=== PATIENT | male | born 1970 | race Caucasian/White ===

== ENCOUNTER → 2019-07-14 | Outpatient (CLI) | payer BC, MEDICARE ==
--- NOTE | 2019-07-14 13:35 | KCIC ---
LUMBAR SPINE WO CONTRAST History: Left leg and back pain. Technique: Multiplanar, multi sequential MR imaging was performed of the lumbar spine. Comparison: None Findings: Grade 1 anterolisthesis L4 on L5. Minimal retrolisthesis L5 on S1. Normal vertebral body height. No fracture. No pathologic marrow replacing process. Endplate degenerative changes L5-S1. Conus terminates at the normal location. No evidence of nerve root clumping. L1-L2: No canal or neuroforaminal narrowing. L2-L3: No canal or neuroforaminal narrowing. L3-L4: Minimal posterior disc bulge. No canal or neuroforaminal narrowing. Mild facet arthropathy. L4-L5: Anterolisthesis. Disc uncovering. Slight left foraminal disc protrusion. Advanced facet arthropathy. No canal narrowing. Mild left neural foraminal narrowing. L5-S1: Minimal retrolisthesis. Broad-based disc bulge. Superimposed central disc protrusion with annular fissure. Moderate facet arthropathy. Slight abutment of the descending right S1 nerve root within the subarticular recess. No canal narrowing. Mild bilateral neural foraminal narrowing. Impression: 1. Lower lumbar spondylosis with advanced L4-L5 facet arthropathy contributing to grade 1 anterolisthesis L4 on L5. 2. L5-S1 right central disc protrusion contacting the descending right S1 nerve root. Correlate for radiculopathy. 3. Mild bilateral L5-S1 and left L4-L5 neuroforaminal narrowing. Electronically signed by: Elier Aquino DO (07/14/2019 1:32 PM) [id number]
== END | disposition home or self-care (01) ==
LOC: KCIC MRI 10:24
PROVIDERS: ATTEND Orthopaedic Surgery
DX: M47.26 Other spondylosis with radiculopathy, lumbar region (principal); M51.17 Intervertebral disc disorders with radiculopathy, lumbosacral region; M48.061 Spinal stenosis, lumbar region without neurogenic claudication; M12.88 Other specific arthropathies, not elsewhere classified, other specified site
CPT/HCPCS: 72148

== ENCOUNTER 2019-08-16 15:50 | Emergency (ER) | payer BC, MEDICARE ==
[~2019-08-16] VITALS: Ht 170.2 cm; Wt 104.3 kg
[2019-08-16 15:59] VITALS: BP 159/105
[2019-08-16] MEDS ORDERED: NAPROXEN 500 MG TABLET PO STA (16:10)
[2019-08-16] MEDS ORDERED: HYDROcodone/APAP 5/325MG 1 TAB TABLET PO ONE (16:15)
--- NOTE | 2019-08-16 16:29 | PHYS DOC ---
Past Medical History Past Medical History: Diabetes-Type II, Hypertension Alcohol Use: None Drug Use: None Adult General Chief Complaint Chief Complaint: MECHANICAL FALL HPI HPI Patient is a 48 year old male with history of diabetes type 2, hypertension among bilateral knee replacement who presents to the ED today complaining of shooting 9 out of 10 left knee pain that began 4 days ago after he tripped on his feet and fell. Patient denies any loss of consciousness. States the pain is worse on weight bearing. Denies anything specifically relieving the pain. Review of Systems Review of Systems Constitutional: Denies fever or chills [] Musculoskeletal: Reports left knee pain Integument: Denies rash or skin lesions [] Neurologic: Denies headache, focal weakness or sensory changes [] All other systems were reviewed and found to be within normal limits, except as documented in this note. Current Medications Current Medications Current Medications Medications (Trade) Dose Ordered Sig/Jermaine Start Time Stop Time Status Last Admin Dose Admin Acetaminophen/ Hydrocodone Bitart (Lortab 5/325) 2 tab 1X ONCE 08/16/19 16:15 08/16/19 16:16 DC 08/16/19 16:28 2 TAB Naproxen (Naprosyn) 500 mg 1X STAT 08/16/19 16:10 08/16/19 16:14 DC 08/16/19 16:28 500 MG Allergies Allergies Allergies Coded Allergies Type Severity Reaction Last Updated Verified No Known Drug Allergies 08/16/19 No Physical Exam Physical Exam Constitutional: Well developed, well nourished, no acute distress, non-toxic appearance. [] Skin: Warm, dry, no erythema, no rash. [] Back: No tenderness, no CVA tenderness. [] Extremities: Left knee with mild to moderate soft tissue swelling, old healed surgical incision noted midline knee tenderness diffusely throughout the anterior aspect of the knee. Slightly Limited range of motion to the left knee due to pain patient able to straighten the knee and flex it a little. +2 left pedal pulse. Cap refill less than 2 seconds and left lower extremity. Sensation intact to the left lower extremity. Neurologic: Alert and oriented X 3, normal motor function, normal sensory function, no focal deficits noted. [] Psychologic: Affect normal, judgement normal, mood normal. [] Current Patient Data Vital Signs Vital Signs Date Time Temp Pulse Resp B/P (MAP) Pulse Ox O2 Delivery O2 Flow Rate FiO2 11/3/19 15:59 98.2 103 20 159/105 (123) 100 Room Air 98.2 EKG EKG [] Radiology/Procedures Radiology/Procedures []PROCEDURE: KNEE LEFT 4V Exam: Left knee 4 views INDICATION: Fall TECHNIQUE: Frontal, lateral and oblique views of the left knee with sunrise views Comparisons: 06/01/2019 FINDINGS: There is dissociation of the patellar component of the left knee arthroplasty from the posterior aspect of the patella seen best on sunrise view. There is diffuse soft tissue swelling at the knee. Femoral and tibial component of the arthroplasty appear in appropriate position without evidence of complication. There is a large suprapatellar effusion. IMPRESSION: Dissociation of the patellar component of the left knee arthroplasty from the posterior aspect of the patella seen best on sunrise view with surrounding soft tissue swelling and large suprapatellar effusion. Electronically signed by: Brian Cedillo MD (08/16/2019 4:33 PM) [facility] DICTATED and SIGNED BY: BRIAN CEDILLO MD DATE: 08/16/19 1633 Course & Med Decision Making Course & Med Decision Making Pertinent Labs and Imaging studies reviewed. (See chart for details) This is a 48-year-old male patient presenting to the ED today with left knee pain status post falling 4 days ago.left knee x-rays interpreted by radiologist is noted for dissociation of the patellar component of the left knee arthroplasty from the posterior aspect of the patella seen best on sunrise view with surrounding soft tissue swelling and large suprapatellar effusion Above results were discussed with states the dislocation is chronic and patient is to follow-up with orthopedic doctor. Immobilizer applied to the left knee by the ED RN, neurovascular exam is intact. Ice elevation encouraged. Patient has oxycodone at home and instructed to take it as needed. Dragon Disclaimer Dragon Disclaimer This electronic medical record was generated, in whole or in part, using a voice recognition dictation system. Departure Departure Impression: Primary Impression: Fall from standing Additional Impressions: Contusion of left knee Closed patellar dislocation Disposition: HOME, SELF-CARE Condition: STABLE Referrals: CHAU MONTGOMERY APRN (PCP) ELISHA BOWDEN MD follow up in the next one week Patient Instructions: Knee Pain, [id number] Additional Instructions: Please follow up with Dr. Bowden as scheduled. Please ice and elevate the affected extremity Please continue to take your pain medicine at home as needed Problem Qualifiers Primary Impression: Fall from standing Encounter type: initial encounter Qualified Codes: W19.XXXA - Unspecified fall, initial encounter Additional Impressions: Contusion of left knee Encounter type: initial encounter Qualified Codes: S80.02XA - Contusion of left knee, initial encounter Closed patellar dislocation Encounter type: initial encounter Laterality: left Qualified Codes: S83.005A - Unspecified dislocation of left patella, initial encounter MARY POLLACK FRETTED INSTRUMENT INSPECTOR Aug 16, 2019 16:29
--- NOTE | 2019-08-16 16:36 | RAD ---
Exam: Left knee 4 views INDICATION: Fall TECHNIQUE: Frontal, lateral and oblique views of the left knee with sunrise views Comparisons: 06/01/2019 FINDINGS: There is dissociation of the patellar component of the left knee arthroplasty from the posterior aspect of the patella seen best on sunrise view. There is diffuse soft tissue swelling at the knee. Femoral and tibial component of the arthroplasty appear in appropriate position without evidence of complication. There is a large suprapatellar effusion. IMPRESSION: Dissociation of the patellar component of the left knee arthroplasty from the posterior aspect of the patella seen best on sunrise view with surrounding soft tissue swelling and large suprapatellar effusion. Electronically signed by: Brian Guillaume MD (08/16/2019 4:33 PM) [facility]
== END 2019-08-16 17:10 | disposition home or self-care (01) ==
LOC: ER 15:50
DX: S83.095A Other dislocation of left patella, initial encounter (principal); E11.9 Type 2 diabetes mellitus without complications; I10 Essential (primary) hypertension; Z96.653 Presence of artificial knee joint, bilateral; W18.39XA Other fall on same level, initial encounter; Y93.89 Activity, other specified; Y92.89 Other specified places as the place of occurrence of the external cause; Y99.8 Other external cause status
CPT/HCPCS: 29505; 73564; 99284

== ENCOUNTER 2019-09-13 19:17 | Inpatient (IN) | payer BC, MEDICARE ==
[~2019-09-13] VITALS: Ht 170.2 cm; Wt 107.0 kg
[~2019-09-13 19:17] MED LIST: BENA1TAB5 PO; CELE200C PO; CLON0.5T PO; DAPA5TAB PO; DOXE50CA PO; FERR325T14 PO; FLUO40CA2 PO; HYDR-2765 PO; INSU100C4 SQ; INSU100V13 SQ; LEVO100T PO; LEVO25TA55 PO; LISI2.5T PO; LITH150C PO; LITH300T3 PO; LITH450T PO; MELO15TA6 PO; META-21 PO; OXYC10TA PO; OXYC1TAB19 PO; OXYC1TAB8 PO; POTA20TA12 PO; SENN1TAB62 PO; SITA1TAB11 PO; TIZA4CAP3 PO; WARF-31 PO; WARF-78 PO; WARF2TAB96 PO; ZIPR20CA2 PO; ZIPR40CA2 PO; doxipen; doxipen PO; flexeril; geodon PO; hydrocodone
[2019-09-13] MEDS ORDERED: ONDANSETRON PF 4 MG/2 ML VIAL. IV ONE (20:45)
[2019-09-13] MEDS ORDERED: IV NORMAL SALINE 1000ML BAG 1,000 ML IV ONE (20:45)
[2019-09-13] MEDS ORDERED: MORPHINE SULFATE 4 MG/ML VIAL. IV ONE (20:45)
[2019-09-13 21:13] LABS: BASO # 0.1 x10^3/uL (0.0-0.2); BASO % 1 % (0-3); EOS # 0.2 x10^3/uL (0.0-0.7); EOS % 3 % (0-3); HEMATOCRIT 32.4 % (39.0-53.0); HEMOGLOBIN 10.4 g/dL (13.0-17.5); LYMPH # 1.6 x10^3/uL (1.0-4.8); LYMPH % 24 % (24-48); MEAN CORPUSCULAR HEMOGLOBIN 23 pg (25-35); MEAN CORPUSCULAR HGB CONC 32 g/dL (31-37); MEAN CORPUSCULAR VOLUME 72 fL (79-100); MONO # 0.6 x10^3/uL (0.0-1.1); MONO % 9 % (0-9); NEUT # 4.2 x10^3/uL (1.8-7.7); NEUT % 64 % (31-73); PLATELET COUNT 471 x10^3/uL (140-400); RED BLOOD COUNT 4.48 x10^6/uL (4.30-5.70); RED CELL DISTRIBUTION WIDTH 16.3 % (11.5-14.5); WHITE BLOOD COUNT 6.6 x10^3/uL (4.0-11.0)
[2019-09-13 21:21] LABS: CALCIUM 9.4 mg/dL (8.5-10.1); CREATININE 0.9 mg/dL (0.7-1.3); GFR 89.7; POTASSIUM 3.1 mmol/L (3.5-5.1)
[2019-09-13 21:26] LABS: ALBUMIN 3.2 g/dL (3.4-5.0); ALBUMIN/GLOBULIN RATIO 0.6 (1.0-1.7); TOTAL BILIRUBIN 0.3 mg/dL (0.2-1.0); TOTAL PROTEIN 8.5 g/dL (6.4-8.2)
[2019-09-13] MEDS ORDERED: IOHEXOL 300 MG/ML 100ML VIAL. IV ONE (21:45)
[2019-09-13] MEDS ORDERED: CONTRAST GIVEN. MC PRN (21:45)
--- NOTE | 2019-09-13 22:03 | RAD ---
CT left knee with contrast PQRS statement: CT scans at this facility use dose reduction including either automated exposure control, iterative reconstructions, and /or weight based radiation dosing via mA and kV modification when appropriate to reduce radiation dose to as low as reasonably achievable. HISTORY: Left leg swelling and draining wound. Contrast: 75 mL Omnipaque 300 intravenous contrast. FINDINGS: At the anterior infrapatellar knee and upper calf overlying the proximal tibia there is a soft tissue air and fluid collection extending to a draining wound at the skin surface, this collection measures 9 cm craniocaudal by 7 cm transverse by 4 cm AP likely an abscess bubbles of air likely from the wound of the scan although gas-forming organism infection is also possible. There is exuberant surrounding soft tissue edema at the anterior knee and upper calf. There is a probable mild suprapatellar joint effusion and surrounding edema could indicate septic arthritis. There is a 3 cm Lopez's cyst somewhat obscured by streak artifact. Total knee arthroplasty. No fracture or dislocation. There is bony lysis of the tibial plateau subjacent of the hardware with resorption of most of the bone cement with a thickness of the lysis of up to 1 cm consistent with loosening, there is disruption of the anterior tibial cortex adjacent of the fluid collection, this is suspicious for osteomyelitis. IMPRESSION: 9 x 7 x 4 cm fluid collection at the anterior upper calf and infrapatellar knee suspicious for abscess with extensive surrounding soft tissue edema. The posterior margin of the abscess extends to a defect of the anterior tibial plateau cortex likely a cloaca associated with loosening of the tibial hardware with bone lysis from osteomyelitis as described above. Electronically signed by: Ben Bell MD (09/13/2019 10:00 PM) [facility]
[2019-09-13] MEDS ORDERED: ONDANSETRON PF 4 MG/2 ML VIAL. IV PRN (22:30)
[2019-09-13] MEDS ORDERED: VANCOMYCIN PER PHARMACY MC PRN (22:30)
--- NOTE | 2019-09-13 22:31 | PHYS DOC ---
Past Medical History Past Medical History: Bipolar, Diabetes-Type II, Hypertension (BRIT LIU APRN) Past Surgical History: Knee Replacement Additional Past Surgical Histo: SESAR. KNEE REPLACEMENTS; LEFT 05/01 WITH REVISION 06/01; RIGHT 5 YEARS AGO (BRIT LIU APRN) Additional Information: QUIT SMOKING CIGARS ABOUT 3 MONTHS AGO Alcohol Use: None Drug Use: None (BRIT LIU APRN) Attending Signature I have participated in the care of this patient and I have reviewed and agree with all pertinent clinical information above including history, exam, and recommendations. (EVELYNE HAYNES MD) Adult General Chief Complaint Chief Complaint: KNEE SWELLING HPI HPI Patient is a 48 year old male, accompanied by his family, who presents to the emergency department with complaints of red and swollen area below his left knee that has been draining pus this afternoon. Patient states that he first noticed the mary swollen area this morning. Patient states that he had his left knee replaced by Dr. Bowden 7 months ago and that was followed by an I&D of the site for infection approximately one month after his surgery. He denies any fever, numbness, tingling, weakness, or any known injury. He currently rates his pain a 9 out of 10 on the pain scale. He denies any alleviating factors, the pain increases if he moves or touches the area. Patient also states that 3 weeks ago he was seen here and diagnosed with a dislocated kneecap in the emergency department. He has tried following up with Dr. Bowden but states that his appointments with the office been canceled 3 times. All other ROS is neg unless otherwise noted in HPI. (BRIT LIU APRN) Review of Systems Review of Systems See Above (BRIT LIU APRN) Current Medications Current Medications Current Medications Medications (Trade) Dose Ordered Sig/Jermaine Start Time Stop Time Status Last Admin Dose Admin Info (CONTRAST GIVEN -- Rx MONITORING) 1 each PRN DAILY PRN 09/13/19 21:45 09/15/19 21:44 DC Iohexol (Omnipaque 300 Mg/ml) 75 ml 1X ONCE 09/13/19 21:45 09/13/19 21:46 DC 09/13/19 21:42 75 ML Morphine Sulfate (Morphine Sulfate) 4 mg PRN Q2HR PRN 09/13/19 22:30 09/14/19 22:29 DC 09/14/19 15:43 4 MG Ondansetron HCl (Zofran) 4 mg PRN Q8HRS PRN 09/13/19 22:30 09/14/19 22:29 DC 09/14/19 17:08 4 MG Sodium Chloride 1,000 ml @ 1,000 mls/hr 1X ONCE 09/13/19 20:45 09/13/19 21:44 DC 09/13/19 21:00 1,000 MLS/HR Vancomycin HCl (Vanco Per Pharmacy) 1 each PRN DAILY PRN 09/13/19 22:30 09/14/19 12:47 DC 09/13/19 23:45 1 EACH (EVELYNE HAYNES MD) Physical Exam Physical Exam See Above Constitutional: Well developed, well nourished, no acute distress, non-toxic appearance. [] HENT: Normocephalic, atraumatic, bilateral external ears normal, nose normal. [] Eyes: PERRLA, EOMI, conjunctiva normal, no discharge. [] Neck: Normal range of motion, no stridor. [] Cardiovascular:Heart rate regular rhythm Lungs & Thorax: Respirations even and unlabored, no retractions, no respiratory distress Skin: Warm, dry; large area of erythema and warmth noted just below left knee to the lower leg with central fluctuant area that is oozing clear drainage, concerning for abscess and cellulitis Extremities: LLE TTP at the area of infection, no cyanosis, ROM intact limited due to pain, 2+ edema of LLE, Neurologic: Alert and oriented X 3, no focal deficits noted. [] Psychologic: Affect normal, judgement normal, mood normal. [] (BRIT LIU APRN) Current Patient Data Vital Signs Vital Signs Date Time Temp Pulse Resp B/P (MAP) Pulse Ox O2 Delivery O2 Flow Rate FiO2 09/13/19 22:21 82 167/105 (125) 95 09/13/19 21:00 20 Room Air 09/13/19 19:51 98.4 98.4 (EVELYNE HAYNES MD) Lab Values Laboratory Tests Test 09/13/19 21:00 White Blood Count 6.6 x10^3/uL (4.0-11.0) Red Blood Count 4.48 x10^6/uL (4.30-5.70) Hemoglobin 10.4 g/dL (13.0-17.5) L Hematocrit 32.4 % (39.0-53.0) L Mean Corpuscular Volume 72 fL (79-100) L Mean Corpuscular Hemoglobin 23 pg (25-35) L Mean Corpuscular Hemoglobin Concent 32 g/dL (31-37) Red Cell Distribution Width 16.3 % (11.5-14.5) H Platelet Count 471 x10^3/uL (140-400) H Neutrophils (%) (Auto) 64 % (31-73) Lymphocytes (%) (Auto) 24 % (24-48) Monocytes (%) (Auto) 9 % (0-9) Eosinophils (%) (Auto) 3 % (0-3) Basophils (%) (Auto) 1 % (0-3) Neutrophils # (Auto) 4.2 x10^3/uL (1.8-7.7) Lymphocytes # (Auto) 1.6 x10^3/uL (1.0-4.8) Monocytes # (Auto) 0.6 x10^3/uL (0.0-1.1) Eosinophils # (Auto) 0.2 x10^3/uL (0.0-0.7) Basophils # (Auto) 0.1 x10^3/uL (0.0-0.2) Sodium Level 139 mmol/L (136-145) Potassium Level 3.1 mmol/L (3.5-5.1) L Chloride Level 102 mmol/L (98-107) Carbon Dioxide Level 24 mmol/L (21-32) Anion Gap 13 (6-14) Blood Urea Nitrogen 6 mg/dL (8-26) L Creatinine 0.9 mg/dL (0.7-1.3) Estimated GFR (Cockcroft-Gault) 89.7 BUN/Creatinine Ratio 7 (6-20) Glucose Level 158 mg/dL (70-99) H Lactic Acid Level 1.7 mmol/L (0.4-2.0) Calcium Level 9.4 mg/dL (8.5-10.1) Total Bilirubin 0.3 mg/dL (0.2-1.0) Aspartate Amino Transferase (AST) 11 U/L (15-37) L Alanine Aminotransferase (ALT) 8 U/L (16-63) L Alkaline Phosphatase 129 U/L (46-116) H Total Protein 8.5 g/dL (6.4-8.2) H Albumin 3.2 g/dL (3.4-5.0) L Albumin/Globulin Ratio 0.6 (1.0-1.7) L Laboratory Tests 09/13/19 21:00 Laboratory Tests 09/13/19 21:00 (EVELYNE HAYNES MD) EKG EKG [] (BRIT LIU APRN) Radiology/Procedures Radiology/Procedures PROCEDURE: CT LOW EXTREMITY W/CONTRAST LT CT left knee with contrast PQRS statement: CT scans at this facility use dose reduction including either automated exposure control, iterative reconstructions, and /or weight based radiation dosing via mA and kV modification when appropriate to reduce radiation dose to as low as reasonably achievable. HISTORY: Left leg swelling and draining wound. Contrast: 75 mL Omnipaque 300 intravenous contrast. FINDINGS: At the anterior infrapatellar knee and upper calf overlying the proximal tibia there is a soft tissue air and fluid collection extending to a draining wound at the skin surface, this collection measures 9 cm craniocaudal by 7 cm transverse by 4 cm AP likely an abscess bubbles of air likely from the wound of the scan although gas-forming organism infection is also possible. There is exuberant surrounding soft tissue edema at the anterior knee and upper calf. There is a probable mild suprapatellar joint effusion and surrounding edema could indicate septic arthritis. There is a 3 cm Lopez's cyst somewhat obscured by streak artifact. Total knee arthroplasty. No fracture or dislocation. There is bony lysis of the tibial plateau subjacent of the hardware with resorption of most of the bone cement with a thickness of the lysis of up to 1 cm consistent with loosening, there is disruption of the anterior tibial cortex adjacent of the fluid collection, this is suspicious for osteomyelitis. IMPRESSION: 9 x 7 x 4 cm fluid collection at the anterior upper calf and infrapatellar knee suspicious for abscess with extensive surrounding soft tissue edema. The posterior margin of the abscess extends to a defect of the anterior tibial plateau cortex likely a cloaca associated with loosening of the tibial hardware with bone lysis from osteomyelitis as described above. [] (BRIT LIU APRN) Course & Med Decision Making Course & Med Decision Making Pertinent Labs and Imaging studies reviewed. (See chart for details) CBC revealed a normal WBC, Hgb 10.4, Hct 32.4; CMP: K 3.1, glucose 158, lactic acid 1.7, Alk phos 129, total protein 8.5 otherwise unremarkable. A wound culture was obtained in the ER. CT of the LLE revealed: 9 x 7 x 4 cm fluid collection at the anterior upper calf and infrapatellar knee suspicious for abscess with extensive surrounding soft tissue edema. The posterior margin of the abscess extends to a defect of the anterior tibial plateau cortex likely a cloaca associated with loosening of the tibial hardware with bone lysis from osteomyelitis 2229- Decision to admit pt for treatment of left leg abscess and possible osteomylitis was made. Pt admitted to med/surg to Dr. Sol. Vancomycin ord ered. Dr. Bowden consulted. Will admit to Med/surg floor. Dr. Haynes aware of admit. [] (BRIT LIU APRN) Dragon Disclaimer Dragon Disclaimer This electronic medical record was generated, in whole or in part, using a voice recognition dictation system. (BRIT LIU APRN) Departure Departure Impression: Primary Impression: Abscess of leg, left Disposition: ADMITTED INPATIENT Admitting Physician: ANDREE Daugherty) (BRIT LIU APRN) Condition: STABLE Referrals: CHAU MONTGOMERY APRN (PCP) BRIT LIU APRN Sep 13, 2019 22:31 EVELYNE HAYNES MD Sep 16, 2019 18:19
[2019-09-13] MEDS ORDERED: VANCOMYCIN 2 GM in IV NORMAL SALINE 500ML BAG 500 ML IV ONE (23:00)
[2019-09-13] MEDS ORDERED: POTASSIUM CHLORIDE 20 MEQ TABLET.ER. PO ONE (23:30)
--- NOTE | 2019-09-13 23:48 | NUR ---
Pharmacy Vancomycin Dosing Note S:Consulted to monitor and dose vancomycin started 09/13/19. O:VIRY COOMBS is a 48 year old M with Abscess Osteomyelitis . Height: 5 feet, 7 inches Weight: 108.376434 kg [place] Body Weight: 66.10 Adjusted Body Weight: 83.18 Dosing Weight: Other Antibiotics: LABS: Last BUN: 6 Last Creatinine: 0.9 Creatinine Clearance: 116.8 mL/min Last WBC: 6.6 Last Procalcitonin: Tmax (past 24 hours): Microbiology: I/O: Drug Levels: Last level: on at Last dose given at Vancomycin Dosing: Loading Dose: 2000 mg x1 09/13/19 2255 Dosing Weight: Target Trough: 15-20 A: Based on: Actual Wt and CrCl P: 1. 09/14/19 1100 Vancomycin 1750 mg IV q12h 2. Follow up Trough level on 09/15/19 at 1030 3. Pharmacy will continue to monitor, follow and adjust therapy as needed. TILA ROMEO RPH, 09/13/19 2349 Signed: 09/13/19 at 2350 by TILA ROMEO RPH PHA
[2019-09-13 23:50] VITALS: BP 158/94
--- NOTE | 2019-09-13 23:50 | NUR ---
Pt. arrived on unit at this time by wheelchair from ED. Pt. is A&Ox4, on room air and complains of pain being 7/10. His Rolanda and mom Mohini are at the bedside. Admission assessment and admission questions were done at this time. Call light was placed at bedside with bed in lowest position. Will continue to monitor.
[2019-09-14] MEDS: MORPHINE SULFATE 4 MG/ML VIAL. IV PRN ×6 (00:41→15:43)
[2019-09-14] MEDS ORDERED: NON FORMULARY ITEM PO ONE (01:45)
[2019-09-14 03:00] VITALS: BP 138/89
[2019-09-14 06:49] LABS: CALCIUM 8.9 mg/dL (8.5-10.1); CREATININE 0.8 mg/dL (0.7-1.3); GFR 102.7; POTASSIUM 3.2 mmol/L (3.5-5.1)
[2019-09-14 07:00] VITALS: BP 142/96
--- NOTE | 2019-09-14 07:28 | PDOC2 ---
ROBERTOMADYSON Ebony SALES REPRESENTATIVE CONSULTANT 09/14/19 0728: CONSULT Date of Consult Date of Consult DATE: 09/14/19 TIME: 07:16 Reason for Consult Reason for Consult: Infected left knee Referring Physician Referring Physician: Dr Sol Identification/Chief Complaint Chief Complaint Left knee pain with purulent drainage. Source Source: Chart review, Patient History of Present Illness Reason for Visit: Patient is known to our service from L TKA several months ago, and has had recent fall with damage to the patella and tibia, now presents with infected Left knee that opened up within the last 2-3 days. Past Surgical History Past Surgical History: Total knee replacement (left TKA) Current Medications Current Medications Current Medications Sodium Chloride 1,000 ml @ 1,000 mls/hr 1X ONCE IV Last administered on 09/13/19at 21:00; Start 09/13/19 at 20:45; Stop 09/13/19 at 21:44; Status DC Ondansetron HCl (Zofran) 4 mg 1X ONCE IV Last administered on 09/13/19at 21:00; Start 09/13/19 at 20:45; Stop 09/13/19 at 20:46; Status DC Morphine Sulfate (Morphine Sulfate) 4 mg 1X ONCE IV Last administered on 09/13at 21:00; Start 09/13/19 at 20:45; Stop 09/13/19 at 20:46; Status DC Iohexol (Omnipaque 300 Mg/ml) 75 ml 1X ONCE IV Last administered on 09/13/19at 21:42; Start 09/13/19 at 21:45; Stop 09/13/19 at 21:46; Status DC Info (CONTRAST GIVEN -- Rx MONITORING) 1 each PRN DAILY PRN MC SEE COMMENTS; Start 09/13/19 at 21:45; Stop 09/15/19 at 21:44 Vancomycin HCl (Vanco Per Pharmacy) 1 each PRN DAILY PRN MC SEE COMMENTS Last administered on 09/13/19at 23:45; Start 09/13/19 at 22:30 Ondansetron HCl (Zofran) 4 mg PRN Q8HRS PRN IV NAUSEA/VOMITING; Start 09/13/19 at 22:30; Stop 09/14/19 at 22:29 Morphine Sulfate (Morphine Sulfate) 4 mg PRN Q2HR PRN IV PAIN Last administered on 09/14/19at 06:12; Start 09/13/19 at 22:30; Stop 09/14/19 at 22:29 Vancomycin HCl 2 gm/Sodium Chloride 500 ml @ 250 mls/hr 1X ONCE IV Last administered on 09/13/19at 22:55; Start 09/13/19 at 23:00; Stop 09/14/19 at 00 :59; Status DC Potassium Chloride (Klor-Con) 40 meq 1X ONCE PO Last administered on 09/13/19at 23:30; Start 09/13/19 at 23:30; Stop 09/13/19 at 23:31; Status DC Vancomycin HCl 1.75 gm/Sodium Chloride 500 ml @ 250 mls/hr Q12H IV ; Start 09/14/19 at 11:00 Vancomycin HCl (Vancomycin Trough Level) 1 each 1X ONCE MC ; Start 09/15/19 at 10:30; Stop 09/15/19 at 10:31 Non-Formulary Medication 2 ea HS PO ; Start 09/14/19 at 21:00 Non-Formulary Medication 2 ea 1X ONCE PO Last administered on 09/14/19at 02:05; Start 09/14/19 at 01:45; Stop 09/14/19 at 01:46; Status DC Allergies Allergies: Coded Allergies: No Known Drug Allergies (Unverified , 08/16/19) Physical Exam General: Alert, Oriented X3, Cooperative, No acute distress MUSCULOSKELETAL: Abnormal exam of left (Left knee with raises swollen area over the anterior knee with purulent drainage, minimal redness or warmth noted. Patient unable to completely extend knee.) Vitals VITALS Vital Signs Date Time Temp Pulse Resp B/P (MAP) Pulse Ox O2 Delivery O2 Flow Rate FiO2 09/14/19 06:42 Room Air 09/14/19 03:00 98.4 84 16 138/89 (105) 97 98.4 Labs Labs Laboratory Tests Test 09/13/19 21:00 09/14/19 03:20 09/14/19 04:10 White Blood Count 6.6 x10^3/uL (4.0-11.0) Red Blood Count 4.48 x10^6/uL (4.30-5.70) Hemoglobin 10.4 g/dL (13.0-17.5) Hematocrit 32.4 % (39.0-53.0) Mean Corpuscular Volume 72 fL (79-100) Mean Corpuscular Hemoglobin 23 pg (25-35) Mean Corpuscular Hemoglobin Concent 32 g/dL (31-37) Red Cell Distribution Width 16.3 % (11.5-14.5) Platelet Count 471 x10^3/uL (140-400) Neutrophils (%) (Auto) 64 % (31-73) Lymphocytes (%) (Auto) 24 % (24-48) Monocytes (%) (Auto) 9 % (0-9) Eosinophils (%) (Auto) 3 % (0-3) Basophils (%) (Auto) 1 % (0-3) Neutrophils # (Auto) 4.2 x10^3/uL (1.8-7.7) Lymphocytes # (Auto) 1.6 x10^3/uL (1.0-4.8) Monocytes # (Auto) 0.6 x10^3/uL (0.0-1.1) Eosinophils # (Auto) 0.2 x10^3/uL (0.0-0.7) Basophils # (Auto) 0.1 x10^3/uL (0.0-0.2) Sodium Level 139 mmol/L (136-145) 141 mmol/L (136-145) Potassium Level 3.1 mmol/L (3.5-5.1) 3.2 mmol/L (3.5-5.1) Chloride Level 102 mmol/L (98-107) 108 mmol/L (98-107) Carbon Dioxide Level 24 mmol/L (21-32) 22 mmol/L (21-32) Anion Gap 13 (6-14) 11 (6-14) Blood Urea Nitrogen 6 mg/dL (8-26) 5 mg/dL (8-26) Creatinine 0.9 mg/dL (0.7-1.3) 0.8 mg/dL (0.7-1.3) Estimated GFR (Cockcroft-Gault) 89.7 102.7 BUN/Creatinine Ratio 7 (6-20) Glucose Level 158 mg/dL (70-99) 135 mg/dL (70-99) Lactic Acid Level 1.7 mmol/L (0.4-2.0) Calcium Level 9.4 mg/dL (8.5-10.1) 8.9 mg/dL (8.5-10.1) Total Bilirubin 0.3 mg/dL (0.2-1.0) Aspartate Amino Transf (AST/SGOT) 11 U/L (15-37) Alanine Aminotransferase (ALT/SGPT) 8 U/L (16-63) Alkaline Phosphatase 129 U/L (46-116) Total Protein 8.5 g/dL (6.4-8.2) Albumin 3.2 g/dL (3.4-5.0) Albumin/Globulin Ratio 0.6 (1.0-1.7) Glucose (Fingerstick) 139 mg/dL (70-99) Laboratory Tests Test 09/13/19 21:00 09/14/19 03:20 09/14/19 04:10 White Blood Count 6.6 x10^3/uL (4.0-11.0) Red Blood Count 4.48 x10^6/uL (4.30-5.70) Hemoglobin 10.4 g/dL (13.0-17.5) Hematocrit 32.4 % (39.0-53.0) Mean Corpuscular Volume 72 fL (79-100) Mean Corpuscular Hemoglobin 23 pg (25-35) Mean Corpuscular Hemoglobin Concent 32 g/dL (31-37) Red Cell Distribution Width 16.3 % (11.5-14.5) Platelet Count 471 x10^3/uL (140-400) Neutrophils (%) (Auto) 64 % (31-73) Lymphocytes (%) (Auto) 24 % (24-48) Monocytes (%) (Auto) 9 % (0-9) Eosinophils (%) (Auto) 3 % (0-3) Basophils (%) (Auto) 1 % (0-3) Neutrophils # (Auto) 4.2 x10^3/uL (1.8-7.7) Lymphocytes # (Auto) 1.6 x10^3/uL (1.0-4.8) Monocytes # (Auto) 0.6 x10^3/uL (0.0-1.1) Eosinophils # (Auto) 0.2 x10^3/uL (0.0-0.7) Basophils # (Auto) 0.1 x10^3/uL (0.0-0.2) Sodium Level 139 mmol/L (136-145) 141 mmol/L (136-145) Potassium Level 3.1 mmol/L (3.5-5.1) 3.2 mmol/L (3.5-5.1) Chloride Level 102 mmol/L (98-107) 108 mmol/L (98-107) Carbon Dioxide Level 24 mmol/L (21-32) 22 mmol/L (21-32) Anion Gap 13 (6-14) 11 (6-14) Blood Urea Nitrogen 6 mg/dL (8-26) 5 mg/dL (8-26) Creatinine 0.9 mg/dL (0.7-1.3) 0.8 mg/dL (0.7-1.3) Estimated GFR (Cockcroft-Gault) 89.7 102.7 BUN/Creatinine Ratio 7 (6-20) Glucose Level 158 mg/dL (70-99) 135 mg/dL (70-99) Lactic Acid Level 1.7 mmol/L (0.4-2.0) Calcium Level 9.4 mg/dL (8.5-10.1) 8.9 mg/dL (8.5-10.1) Total Bilirubin 0.3 mg/dL (0.2-1.0) Aspartate Amino Transf (AST/SGOT) 11 U/L (15-37) Alanine Aminotransferase (ALT/SGPT) 8 U/L (16-63) Alkaline Phosphatase 129 U/L (46-116) Total Protein 8.5 g/dL (6.4-8.2) Albumin 3.2 g/dL (3.4-5.0) Albumin/Globulin Ratio 0.6 (1.0-1.7) Glucose (Fingerstick) 139 mg/dL (70-99) Images Images CT scan with [id number] fluid collection anterior calf and infrapatellar knee suspicious for abscess.Noted dislocation of patellar implant with tibial depression of component. Assessment/Plan Assessment/Plan Patient will require surgical I&D and possible antibiotic spacer placement for treatment per Dr Bowden tomorrow. NPO after midnight Awaiting culture results ID to see. SABRINA ALMAZAN II, MD 09/14/19 6706: CONSULT Identification/Chief Complaint Chief Complaint He had underwent a total knee arthroplasty with my colleague several months ago. Recently, he has noted more falling and pain around his entire knee. What brought into the emergency department was a pocket of swelling that started to break open. The swelling recently just started, 1-2 days ago. He denies any fevers or chills. His pain is worse with bending the knee or trying to ambulate. He doesn't really radiate. ROS General: No: Chills, Night Sweats, Fatigue, Malaise, Appetite, Other PSYCHOLOGICAL ROS: No: Anxiety, Behavioral Disorder, Concentration difficultie, Decreased libido, Depression, Disorientation, Hallucinations, Hostility, Irritablity, Memory difficulties, Mood Swings, Obsessive thoughts, Physical abuse, Sexual abuse, Sleep disturbances, Suicidal ideation, Other Eyes: No Blurry vision, No Decreased vision, No Double vision, No Dry eyes, No Excessive tearing, No Eye Pain, No Itchy Eyes, No Loss of vision, No Photophobia, No Scotomata, No Uses contacts, No Uses glasses, No Other HEENT: No: Heacaches, Visual Changes, Hearing change, Nasal congestion, Nasal discharge, Oral lesions, Sinus pain, Sore Throat, Epistaxis, Sneezing, Snoring, Tinnitus, Vertigo, Vocal changes, Other ALLERGY AND IMMUNOLOGY: No: Hives, Insect Bite Sensitivity, Itchy/Watery Eyes, Nasal Congestion, Post Nasal Drip, Seasonal Allergies, Other Hematological and Lymphatic: No: Bleeding Problems, Blood Clots, Blood Transfusions, Brusing, Night Sweats, Pallor, Swollen Lymph Nodes, Other ENDOCRINE: No: Breast Changes, Galactorrhea, Hair Pattern Changes, Hot Flashes, Malaise/lethargy, Mood Swings, Palpitations, Polydipsia/polyuria, Skin Changes, Temperature Intolerance, Unexpected Weight Changes, Other Respiratory: No: Cough, Hemoptysis, Orthopnea, Pleuritic Pain, Shortness of breath, SOB with excertion, Sputum Changes, Stridor, Tachypnea, Wheezing, Other Cardiovascular: No Chest Pain, No Palpitations, No Orthopnea, No Paroxysmal Noc. Dyspnea, No Edema, No Lt Headedness, No Other Gastrointestinal: No Nausea, No Vomiting, No Abdominal Pain, No Diarrhea, No Constipation, No Melena, No Hematochezia, No Other Genitourinary: No Dysuria, No Frequency, No Incontinence, No Hematuria, No Retention, No Discharge, No Urgency, No Pain, No Flank Pain, No Other, No , No , No , No , No , No , No Musculoskeletal: Yes Gait Disturbance, Yes Joint Pain, Yes Joint Stiffness Neurological: No Behavorial Changes, No Bowel/Bladder ControlChng, No Confusion, No Dizziness, No Gait Disturbance, No Headaches, No Impaired Coord/balance, No Memory Loss, No Numbness/Tingling, No Seizures, No Speech Problems, No Tremors, No Visual Changes, No Weakness, No Other Skin: No Dry Skin, No Eczema, No Hair Changes, No Lumps, No Mole Changes, No Mottling, No Nail Changes, No Pruritus, No Rash, No Skin Lesion Changes, No Other, No Acne Physical Exam General: Alert, Oriented X3, No acute distress HEENT: Atraumatic, EOMI Lungs: Other (respirations are unlabored with symmetric chest rise) Heart: Regular rate Abdomen: Soft, No tenderness Extremities: Normal pulses Neuro: Normal speech, Strength at 5/5 X4 ext, Sensation intact Psych/Mental Status: Mental status NL, Mood NL Assessment/Plan Assessment/Plan I performed a history and physical examination and review the imaging findings. I discussed the overall clinical scenario with the patient and answered he and his 's questions. MADYSON MEJIA APRN Sep 14, 2019 07:28 SABRINA ALMAZAN II, MD Sep 14, 2019 09:21
[2019-09-14] MEDS ORDERED: LIDO700A21 TP (08:30)
[2019-09-14] MEDS ORDERED: CLONAZEPAM1 MG PO (08:30)
[2019-09-14] MEDS ORDERED: LITH300C PO (08:30)
[2019-09-14] MEDS ORDERED: SITA1TAB11 PO (08:30)
[2019-09-14] MEDS ORDERED: LEVO100T5 PO (08:30)
[2019-09-14] MEDS ORDERED: DOXE150C2 PO (08:30)
[2019-09-14] MEDS ORDERED: LISI-338 PO (08:30)
[2019-09-14] MEDS ORDERED: TIZA4TAB2 PO (08:30)
[2019-09-14] MEDS ORDERED: OXYC1TAB19 PO (08:30)
--- NOTE | 2019-09-14 08:53 | PDOC1 ---
History and Physical Date of Admission Date of Admission DATE: 09/14/19 TIME: 08:46 Identification/Chief Complaint Chief Complaint left knee pain Source Source: Chart review, Patient History of Present Illness History of Present Illness Mr. Barton, is a 48 year old male, with severe left knee pain, he has a red and swollen area below his left knee that has been draining pus for 24 hours he has had trouble since surgery with Dr. Bowden 7 months ago and that was followed by an I&D of the site for infection one month later, he has had pain and ongoing problems for 7 months. He denies any fever, numbness, tingling, weakness, or any known injury. He currently rates his pain a 8 out of 10 on the pain scale and has gotten iv morphine he had a severe fall 3 weeks ago causing a dislocated kneecap, Past Medical History Cardiovascular: HTN Heme/Onc: No pertinent hx Hepatobiliary: No pertinent hx Psych: No pertinent hx, Bipolar, Other Musculoskeletal: low back pain Rheumatologic: No pertinent hx ENT: No pertinent hx Endocrine: Hypothyroidism Dermatology: No pertinent hx Past Surgical History Past Surgical History: Total knee replacement (left TKA) Family History Family History: No Significant Social History ALCOHOL: none Drugs: None Current Medications Current Medications Current Medications Sodium Chloride 1,000 ml @ 1,000 mls/hr 1X ONCE IV Last administered on 09/13/19at 21:00; Start 09/13/19 at 20:45; Stop 09/13/19 at 21:44; Status DC Ondansetron HCl (Zofran) 4 mg 1X ONCE IV Last administered on 09/13/19at 21:00; Start 09/13/19 at 20:45; Stop 09/13/19 at 20:46; Status DC Morphine Sulfate (Morphine Sulfate) 4 mg 1X ONCE IV Last administered on 09/13/19at 21:00; Start 09/13/19 at 20:45; Stop 09/13/19 at 20:46; Status DC Iohexol (Omnipaque 300 Mg/ml) 75 ml 1X ONCE IV Last administered on 09/13/19at 21:42; Start 09/13/19 at 21:45; Stop 09/13/19 at 21:46; Status DC Info (CONTRAST GIVEN -- Rx MONITORING) 1 each PRN DAILY PRN MC SEE COMMENTS; Start 09/13/19 at 21:45; Stop 09/15/19 at 21:44 Vancomycin HCl (Vanco Per Pharmacy) 1 each PRN DAILY PRN MC SEE COMMENTS Last administered on 09/13/19at 23:45; Start 09/13/19 at 22:30 Ondansetron HCl (Zofran) 4 mg PRN Q8HRS PRN IV NAUSEA/VOMITING; Start 09/13/19 at 22:30; Stop 09/14/19 at 22:29 Morphine Sulfate (Morphine Sulfate) 4 mg PRN Q2HR PRN IV PAIN Last administered on 09/14/19at 08:15; Start 09/13/19 at 22:30; Stop 09/14/19 at 22:29 Vancomycin HCl 2 gm/Sodium Chloride 500 ml @ 250 mls/hr 1X ONCE IV Last administered on 09/13/19at 22:55; Start 09/13/19 at 23:00; Stop 09/14/19 at 00:59; Status DC Potassium Chloride (Klor-Con) 40 meq 1X ONCE PO Last administered on 09/13/19at 23:30; Start 09/13/19 at 23:30; Stop 09/13/19 at 23:31; Status DC Vancomycin HCl 1.75 gm/Sodium Chloride 500 ml @ 250 mls/hr Q12H IV ; Start 09/14/19 at 11:00 Vancomycin HCl (Vancomycin Trough Level) 1 each 1X ONCE MC ; Start 09/15/19 at 10:30; Stop 09/15/19 at 10:31 Non-Formulary Medication 2 ea HS PO ; Start 09/14/19 at 21:00 Non-Formulary Medication 2 ea 1X ONCE PO Last administered on 09/14/19at 02:05; Start 09/14/19 at 01:45; Stop 09/14/19 at 01:46; Status DC Active Scripts Active Reported Lidocaine PATCH (Lidocaine) 1 Each Adh..patch 1 Each TP DAILY REMOVE AFTER 12 HOURS Doxepin Hcl 150 Mg Capsule 1 Cap PO QHS 30 Days Lisinopril 5 Mg Tablet 1 Tab PO DAILY Percocet 7.5-325 Mg Tablet (Oxycodone/Acetaminophen) 1 Each Tablet 1 Tab PO PRN Q6HRS PRN Janumet 50-1,000 Mg Tablet (Sitagliptin Phos/Metformin Hcl) 1 Each Tablet 1 Tab PO BID [place] Carbonate 300 Mg Capsule 2 Cap PO HS Clonazepam 1 Mg Tablet 1 Mg PO BID Tizanidine Hcl 4 Mg Tablet 4 Mg PO TID PRN Levothyroxine Sodium 100 Mcg Tablet 1 Tab PO DAILY Allergies Allergies: Coded Allergies: No Known Drug Allergies (Unverified , 08/16/19) ROS General: No: Chills, Night Sweats, Fatigue, Malaise, Appetite, Other PSYCHOLOGICAL ROS: No: Anxiety, Behavioral Disorder, Concentration difficultie, Decreased libido, Depression, Disorientation, Hallucinations, Hostility, Irritablity, Memory difficulties, Mood Swings, Obsessive thoughts, Physical abuse, Sexual abuse, Sleep disturbances, Suicidal ideation, Other Eyes: No Blurry vision, No Decreased vision, No Double vision, No Dry eyes, No Excessive tearing, No Eye Pain, No Itchy Eyes, No Loss of vision, No Photophobia, No Scotomata, No Uses contacts, No Uses glasses, No Other HEENT: No: Heacaches, Visual Changes, Hearing change, Nasal congestion, Nasal discharge, Oral lesions, Sinus pain, Sore Throat, Epistaxis, Sneezing, Snoring, Tinnitus, Vertigo, Vocal changes, Other Respiratory: No: Cough, Hemoptysis, Orthopnea, Pleuritic Pain, Shortness of breath, SOB with excertion, Sputum Changes, Stridor, Tachypnea, Wheezing, Other Cardiovascular: No Chest Pain, No Palpitations, No Orthopnea, No Paroxysmal Noc. Dyspnea, No Edema, No Lt Headedness, No Other Gastrointestinal: No Nausea, No Vomiting, No Abdominal Pain, No Diarrhea, No Constipation, No Melena, No Hematochezia, No Other Genitourinary: No Dysuria, No Frequency, No Incontinence, No Hematuria, No Retention, No Discharge, No Urgency, No Pain, No Flank Pain, No Other, No , No , No , No , No , No , No Musculoskeletal: Yes Gait Disturbance, Yes Joint Pain, Yes Joint Stiffness, Yes Joint Swelling, Yes Pain In:, Yes Swelling In:; No Muscle Pain, No Muscular Weakness, No Other Neurological: No Behavorial Changes, No Bowel/Bladder ControlChng, No Confusion, No Dizziness, No Gait Disturbance, No Headaches, No Impaired Coord/balance, No Memory Loss, No Numbness/Tingling, No Seizures, No Speech Problems, No Tremors, No Visual Changes, No Weakness, No Other Skin: No Dry Skin, No Eczema, No Hair Changes, No Lumps, No Mole Changes, No Mottling, No Nail Changes, No Pruritus, No Rash, No Skin Lesion Changes, No Other, No Acne Physical Exam General: Alert, Oriented X3, Cooperative, mild distress HEENT: Atraumatic, PERRLA Lungs: Clear to auscultation Heart: S1S2, RRR Abdomen: Normal bowel sounds, Soft Extremities: No cyanosis, Other (left leg swelling, drainage distal to patella) Skin: No rashes, No breakdown Neuro: Normal speech Psych/Mental Status: Mental status NL, Mood NL Vitals Vitals Vital Signs Date Time Temp Pulse Resp B/P (MAP) Pulse Ox O2 Delivery O2 Flow Rate FiO2 09/14/19 08:15 16 Room Air 09/14/19 07:00 97.9 80 142/96 (111) 99 97.9 Labs Labs Laboratory Tests Test 09/13/19 21:00 09/14/19 03:20 09/14/19 04:10 09/14/19 07:18 White Blood Count 6.6 x10^3/uL (4.0-11.0) Red Blood Count 4.48 x10^6/uL (4.30-5.70) Hemoglobin 10.4 g/dL (13.0-17.5) Hematocrit 32.4 % (39.0-53.0) Mean Corpuscular Volume 72 fL (79-100) Mean Corpuscular Hemoglobin 23 pg (25-35) Mean Corpuscular Hemoglobin Concent 32 g/dL (31-37) Red Cell Distribution Width 16.3 % (11.5-14.5) Platelet Count 471 x10^3/uL (140-400) Neutrophils (%) (Auto) 64 % (31-73) Lymphocytes (%) (Auto) 24 % (24-48) Monocytes (%) (Auto) 9 % (0-9) Eosinophils (%) (Auto) 3 % (0-3) Basophils (%) (Auto) 1 % (0-3) Neutrophils # (Auto) 4.2 x10^3/uL (1.8-7.7) Lymphocytes # (Auto) 1.6 x10^3/uL (1.0-4.8) Monocytes # (Auto) 0.6 x10^3/uL (0.0-1.1) Eosinophils # (Auto) 0.2 x10^3/uL (0.0-0.7) Basophils # (Auto) 0.1 x10^3/uL (0.0-0.2) Sodium Level 139 mmol/L (136-145) 141 mmol/L (136-145) Potassium Level 3.1 mmol/L (3.5-5.1) 3.2 mmol/L (3.5-5.1) Chloride Level 102 mmol/L (98-107) 108 mmol/L (98-107) Carbon Dioxide Level 24 mmol/L (21-32) 22 mmol/L (21-32) Anion Gap 13 (6-14) 11 (6-14) Blood Urea Nitrogen 6 mg/dL (8-26) 5 mg/dL (8-26) Creatinine 0.9 mg/dL (0.7-1.3) 0.8 mg/dL (0.7-1.3) Estimated GFR (Cockcroft-Gault) 89.7 102.7 BUN/Creatinine Ratio 7 (6-20) Glucose Level 158 mg/dL (70-99) 135 mg/dL (70-99) Lactic Acid Level 1.7 mmol/L (0.4-2.0) Calcium Level 9.4 mg/dL (8.5-10.1) 8.9 mg/dL (8.5-10.1) Total Bilirubin 0.3 mg/dL (0.2-1.0) Aspartate Amino Transf (AST/SGOT) 11 U/L (15-37) Alanine Aminotransferase (ALT/SGPT) 8 U/L (16-63) Alkaline Phosphatase 129 U/L (46-116) Total Protein 8.5 g/dL (6.4-8.2) Albumin 3.2 g/dL (3.4-5.0) Albumin/Globulin Ratio 0.6 (1.0-1.7) Glucose (Fingerstick) 139 mg/dL (70-99) 142 mg/dL (70-99) Laboratory Tests Test 09/13/19 21:00 09/14/19 03:20 09/14/19 04:10 09/14/19 07:18 White Blood Count 6.6 x10^3/uL (4.0-11.0) Red Blood Count 4.48 x10^6/uL (4.30-5.70) Hemoglobin 10.4 g/dL (13.0-17.5) Hematocrit 32.4 % (39.0-53.0) Mean Corpuscular Volume 72 fL (79-100) Mean Corpuscular Hemoglobin 23 pg (25-35) Mean Corpuscular Hemoglobin Concent 32 g/dL (31-37) Red Cell Distribution Width 16.3 % (11.5-14.5) Platelet Count 471 x10^3/uL (140-400) Neutrophils (%) (Auto) 64 % (31-73) Lymphocytes (%) (Auto) 24 % (24-48) Monocytes (%) (Auto) 9 % (0-9) Eosinophils (%) (Auto) 3 % (0-3) Basophils (%) (Auto) 1 % (0-3) Neutrophils # (Auto) 4.2 x10^3/uL (1.8-7.7) Lymphocytes # (Auto) 1.6 x10^3/uL (1.0-4.8) Monocytes # (Auto) 0.6 x10^3/uL (0.0-1.1) Eosinophils # (Auto) 0.2 x10^3/uL (0.0-0.7) Basophils # (Auto) 0.1 x10^3/uL (0.0-0.2) Sodium Level 139 mmol/L (136-145) 141 mmol/L (136-145) Potassium Level 3.1 mmol/L (3.5-5.1) 3.2 mmol/L (3.5-5.1) Chloride Level 102 mmol/L (98-107) 108 mmol/L (98-107) Carbon Dioxide Level 24 mmol/L (21-32) 22 mmol/L (21-32) Anion Gap 13 (6-14) 11 (6-14) Blood Urea Nitrogen 6 mg/dL (8-26) 5 mg/dL (8-26) Creatinine 0.9 mg/dL (0.7-1.3) 0.8 mg/dL (0.7-1.3) Estimated GFR (Cockcroft-Gault) 89.7 102.7 BUN/Creatinine Ratio 7 (6-20) Glucose Level 158 mg/dL (70-99) 135 mg/dL (70-99) Lactic Acid Level 1.7 mmol/L (0.4-2.0) Calcium Level 9.4 mg/dL (8.5-10.1) 8.9 mg/dL (8.5-10.1) Total Bilirubin 0.3 mg/dL (0.2-1.0) Aspartate Amino Transf (AST/SGOT) 11 U/L (15-37) Alanine Aminotransferase (ALT/SGPT) 8 U/L (16-63) Alkaline Phosphatase 129 U/L (46-116) Total Protein 8.5 g/dL (6.4-8.2) Albumin 3.2 g/dL (3.4-5.0) Albumin/Globulin Ratio 0.6 (1.0-1.7) Glucose (Fingerstick) 139 mg/dL (70-99) 142 mg/dL (70-99) VTE Prophylaxis Ordered VTE Prophylaxis Devices: No VTE Pharmacological Prophylaxi: Yes Assessment/Plan Assessment/Plan left knee pain, septic joint w. drainage obesity, BMI 37 bipolar disorder insomnia weakness hypokalemia ortho and ID consults, broad abx home meds reviewed and restated, K+ given CHRIS LIAO MD Sep 14, 2019 08:53
[2019-09-14] MEDS ORDERED: POTASSIUM CHLORIDE 20 MEQ TABLET.ER. PO ONE (09:00)
[2019-09-14] MEDS: LIDOCAINE (700MG/PATCH) PATCH. TP SCH (09:00)
[2019-09-14] MEDS: LINAGLIPTIN 5 MG TABLET PO SCH (09:02)
[2019-09-14] MEDS: clonazePAM 0.5 MG TABLET PO SCH ×2 (09:02→20:30)
[2019-09-14] MEDS: LISINOPRIL 5 MG TABLET. PO SCH (09:02)
[2019-09-14] MEDS: LEVOTHYROXINE 100 MCG TABLET PO SCH (09:02)
--- NOTE | 2019-09-14 09:45 | NUR ---
SW following for discharge planning. Discussed with RN, pt is from home with family, will have surgery tomorrow to switch out hardware in knee due to infection. SW will continue to follow to determine needs after surgery.
[2019-09-14 11:00] VITALS: BP 163/99
[2019-09-14] MEDS ORDERED: VANCOMYCIN 1.75 GM in IV NORMAL SALINE 500ML BAG 500 ML IV SCH (11:00)
[2019-09-14] MEDS ORDERED: LIDOCAINE WITH 8.4% SOD BICARB 3 ML DISP.SYRIN. ONE (13:24)
[2019-09-14] MEDS ORDERED: LIDOCAINE WITH 8.4% SOD BICARB 3 ML DISP.SYRIN. INJ ONE (13:45)
[2019-09-14] MEDS ORDERED: ceFAZolin 1GM IVPB FOR OMNI 100 ML IV ONE (13:51)
[2019-09-14] MEDS ORDERED: LIDOCAINE 1%/EPI 1:100,000 20 ML VIAL. ONE (14:01)
[2019-09-14] MEDS ORDERED: LIDOCAINE 1%/EPI 1:100,000 20 ML VIAL. SQ ONE (14:15)
[2019-09-14 15:00] VITALS: BP 125/75
--- NOTE | 2019-09-14 15:16 | RAD ---
Procedure: Ultrasound and fluoroscopically guided placement of tunneled central venous catheter. 09/14/2019 1:12 PM Clinical Indication: Antibiotics Fluoroscopy time: 1.6 minutes Dose area product: 5 Gycm2 Consent: The procedure was explained in its entirety to the patient or the patients designated pest control service representative by a member of the treatment team, including a discussion of the risks, benefits and commonly accepted alternatives to the procedure, as well as the expected consequences of no therapy whatsoever. Discussion of the risks included, but was not limited to, those that are most frequent and those that are rare but possibly severe or life-threatening, as well as the possibility of unforeseen complications. Sterility: All elements of maximal sterile barrier technique including the use of a cap, mask, sterile gown, sterile gloves, large sterile sheet, appropriate hand hygiene, and 2% chlorhexidine for cutaneous antisepsis (or acceptable alternative antiseptic per current guidelines) were followed for this procedure. Technique and Findings: Following informed consent, the patient was prepped and draped in the usual sterile fashion. Ultrasound interrogation of the right neck revealed patency and compressibility of the right internal jugular vein. A 21-gauge micropuncture was then used to gain access to this vein under ultrasound guidance. A hard copy ultrasound image was recorded. The needle was exchanged over a wire for a sheath. A small incision was made several centimeters inferior to the right clavicle. A power line was trimmed to length, advanced from the small skin incision to the venotomy site, and then advanced through a peel-away sheath to the level of the cavoatrial junction. Catheter was found to flush and aspirate normally. Catheter was secured in place with 2-0 Prolene suture and a sterile dressing was applied. Catheter was packed with heparin per protocol. The neck dermatotomy was closed with Dermabond. No immediate complications were identified. Impression: Successful ultrasound and fluoroscopically guided placement of a right internal jugular tunneled central venous catheter
[2019-09-14] MEDS: MEROPENEM 500 MG in IV NORMAL SALINE 50ML 50 ML IV SCH ×3 (15:38→23:30)
[2019-09-14] MEDS: DAPTOmycin (GENERIC) IVPB 400 MG in IV NORMAL SALINE 50ML 50 ML IV SCH (17:04)
--- NOTE | 2019-09-14 17:09 | CONS ---
DATE OF CONSULTATION: 09/14/2019 REFERRING PHYSICIAN: Dr. Gaspar. REASON FOR CONSULTATION: Infected left knee abscess, possible PJI. HISTORY OF PRESENT ILLNESS: A 48-year-old male well known to our service from previous hospitalization, underwent knee replacement about 1-1/2 years ago. He subsequently had loosening, requiring revision of the knee on 02/24/2019. The revision of the tibial component of the left total knee done. Subsequently, he had a draining wound. He underwent I and D with poly exchange on 03/24/2019. Cultures including AFB and fungal were negative, which was treated with empiric treatment with IV daptomycin, and Invanz for 6 weeks followed by doxycycline when he was seen in our office on 08/04/2019. The patient had a history of fall on 08/16/2019 at which time he was seen in the ER. Left knee x-ray showed dissociation of the patellar component of the left knee arthroplasty on the posterior aspect of the patella seen best on the sunrise view with surrounding soft tissue swelling and large suprapatellar effusion. He was seen by Dr. Bowden last week, underwent synovial aspirate. The patient presented to the ER on 09/13/2019 with sudden onset of redness, swelling below his left knee that had been draining pus. The patient completed his p.o. doxycycline about 2 weeks ago. He was started on IV vancomycin. White count was 6.6, platelets of 471, creatinine of 0.9. He underwent CT of the lower extremity, which showed a 9 x 7 x 4 cm fluid collection in the anterior upper calf and infrapatellar knee suspicious for abscess with extensive surrounding soft tissue edema. The posterior margin of the abscess extends to defect of the anterior tibial plateau cortex likely a cloaca associated with loosening of the tibial hardware with bone lysis from osteomyelitis as described above. The patient was seen by Orthopedics team who is planning for surgical I and D and possible antibiotic spacer placement for treatment per Dr. Bowden tomorrow. I do not have any synovial aspirate results from last 09/09/2019 or cultures for review at this time. PAST MEDICAL HISTORY: Diabetes mellitus, hypertension, hypothyroidism, osteoarthritis, bipolar disorder, ZACK, status post tonsillectomy, status post adenoidectomy, right knee total arthroplasty in the past, left knee total arthroplasty with revision done 02/24/2019, status post I and D with polyethylene exchange 03/24/2019. Cultures negative including fungal and AFB. Recent history of fall multiple with x-ray showing dissociation of the patellar component of the left knee arthroplasty from the posterior aspect of the patella best seen on the sunrise view with soft tissue swelling and large suprapatellar effusion, status post synovial aspirate on 09/09/2019. I do not have any results for review at this time. SOCIAL HISTORY: Smokes occasional cigar. No alcohol, no drug use. ALLERGIES: No known drug allergies. CURRENT MEDICATIONS: IV vancomycin 1.75 g IV q.12 hours. Other medications reviewed in medication list. REVIEW OF SYSTEMS: Denies any fevers or chills. Does have some nausea, no vomiting, diarrhea, abdominal pain, shortness of breath, symptoms or rash except for above. PHYSICAL EXAMINATION: VITAL SIGNS: Temperature 97.9, pulse 80, respiratory rate 16, blood pressure 163/99, oxygen saturation 100% on room air. GENERAL: Alert, awake male lying in bed comfortably, in no acute distress. Mother at bedside. HEENT: Normocephalic, atraumatic, anicteric. No thrush. NECK: Supple, no JVD. LUNGS: Clear bilaterally. HEART: S1, S2 regular. ABDOMEN: Soft, bowel sounds present, nontender, nondistended. EXTREMITIES: Trace edema. Left lower extremity with some redness around the knee. Distal to the patella, there is an area of blister with purulent drainage on the gauze piece, redness, warmth, which is extending below the knee up to the superior aspect of the knee. Tenderness present on flexion and extension. No calf tenderness, no cyanosis. CENTRAL NERVOUS SYSTEM: Alert and oriented x 3, grossly nonfocal. PSYCHIATRIC: Cooperative. LABORATORY DATA: WBC 6.6, hemoglobin 10.4, hematocrit 32.4, platelets 471. Sodium 141, potassium 3.2, chloride 108, bicarbonate 22, BUN 5, creatinine 0.8, glucose 135, calcium 8.9. Synovial fluid 09/09/2019 pending at this time. IMAGIN. Knee x-ray 08/16/2019 as above. 2. Lower extremity CT 09/13/2019 as above. 3. Micro swab culture 09/13/2019 pending at this time. Blood cultures not done. IMPRESSION: 1. Left knee pain infection possible periprosthetic joint infection and osteomyelitis per CT as above, possible abscess 2. History of fall with x-ray done on 08/16/2019 with dissociation of the patellar component of the left knee arthroplasty from the posterior aspect of the patella with surrounding soft tissue swelling and large suprapatellar effusion. 3. Left total knee arthroplasty done in 07/2018, status post revision on 02/24/2019, status post incision and drainage on 03/24/2019 with poly exchange. Cultures from July and 03/2019 negative including AFB and fungal. 4. Diabetes. 5. Hypertension. 6. Hypothyroidism. 7. Osteoarthritis. 8. Bipolar disorder. RECOMMENDATIONS: 1. We will discontinue vancomycin as the patient requires a 1.75 g IV q.12 hours and concerns for potential JENNIFER. 2. Start the patient on empiric daptomycin and Merrem 3. We will get blood cultures. 4. Follow up CBC and CMP. 5. The patient is awaiting surgical I and D and possible antibiotic spacer placement for treatment per Ortho team, pt will likely need removal of HW with purulent drainage from the anterior knee blister and possible communication with HW. 6. Send intraoperative cultures for Gram stain, bacterial cultures, fungal and AFB. 7. Follow up cultures and lab. 8. Continue supportive care. 9. PICC line as the patient has difficult access. Discussed with mother at bedside. Thank you, Dr. Gaspar, for giving us an opportunity to participate in this patient's care. If you have any questions, do not hesitate to contact me. Discussed with mother at bedside. Discussed with nursing staff. BRIAN GILLESPIE MD DR: LEONARDO/jacquelny JOB#: [id number] / [id number]
[2019-09-14 19:00] VITALS: BP 149/94
[2019-09-14] MEDS: LITHIUM CARBONATE ER 300 MG TABLET.ER PO SCH (20:30)
[2019-09-14] MEDS: LACTOBACILLUS RHAMNOSUS GG 1 CAPSULE. PO SCH (20:30)
[2019-09-14] MEDS: oxyCODONE/APAP 7.5/325 1 TAB TABLET PO PRN (20:31)
[2019-09-14] MEDS: DOXEPIN 150 MG PO SCH (20:31)
[2019-09-14] MEDS: DOXEPIN HCL 25 MG CAPSULE. PO SCH (21:00)
[2019-09-14 23:00] VITALS: BP 155/97
[2019-09-15 03:00] VITALS: BP 159/94
[2019-09-15] MEDS: MEROPENEM 500 MG in IV NORMAL SALINE 50ML 50 ML IV SCH ×3 (05:28→17:27)
[2019-09-15] MEDS ORDERED: MORPHINE SULFATE 5 MG, KETOROLAC 30MG VIAL 30 MG, ROPIVacaine 0.5% PF 60 ML, EPINEPHrin... INT ART ONE ×5 (06:00)
[2019-09-15] MEDS: LEVOTHYROXINE 100 MCG TABLET PO SCH (06:00)
[2019-09-15] MEDS ORDERED: PROCHLORPERAZINE 10 MG/2 ML VIAL. IV PRN (06:30)
[2019-09-15] MEDS ORDERED: ONDANSETRON PF 4 MG/2 ML VIAL. IV PRN (06:30)
[2019-09-15] MEDS ORDERED: IV RINGERS,LACTATED 1000ML 1,000 ML IV SCH (06:30)
[2019-09-15] MEDS ORDERED: MORPHINE SULFATE 2 MG/ML VIAL. IV PRN ×2 (06:30→14:45)
[2019-09-15] MEDS ORDERED: LIDOCAINE 1% PF 2 ML VIAL. ID PRN (06:30)
[2019-09-15] MEDS ORDERED: HYDROmorphone 2 MG/ML VIAL IV PRN ×2 (06:30→14:45)
[2019-09-15] MEDS ORDERED: fentaNYL PF VIAL 100 MCG/2 ML VIAL IV PRN ×3 (06:30→14:45)
[2019-09-15 07:00] VITALS: BP 137/87
[2019-09-15] MEDS: LACTOBACILLUS RHAMNOSUS GG 1 CAPSULE. PO SCH ×2 (07:14→22:49)
[2019-09-15] MEDS: LINAGLIPTIN 5 MG TABLET PO SCH (07:15)
[2019-09-15] MEDS: LIDOCAINE (700MG/PATCH) PATCH. TP SCH (07:15)
--- NOTE | 2019-09-15 07:21 | PDOC ---
Infectious Disease Note Subjective: Subjective pt is awaiting surgery today no f/c/n/v/d/abdo pain Vital Signs: Vital Signs Vital Signs Date Time Temp Pulse Resp B/P (MAP) Pulse Ox O2 Delivery O2 Flow Rate FiO2 09/15/19 03:00 98.1 75 18 159/94 (115) 96 Room Air 98.1 Physical Exam: PHYSICAL EXAM GENERAL: Alert, awake male lying in bed comfortably, in no acute distress. Mother at bedside. HEENT: Normocephalic, atraumatic, anicteric. No thrush. NECK: Supple, no JVD. LUNGS: Clear bilaterally. HEART: S1, S2 regular. ABDOMEN: Soft, bowel sounds present, nontender, nondistended. EXTREMITIES: LLE Trace edema. Left lower extremity with some redness more localized around the knee. Anteriorly just around the patella, there is an area of blister with drainage on the gauze piece, redness, warmth, which is extending below the knee up to the superior aspect of the knee. Decrease in range of motion with Tenderness present on flexion and extension. No calf tenderness, no cyanosis. CENTRAL NERVOUS SYSTEM: Alert and oriented x 3, grossly nonfocal. PSYCHIATRIC: Cooperative. Medications: Inpatient Meds: Current Medications Medications (Trade) Dose Ordered Sig/Jermaine Start Time Stop Time Status Last Admin Dose Admin Cefazolin Sodium 50 ml @ 100 mls/hr 1X ONCE 09/14/19 14:15 09/14/19 14:44 DC 09/14/19 14:15 100 MLS/HR Clonazepam (KlonoPIN) 1 mg BID 09/14/19 09:00 09/14/19 20:30 1 MG Daptomycin 400 mg/ Sodium Chloride 50 ml @ 100 mls/hr Q24H 09/14/19 14:00 09/14/19 17:04 100 MLS/HR Doxepin HCl (SINEquan) 150 mg QHS 09/14/19 21:00 Fentanyl Citrate (Fentanyl 2ml Vial) 50 mcg PRN Q5MIN PRN 09/15/19 06:30 09/16/19 06:29 Hydromorphone HCl (Dilaudid) 0.5 mg PRN Q10MIN PRN 09/15/19 06:30 09/16/19 06:29 Info (CONTRAST GIVEN -- Rx MONITORING) 1 each PRN DAILY PRN 09/13/19 21:45 09/15/19 21:44 Iohexol (Omnipaque 300 Mg/ml) 75 ml 1X ONCE 09/13/19 21:45 09/13/19 21:46 DC 09/13/19 21:42 75 ML Lactobacillus Rhamnosus (Culturelle) 1 cap BID 09/14/19 21:00 09/14/19 20:30 1 CAP Levothyroxine Sodium (Synthroid) 100 mcg DAILY06 09/14/19 09:00 09/14/19 09:02 100 MCG Lidocaine (Lidoderm) 1 patch DAILY 09/14/19 09:00 Lidocaine HCl (Buffered Lidocaine 1%) 3 ml 1X ONCE 09/14/19 13:45 09/14/19 13:46 DC Lidocaine HCl (Xylocaine-Mpf 1% 2ml Vial) 2 ml 1X PRN PRN 09/15/19 06:30 09/16/19 06:29 Lidocaine/ Epinephrine (LIDOCAINE 1%-EPI 1:100,000 Multi-Dose) 20 ml 1X ONCE 09/14/19 14:15 09/14/19 14:16 DC 09/14/19 14:15 7 ML Linagliptin (Tradjenta) 5 mg DAILY 09/14/19 09:00 09/14/19 09:02 5 MG Lisinopril (Prinivil) 5 mg DAILY 09/14/19 09:00 09/14/19 09:02 5 MG Manley Carbonate (Lithobid) 600 mg QHS 09/14/19 21:00 09/14/19 20:30 600 MG Meropenem 500 mg/ Sodium Chloride 50 ml @ 100 mls/hr Q6HRS 09/14/19 13:30 09/15/19 05:28 100 MLS/HR Metformin HCl (Glucophage) 1,000 mg BIDWMEALS 09/16/19 08:00 Morphine Sulfate (Morphine Sulfate) 1 mg PRN Q10MIN PRN 09/15/19 06:30 09/16/19 06:29 Morphine Sulfate 5 mg/Ketorolac Tromethamine 30 mg/Ropivacaine 60 ml/Epinephrine HCl 0.5 mg/Sodium Chloride 100 ml @ 100 mls/hr 1X ONCE 09/15/19 06:00 09/15/19 06:59 DC Non-Formulary Medication 2 ea 1X ONCE 09/14/19 01:45 09/14/19 01:46 DC 09/14/19 02:05 2 EA Ondansetron HCl (Zofran) 4 mg PRN Q6HRS PRN 09/15/19 06:30 09/16/19 06:29 Oxycodone/ Acetaminophen (Percocet 7.5/ 325) 1 tab PRN Q6HRS PRN 09/14/19 08:45 09/14/19 20:31 1 TAB Potassium Chloride (Klor-Con) 40 meq 1X ONCE 09/14/19 09:00 09/14/19 09:01 DC 09/14/19 09:03 40 MEQ Prochlorperazine Edisylate (Compazine) 5 mg PACU PRN PRN 09/15/19 06:30 09/16/19 06:29 Ringer's Solution 1,000 ml @ 30 mls/hr Q24H 09/15/19 06:30 09/15/19 06:49 DC Sodium Chloride 1,000 ml @ 1,000 mls/hr 1X ONCE 09/13/19 20:45 09/13/19 21:44 DC 09/13/19 21:00 1,000 MLS/HR Tizanidine HCl (Zanaflex) 4 mg TID PRN 09/14/19 08:45 Vancomycin HCl (Vanco Per Pharmacy) 1 each PRN DAILY PRN 09/13/19 22:30 09/14/19 12:47 DC 09/13/19 23:45 1 EACH Vancomycin HCl (Vancomycin Trough Level) 1 each 1X ONCE 09/15/19 10:30 09/14/19 12:47 DC Vancomycin HCl 1.75 gm/Sodium Chloride 500 ml @ 250 mls/hr Q12H 09/14/19 11:00 09/14/19 12:45 DC 09/14/19 10:40 250 MLS/HR Vancomycin HCl 2 gm/Sodium Chloride 500 ml @ 250 mls/hr 1X ONCE 09/13/19 23:00 09/14/19 00:59 DC 09/13/19 22:55 250 MLS/HR Labs: Lab Laboratory Tests Test 09/14/19 07:18 09/14/19 11:20 09/14/19 16:59 09/14/19 20:33 Glucose (Fingerstick) 142 mg/dL (70-99) 150 mg/dL (70-99) 109 mg/dL (70-99) 168 mg/dL (70-99) Test 09/14/19 23:38 09/15/19 05:30 Glucose (Fingerstick) 153 mg/dL (70-99) Erythrocyte Sedimentation Rate 64 (0-15) Creatine Kinase 25 U/L (39-308) Objective: Assessment: 1. Left knee pain with abscess, possible prosthetic joint infection and probable osteomyelitis per CT.Awaiting surgery 2. History of fall with x-ray done on 08/16/2019 with dissociation of the patellar component of the left knee arthroplasty from the posterior aspect of the patella with surrounding soft tissue swelling and large suprapatellar effusion. 3. Left total knee arthroplasty done in 07/2018, status post revision on 02/24/2019, status post incision and drainage on 03/24/2019 with poly exchange. Cultures from July and 03/2019 negative including AFB and fungal. 4. Diabetes. 5. Hypertension. 6. Hypothyroidism. 7. Osteoarthritis. 8. Bipolar disorder. Plan: Plan of Care cont daptomycin and Zosyn. f/u labs and cults awaiting surgical I and D and possible antibiotic spacer placement for treatment. Send intraoperative cultures for Gram stain, bacterial cultures, fungal and AFB. Continue supportive care. D/W Dr Bowden yesterday BRIAN GILLESPIE MD Sep 15, 2019 07:21
[2019-09-15] MEDS ORDERED: LIDOCAINE 2% PF 5 ML VIAL. ONE (09:30)
[2019-09-15] MEDS ORDERED: PROPOFOL 20 ML IV ONE (09:30)
[2019-09-15] MEDS ORDERED: ONDANSETRON PF 4 MG/2 ML VIAL. ONE (09:30)
[2019-09-15] MEDS ORDERED: DEXAMETHASONE SOD PHOS 20 MG/5 ML VIAL. ONE (09:30)
[2019-09-15] MEDS ORDERED: fentaNYL PF VIAL 100 MCG/2 ML VIAL ONE ×2 (09:31→11:50)
[2019-09-15] MEDS ORDERED: PHENYLEPHRINE in 0.9% NACL PF 1 MG/10 ML SYRINGE. IV ONE (09:31)
[2019-09-15] MEDS ORDERED: ROCURONIUM 50 MG/5 ML VIAL. ONE (09:32)
--- NOTE | 2019-09-15 09:33 | PDOC ---
PROGRESS NOTES History of Present Illness History of Present Illness VTE Prophylaxis Ordered VTE Prophylaxis Devices: No VTE Pharmacological Prophylaxi: Yes Assessment/Plan Assessment/Plan septic joint w. drainage obesity, BMI 37 bipolar disorder insomnia weakness hypokalemia Left knee pain with abscess, possible prosthetic joint infection and probable osteomyelitis per CT.Awaiting surgery History of fall with x-ray done on 08/16/2019 with dissociation of the patellar component of the left knee arthroplasty from the posterior aspect of the patella with surrounding soft tissue swelling and large suprapatellar effusion. 9 x 7 x 4 cm fluid collection at the anterior upper calf and infrapatellar knee suspicious for abscess with extensive surrounding soft tissue edema. The posterior margin of the abscess extends to a defect of the anterior tibial plateau cortex likely a cloaca associated with loosening of the tibial hardware with bone lysis from osteomyelitis ADMIT ortho and ID consults, broad abx home meds reviewed and restated, K+ given right internal jugular tunneled central venous catheter 37 MIN PT EXAM, CHART REVIEW, > 50% OF TIME SPENT WITH EXAM, CHART REVIEW, PT CARE COORDINATION Vitals Vitals Vital Signs Date Time Temp Pulse Resp B/P (MAP) Pulse Ox O2 Delivery O2 Flow Rate FiO2 09/15/19 08:00 Room Air 09/15/19 07:00 97.5 76 14 137/87 (104) 97 97.5 Physical Exam Physical Exam GENERAL: Alert, awake male lying in bed comfortably, in no acute distress. Mother at bedside. HEENT: Normocephalic, atraumatic, anicteric. No thrush. NECK: Supple, no JVD. LUNGS: Clear bilaterally. HEART: S1, S2 regular. ABDOMEN: Soft, bowel sounds present, nontender, nondistended. EXTREMITIES: LLE Trace edema. Left lower extremity with some redness more localized around the knee. Anteriorly just around the patella, there is an area of blister with drainage on the gauze piece, redness, warmth, which is extending below the knee up to the superior aspect of the knee. Decrease in range of motion with Tenderness prese nt on flexion and extension. No calf tenderness, no cyanosis. CENTRAL NERVOUS SYSTEM: Alert and oriented x 3, grossly nonfocal. PSYCHIATRIC: Cooperative. General: Alert, Oriented X3, Cooperative, No acute distress, mild distress Heart: Regular rate Lungs: Clear Abdomen: Soft, No tenderness Extremities: No cyanosis, Normal pulses Skin: No rashes, No breakdown Labs LABS PATIENT: VIRY COOMBS ACCOUNT: [id number] : 1970 LOCATION: ER AGE: 48 SEX: M EXAM STATUS: REG ER ORD. PHYSICIAN: BRIT LIU APRN REASON: left lower leg swollen and draining pus PROCEDURE: CT LOW EXTREMITY W/CONTRAST LT CT left knee with contrast PQRS statement: CT scans at this facility use dose reduction including either automated exposure control, iterative reconstructions, and /or weight based radiation dosing via mA and kV modification when appropriate to reduce radiation dose to as low as reasonably achievable. HISTORY: Left leg swelling and draining wound. Contrast: 75 mL Omnipaque 300 intravenous contrast. FINDINGS: At the anterior infrapatellar knee and upper calf overlying the proximal tibia there is a soft tissue air and fluid collection extending to a draining wound at the skin surface, this collection measures 9 cm craniocaudal by 7 cm transverse by 4 cm AP likely an abscess bubbles of air likely from the wound of the scan although gas-forming organism infection is also possible. There is exuberant surrounding soft tissue edema at the anterior knee and upper calf. There is a probable mild suprapatellar joint effusion and surrounding edema could indicate septic arthritis. There is a 3 cm Lopez's cyst somewhat obscured by streak artifact. Total knee arthroplasty. No fracture or dislocation. There is bony lysis of the tibial plateau subjacent of the hardware with resorption of most of the bone cement with a thickness of the lysis of up to 1 cm consistent with loosening, there is disruption of the anterior tibial cortex adjacent of the fluid collection, this is suspicious for osteomyelitis. IMPRESSION: 9 x 7 x 4 cm fluid collection at the anterior upper calf and infrapatellar knee suspicious for abscess with extensive surrounding soft tissue edema. The posterior margin of the abscess extends to a defect of the anterior tibial plateau cortex likely a cloaca associated with loosening of the tibial hardware with bone lysis from osteomyelitis as described above. Electronically signed by: Ben Bell MD (09/13/2019 10:00 PM) [id number] Laboratory Tests Test 09/14/19 11:20 09/14/19 16:59 09/14/19 20:33 09/14/19 23:38 Glucose (Fingerstick) 150 mg/dL (70-99) 109 mg/dL (70-99) 168 mg/dL (70-99) 153 mg/dL (70-99) Test 09/15/19 05:30 09/15/19 07:07 Erythrocyte Sedimentation Rate 64 (0-15) Creatine Kinase 25 U/L (39-308) Glucose (Fingerstick) 114 mg/dL (70-99) Comment Review of Relevant I have reviewed the following items satya (where applicable) has been applied. Labs Laboratory Tests Test 09/13/19 21:00 09/14/19 03:20 09/14/19 04:10 09/14/19 07:18 White Blood Count 6.6 x10^3/uL (4.0-11.0) Red Blood Count 4.48 x10^6/uL (4.30-5.70) Hemoglobin 10.4 g/dL (13.0-17.5) Hematocrit 32.4 % (39.0-53.0) Mean Corpuscular Volume 72 fL (79-100) Mean Corpuscular Hemoglobin 23 pg (25-35) Mean Corpuscular Hemoglobin Concent 32 g/dL (31-37) Red Cell Distribution Width 16.3 % (11.5-14.5) Platelet Count 471 x10^3/uL (140-400) Neutrophils (%) (Auto) 64 % (31-73) Lymphocytes (%) (Auto) 24 % (24-48) Monocytes (%) (Auto) 9 % (0-9) Eosinophils (%) (Auto) 3 % (0-3) Basophils (%) (Auto) 1 % (0-3) Neutrophils # (Auto) 4.2 x10^3/uL (1.8-7.7) Lymphocytes # (Auto) 1.6 x10^3/uL (1.0-4.8) Monocytes # (Auto) 0.6 x10^3/uL (0.0-1.1) Eosinophils # (Auto) 0.2 x10^3/uL (0.0-0.7) Basophils # (Auto) 0.1 x10^3/uL (0.0-0.2) Sodium Level 139 mmol/L (136-145) 141 mmol/L (136-145) Potassium Level 3.1 mmol/L (3.5-5.1) 3.2 mmol/L (3.5-5.1) Chloride Level 102 mmol/L (98-107) 108 mmol/L (98-107) Carbon Dioxide Level 24 mmol/L (21-32) 22 mmol/L (21-32) Anion Gap 13 (6-14) 11 (6-14) Blood Urea Nitrogen 6 mg/dL (8-26) 5 mg/dL (8-26) Creatinine 0.9 mg/dL (0.7-1.3) 0.8 mg/dL (0.7-1.3) Estimated GFR (Cockcroft-Gault) 89.7 102.7 BUN/Creatinine Ratio 7 (6-20) Glucose Level 158 mg/dL (70-99) 135 mg/dL (70-99) Lactic Acid Level 1.7 mmol/L (0.4-2.0) Calcium Level 9.4 mg/dL (8.5-10.1) 8.9 mg/dL (8.5-10.1) Total Bilirubin 0.3 mg/dL (0.2-1.0) Aspartate Amino Transf (AST/SGOT) 11 U/L (15-37) Alanine Aminotransferase (ALT/SGPT) 8 U/L (16-63) Alkaline Phosphatase 129 U/L (46-116) Total Protein 8.5 g/dL (6.4-8.2) Albumin 3.2 g/dL (3.4-5.0) Albumin/Globulin Ratio 0.6 (1.0-1.7) Glucose (Fingerstick) 139 mg/dL (70-99) 142 mg/dL (70-99) Test 09/14/19 11:20 09/14/19 16:59 09/14/19 20:33 09/14/19 23:38 Glucose (Fingerstick) 150 mg/dL (70-99) 109 mg/dL (70-99) 168 mg/dL (70-99) 153 mg/dL (70-99) Test 09/15/19 05:30 09/15/19 07:07 Erythrocyte Sedimentation Rate 64 (0-15) Creatine Kinase 25 U/L (39-308) Glucose (Fingerstick) 114 mg/dL (70-99) Laboratory Tests Test 09/14/19 11:20 09/14/19 16:59 09/14/19 20:33 09/14/19 23:38 Glucose (Fingerstick) 150 mg/dL (70-99) 109 mg/dL (70-99) 168 mg/dL (70-99) 153 mg/dL (70-99) Test 09/15/19 05:30 09/15/19 07:07 Erythrocyte Sedimentation Rate 64 (0-15) Creatine Kinase 25 U/L (39-308) Glucose (Fingerstick) 114 mg/dL (70-99) Medications Current Medications Sodium Chloride 1,000 ml @ 1,000 mls/hr 1X ONCE IV Last administered on 09/13/19at 21:00; Start 09/13/19 at 20:45; Stop 09/13/19 at 21:44; Status DC Ondansetron HCl (Zofran) 4 mg 1X ONCE IV Last administered on 09/13/19at 21:00; Start 09/13/19 at 20:45; Stop 09/13/19 at 20:46; Status DC Morphine Sulfate (Morphine Sulfate) 4 mg 1X ONCE IV Last administered on 09/13/19at 21:00; Start 09/13/19 at 20:45; Stop 09/13/19 at 20:46; Status DC Iohexol (Omnipaque 300 Mg/ml) 75 ml 1X ONCE IV Last administered on 09/13/19at 21:42; Start 09/13/19 at 21:45; Stop 09/13/19 at 21:46; Status DC Info (CONTRAST GIVEN -- Rx MONITORING) 1 each PRN DAILY PRN MC SEE COMMENTS; Start 09/13/19 at 21:45; Stop 09/15/19 at 21:44 Vancomycin HCl (Vanco Per Pharmacy) 1 each PRN DAILY PRN MC SEE COMMENTS Last administered on 09/13/19at 23:45; Start 09/13/19 at 22:30; Stop 09/14/19 at 12:47; Status DC Ondansetron HCl (Zofran) 4 mg PRN Q8HRS PRN IV NAUSEA/VOMITING Last administered on 09/14/19at 17:08; Start 09/13/19 at 22:30; Stop 09/14/19 at 22:29; Status DC Morphine Sulfate (Morphine Sulfate) 4 mg PRN Q2HR PRN IV PAIN Last administered on 09/14/19 15:43; Start 09/13/19 at 22:30; Stop 09/14/19 at 22:29; Status DC Vancomycin HCl 2 gm/Sodium Chloride 500 ml @ 250 mls/hr 1X ONCE IV Last administered on 09/13/19at 22:55; Start 09/13/19 at 23:00; Stop 09/14/19 at 00: 59; Status DC Potassium Chloride (Klor-Con) 40 meq 1X ONCE PO Last administered on 09/13/19at 23:30; Start 09/13/19 at 23:30; Stop 09/13/19 at 23:31; Status DC Vancomycin HCl 1.75 gm/Sodium Chloride 500 ml @ 250 mls/hr Q12H IV Last administered on 09/14/19 10:40; Start 09/14/19 at 11:00; Stop 09/14/19 at 12:45; Status DC Vancomycin HCl (Vancomycin Trough Level) 1 each 1X ONCE MC ; Start 09/15/19 at 10:30; Stop 09/14/19 at 12:47; Status DC Non-Formulary Medication 2 ea HS PO Last administered on 09/14/19 20:31; Start 09/14/19 at 21:00 Non-Formulary Medication 2 ea 1X ONCE PO Last administered on 09/14/19at 02:05; Start 09/14/19 at 01:45; Stop 09/14/19 at 01:46; Status DC Levothyroxine Sodium (Synthroid) 100 mcg DAILY06 PO Last administered on at 09:02; Start 09/14/19 at 09:00 Lidocaine (Lidoderm) 1 patch DAILY TP ; Start 09/14/19 at 09:00 Lisinopril (Prinivil) 5 mg DAILY PO Last administered on 09/14/19 09:02; Start 09/14/19 at 09:00 Oxycodone/ Acetaminophen (Percocet 7.5/ 325) 1 tab PRN Q6HRS PRN PO PAIN Last administered on 09/14/19 20:31; Start 09/14/19 at 08:45 Tizanidine HCl (Zanaflex) 4 mg TID PRN PO MUSCLE SPASMS; Start 09/14/19 at 08:45 Clonazepam (KlonoPIN) 1 mg BID PO Last administered on 09/14/19at 20:30; Start 09/14/19 at 09:00 Doxepin HCl (SINEquan) 150 mg QHS PO ; Start 09/14/19 at 21:00 [place] Carbonate (Lithobid) 600 mg QHS PO Last administered on 09/14/19at 20:30; Start 09/14/19 at 21:00 Linagliptin (Tradjenta) 5 mg DAILY PO Last administered on 09/14/19at 09:02; Start 09/14/19 at 09:00 Potassium Chloride (Klor-Con) 40 meq 1X ONCE PO Last administered on 09/14/19at 09:03; Start 09/14/19 at 09:00; Stop 09/14/19 at 09:01; Status DC Metformin HCl (Glucophage) 1,000 mg BIDWMEALS PO ; Start 09/16/19 at 08:00 Lactobacillus Rhamnosus (Culturelle) 1 cap BID PO Last administered on 09/14/19at 20:30; Start 09/14/19 at 21:00 Meropenem 500 mg/ Sodium Chloride 50 ml @ 100 mls/hr Q6HRS IV Last administered on 09/15/19at 05:28; Start 09/14/19 at 13:30 Daptomycin 400 mg/ Sodium Chloride 50 ml @ 100 mls/hr Q24H IV Last administered on 09/14/19at 17:04; Start 09/14/19 at 14:00 Lidocaine HCl (Buffered Lidocaine 1%) 3 ml STK-MED ONCE .ROUTE ; Start 09/14/19 at 13:24; Stop 09/14/19 at 13:24; Status DC Lidocaine HCl (Buffered Lidocaine 1%) 3 ml 1X ONCE INJ ; Start 09/14/19 at 13:45; Stop 09/14/19 at 13:46; Status DC Cefazolin Sodium 100 ml @ As Directed STK-MED ONCE IV ; Start 09/14/19 at 13:51; Stop 09/14/19 at 13:51; Status DC Lidocaine/ Epinephrine (LIDOCAINE 1%-EPI 1:100,000 Multi-Dose) 20 ml STK-MED ONCE .ROUTE ; Start 09/14/19 at 14:01; Stop 09/14/19 at 14:01; Status DC Lidocaine/ Epinephrine (LIDOCAINE 1%-EPI 1:100,000 Multi-Dose) 20 ml 1X ONCE SQ Last administered on 09/14/19at 14:15; Start 09/14/19 at 14:15; Stop 09/14/19 at 14:16; Status DC Cefazolin Sodium 50 ml @ 100 mls/hr 1X ONCE IV Last administered on 09/14/19at 14:15; Start 09/14/19 at 14:15; Stop 09/14/19 at 14:44; Status DC Cefazolin Sodium 50 ml @ 100 mls/hr 1X ONCE IV Last administered on 09/14/19at 14:15; Start 09/14/19 at 14:15; Stop 09/14/19 at 14:44; Status DC Morphine Sulfate 5 mg/Ketorolac Tromethamine 30 mg/Ropivacaine 60 ml/Epinephrine HCl 0.5 mg/Sodium Chloride 100 ml @ 100 mls/hr 1X ONCE INT ART ; Start 09/15/19 at 06:00; Stop 09/15/19 at 06:59; Status DC Ondansetron HCl (Zofran) 4 mg PRN Q6HRS PRN IV NAUSEA/VOMITING; Start 09/15/19 at 06:30; Stop 09/16/19 at 06:29 Fentanyl Citrate (Fentanyl 2ml Vial) 25 mcg PRN Q5MIN PRN IV MILD PAIN 1-3; Start 09/15/19 at 06:30; Stop 09/16/19 at 06:29 Fentanyl Citrate (Fentanyl 2ml Vial) 50 mcg PRN Q5MIN PRN IV MODERATE TO SEVERE PAIN; Start 09/15/19 at 06:30; Stop 09/16/19 at 06:29 Morphine Sulfate (Morphine Sulfate) 1 mg PRN Q10MIN PRN IV SEVERE PAIN 7-10; Start 09/15/19 at 06:30; Stop 09/16/19 at 06:29 Ringer's Solution 1,000 ml @ 30 mls/hr Q24H IV ; Start 09/15/19 at 06:30; Stop 09/15/19 at 06:49; Status DC Lidocaine HCl (Xylocaine-Mpf 1% 2ml Vial) 2 ml 1X PRN PRN ID IV START; Start 09/15/19 at 06:30; Stop 09/16/19 at 06:29 Hydromorphone HCl (Dilaudid) 0.5 mg PRN Q10MIN PRN IV SEV PAIN, Second choice; Start 09/15/19 at 06:30; Stop 09/16/19 at 06:29 Prochlorperazine Edisylate (Compazine) 5 mg PACU PRN PRN IV NAUSEA, MRX1; Start 09/15/19 at 06:30; Stop 09/16/19 at 06:29 Propofol 20 ml @ As Directed STK-MED ONCE IV ; Start 09/15/19 at 09:30; Stop 09/15/19 at 09:31; Status DC Lidocaine HCl (Lidocaine Pf 2% Vial) 5 ml STK-MED ONCE .ROUTE ; Start 09/15/19 at 09:30; Stop 09/15/19 at 09:31; Status DC Dexamethasone Sodium Phosphate (Decadron) 20 mg STK-MED ONCE .ROUTE ; Start 09/15/19 at 09:30; Stop 09/15/19 at 09:31; Status DC Ondansetron HCl (Zofran) 4 mg STK-MED ONCE .ROUTE ; Start 09/15/19 at 09:30; Stop 09/15/19 at 09:31; Status DC Phenylephrine HCl (PHENYLEPHRINE in 0.9% NACL PF) 1 mg STK-MED ONCE IV ; Start 09/15/19 at 09:31; Stop 09/15/19 at 09:31; Status DC Fentanyl Citrate (Fentanyl 2ml Vial) 100 mcg STK-MED ONCE .ROUTE ; Start 09/15/19 at 09:31; Stop 09/15/19 at 09:32; Status DC Active Scripts Active Oxycodone Hcl Immed.release (Oxycodone Hcl) 10 Mg Tablet 10 Mg PO PRN Q4HRS PRN Reported Lidocaine PATCH (Lidocaine) 1 Each Adh..patch 1 Each TP DAILY REMOVE AFTER 12 HOURS Doxepin Hcl 150 Mg Capsule 1 Cap PO QHS 30 Days Lisinopril 5 Mg Tablet 1 Tab PO DAILY Percocet 7.5-325 Mg Tablet (Oxycodone/Acetaminophen) 1 Each Tablet 1 Tab PO PRN Q6HRS PRN Janumet 50-1,000 Mg Tablet (Sitagliptin Phos/Metformin Hcl) 1 Each Tablet 1 Tab PO BID [place] Carbonate 300 Mg Capsule 2 Cap PO HS Clonazepam 1 Mg Tablet 1 Mg PO BID Tizanidine Hcl 4 Mg Tablet 4 Mg PO TID PRN Levothyroxine Sodium 100 Mcg Tablet 1 Tab PO DAILY [place] Carbonate 300 Mg Tablet 1 Tab PO BID Lisinopril 2.5 Mg Tablet 5 Mg PO DAILY Zanaflex (Tizanidine Hcl) 4 Mg Capsule 1 Cap PO TID PRN Janumet 50-1,000 Mg Tablet (Sitagliptin Phos/Metformin Hcl) 1 Each Tablet 1 Tab PO BID Synthroid (Levothyroxine Sodium) 100 Mcg Tablet 100 Mcg PO DAILYAC Doxepin Hcl 50 Mg Capsule 300 Mg PO HS Klonopin (Clonazepam) 0.5 Mg Tablet 1 Mg PO PRN DAILY PRN Vitals/I & O Vital Sign - Last 24 Hours 09/14/19 09/14/19 09/14/19 09/14/19 08:00 08:15 08:47 09:02 Pulse 80 Resp 16 16 B/P (MAP) 142/96 O2 Delivery Room Air Room Air Room Air 09/14/19 09/14/19 09/14/19 09/14/19 10:54 11:00 11:53 13:25 Temp 97.9 97.9 Pulse 80 Resp 16 16 16 16 B/P (MAP) 163/99 (120) Pulse Ox 100 O2 Delivery Room Air Room Air Room Air Room Air 09/14/19 09/14/19 09/14/19 09/14/19 15:00 15:30 15:43 17:09 Temp 97.6 97.6 Pulse 85 Resp 16 16 16 16 B/P (MAP) 125/75 (92) Pulse Ox 99 O2 Delivery Room Air Nasal Cannula Room Air Room Air 09/14/19 09/14/19 09/14/19 09/14/19 19:00 19:30 20:31 21:45 Temp 97.9 97.9 Pulse 82 Resp 18 20 B/P (MAP) 149/94 (112) Pulse Ox 94 96 O2 Delivery Room Air Room Air Room Air Room Air 09/14/19 09/15/19 09/15/19 09/15/19 23:00 03:00 07:00 08:00 Temp 98.2 98.1 97.5 98.2 98.1 97.5 Pulse 77 75 76 Resp 18 18 14 B/P (MAP) 155/97 (116) 159/94 (115) 137/87 (104) Pulse Ox 96 96 97 O2 Delivery Room Air Room Air Room Air Room Air Intake and Output 09/14/19 09/15/19 09/15/19 17:00 01:00 09:00 Intake Total 680 ml 0 ml Balance 680 ml 0 ml DL CHEN MD Sep 15, 2019 09:33
[2019-09-15] MEDS ORDERED: SUCCINYLCHOLINE 200 MG/10 ML VIAL. ONE (09:46)
--- NOTE | 2019-09-15 11:15 | NUR ---
SW following. Discussed with RN, pt having surgery today. On IV dapyo and zosyn. SW will continue to follow.
[2019-09-15] MEDS ORDERED: SEVOFLURANE > 120 MINUTES. IH ONE (11:44)
[2019-09-15] MEDS ORDERED: GLYCOPYRROLATE 1 MG/5 ML VIAL. ONE (13:34)
[2019-09-15] MEDS ORDERED: NEOSTIGMINE METHYLSULFATE 5 MG/5 ML SYRINGE. ONE (13:34)
[2019-09-15] MEDS: DAPTOmycin (GENERIC) IVPB 400 MG in IV NORMAL SALINE 50ML 50 ML IV SCH (14:00)
[2019-09-15] MEDS ORDERED: ONDANSETRON PF 4 MG/2 ML VIAL. IVP PRN (14:45)
[2019-09-15] MEDS ORDERED: INSULIN LISPRO 100 UNIT/ML 3ML VIAL for OP,RR ONLY. SQ PRN (14:45)
[2019-09-15] MEDS: LISINOPRIL 5 MG TABLET. PO SCH (15:44)
[2019-09-15] MEDS: clonazePAM 0.5 MG TABLET PO SCH ×2 (15:44→22:49)
[2019-09-15 15:45] VITALS: BP 155/99
[2019-09-15] MEDS: oxyCODONE/APAP 7.5/325 1 TAB TABLET PO PRN ×2 (16:31→22:49)
[2019-09-15] MEDS: tiZANidine 4 MG TABLET. PO PRN ×2 (16:34→22:48)
[2019-09-15 19:00] VITALS: BP 111/71
--- NOTE | 2019-09-15 19:18 | PDOC4 ---
Operative Note Operative Note Date of surgery: 09/15/2019 Preoperative diagnosis: Infected total knee arthroplasty Postoperative diagnosis: Same Operative procedure: Removal of total knee arthroplasty components with inser tion antibiotic spacer and extensive debridement Surgeon: Dennise Assist: Nate Greene nurse practitioner Anesthesia: Gen. Estimated blood loss: 200 mL Complications: None Intraoperative cultures: Multiple intraoperative cultures were taken from the bone implant interface after removal of the components including at the distal femur and multiple areas of the proximal tibia Operative indications: Please see my previous clinic note of last week for detail operative indications and note briefly on his history that he had undergone revision to a total knee arthroplasty from a painful unicondylar knee arthroplasty done elsewhere and had some aseptic loosening of the tibial component requiring revision. After that procedure he had had some drainage from a scratch or traumatic episode and underwent irrigation debridement but cultures were negative throughout the revision and later irrigation debridement procedure however he was placed on some empiric antibiotics at the direction of infectious disease. He had had some ongoing pain and swelling but really no fever chills ever and no laboratory abnormalities aside from an increased sedimentation rate. He presented to my clinic after a history of a couple of falls and increased pain and emergency department visit on August 16 where he was noted to have a displaced patellar button on x-rays and on follow-up in clinic I was concerned both that which certainly required surgery but also with the appearance of his proximal tibia which could be of concern for loosening or perhaps infection. Again he did have at that time some warmth and swelling his knee was aspirated and the contents sent for synovial sure evaluation as well as cultures which are still pending. Apparently on Saturday however he had developed some increased swelling and then drainage as the area burst open over the tibial tubercle area and was admitted to the hospital with a very high degree of suspicion for infection. I had planned based on his clinic evaluation and pending cultures revision surgery but it was uncertain whether it would be removal and insertion of an antibiotic spacer versus addressing aseptic loosening based on culture results. However obviously the burst open drainage of an apparent abscess now makes necessary removal of his components and insertion of an antibiotic spacer. I had covered this with his family and the typical course of removal of material where bacteria can hide and administration of intravenous antibiotics as well. Typically when infection appears to be cleared we would return for possible reimplantation surgery. There is a possibility that he may require longer term antibiotics to clear the infection or perhaps that the infection may not be able to be cleared at all and he could even lose his leg if there is no resolution of the infection possible. In the interim he agrees to proceed with the removal of the components and insertion of antibiotic spacer as discussed above with the possibility of ongoing infection nerve or blood vessel damage continued pain medical or other anesthetic complications among others. Operative text: Patient was identified procedure verified patient placed in the supine position on the operative table. After adequate amounts of general anesthesia were administered the left lower extremity was prepped and draped in standard sterile fashion with a thigh tourniquet. After timeout was performed patient procedure identified and verified the tourniquet was inflated to 350 mmHg without exsanguination due to his infection a midline incision was made and extensive purulent discharge was noted from the anterior distal wound over the proximal tibia. Since this area was previously cultured it was debrided and a medial parapatellar approach was carried out patella was noted to be loose and any residual cement and the patellar bone was removed along with the patellar component femoral component was removed with a minimum of bone loss with a thin flat osteotome collateral ligaments were spared an osteotome was likewise used to exploit the interface between the bone cement and proximal tibial bone with the implant being removed with a minimum of bone loss. Tissue samples were then sent for culture at the interface between the implant and bone of the distal femur and in multiple areas of the proximal tibia which were sent separately. The bone interface area was extensively sharply debrided with rongeurs and curettes and bone cement was removed from the tibial canal with osteotomes and backbiting gouges to remove all foreign material. Thorough irrigation was first carried out with normal saline solution then with bactisure with the intention of removing any biofilm present then followed up by 1 L of normal saline solution bleeding points were controlled by electrocautery and medium sized antibiotic impregnated spacers were sized based on planned appearance and size. These were cemented in place with polymethylmethacrylate cement a total of 2 batches containing 4 g total of vancomycin and 1 g of tobramycin mixed in with the powder the knee was held in good stability in extension while the cement dried and was noted to have reasonable flexion and good alignment. Closure of the retinaculum was carried out with #1 PDS strata fix and a running fashion skin closure was then accomplished with nylon suture in a near far far near ten jerald relieving fashion as well as 3-0 Vicryl in a simple and mattress fashion as applicable to obtained good wound closure. Sterile soft dressings were applied patient was returned recovery room in stable condition having tolerated procedure well Nate Greene nurse practitioner was present for the procedure and assisted in the prepping draping retraction positioning and skin closure ELISHA SORIA MD Sep 15, 2019 19:18
[2019-09-15] MEDS: DOXEPIN HCL 25 MG CAPSULE. PO SCH (21:00)
[2019-09-15] MEDS ORDERED: DEXTROSE 50% 25 GM / 50ML DISP.SYRIN. IV PRN (21:45)
[2019-09-15] MEDS ORDERED: INSULIN LISPRO 300 UNITS/3 ML VIAL. SQ SCH (22:00)
--- NOTE | 2019-09-15 22:30 | NUR ---
Patients surgical dressing had moderate sanguinous drainage, RN reinforced dressing with ABD and kerlix. RN will continue to monitor patient closely.
[2019-09-15] MEDS: LITHIUM CARBONATE ER 300 MG TABLET.ER PO SCH (22:49)
[2019-09-15] MEDS: DOXEPIN 150 MG PO SCH (22:50)
[2019-09-15 23:00] VITALS: BP 140/85
[2019-09-15] MEDS ORDERED: INSULIN LISPRO 300 UNITS/3 ML VIAL. SQ ONE (23:15)
[2019-09-16] MEDS: MEROPENEM 500 MG in IV NORMAL SALINE 50ML 50 ML IV SCH ×5 (00:39→23:23)
[2019-09-16 03:00] VITALS: BP 155/92
--- NOTE | 2019-09-16 03:25 | NUR ---
RN removed reinforced ABD and kerlix due to more sanguinous drainage. RN reinforced with more ABD's and kerlix.
[2019-09-16] MEDS: oxyCODONE/APAP 7.5/325 1 TAB TABLET PO PRN (04:50)
[2019-09-16] MEDS: LEVOTHYROXINE 100 MCG TABLET PO SCH (05:55)
[2019-09-16 08:00] VITALS: BP 138/88
[2019-09-16] MEDS ORDERED: INSULIN LISPRO 300 UNITS/3 ML VIAL. SQ SCH (08:00)
--- NOTE | 2019-09-16 08:05 | PDOC ---
ORTHO PROGRESS NOTES Subjective Patient sitting up on side of bed with minimal complaint of pain this morning. Post-op Day: 1 Procedure Removal of Right TKA components with extensive irrigation and debridement with antibiotic spacer placement. Vitals Vital Signs Date Time Temp Pulse Resp B/P (MAP) Pulse Ox O2 Delivery O2 Flow Rate FiO2 09/16/19 07:30 Room Air 09/16/19 03:00 97.8 103 18 155/92 (113) 95 97.8 09/15/19 14:35 10 Labs Laboratory Tests Test 09/14/19 11:20 09/14/19 16:59 09/14/19 20:33 09/14/19 23:38 Glucose (Fingerstick) 150 mg/dL (70-99) 109 mg/dL (70-99) 168 mg/dL (70-99) 153 mg/dL (70-99) Test 09/15/19 05:30 09/15/19 07:07 09/15/19 10:44 09/15/19 14:32 Erythrocyte Sedimentation Rate 64 (0-15) Creatine Kinase 25 U/L (39-308) Glucose (Fingerstick) 114 mg/dL (70-99) 79 mg/dL (70-99) 183 mg/dL (70-99) Test 09/15/19 16:43 09/15/19 20:45 09/16/19 07:38 Glucose (Fingerstick) 213 mg/dL (70-99) 350 mg/dL (70-99) 170 mg/dL (70-99) Laboratory Tests Test 09/15/19 10:44 09/15/19 14:32 09/15/19 16:43 09/15/19 20:45 Glucose (Fingerstick) 79 mg/dL (70-99) 183 mg/dL (70-99) 213 mg/dL (70-99) 350 mg/dL (70-99) Test 09/16/19 07:38 Glucose (Fingerstick) 170 mg/dL (70-99) Notes awake and alert asking how long he will stay in the hospital. Assessment and Plan POD # 1 S/P Removal of Right Total Knee Arthroplasty components with extensive irrigation and debridement with antibiotic spacer placement motor and sensation intact distally dressing dry and intact but has had drainage through dressing during the night. Pt has been up to restroom by himself during the night PT MADYSON WEINER APRN Sep 16, 2019 08:05
[2019-09-16] MEDS: LACTOBACILLUS RHAMNOSUS GG 1 CAPSULE. PO SCH ×2 (08:06→21:18)
[2019-09-16] MEDS: clonazePAM 0.5 MG TABLET PO SCH ×2 (08:06→21:18)
[2019-09-16] MEDS: LINAGLIPTIN 5 MG TABLET PO SCH (08:06)
[2019-09-16] MEDS: metFORMIN 500 MG TABLET PO SCH ×2 (08:06→16:20)
[2019-09-16] MEDS: LISINOPRIL 5 MG TABLET. PO SCH (08:07)
[2019-09-16] MEDS: LIDOCAINE (700MG/PATCH) PATCH. TP SCH (08:08)
[2019-09-16] MEDS: INSULIN LISPRO 300 UNITS/3 ML VIAL. SQ SCH ×4 (08:12→21:00)
--- NOTE | 2019-09-16 09:03 | PDOC ---
Infectious Disease Note Subjective: Subjective Pt has postop site pain had some bleed stained dressing last night, had another dressing,now is under control no f/c/n/v/d/abdo pain awaiting ortho team to see him today Vital Signs: Vital Signs Vital Signs Date Time Temp Pulse Resp B/P (MAP) Pulse Ox O2 Delivery O2 Flow Rate FiO2 09/16/19 08:07 84 138/88 09/16/19 08:00 98.0 17 100 98.0 09/16/19 07:30 Room Air 09/15/19 14:35 10 Physical Exam: PHYSICAL EXAM GENERAL: Alert, awake male lying in bed comfortably, in no acute distress. Mother at bedside. HEENT: Normocephalic, atraumatic, anicteric. No thrush. NECK: Supple, no JVD. LUNGS: Clear bilaterally. HEART: S1, S2 regular. ABDOMEN: Soft, bowel sounds present, nontender, nondistended. EXTREMITIES: LLE Trace edema. Left lower extremity dressing intact, dry, not taken down( pics on phone showed some blood on dressing) CENTRAL NERVOUS SYSTEM: Alert and oriented x 3, grossly nonfocal. PSYCHIATRIC: Cooperative. Medications: Inpatient Meds: Current Medications Medications (Trade) Dose Ordered Sig/Jermaine Start Time Stop Time Status Last Admin Dose Admin Cefazolin Sodium 50 ml @ 100 mls/hr 1X ONCE 09/14/19 14:15 09/14/19 14:44 DC 09/14/19 14:15 100 MLS/HR Clonazepam (KlonoPIN) 1 mg BID 09/14/19 09:00 09/16/19 08:06 1 MG Daptomycin 400 mg/ Sodium Chloride 50 ml @ 100 mls/hr Q24H 09/14/19 14:00 09/15/19 14:00 100 MLS/HR Dexamethasone Sodium Phosphate (Decadron) 20 mg STK-MED ONCE 09/15/19 09:30 09/15/19 09:31 DC Dextrose (Dextrose 50%-Water Syringe) 12.5 gm PRN Q15MIN PRN 09/15/19 21:45 Doxepin HCl (SINEquan) 150 mg QHS 09/14/19 21:00 Fentanyl Citrate (Fentanyl 2ml Vial) 50 mcg PRN Q5MIN PRN 09/15/19 14:45 09/16/19 08:59 DC Glycopyrrolate (Robinul) 1 mg STK-MED ONCE 09/15/19 13:34 09/15/19 13:34 DC Hydromorphone HCl (Dilaudid) 0.4 mg PRN Q10MIN PRN 09/15/19 14:45 09/16/19 08:59 DC Info (CONTRAST GIVEN -- Rx MONITORING) 1 each PRN DAILY PRN 09/13/19 21:45 09/15/19 21:44 DC Insulin Human Lispro (HumaLOG VIAL for OP,RR ONLY) 0-10 units PRN Q1HR PRN 09/15/19 14:45 09/16/19 14:44 09/15/19 14:51 4 UNIT Insulin Human Lispro (HumaLOG) 0-9 UNITS TIDWMEALHC 09/16/19 08:00 09/16/19 08:12 4 UNITS Iohexol (Omnipaque 300 Mg/ml) 75 ml 1X ONCE 09/13/19 21:45 09/13/19 21:46 DC 09/13/19 21:42 75 ML Lactobacillus Rhamnosus (Culturelle) 1 cap BID 09/14/19 21:00 09/16/19 08:06 1 CAP Levothyroxine Sodium (Synthroid) 100 mcg DAILY06 09/14/19 09:00 09/16/19 05:55 100 MCG Lidocaine (Lidoderm) 1 patch DAILY 09/14/19 09:00 09/16/19 08:08 1 PATCH Lidocaine HCl (Buffered Lidocaine 1%) 3 ml 1X ONCE 09/14/19 13:45 09/14/19 13:46 DC Lidocaine HCl (Lidocaine Pf 2% Vial) 5 ml STK-MED ONCE 09/15/19 09:30 09/15/19 09:31 DC Lidocaine HCl (Xylocaine-Mpf 1% 2ml Vial) 2 ml 1X PRN PRN 09/15/19 06:30 09/16/19 06:29 DC Lidocaine/ Epinephrine (LIDOCAINE 1%-EPI 1:100,000 Multi-Dose) 20 ml 1X ONCE 09/14/19 14:15 09/14/19 14:16 DC 09/14/19 14:15 7 ML Linagliptin (Tradjenta) 5 mg DAILY 09/14/19 09:00 09/16/19 08:06 5 MG Lisinopril (Prinivil) 5 mg DAILY 09/14/19 09:00 09/16/19 08:07 5 MG [place] Carbonate (Lithobid) 600 mg QHS 09/14/19 21:00 09/15/19 22:49 600 MG Meropenem 500 mg/ Sodium Chloride 50 ml @ 100 mls/hr Q6HRS 09/14/19 13:30 09/16/19 05:55 100 MLS/HR Metformin HCl (Glucophage) 1,000 mg BIDWMEALS 09/16/19 08:00 09/16/19 08:06 1,000 MG Morphine Sulfate (Morphine Sulfate) 2 mg PRN Q10MIN PRN 09/15/19 14:45 09/16/19 08:59 DC Morphine Sulfate 5 mg/Ketorolac Tromethamine 30 mg/Ropivacaine 60 ml/Epinephrine HCl 0.5 mg/Sodium Chloride 100 ml @ 100 mls/hr 1X ONCE 09/15/19 06:00 09/15/19 06:59 DC 09/15/19 14:36 Neostigmine Methylsulfate (Neostigmine Methylsulfate) 5 mg STK-MED ONCE 09/15/19 13:34 09/15/19 13:34 DC Nicardipine HCl (Cardene) 25 mg STK-MED ONCE 09/15/19 11:34 09/15/19 11:35 DC Non-Formulary Medication 2 ea 1X ONCE 09/14/19 01:45 09/14/19 01:46 DC 09/14/19 02:05 2 EA Ondansetron HCl (Zofran) 4 mg PRN Q6HRS PRN 09/15/19 14:45 09/16/19 08:59 DC Oxycodone/ Acetaminophen (Percocet 7.5/ 325) 1 tab PRN Q6HRS PRN 09/14/19 08:45 09/16/19 04:50 1 TAB Phenylephrine HCl (PHENYLEPHRINE in 0.9% NACL PF) 1 mg STK-MED ONCE 09/15/19 09:31 09/15/19 09:31 DC Potassium Chloride (Klor-Con) 40 meq 1X ONCE 09/14/19 09:00 09/14/19 09:01 DC 09/14/19 09:03 40 MEQ Prochlorperazine Edisylate (Compazine) 5 mg PACU PRN PRN 09/15/19 06:30 09/16/19 06:29 DC Propofol 20 ml @ As Directed STK-MED ONCE 09/15/19 09:30 09/15/19 09:31 DC Ringer's Solution 1,000 ml @ 30 mls/hr Q24H 09/15/19 06:30 09/15/19 06:49 DC 09/15/19 10:39 30 MLS/HR Rocuronium [place] (Zemuron) 50 mg STK-MED ONCE 09/15/19 09:32 09/15/19 09:32 DC Sevoflurane (Ultane) 90 ml STK-MED ONCE 09/15/19 11:44 09/15/19 11:45 DC Sodium Chloride 1,000 ml @ 1,000 mls/hr 1X ONCE 09/13/19 20:45 09/13/19 21:44 DC 09/13/19 21:00 1,000 MLS/HR Succinylcholine Chloride (Anectine) 200 mg STK-MED ONCE 09/15/19 09:46 09/15/19 09:46 DC Tizanidine HCl (Zanaflex) 4 mg TID PRN 09/14/19 08:45 09/15/19 22:48 4 MG Vancomycin HCl (Vanco Per Pharmacy) 1 each PRN DAILY PRN 09/13/19 22:30 09/14/19 12:47 DC 09/13/19 23:45 1 EACH Vancomycin HCl (Vancomycin Trough Level) 1 each 1X ONCE 09/15/19 10:30 09/14/19 12:47 DC Vancomycin HCl 1.75 gm/Sodium Chloride 500 ml @ 250 mls/hr Q12H 09/14/19 11:00 09/14/19 12:45 DC 09/14/19 10:40 250 MLS/HR Vancomycin HCl 2 gm/Sodium Chloride 500 ml @ 250 mls/hr 1X ONCE 09/13/19 23:00 09/14/19 00:59 DC 09/13/19 22:55 250 MLS/HR Labs: Lab Laboratory Tests Test 09/15/19 10:44 09/15/19 14:32 09/15/19 16:43 09/15/19 20:45 Glucose (Fingerstick) 79 mg/dL (70-99) 183 mg/dL (70-99) 213 mg/dL (70-99) 350 mg/dL (70-99) Test 09/16/19 07:38 Glucose (Fingerstick) 170 mg/dL (70-99) Objective: Assessment: 1. Left knee prosthetic joint infection 09/15 S/P Removal of total knee arthroplasty components with insertion antibiotic spacer and extensive debridement Intraop Vanc and Tobra 2. History of fall with x-ray done on 08/16/2019 with dissociation of the patellar component of the left knee arthroplasty from the posterior aspect of the patella with surrounding soft tissue swelling and large suprapatellar effusion. 3. Left total knee arthroplasty done in 07/2018, status post revision on 02/24/2019, status post incision and drainage on 03/24/2019 with poly exchange. Cultures from July and 03/2019 negative including AFB and fungal. 4. Diabetes. 5. Hypertension. 6. Hypothyroidism. 7. Osteoarthritis. 8. Bipolar disorder. Plan: Plan of Care cont daptomycin and Merrem f/u labs and cults wound care Continue supportive care. D/W RN D/W at bedside BRIAN GILLESPIE MD Sep 16, 2019 09:03
[2019-09-16] MEDS: oxyCODONE/APAP 10/325 1 TAB TABLET PO PRN ×2 (10:13→16:20)
[2019-09-16 11:00] VITALS: BP 147/91
--- NOTE | 2019-09-16 11:12 | PDOC ---
PROGRESS NOTES History of Present Illness History of Present Illness VTE Prophylaxis Ordered VTE Prophylaxis Devices: No VTE Pharmacological Prophylaxi: Yes Assessment/Plan Assessment/Plan septic joint w. drainage obesity, BMI 37 bipolar disorder insomnia weakness hypokalemia Left knee pain with abscess, possible prosthetic joint infection and probable osteomyelitis per CT.Awaiting surgery History of fall with x-ray done on 08/16/2019 with dissociation of the patellar component of the left knee arthroplasty from the posterior aspect of the patella with surrounding soft tissue swelling and large suprapatellar effusion. 9 x 7 x 4 cm fluid collection at the anterior upper calf and infrapatellar knee suspicious for abscess with extensive surrounding soft tissue edema. The posterior margin of the abscess extends to a defect of the anterior tibial plateau cortex likely a cloaca associated with loosening of the tibial hardware with bone lysis from osteomyelitis poor pain control addressed 09/16 ADMIT ortho and ID consults, broad abx home meds reviewed and restated, K+ given right internal jugular tunneled central venous catheter 39 MIN PT EXAM, CHART REVIEW, > 50% OF TIME SPENT WITH EXAM, CHART REVIEW, PT CARE COORDINATION Operative Note Operative Note Operative Note Date of surgery: 09/15/2019 Preoperative diagnosis: Infected total knee arthroplasty Postoperative diagnosis: Same Operative procedure: Removal of total knee arthroplasty components with insertion antibiotic spacer and extensive debridement Surgeon: Dennise Assist: Nate Greene nurse practitioner Anesthesia: Gen. Estimated blood loss: 200 mL Complications: None Intraoperative cultures: Multiple intraoperative cultures were taken from the bone implant interface after removal of the components including at the distal femur and multiple areas of the proximal tibia Vitals Vitals Vital Signs Date Time Temp Pulse Resp B/P (MAP) Pulse Ox O2 Delivery O2 Flow Rate FiO2 09/16/19 11:03 100 Room Air 09/16/19 08:07 84 138/88 09/16/19 08:00 98.0 17 98.0 09/15/19 14:35 10 Physical Exam Physical Exam GENERAL: Alert, awake male lying in bed comfortably, in mild acute distress. Mother at bedside. HEENT: Normocephalic, atraumatic, anicteric. No thrush. NECK: Supple, no JVD. LUNGS: Clear bilaterally. HEART: S1, S2 regular. ABDOMEN: Soft, bowel sounds present, nontender, nondistended. EXTREMITIES: LLE Trace edema. Left lower extremity with some redness more localized around the knee. Anteriorly just around the patella, there is an area of blister with drainage on the gauze piece, redness, warmth, which is extending below the knee up to the superior aspect of the knee. Decrease in range of motion with Tenderness present on flexion and extension. No calf tenderness, no cyanosis. CENTRAL NERVOUS SYSTEM: Alert and oriented x 3, grossly nonfocal. PSYCHIATRIC: Cooperative. General: Alert, Oriented X3, Cooperative, No acute distress, mild distress Heart: Regular rate Lungs: Clear Abdomen: Soft, No tenderness Extremities: No cyanosis, Normal pulses Skin: No rashes, No breakdown Labs LABS Laboratory Tests Test 09/15/19 14:32 09/15/19 16:43 09/15/19 20:45 09/16/19 07:38 Glucose (Fingerstick) 183 mg/dL (70-99) 213 mg/dL (70-99) 350 mg/dL (70-99) 170 mg/dL (70-99) Comment Review of Relevant I have reviewed the following items satya (where applicable) has been applied. Labs Laboratory Tests Test 09/14/19 11:20 09/14/19 16:59 09/14/19 20:33 09/14/19 23:38 Glucose (Fingerstick) 150 mg/dL (70-99) 109 mg/dL (70-99) 168 mg/dL (70-99) 153 mg/dL (70-99) Test 09/15/19 05:30 09/15/19 07:07 09/15/19 10:44 09/15/19 14:32 Erythrocyte Sedimentation Rate 64 (0-15) Creatine Kinase 25 U/L (39-308) Glucose (Fingerstick) 114 mg/dL (70-99) 79 mg/dL (70-99) 183 mg/dL (70-99) Test 09/15/19 16:43 09/15/19 20:45 09/16/19 07:38 Glucose (Fingerstick) 213 mg/dL (70-99) 350 mg/dL (70-99) 170 mg/dL (70-99) Laboratory Tests Test 09/15/19 14:32 09/15/19 16:43 09/15/19 20:45 09/16/19 07:38 Glucose (Fingerstick) 183 mg/dL (70-99) 213 mg/dL (70-99) 350 mg/dL (70-99) 170 mg/dL (70-99) Microbiology 09/14/19 Blood Culture - Preliminary, Resulted NO GROWTH AFTER 1 DAY 09/13/19 Anaerobic/Aerobic Culture, Resulted Pending 09/13/19 Anaerobic Culture Result 1 (ANNIE), Resulted Pending 09/13/19 Aerobic Culture, Resulted Pending 09/13/19 Aerobic Culture Result 1 (ANNIE), Resulted Pending 09/13/19 Gram Stain - Final, Resulted 09/13/19 Gram Stain Result 1 (ANNIE) - Final, Resulted 09/13/19 Gram Stain Result 2 (ANNIE) - Final, Resulted Medications Current Medications Sodium Chloride 1,000 ml @ 1,000 mls/hr 1X ONCE IV Last administered on 09/13/19at 21:00; Start 09/13/19 at 20:45; Stop 09/13/19 at 21:44; Status DC Ondansetron HCl (Zofran) 4 mg 1X ONCE IV Last administered on 09/13/19at 21:00; Start 09/13/19 at 20:45; Stop 09/13/19 at 20:46; Status DC Morphine Sulfate (Morphine Sulfate) 4 mg 1X ONCE IV Last administered on 09/13/19at 21:00; Start 09/13/19 at 20:45; Stop 09/13/19 at 20:46; Status DC Iohexol (Omnipaque 300 Mg/ml) 75 ml 1X ONCE IV Last administered on 09/13/19at 21:42; Start 09/13/19 at 21:45; Stop 09/13/19 at 21:46; Status DC Info (CONTRAST GIVEN -- Rx MONITORING) 1 each PRN DAILY PRN MC SEE COMMENTS; Start 09/13/19 at 21:45; Stop 09/15/19 at 21:44; Status DC Vancomycin HCl (Vanco Per Pharmacy) 1 each PRN DAILY PRN MC SEE COMMENTS Last administered on 09/13/19at 23:45; Start 09/13/19 at 22:30; Stop 09/14/19 at 12:47; Status DC Ondansetron HCl (Zofran) 4 mg PRN Q8HRS PRN IV NAUSEA/VOMITING Last administered on 09/14/19at 17:08; Start 09/13/19 at 22:30; Stop 09/14/19 at 22:29; Status DC Morphine Sulfate (Morphine Sulfate) 4 mg PRN Q2HR PRN IV PAIN Last administered on 09/14/19 15:43; Start 09/13/19 at 22:30; Stop 09/14/19 at 22:29; Status DC Vancomycin HCl 2 gm/Sodium Chloride 500 ml @ 250 mls/hr 1X ONCE IV Last administered on 09/13/19at 22:55; Start 09/13/19 at 23:00; Stop 09/14/19 at 00:59; Status DC Potassium Chloride (Klor-Con) 40 meq 1X ONCE PO Last administered on 09/13/19at 23:30; Start 09/13/19 at 23:30; Stop 09/13/19 at 23:31; Status DC Vancomycin HCl 1.75 gm/Sodium Chloride 500 ml @ 250 mls/hr Q12H IV Last administered on 09/14/19at 10:40; Start 09/14/19 at 11:00; Stop 09/14/19 at 12:45; Status DC Vancomycin HCl (Vancomycin Trough Level) 1 each 1X ONCE MC ; Start 09/15/19 at 10:30; Stop 09/14/19 at 12:47; Status DC Non-Formulary Medication 2 ea HS PO Last administered on 09/15/19at 22:50; Start 09/14/19 at 21:00 Non-Formulary Medication 2 ea 1X ONCE PO Last administered on 09/14/19 02:05; Start 09/14/19 at 01:45; Stop 09/14/19 at 01:46; Status DC Levothyroxine Sodium (Synthroid) 100 mcg DAILY06 PO Last administered on 09/16/19 05:55; Start 09/14/19 at 09:00 Lidocaine (Lidoderm) 1 patch DAILY TP Last administered on 09/16/19 08:08; Start 09/14/19 at 09:00 Lisinopril (Prinivil) 5 mg DAILY PO Last administered on 09/16/19 08:07; Start 09/14/19 at 09:00 Oxycodone/ Acetaminophen (Percocet 7.5/ 325) 1 tab PRN Q6HRS PRN PO PAIN Last administered on 09/16/19 04:50; Start 09/14/19 at 08:45; Stop 09/16/19 at 09:10; Status DC Tizanidine HCl (Zanaflex) 4 mg TID PRN PO MUSCLE SPASMS Last administered on 09/15/19 22:48; Start 09/14/19 at 08:45 Clonazepam (KlonoPIN) 1 mg BID PO Last administered on 09/16/19 08:06; Start 09/14/19 at 09:00 Doxepin HCl (SINEquan) 150 mg QHS PO ; Start 09/14/19 at 21:00 Peter Carbonate (Lithobid) 600 mg QHS PO Last administered on 09/15/19 22:49; Start 09/14/19 at 21:00 Linagliptin (Tradjenta) 5 mg DAILY PO Last administered on 09/16/19 08:06; Start 09/14/19 at 09:00 Potassium Chloride (Klor-Con) 40 meq 1X ONCE PO Last administered on 09/14/19at 09:03; Start 09/14/19 at 09:00; Stop 09/14/19 at 09:01; Status DC Metformin HCl (Glucophage) 1,000 mg BIDWMEALS PO Last administered on 09/16/19 08:06; Start 09/16/19 at 08:00 Lactobacillus Rhamnosus (Culturelle) 1 cap BID PO Last administered on 09/16/19 08:06; Start 09/14/19 at 21:00 Meropenem 500 mg/ Sodium Chloride 50 ml @ 100 mls/hr Q6HRS IV Last administered on 09/16/19at 05:55; Start 09/14/19 at 13:30 Daptomycin 400 mg/ Sodium Chloride 50 ml @ 100 mls/hr Q24H IV Last administered on 09/15/19at 14:00; Start 09/14/19 at 14:00 Lidocaine HCl (Buffered Lidocaine 1%) 3 ml STK-MED ONCE .ROUTE ; Start 09/14/19 at 13:24; Stop 09/14/19 at 13:24; Status DC Lidocaine HCl (Buffered Lidocaine 1%) 3 ml 1X ONCE INJ ; Start 09/14/19 at 13:45; Stop 09/14/19 at 13:46; Status DC Cefazolin Sodium 100 ml @ As Directed STK-MED ONCE IV ; Start 09/14/19 at 13:51; Stop 09/14/19 at 13:51; Status DC Lidocaine/ Epinephrine (LIDOCAINE 1%-EPI 1:100,000 Multi-Dose) 20 ml STK-MED ONCE .ROUTE ; Start 09/14/19 at 14:01; Stop 09/14/19 at 14:01; Status DC Lidocaine/ Epinephrine (LIDOCAINE 1%-EPI 1:100,000 Multi-Dose) 20 ml 1X ONCE SQ Last administered on 09/14/19at 14:15; Start 09/14/19 at 14:15; Stop 09/14/19 at 14:16; Status DC Cefazolin Sodium 50 ml @ 100 mls/hr 1X ONCE IV Last administered on 09/14/19at 14:15; Start 09/14/19 at 14:15; Stop 09/14/19 at 14:44; Status DC Cefazolin Sodium 50 ml @ 100 mls/hr 1X ONCE IV Last administered on 09/14/19at 14:15; Start 09/14/19 at 14:15; Stop 09/14/19 at 14:44; Status DC Morphine Sulfate 5 mg/Ketorolac Tromethamine 30 mg/Ropivacaine 60 ml/Epinephrine HCl 0.5 mg/Sodium Chloride 100 ml @ 100 mls/hr 1X ONCE INT ART Last administered on 09/15/19at 14:36; Start 09/15/19 at 06:00; Stop 09/15/19 at 06:59; Status DC Ondansetron HCl (Zofran) 4 mg PRN Q6HRS PRN IV NAUSEA/VOMITING; Start 09/15/19 at 06:30; Stop 09/16/19 at 06:29; Status DC Fentanyl Citrate (Fentanyl 2ml Vial) 25 mcg PRN Q5MIN PRN IV MILD PAIN 1-3; Start 09/15/19 at 06:30; Stop 09/16/19 at 06:29; Status DC Fentanyl Citrate (Fentanyl 2ml Vial) 50 mcg PRN Q5MIN PRN IV MODERATE TO SEVERE PAIN; Start 09/15/19 at 06:30; Stop 09/16/19 at 06:29; Status DC Morphine Sulfate (Morphine Sulfate) 1 mg PRN Q10MIN PRN IV SEVERE PAIN 7-10; Start 09/15/19 at 06:30; Stop 09/16/19 at 06:29; Status DC Ringer's Solution 1,000 ml @ 30 mls/hr Q24H IV Last administered on 09/15/19at 10:39; Start 09/15/19 at 06:30; Stop 09/15/19 at 06:49; Status DC Lidocaine HCl (Xylocaine-Mpf 1% 2ml Vial) 2 ml 1X PRN PRN ID IV START; Start 09/15/19 at 06:30; Stop 09/16/19 at 06:29; Status DC Hydromorphone HCl (Dilaudid) 0.5 mg PRN Q10MIN PRN IV SEV PAIN, Second choice; Start 09/15/19 at 06:30; Stop 09/16/19 at 06:29; Status DC Prochlorperazine Edisylate (Compazine) 5 mg PACU PRN PRN IV NAUSEA, MRX1; Start 09/15/19 at 06:30; Stop 09/16/19 at 06:29; Status DC Propofol 20 ml @ As Directed STK-MED ONCE IV ; Start 09/15/19 at 09:30; Stop 09/15/19 at 09:31; Status DC Lidocaine HCl (Lidocaine Pf 2% Vial) 5 ml STK-MED ONCE .ROUTE ; Start 09/15/19 at 09:30; Stop 09/15/19 at 09:31; Status DC Dexamethasone Sodium Phosphate (Decadron) 20 mg STK-MED ONCE .ROUTE ; Start 09/15/19 at 09:30; Stop 09/15/19 at 09:31; Status DC Ondansetron HCl (Zofran) 4 mg STK-MED ONCE .ROUTE ; Start 09/15/19 at 09:30; Stop 09/15/19 at 09:31; Status DC Phenylephrine HCl (PHENYLEPHRINE in 0.9% NACL PF) 1 mg STK-MED ONCE IV ; Start 09/15/19 at 09:31; Stop 09/15/19 at 09:31; Status DC Fentanyl Citrate (Fentanyl 2ml Vial) 100 mcg STK-MED ONCE .ROUTE ; Start 09/15/19 at 09:31; Stop 09/15/19 at 09:32; Status DC Rocuronium [place] (Zemuron) 50 mg STK-MED ONCE .ROUTE ; Start 09/15/19 at 09:32; Stop 09/15/19 at 09:32; Status DC Succinylcholine Chloride (Anectine) 200 mg STK-MED ONCE .ROUTE ; Start 09/15/19 at 09:46; Stop 09/15/19 at 09:46; Status DC Nicardipine HCl (Cardene) 25 mg STK-MED ONCE IV ; Start 09/15/19 at 11:34; Stop 09/15/19 at 11:35; Status DC Sevoflurane (Ultane) 90 ml STK-MED ONCE IH ; Start 09/15/19 at 11:44; Stop 09/15/19 at 11:45; Status DC Fentanyl Citrate (Fentanyl 2ml Vial) 100 mcg STK-MED ONCE .ROUTE ; Start 09/15/19 at 11:50; Stop 09/15/19 at 11:50; Status DC Neostigmine Methylsulfate (Neostigmine Methylsulfate) 5 mg STK-MED ONCE .ROUTE ; Start 09/15/19 at 13:34; Stop 09/15/19 at 13:34; Status DC Glycopyrrolate (Robinul) 1 mg STK-MED ONCE .ROUTE ; Start 09/15/19 at 13:34; Stop 09/15/19 at 13:34; Status DC Fentanyl Citrate (Fentanyl 2ml Vial) 50 mcg PRN Q5MIN PRN IV MODERATE TO SEVERE PAIN; Start 09/15/19 at 14:45; Stop 09/16/19 at 08:59; Status DC Morphine Sulfate (Morphine Sulfate) 2 mg PRN Q10MIN PRN IV MILD PAIN 1-3; Start 09/15/19 at 14:45; Stop 09/16/19 at 08:59; Status DC Hydromorphone HCl (Dilaudid) 0.4 mg PRN Q10MIN PRN IV Moderate to severe pain; Start 09/15/19 at 14:45; Stop 09/16/19 at 08:59; Status DC Ondansetron HCl (Zofran) 4 mg PRN Q6HRS PRN IVP Nausea, 2nd Choice; Start 09/15/19 at 14:45; Stop 09/16/19 at 08:59; Status DC Insulin Human Lispro (HumaLOG VIAL for OP,RR ONLY) 0-10 units PRN Q1HR PRN SQ PER PROTOCOL Last administered on 09/15/19at 14:51; Start 09/15/19 at 14:45; Stop 09/16/19 at 14:44 Insulin Human Lispro (HumaLOG) 0-9 UNITS TIDWMEALS SQ ; Start 09/16/19 at 08:00; Stop 09/16/19 at 03:37; Status DC Dextrose (Dextrose 50%-Water Syringe) 12.5 gm PRN Q15MIN PRN IV SEE COMMENTS; Start 09/15/19 at 21:45 Insulin Human Lispro (HumaLOG) 12 units 1X SQ ; Start 09/15/19 at 22:00; Stop 09/15/19 at 23:07; Status DC Insulin Human Lispro (HumaLOG) 12 units 1X ONCE SQ Last administered on at 23:15; Start 09/15/19 at 23:15; Stop 09/15/19 at 23:16; Status DC Insulin Human Lispro (HumaLOG) 0-9 UNITS TIDWMEALHC SQ Last administered on 09/16/19at 08:12; Start 09/16/19 at 08:00 Oxycodone/ Acetaminophen (Percocet 10/325) 1 tab PRN Q6HRS PRN PO MODERATE TO SEVERE PAIN Last administered on 09/16/19at 10:13; Start 09/16/19 at 09:15 Active Scripts Active Oxycodone Hcl Immed.release (Oxycodone Hcl) 10 Mg Tablet 10 Mg PO PRN Q4HRS PRN Reported Lidocaine PATCH (Lidocaine) 1 Each Adh..patch 1 Each TP DAILY REMOVE AFTER 12 HOURS Doxepin Hcl 150 Mg Capsule 1 Cap PO QHS 30 Days Lisinopril 5 Mg Tablet 1 Tab PO DAILY Percocet 7.5-325 Mg Tablet (Oxycodone/Acetaminophen) 1 Each Tablet 1 Tab PO PRN Q6HRS PRN Janumet 50-1,000 Mg Tablet (Sitagliptin Phos/Metformin Hcl) 1 Each Tablet 1 Tab PO BID Peter Carbonate 300 Mg Capsule 2 Cap PO HS Clonazepam 1 Mg Tablet 1 Mg PO BID Tizanidine Hcl 4 Mg Tablet 4 Mg PO TID PRN Levothyroxine Sodium 100 Mcg Tablet 1 Tab PO DAILY Peter Carbonate 300 Mg Tablet 1 Tab PO BID Lisinopril 2.5 Mg Tablet 5 Mg PO DAILY Zanaflex (Tizanidine Hcl) 4 Mg Capsule 1 Cap PO TID PRN Janumet 50-1,000 Mg Tablet (Sitagliptin Phos/Metformin Hcl) 1 Each Tablet 1 Tab PO BID Synthroid (Levothyroxine Sodium) 100 Mcg Tablet 100 Mcg PO DAILYAC Doxepin Hcl 50 Mg Capsule 300 Mg PO HS Klonopin (Clonazepam) 0.5 Mg Tablet 1 Mg PO PRN DAILY PRN Vitals/I & O Vital Sign - Last 24 Hours 09/15/19 09/15/19 09/15/19 09/15/19 14:23 14:23 14:35 14:50 Temp 97.4 97.4 Pulse 97 91 92 Resp 16 16 16 B/P (MAP) 131/78 155/81 144/85 Pulse Ox 95 95 96 O2 Delivery Room Air Mask Simple Mask Room Air O2 Flow Rate 10 10 10 09/15/19 09/15/19 09/15/19 09/15/19 15:05 15:06 15:07 15:44 Temp 97.7 97.7 Pulse 100 100 Resp 16 B/P (MAP) 155/81 144/83 144/83 Pulse Ox 97 O2 Delivery Room Air Room Air 09/15/19 09/15/19 09/15/19 09/15/19 15:45 16:31 17:35 19:00 Temp 97.6 97.6 Pulse 101 87 Resp 16 16 16 18 B/P (MAP) 155/99 (117) 111/71 (84) Pulse Ox 100 O2 Delivery Room Air Room Air Room Air Room Air 09/15/19 09/15/19 09/15/19 09/16/19 19:45 22:49 23:00 01:05 Temp 98.2 98.2 Pulse 98 Resp 18 B/P (MAP) 140/85 (103) Pulse Ox 100 O2 Delivery Room Air Room Air Room Air Room Air 09/16/19 09/16/19 09/16/19 09/16/19 03:00 04:50 05:55 07:30 Temp 97.8 97.8 Pulse 103 Resp 18 B/P (MAP) 155/92 (113) Pulse Ox 95 O2 Delivery Room Air Room Air Room Air Room Air 09/16/19 09/16/19 09/16/19 09/16/19 08:00 08:07 10:13 11:03 Temp 98.0 98.0 Pulse 84 84 Resp 17 B/P (MAP) 138/88 (105) 138/88 Pulse Ox 100 100 100 O2 Delivery Room Air Room Air Intake and Output 09/15/19 09/15/19 09/16/19 15:00 23:00 07:00 Intake Total 1200 ml 460 ml Output Total 100 ml 200 ml Balance 1100 ml 460 ml -200 ml DL CHEN MD Sep 16, 2019 11:12
[2019-09-16] MEDS: DAPTOmycin (GENERIC) IVPB 400 MG in IV NORMAL SALINE 50ML 50 ML IV SCH (12:52)
[2019-09-16] MEDS: HYDROmorphone 2 MG/ML VIAL IV PRN ×3 (13:43→21:47)
[2019-09-16] MEDS ORDERED: HYDROmorphone 2 MG/ML VIAL IV ONE (14:00)
[2019-09-16 15:00] VITALS: BP 137/95
[2019-09-16 17:15] LABS: BASO % 1 % (0-3); EOS # 0.2 x10^3/uL (0.0-0.7); EOS % 2 % (0-3); HEMOGLOBIN 8.9 g/dL (13.0-17.5); LYMPH # 1.4 x10^3/uL (1.0-4.8); LYMPH % 21 % (24-48); MEAN CORPUSCULAR HEMOGLOBIN 23 pg (25-35); MEAN CORPUSCULAR HGB CONC 32 g/dL (31-37); MEAN CORPUSCULAR VOLUME 73 fL (79-100); MONO # 0.4 x10^3/uL (0.0-1.1); MONO % 7 % (0-9); NEUT # 4.7 x10^3/uL (1.8-7.7); NEUT % 70 % (31-73); PLATELET COUNT 424 x10^3/uL (140-400); RED BLOOD COUNT 3.81 x10^6/uL (4.30-5.70); RED CELL DISTRIBUTION WIDTH 16.6 % (11.5-14.5); WHITE BLOOD COUNT 6.8 x10^3/uL (4.0-11.0)
[2019-09-16 17:30] LABS: ALBUMIN 2.8 g/dL (3.4-5.0); ALBUMIN/GLOBULIN RATIO 0.6 (1.0-1.7); CALCIUM 8.9 mg/dL (8.5-10.1); CREATININE 0.9 mg/dL (0.7-1.3); GFR 89.7; POTASSIUM 3.5 mmol/L (3.5-5.1); TOTAL BILIRUBIN 0.3 mg/dL (0.2-1.0); TOTAL PROTEIN 7.7 g/dL (6.4-8.2)
[2019-09-16 19:44] VITALS: BP 129/83
[2019-09-16] MEDS: DOXEPIN HCL 25 MG CAPSULE. PO SCH (21:00)
[2019-09-16] MEDS: LITHIUM CARBONATE ER 300 MG TABLET.ER PO SCH (21:17)
[2019-09-16] MEDS: DOXEPIN 150 MG PO SCH (21:23)
[2019-09-16 22:48] VITALS: BP 148/98
[2019-09-17 02:36] VITALS: BP 148/96
[2019-09-17 04:49] LABS: BASO % 1 % (0-3); EOS # 0.3 x10^3/uL (0.0-0.7); EOS % 6 % (0-3); HEMATOCRIT 28.1 % (39.0-53.0); LYMPH # 1.4 x10^3/uL (1.0-4.8); LYMPH % 26 % (24-48); MEAN CORPUSCULAR HEMOGLOBIN 23 pg (25-35); MEAN CORPUSCULAR HGB CONC 32 g/dL (31-37); MEAN CORPUSCULAR VOLUME 73 fL (79-100); MONO # 0.4 x10^3/uL (0.0-1.1); MONO % 7 % (0-9); NEUT # 3.3 x10^3/uL (1.8-7.7); NEUT % 60 % (31-73); PLATELET COUNT 386 x10^3/uL (140-400); RED BLOOD COUNT 3.85 x10^6/uL (4.30-5.70); RED CELL DISTRIBUTION WIDTH 16.6 % (11.5-14.5); WHITE BLOOD COUNT 5.4 x10^3/uL (4.0-11.0)
[2019-09-17 05:08] LABS: ALBUMIN 2.7 g/dL (3.4-5.0); ALBUMIN/GLOBULIN RATIO 0.6 (1.0-1.7); CREATININE 0.9 mg/dL (0.7-1.3); GFR 89.7; POTASSIUM 3.4 mmol/L (3.5-5.1); TOTAL BILIRUBIN 0.3 mg/dL (0.2-1.0); TOTAL PROTEIN 7.4 g/dL (6.4-8.2)
[2019-09-17] MEDS: HYDROmorphone 2 MG/ML VIAL IV PRN ×4 (05:57→21:37)
[2019-09-17] MEDS: MEROPENEM 500 MG in IV NORMAL SALINE 50ML 50 ML IV SCH ×3 (05:58→17:07)
[2019-09-17] MEDS: LEVOTHYROXINE 100 MCG TABLET PO SCH (05:58)
[2019-09-17 07:00] VITALS: BP 152/92
[2019-09-17] MEDS: LISINOPRIL 5 MG TABLET. PO SCH (08:09)
[2019-09-17] MEDS: LACTOBACILLUS RHAMNOSUS GG 1 CAPSULE. PO SCH ×2 (08:09→20:21)
[2019-09-17] MEDS: clonazePAM 0.5 MG TABLET PO SCH ×2 (08:09→20:21)
[2019-09-17] MEDS: LIDOCAINE (700MG/PATCH) PATCH. TP SCH (08:09)
[2019-09-17] MEDS: LINAGLIPTIN 5 MG TABLET PO SCH (08:09)
[2019-09-17] MEDS: metFORMIN 500 MG TABLET PO SCH ×2 (08:09→17:04)
[2019-09-17] MEDS: oxyCODONE/APAP 10/325 1 TAB TABLET PO PRN ×2 (08:09→18:09)
[2019-09-17] MEDS: INSULIN LISPRO 300 UNITS/3 ML VIAL. SQ SCH ×4 (08:16→21:00)
--- NOTE | 2019-09-17 09:04 | PDOC ---
Infectious Disease Note Subjective: Subjective Pt feels better today has some postop site pain but under control no more visible dressing bleeding no f/c/n/v/d/abdo pain Vital Signs: Vital Signs Vital Signs Date Time Temp Pulse Resp B/P (MAP) Pulse Ox O2 Delivery O2 Flow Rate FiO2 09/17/19 09:00 99 Room Air 09/17/19 08:09 90 152/92 09/17/19 07:00 97.7 16 97.7 Physical Exam: PHYSICAL EXAM GENERAL: Alert, awake male lying in bed comfortably, in mild acute distress. Mother at bedside. HEENT: Normocephalic, atraumatic, anicteric. No thrush. NECK: Supple, no JVD. LUNGS: Clear bilaterally. HEART: S1, S2 regular. ABDOMEN: Soft, bowel sounds present, nontender, nondistended. EXTREMITIES: LLE Trace edema. Left lower extremity with some redness more localized around the knee. Anteriorly just around the patella, there is an area of blister with drainage on the gauze piece, redness, warmth, which is extending below the knee up to the superior aspect of the knee. Decrease in range of motion with Tenderness present on flexion and extension. No calf tenderness, no cyanosis. CENTRAL NERVOUS SYSTEM: Alert and oriented x 3, grossly nonfocal. PSYCHIATRIC: Cooperative. Medications: Inpatient Meds: Current Medications Medications (Trade) Dose Ordered Sig/Jermaine Start Time Stop Time Status Last Admin Dose Admin Cefazolin Sodium 50 ml @ 100 mls/hr 1X ONCE 09/14/19 14:15 09/14/19 14:44 DC 09/14/19 14:15 100 MLS/HR Clonazepam (KlonoPIN) 1 mg BID 09/14/19 09:00 09/17/19 08:09 1 MG Daptomycin 400 mg/ Sodium Chloride 50 ml @ 100 mls/hr Q24H 09/14/19 14:00 09/16/19 12:52 100 MLS/HR Dexamethasone Sodium Phosphate (Decadron) 20 mg STK-MED ONCE 09/15/19 09:30 09/15/19 09:31 DC Dextrose (Dextrose 50%-Water Syringe) 12.5 gm PRN Q15MIN PRN 09/15/19 21:45 Doxepin HCl (SINEquan) 150 mg QHS 09/14/19 21:00 Fentanyl Citrate (Fentanyl 2ml Vial) 50 mcg PRN Q5MIN PRN 09/15/19 14:45 09/16/19 08:59 DC Glycopyrrolate (Robinul) 1 mg STK-MED ONCE 09/15/19 13:34 09/15/19 13:34 DC Hydromorphone HCl (Dilaudid) 1 mg PRN Q4HRS PRN 09/16/19 13:30 09/17/19 05:57 1 MG Info (CONTRAST GIVEN -- Rx MONITORING) 1 each PRN DAILY PRN 09/13/19 21:45 09/15/19 21:44 DC Insulin Human Lispro (HumaLOG VIAL for OP,RR ONLY) 0-10 units PRN Q1HR PRN 09/15/19 14:45 09/16/19 14:44 DC 09/15/19 14:51 4 UNIT Insulin Human Lispro (HumaLOG) 0-9 UNITS TIDWMEALHC 09/16/19 08:00 09/17/19 08:16 4 UNITS Iohexol (Omnipaque 300 Mg/ml) 75 ml 1X ONCE 09/13/19 21:45 09/13/19 21:46 DC 09/13/19 21:42 75 ML Lactobacillus Rhamnosus (Culturelle) 1 cap BID 09/14/19 21:00 09/17/19 08:09 1 CAP Levothyroxine Sodium (Synthroid) 100 mcg DAILY06 09/14/19 09:00 09/17/19 05:58 100 MCG Lidocaine (Lidoderm) 1 patch DAILY 09/14/19 09:00 09/17/19 08:09 1 PATCH Lidocaine HCl (Buffered Lidocaine 1%) 3 ml 1X ONCE 09/14/19 13:45 09/14/19 13:46 DC Lidocaine HCl (Lidocaine Pf 2% Vial) 5 ml STK-MED ONCE 09/15/19 09:30 09/15/19 09:31 DC Lidocaine HCl (Xylocaine-Mpf 1% 2ml Vial) 2 ml 1X PRN PRN 09/15/19 06:30 09/16/19 06:29 DC Lidocaine/ Epinephrine (LIDOCAINE 1%-EPI 1:100,000 Multi-Dose) 20 ml 1X ONCE 09/14/19 14:15 09/14/19 14:16 DC 09/14/19 14:15 7 ML Linagliptin (Tradjenta) 5 mg DAILY 09/14/19 09:00 09/17/19 08:09 5 MG Lisinopril (Prinivil) 5 mg DAILY 09/14/19 09:00 09/17/19 08:09 5 MG [place] Carbonate (Lithobid) 600 mg QHS 09/14/19 21:00 09/16/19 21:17 600 MG Meropenem 500 mg/ Sodium Chloride 50 ml @ 100 mls/hr Q6HRS 09/14/19 13:30 09/17/19 05:58 100 MLS/HR Metformin HCl (Glucophage) 1,000 mg BIDWMEALS 09/16/19 08:00 09/17/19 08:09 1,000 MG Morphine Sulfate (Morphine Sulfate) 2 mg PRN Q10MIN PRN 09/15/19 14:45 09/16/19 08:59 DC Morphine Sulfate 5 mg/Ketorolac Tromethamine 30 mg/Ropivacaine 60 ml/Epinephrine HCl 0.5 mg/Sodium Chloride 100 ml @ 100 mls/hr 1X ONCE 09/15/19 06:00 09/15/19 06:59 DC 09/15/19 14:36 Neostigmine Methylsulfate (Neostigmine Methylsulfate) 5 mg STK-MED ONCE 09/15/19 13:34 09/15/19 13:34 DC Nicardipine HCl (Cardene) 25 mg STK-MED ONCE 09/15/19 11:34 09/15/19 11:35 DC Non-Formulary Medication 2 ea 1X ONCE 09/14/19 01:45 09/14/19 01:46 DC 09/14/19 02:05 2 EA Ondansetron HCl (Zofran) 4 mg PRN Q6HRS PRN 09/15/19 14:45 09/16/19 08:59 DC Oxycodone/ Acetaminophen (Percocet 10/325) 1 tab PRN Q6HRS PRN 09/16/19 09:15 09/17/19 08:09 1 TAB Oxycodone/ Acetaminophen (Percocet 7.5/ 325) 1 tab PRN Q6HRS PRN 09/14/19 08:45 09/16/19 09:10 DC 09/16/19 04:50 1 TAB Phenylephrine HCl (PHENYLEPHRINE in 0.9% NACL PF) 1 mg STK-MED ONCE 09/15/19 09:31 09/15/19 09:31 DC Potassium Chloride (Klor-Con) 40 meq 1X ONCE 09/14/19 09:00 09/14/19 09:01 DC 09/14/19 09:03 40 MEQ Prochlorperazine Edisylate (Compazine) 5 mg PACU PRN PRN 09/15/19 06:30 09/16/19 06:29 DC Propofol 20 ml @ As Directed STK-MED ONCE 09/15/19 09:30 09/15/19 09:31 DC Ringer's Solution 1,000 ml @ 30 mls/hr Q24H 09/15/19 06:30 09/15/19 06:49 DC 09/15/19 10:39 30 MLS/HR Rocuronium [place] (Zemuron) 50 mg STK-MED ONCE 09/15/19 09:32 09/15/19 09:32 DC Sevoflurane (Ultane) 90 ml STK-MED ONCE 09/15/19 11:44 09/15/19 11:45 DC Sodium Chloride 1,000 ml @ 1,000 mls/hr 1X ONCE 09/13/19 20:45 09/13/19 21:44 DC 09/13/19 21:00 1,000 MLS/HR Succinylcholine Chloride (Anectine) 200 mg STK-MED ONCE 09/15/19 09:46 09/15/19 09:46 DC Tizanidine HCl (Zanaflex) 4 mg TID PRN 09/14/19 08:45 09/15/19 22:48 4 MG Vancomycin HCl (Vanco Per Pharmacy) 1 each PRN DAILY PRN 09/13/19 22:30 09/14/19 12:47 DC 09/13/19 23:45 1 EACH Vancomycin HCl (Vancomycin Trough Level) 1 each 1X ONCE 09/15/19 10:30 09/14/19 12:47 DC Vancomycin HCl 1.75 gm/Sodium Chloride 500 ml @ 250 mls/hr Q12H 09/14/19 11:00 09/14/19 12:45 DC 09/14/19 10:40 250 MLS/HR Vancomycin HCl 2 gm/Sodium Chloride 500 ml @ 250 mls/hr 1X ONCE 09/13/19 23:00 09/14/19 00:59 DC 09/13/19 22:55 250 MLS/HR Labs: Lab Laboratory Tests Test 09/16/19 11:44 09/16/19 16:32 09/16/19 16:44 09/16/19 20:36 Glucose (Fingerstick) 142 mg/dL (70-99) 171 mg/dL (70-99) 140 mg/dL (70-99) White Blood Count 6.8 x10^3/uL (4.0-11.0) Red Blood Count 3.81 x10^6/uL (4.30-5.70) Hemoglobin 8.9 g/dL (13.0-17.5) Hematocrit 28.0 % (39.0-53.0) Mean Corpuscular Volume 73 fL (79-100) Mean Corpuscular Hemoglobin 23 pg (25-35) Mean Corpuscular Hemoglobin Concent 32 g/dL (31-37) Red Cell Distribution Width 16.6 % (11.5-14.5) Platelet Count 424 x10^3/uL (140-400) Neutrophils (%) (Auto) 70 % (31-73) Lymphocytes (%) (Auto) 21 % (24-48) Monocytes (%) (Auto) 7 % (0-9) Eosinophils (%) (Auto) 2 % (0-3) Basophils (%) (Auto) 1 % (0-3) Neutrophils # (Auto) 4.7 x10^3/uL (1.8-7.7) Lymphocytes # (Auto) 1.4 x10^3/uL (1.0-4.8) Monocytes # (Auto) 0.4 x10^3/uL (0.0-1.1) Eosinophils # (Auto) 0.2 x10^3/uL (0.0-0.7) Basophils # (Auto) 0.0 x10^3/uL (0.0-0.2) Sodium Level 140 mmol/L (136-145) Potassium Level 3.5 mmol/L (3.5-5.1) Chloride Level 103 mmol/L (98-107) Carbon Dioxide Level 26 mmol/L (21-32) Anion Gap 11 (6-14) Blood Urea Nitrogen 6 mg/dL (8-26) Creatinine 0.9 mg/dL (0.7-1.3) Estimated GFR (Cockcroft-Gault) 89.7 BUN/Creatinine Ratio 7 (6-20) Glucose Level 194 mg/dL (70-99) Calcium Level 8.9 mg/dL (8.5-10.1) Total Bilirubin 0.3 mg/dL (0.2-1.0) Aspartate Amino Transf (AST/SGOT) 10 U/L (15-37) Alanine Aminotransferase (ALT/SGPT) 7 U/L (16-63) Alkaline Phosphatase 112 U/L (46-116) Total Protein 7.7 g/dL (6.4-8.2) Albumin 2.8 g/dL (3.4-5.0) Albumin/Globulin Ratio 0.6 (1.0-1.7) Test 09/17/19 04:00 09/17/19 07:13 White Blood Count 5.4 x10^3/uL (4.0-11.0) Red Blood Count 3.85 x10^6/uL (4.30-5.70) Hemoglobin 9.0 g/dL (13.0-17.5) Hematocrit 28.1 % (39.0-53.0) Mean Corpuscular Volume 73 fL (79-100) Mean Corpuscular Hemoglobin 23 pg (25-35) Mean Corpuscular Hemoglobin Concent 32 g/dL (31-37) Red Cell Distribution Width 16.6 % (11.5-14.5) Platelet Count 386 x10^3/uL (140-400) Neutrophils (%) (Auto) 60 % (31-73) Lymphocytes (%) (Auto) 26 % (24-48) Monocytes (%) (Auto) 7 % (0-9) Eosinophils (%) (Auto) 6 % (0-3) Basophils (%) (Auto) 1 % (0-3) Neutrophils # (Auto) 3.3 x10^3/uL (1.8-7.7) Lymphocytes # (Auto) 1.4 x10^3/uL (1.0-4.8) Monocytes # (Auto) 0.4 x10^3/uL (0.0-1.1) Eosinophils # (Auto) 0.3 x10^3/uL (0.0-0.7) Basophils # (Auto) 0.0 x10^3/uL (0.0-0.2) Sodium Level 138 mmol/L (136-145) Potassium Level 3.4 mmol/L (3.5-5.1) Chloride Level 103 mmol/L (98-107) Carbon Dioxide Level 24 mmol/L (21-32) Anion Gap 11 (6-14) Blood Urea Nitrogen 6 mg/dL (8-26) Creatinine 0.9 mg/dL (0.7-1.3) Estimated GFR (Cockcroft-Gault) 89.7 BUN/Creatinine Ratio 7 (6-20) Glucose Level 145 mg/dL (70-99) Calcium Level 9.0 mg/dL (8.5-10.1) Total Bilirubin 0.3 mg/dL (0.2-1.0) Aspartate Amino Transf (AST/SGOT) 10 U/L (15-37) Alanine Aminotransferase (ALT/SGPT) 6 U/L (16-63) Alkaline Phosphatase 114 U/L (46-116) Total Protein 7.4 g/dL (6.4-8.2) Albumin 2.7 g/dL (3.4-5.0) Albumin/Globulin Ratio 0.6 (1.0-1.7) Glucose (Fingerstick) 171 mg/dL (70-99) Micro RUN DATE: 09/16/19 [facility] *LIVE* PAGE 1 RUN TIME: 1411 Specimen Inquiry PATIENT: VIRY FRY ACCT: [id number] LOC: [address] [place] [address] U: [id number] AGE/SX: 48/M ROOM: 426 RE09/13/[address]: LD CHEN MD : 1970 BED: 1 DIS: STATUS: ADM IN TLOC: SPEC #: [id number] FRIDA: 09/13/19 STATUS: RES REQ #: [id number] RECD: 09/13/[address] [facility] [address]: BRIT LIU APRN SOURCE: KNEE ENTR: 09/13/[address]: ANETA,STAFF SPDESC: CHAU POPE APRN ORDERED: ANAER/AEROB/TAMMY COMMENTS: LEFT KNEE Procedure Result ANAEROBIC-AEROBIC CULTURE PENDING ANAEROBIC RES 1 PENDING AEROBIC CULT Preliminary Preliminary report AEROBIC RES 1 Preliminary Streptococcus species 1+ GRAM STAIN Final Final report GRAM STAIN RES 1 Final No organisms seen GRAM STAIN RES 2 Final Comment No white blood cells seen. Performed at: - [facility] [address] [address], [place], [place] [id number] [employer] Washer And Presser: MARIAA Kapadia MD, Phone: [phone] Objective: Assessment: 1. Left knee prosthetic joint infection 09/15 S/P Removal of total knee arthroplasty components with insertion antibiotic spacer and extensive debridement Intraop Vanc and Tobra swab cultures 09/13 strep intraop neg 09/15 so far BC neg 2. History of fall with x-ray done on 08/16/2019 with dissociation of the patellar component of the left knee arthroplasty from the posterior aspect of the patella with surrounding soft tissue swelling and large suprapatellar effusion. 3. Left total knee arthroplasty done in 07/2018, status post revision on 02/24/2019, status post incision and drainage on 03/24/2019 with poly exchange. Cultures from July and 03/2019 negative including AFB and fungal. 4. Diabetes. 5. Hypertension. 6. Hypothyroidism. 7. Osteoarthritis. 8. Bipolar disorder. Plan: Plan of Care cont daptomycin and Merrem f/u labs and cults wound care Continue supportive care. D/W RN D/W at bedside BRIAN GILLESPIE MD Sep 17, 2019 09:04
--- NOTE | 2019-09-17 10:53 | PDOC ---
PROGRESS NOTES History of Present Illness History of Present Illness VTE Prophylaxis Ordered VTE Prophylaxis Devices: No VTE Pharmacological Prophylaxi: Yes Assessment/Plan Assessment/Plan septic joint w. drainage obesity, BMI 37 bipolar disorder insomnia weakness hypokalemia Left knee pain with abscess, possible prosthetic joint infection and probable osteomyelitis per CT.Awaiting surgery History of fall with x-ray done on 08/16/2019 with dissociation of the patellar component of the left knee arthroplasty from the posterior aspect of the patella with surrounding soft tissue swelling and large suprapatellar effusion. 9 x 7 x 4 cm fluid collection at the anterior upper calf and infrapatellar knee suspicious for abscess with extensive surrounding soft tissue edema. The posterior margin of the abscess extends to a defect of the anterior tibial plateau cortex likely a cloaca associated with loosening of the tibial hardware with bone lysis from osteomyelitis poor pain control addressed 09/16 ADMIT ortho and ID consults, broad abx home meds reviewed and restated, K+ given right internal jugular tunneled central venous catheter 36 MIN PT EXAM, CHART REVIEW, > 50% OF TIME SPENT WITH EXAM, CHART REVIEW, PT CARE COORDINATION Operative Note Operative Note Operative Note Date of surgery: 09/15/2019 Preoperative diagnosis: Infected total knee arthroplasty Postoperative diagnosis: Same Operative procedure: Removal of total knee arthroplasty components with insertion antibiotic spacer and extensive debridement Surgeon: Dennise Assist: Nate Greene nurse practitioner Anesthesia: Gen. Estimated blood loss: 200 mL Complications: None Intraoperative cultures: Multiple intraoperative cultures were taken from the bone implant interface after removal of the components including at the distal femur and multiple areas of the proximal tibia Vitals Vitals Vital Signs Date Time Temp Pulse Resp B/P (MAP) Pulse Ox O2 Delivery O2 Flow Rate FiO2 09/17/19 10:48 99 Room Air 09/17/19 08:09 90 152/92 09/17/19 07:00 97.7 16 97.7 Physical Exam Physical Exam GENERAL: Alert, awake male lying in bed comfortably, in mild acute distress. Mother at bedside. HEENT: Normocephalic, atraumatic, anicteric. No thrush. NECK: Supple, no JVD. LUNGS: Clear bilaterally. HEART: S1, S2 regular. ABDOMEN: Soft, bowel sounds present, nontender, nondistended. EXTREMITIES: LLE Trace edema. Left lower extremity with some redness more localized around the knee. Anteriorly just around the patella, there is an area of blister with drainage on the gauze piece, redness, warmth, which is extending below the knee up to the superior aspect of the knee. Decrease in range of motion with Tenderness present on flexion and extension. No calf tenderness, no cyanosis. CENTRAL NERVOUS SYSTEM: Alert and oriented x 3, grossly nonfocal. PSYCHIATRIC: Cooperative. General: Alert, Oriented X3, Cooperative, No acute distress, mild distress Heart: Regular rate Lungs: Clear Abdomen: Soft, No tenderness Extremities: No cyanosis, Normal pulses Skin: No rashes, No breakdown Labs LABS Laboratory Tests Test 09/16/19 11:44 09/16/19 16:32 09/16/19 16:44 09/16/19 20:36 Glucose (Fingerstick) 142 mg/dL (70-99) 171 mg/dL (70-99) 140 mg/dL (70-99) White Blood Count 6.8 x10^3/uL (4.0-11.0) Red Blood Count 3.81 x10^6/uL (4.30-5.70) Hemoglobin 8.9 g/dL (13.0-17.5) Hematocrit 28.0 % (39.0-53.0) Mean Corpuscular Volume 73 fL (79-100) Mean Corpuscular Hemoglobin 23 pg (25-35) Mean Corpuscular Hemoglobin Concent 32 g/dL (31-37) Red Cell Distribution Width 16.6 % (11.5-14.5) Platelet Count 424 x10^3/uL (140-400) Neutrophils (%) (Auto) 70 % (31-73) Lymphocytes (%) (Auto) 21 % (24-48) Monocytes (%) (Auto) 7 % (0-9) Eosinophils (%) (Auto) 2 % (0-3) Basophils (%) (Auto) 1 % (0-3) Neutrophils # (Auto) 4.7 x10^3/uL (1.8-7.7) Lymphocytes # (Auto) 1.4 x10^3/uL (1.0-4.8) Monocytes # (Auto) 0.4 x10^3/uL (0.0-1.1) Eosinophils # (Auto) 0.2 x10^3/uL (0.0-0.7) Basophils # (Auto) 0.0 x10^3/uL (0.0-0.2) Sodium Level 140 mmol/L (136-145) Potassium Level 3.5 mmol/L (3.5-5.1) Chloride Level 103 mmol/L (98-107) Carbon Dioxide Level 26 mmol/L (21-32) Anion Gap 11 (6-14) Blood Urea Nitrogen 6 mg/dL (8-26) Creatinine 0.9 mg/dL (0.7-1.3) Estimated GFR (Cockcroft-Gault) 89.7 BUN/Creatinine Ratio 7 (6-20) Glucose Level 194 mg/dL (70-99) Calcium Level 8.9 mg/dL (8.5-10.1) Total Bilirubin 0.3 mg/dL (0.2-1.0) Aspartate Amino Transf (AST/SGOT) 10 U/L (15-37) Alanine Aminotransferase (ALT/SGPT) 7 U/L (16-63) Alkaline Phosphatase 112 U/L (46-116) Total Protein 7.7 g/dL (6.4-8.2) Albumin 2.8 g/dL (3.4-5.0) Albumin/Globulin Ratio 0.6 (1.0-1.7) Test 09/17/19 04:00 09/17/19 07:13 White Blood Count 5.4 x10^3/uL (4.0-11.0) Red Blood Count 3.85 x10^6/uL (4.30-5.70) Hemoglobin 9.0 g/dL (13.0-17.5) Hematocrit 28.1 % (39.0-53.0) Mean Corpuscular Volume 73 fL (79-100) Mean Corpuscular Hemoglobin 23 pg (25-35) Mean Corpuscular Hemoglobin Concent 32 g/dL (31-37) Red Cell Distribution Width 16.6 % (11.5-14.5) Platelet Count 386 x10^3/uL (140-400) Neutrophils (%) (Auto) 60 % (31-73) Lymphocytes (%) (Auto) 26 % (24-48) Monocytes (%) (Auto) 7 % (0-9) Eosinophils (%) (Auto) 6 % (0-3) Basophils (%) (Auto) 1 % (0-3) Neutrophils # (Auto) 3.3 x10^3/uL (1.8-7.7) Lymphocytes # (Auto) 1.4 x10^3/uL (1.0-4.8) Monocytes # (Auto) 0.4 x10^3/uL (0.0-1.1) Eosinophils # (Auto) 0.3 x10^3/uL (0.0-0.7) Basophils # (Auto) 0.0 x10^3/uL (0.0-0.2) Sodium Level 138 mmol/L (136-145) Potassium Level 3.4 mmol/L (3.5-5.1) Chloride Level 103 mmol/L (98-107) Carbon Dioxide Level 24 mmol/L (21-32) Anion Gap 11 (6-14) Blood Urea Nitrogen 6 mg/dL (8-26) Creatinine 0.9 mg/dL (0.7-1.3) Estimated GFR (Cockcroft-Gault) 89.7 BUN/Creatinine Ratio 7 (6-20) Glucose Level 145 mg/dL (70-99) Calcium Level 9.0 mg/dL (8.5-10.1) Total Bilirubin 0.3 mg/dL (0.2-1.0) Aspartate Amino Transf (AST/SGOT) 10 U/L (15-37) Alanine Aminotransferase (ALT/SGPT) 6 U/L (16-63) Alkaline Phosphatase 114 U/L (46-116) Total Protein 7.4 g/dL (6.4-8.2) Albumin 2.7 g/dL (3.4-5.0) Albumin/Globulin Ratio 0.6 (1.0-1.7) Glucose (Fingerstick) 171 mg/dL (70-99) Comment Review of Relevant I have reviewed the following items satya (where applicable) has been applied. Labs Laboratory Tests Test 09/15/19 14:32 09/15/19 16:43 09/15/19 20:45 09/16/19 07:38 Glucose (Fingerstick) 183 mg/dL (70-99) 213 mg/dL (70-99) 350 mg/dL (70-99) 170 mg/dL (70-99) Test 09/16/19 11:44 09/16/19 16:32 09/16/19 16:44 09/16/19 20:36 Glucose (Fingerstick) 142 mg/dL (70-99) 171 mg/dL (70-99) 140 mg/dL (70-99) White Blood Count 6.8 x10^3/uL (4.0-11.0) Red Blood Count 3.81 x10^6/uL (4.30-5.70) Hemoglobin 8.9 g/dL (13.0-17.5) Hematocrit 28.0 % (39.0-53.0) Mean Corpuscular Volume 73 fL (79-100) Mean Corpuscular Hemoglobin 23 pg (25-35) Mean Corpuscular Hemoglobin Concent 32 g/dL (31-37) Red Cell Distribution Width 16.6 % (11.5-14.5) Platelet Count 424 x10^3/uL (140-400) Neutrophils (%) (Auto) 70 % (31-73) Lymphocytes (%) (Auto) 21 % (24-48) Monocytes (%) (Auto) 7 % (0-9) Eosinophils (%) (Auto) 2 % (0-3) Basophils (%) (Auto) 1 % (0-3) Neutrophils # (Auto) 4.7 x10^3/uL (1.8-7.7) Lymphocytes # (Auto) 1.4 x10^3/uL (1.0-4.8) Monocytes # (Auto) 0.4 x10^3/uL (0.0-1.1) Eosinophils # (Auto) 0.2 x10^3/uL (0.0-0.7) Basophils # (Auto) 0.0 x10^3/uL (0.0-0.2) Sodium Level 140 mmol/L (136-145) Potassium Level 3.5 mmol/L (3.5-5.1) Chloride Level 103 mmol/L (98-107) Carbon Dioxide Level 26 mmol/L (21-32) Anion Gap 11 (6-14) Blood Urea Nitrogen 6 mg/dL (8-26) Creatinine 0.9 mg/dL (0.7-1.3) Estimated GFR (Cockcroft-Gault) 89.7 BUN/Creatinine Ratio 7 (6-20) Glucose Level 194 mg/dL (70-99) Calcium Level 8.9 mg/dL (8.5-10.1) Total Bilirubin 0.3 mg/dL (0.2-1.0) Aspartate Amino Transf (AST/SGOT) 10 U/L (15-37) Alanine Aminotransferase (ALT/SGPT) 7 U/L (16-63) Alkaline Phosphatase 112 U/L (46-116) Total Protein 7.7 g/dL (6.4-8.2) Albumin 2.8 g/dL (3.4-5.0) Albumin/Globulin Ratio 0.6 (1.0-1.7) Test 09/17/19 04:00 09/17/19 07:13 White Blood Count 5.4 x10^3/uL (4.0-11.0) Red Blood Count 3.85 x10^6/uL (4.30-5.70) Hemoglobin 9.0 g/dL (13.0-17.5) Hematocrit 28.1 % (39.0-53.0) Mean Corpuscular Volume 73 fL (79-100) Mean Corpuscular Hemoglobin 23 pg (25-35) Mean Corpuscular Hemoglobin Concent 32 g/dL (31-37) Red Cell Distribution Width 16.6 % (11.5-14.5) Platelet Count 386 x10^3/uL (140-400) Neutrophils (%) (Auto) 60 % (31-73) Lymphocytes (%) (Auto) 26 % (24-48) Monocytes (%) (Auto) 7 % (0-9) Eosinophils (%) (Auto) 6 % (0-3) Basophils (%) (Auto) 1 % (0-3) Neutrophils # (Auto) 3.3 x10^3/uL (1.8-7.7) Lymphocytes # (Auto) 1.4 x10^3/uL (1.0-4.8) Monocytes # (Auto) 0.4 x10^3/uL (0.0-1.1) Eosinophils # (Auto) 0.3 x10^3/uL (0.0-0.7) Basophils # (Auto) 0.0 x10^3/uL (0.0-0.2) Sodium Level 138 mmol/L (136-145) Potassium Level 3.4 mmol/L (3.5-5.1) Chloride Level 103 mmol/L (98-107) Carbon Dioxide Level 24 mmol/L (21-32) Anion Gap 11 (6-14) Blood Urea Nitrogen 6 mg/dL (8-26) Creatinine 0.9 mg/dL (0.7-1.3) Estimated GFR (Cockcroft-Gault) 89.7 BUN/Creatinine Ratio 7 (6-20) Glucose Level 145 mg/dL (70-99) Calcium Level 9.0 mg/dL (8.5-10.1) Total Bilirubin 0.3 mg/dL (0.2-1.0) Aspartate Amino Transf (AST/SGOT) 10 U/L (15-37) Alanine Aminotransferase (ALT/SGPT) 6 U/L (16-63) Alkaline Phosphatase 114 U/L (46-116) Total Protein 7.4 g/dL (6.4-8.2) Albumin 2.7 g/dL (3.4-5.0) Albumin/Globulin Ratio 0.6 (1.0-1.7) Glucose (Fingerstick) 171 mg/dL (70-99) Laboratory Tests Test 09/16/19 11:44 09/16/19 16:32 09/16/19 16:44 09/16/19 20:36 Glucose (Fingerstick) 142 mg/dL (70-99) 171 mg/dL (70-99) 140 mg/dL (70-99) White Blood Count 6.8 x10^3/uL (4.0-11.0) Red Blood Count 3.81 x10^6/uL (4.30-5.70) Hemoglobin 8.9 g/dL (13.0-17.5) Hematocrit 28.0 % (39.0-53.0) Mean Corpuscular Volume 73 fL (79-100) Mean Corpuscular Hemoglobin 23 pg (25-35) Mean Corpuscular Hemoglobin Concent 32 g/dL (31-37) Red Cell Distribution Width 16.6 % (11.5-14.5) Platelet Count 424 x10^3/uL (140-400) Neutrophils (%) (Auto) 70 % (31-73) Lymphocytes (%) (Auto) 21 % (24-48) Monocytes (%) (Auto) 7 % (0-9) Eosinophils (%) (Auto) 2 % (0-3) Basophils (%) (Auto) 1 % (0-3) Neutrophils # (Auto) 4.7 x10^3/uL (1.8-7.7) Lymphocytes # (Auto) 1.4 x10^3/uL (1.0-4.8) Monocytes # (Auto) 0.4 x10^3/uL (0.0-1.1) Eosinophils # (Auto) 0.2 x10^3/uL (0.0-0.7) Basophils # (Auto) 0.0 x10^3/uL (0.0-0.2) Sodium Level 140 mmol/L (136-145) Potassium Level 3.5 mmol/L (3.5-5.1) Chloride Level 103 mmol/L (98-107) Carbon Dioxide Level 26 mmol/L (21-32) Anion Gap 11 (6-14) Blood Urea Nitrogen 6 mg/dL (8-26) Creatinine 0.9 mg/dL (0.7-1.3) Estimated GFR (Cockcroft-Gault) 89.7 BUN/Creatinine Ratio 7 (6-20) Glucose Level 194 mg/dL (70-99) Calcium Level 8.9 mg/dL (8.5-10.1) Total Bilirubin 0.3 mg/dL (0.2-1.0) Aspartate Amino Transf (AST/SGOT) 10 U/L (15-37) Alanine Aminotransferase (ALT/SGPT) 7 U/L (16-63) Alkaline Phosphatase 112 U/L (46-116) Total Protein 7.7 g/dL (6.4-8.2) Albumin 2.8 g/dL (3.4-5.0) Albumin/Globulin Ratio 0.6 (1.0-1.7) Test 09/17/19 04:00 09/17/19 07:13 White Blood Count 5.4 x10^3/uL (4.0-11.0) Red Blood Count 3.85 x10^6/uL (4.30-5.70) Hemoglobin 9.0 g/dL (13.0-17.5) Hematocrit 28.1 % (39.0-53.0) Mean Corpuscular Volume 73 fL (79-100) Mean Corpuscular Hemoglobin 23 pg (25-35) Mean Corpuscular Hemoglobin Concent 32 g/dL (31-37) Red Cell Distribution Width 16.6 % (11.5-14.5) Platelet Count 386 x10^3/uL (140-400) Neutrophils (%) (Auto) 60 % (31-73) Lymphocytes (%) (Auto) 26 % (24-48) Monocytes (%) (Auto) 7 % (0-9) Eosinophils (%) (Auto) 6 % (0-3) Basophils (%) (Auto) 1 % (0-3) Neutrophils # (Auto) 3.3 x10^3/uL (1.8-7.7) Lymphocytes # (Auto) 1.4 x10^3/uL (1.0-4.8) Monocytes # (Auto) 0.4 x10^3/uL (0.0-1.1) Eosinophils # (Auto) 0.3 x10^3/uL (0.0-0.7) Basophils # (Auto) 0.0 x10^3/uL (0.0-0.2) Sodium Level 138 mmol/L (136-145) Potassium Level 3.4 mmol/L (3.5-5.1) Chloride Level 103 mmol/L (98-107) Carbon Dioxide Level 24 mmol/L (21-32) Anion Gap 11 (6-14) Blood Urea Nitrogen 6 mg/dL (8-26) Creatinine 0.9 mg/dL (0.7-1.3) Estimated GFR (Cockcroft-Gault) 89.7 BUN/Creatinine Ratio 7 (6-20) Glucose Level 145 mg/dL (70-99) Calcium Level 9.0 mg/dL (8.5-10.1) Total Bilirubin 0.3 mg/dL (0.2-1.0) Aspartate Amino Transf (AST/SGOT) 10 U/L (15-37) Alanine Aminotransferase (ALT/SGPT) 6 U/L (16-63) Alkaline Phosphatase 114 U/L (46-116) Total Protein 7.4 g/dL (6.4-8.2) Albumin 2.7 g/dL (3.4-5.0) Albumin/Globulin Ratio 0.6 (1.0-1.7) Glucose (Fingerstick) 171 mg/dL (70-99) Microbiology 09/14/19 Anaerobic/Aerobic Culture, Resulted Pending 09/14/19 Anaerobic Culture Result 1 (ANNIE), Resulted Pending 09/14/19 Aerobic Culture, Resulted Pending 09/14/19 Aerobic Culture Result 1 (ANNIE), Resulted Pending 09/14/19 Gram Stain - Final, Resulted 09/14/19 Gram Stain Result 1 (ANNIE) - Final, Resulted 09/14/19 Gram Stain Result 2 (ANNIE) - Final, Resulted 09/14/19 Blood Culture - Preliminary, Resulted NO GROWTH AFTER 2 DAYS Medications Current Medications Sodium Chloride 1,000 ml @ 1,000 mls/hr 1X ONCE IV Last administered on 09/13/19at 21:00; Start 09/13/19 at 20:45; Stop 09/13/19 at 21:44; Status DC Ondansetron HCl (Zofran) 4 mg 1X ONCE IV Last administered on 09/13/19at 21:00; Start 09/13/19 at 20:45; Stop 09/13/19 at 20:46; Status DC Morphine Sulfate (Morphine Sulfate) 4 mg 1X ONCE IV Last administered on 09/13/19at 21:00; Start 09/13/19 at 20:45; Stop 09/13/19 at 20:46; Status DC Iohexol (Omnipaque 300 Mg/ml) 75 ml 1X ONCE IV Last administered on 09/13/19at 21:42; Start 09/13/19 at 21:45; Stop 09/13/19 at 21:46; Status DC Info (CONTRAST GIVEN -- Rx MONITORING) 1 each PRN DAILY PRN MC SEE COMMENTS; Start 09/13/19 at 21:45; Stop 09/15/19 at 21:44; Status DC Vancomycin HCl (Vanco Per Pharmacy) 1 each PRN DAILY PRN MC SEE COMMENTS Last administered on 09/13/19at 23:45; Start 09/13/19 at 22:30; Stop 09/14/19 at 12:47; Status DC Ondansetron HCl (Zofran) 4 mg PRN Q8HRS PRN IV NAUSEA/VOMITING Last administered on 09/14/19at 17:08; Start 09/13/19 at 22:30; Stop 09/14/19 at 22:29; Status DC Morphine Sulfate (Morphine Sulfate) 4 mg PRN Q2HR PRN IV PAIN Last administered on 09/14/19 15:43; Start 09/13/19 at 22:30; Stop 09/14/19 at 22:29; Status DC Vancomycin HCl 2 gm/Sodium Chloride 500 ml @ 250 mls/hr 1X ONCE IV Last administered on 09/13/19at 22:55; Start 09/13/19 at 23:00; Stop 09/14/19 at 00:59; Status DC Potassium Chloride (Klor-Con) 40 meq 1X ONCE PO Last administered on 09/13/19at 23:30; Start 09/13/19 at 23:30; Stop 09/13/19 at 23:31; Status DC Vancomycin HCl 1.75 gm/Sodium Chloride 500 ml @ 250 mls/hr Q12H IV Last administered on 09/14/19at 10:40; Start 09/14/19 at 11:00; Stop 09/14/19 at 12:45; Status DC Vancomycin HCl (Vancomycin Trough Level) 1 each 1X ONCE MC ; Start 09/15/19 at 10:30; Stop 09/14/19 at 12:47; Status DC Non-Formulary Medication 2 ea HS PO Last administered on 09/16/19at 21:23; Start 09/14/19 at 21:00 Non-Formulary Medication 2 ea 1X ONCE PO Last administered on 09/14/19 02:05; Start 09/14/19 at 01:45; Stop 09/14/19 at 01:46; Status DC Levothyroxine Sodium (Synthroid) 100 mcg DAILY06 PO Last administered on 09/17/19at 05:58; Start 09/14/19 at 09:00 Lidocaine (Lidoderm) 1 patch DAILY TP Last administered on 09/17/19 08:09; Start 09/14/19 at 09:00 Lisinopril (Prinivil) 5 mg DAILY PO Last administered on 09/17/19 08:09; Start 09/14/19 at 09:00 Oxycodone/ Acetaminophen (Percocet 7.5/ 325) 1 tab PRN Q6HRS PRN PO PAIN Last administered on 09/16/19 04:50; Start 09/14/19 at 08:45; Stop 09/16/19 at 09:10; Status DC Tizanidine HCl (Zanaflex) 4 mg TID PRN PO MUSCLE SPASMS Last administered on 09/15/19at 22:48; Start 09/14/19 at 08:45 Clonazepam (KlonoPIN) 1 mg BID PO Last administered on 09/17/19 08:09; Start 09/14/19 at 09:00 Doxepin HCl (SINEquan) 150 mg QHS PO ; Start 09/14/19 at 21:00 [place] Carbonate (Lithobid) 600 mg QHS PO Last administered on 09/16/19at 21:17; Start 09/14/19 at 21:00 Linagliptin (Tradjenta) 5 mg DAILY PO Last administered on 09/17/19 08:09; Start 09/14/19 at 09:00 Potassium Chloride (Klor-Con) 40 meq 1X ONCE PO Last administered on 09/14/19 09:03; Start 09/14/19 at 09:00; Stop 09/14/19 at 09:01; Status DC Metformin HCl (Glucophage) 1,000 mg BIDWMEALS PO Last administered on 09/17/19at 08:09; Start 09/16/19 at 08:00 Lactobacillus Rhamnosus (Culturelle) 1 cap BID PO Last administered on 09/17/19 08:09; Start 09/14/19 at 21:00 Meropenem 500 mg/ Sodium Chloride 50 ml @ 100 mls/hr Q6HRS IV Last administered on 09/17/19at 05:58; Start 09/14/19 at 13:30 Daptomycin 400 mg/ Sodium Chloride 50 ml @ 100 mls/hr Q24H IV Last administered on 09/16/19at 12:52; Start 09/14/19 at 14:00 Lidocaine HCl (Buffered Lidocaine 1%) 3 ml STK-MED ONCE .ROUTE ; Start 09/14/19 at 13:24; Stop 09/14/19 at 13:24; Status DC Lidocaine HCl (Buffered Lidocaine 1%) 3 ml 1X ONCE INJ ; Start 09/14/19 at 13:45; Stop 09/14/19 at 13:46; Status DC Cefazolin Sodium 100 ml @ As Directed STK-MED ONCE IV ; Start 09/14/19 at 13:51; Stop 09/14/19 at 13:51; Status DC Lidocaine/ Epinephrine (LIDOCAINE 1%-EPI 1:100,000 Multi-Dose) 20 ml STK-MED O NCE .ROUTE ; Start 09/14/19 at 14:01; Stop 09/14/19 at 14:01; Status DC Lidocaine/ Epinephrine (LIDOCAINE 1%-EPI 1:100,000 Multi-Dose) 20 ml 1X ONCE SQ Last administered on 09/14/19at 14:15; Start 09/14/19 at 14:15; Stop 09/14/19 at 14:16; Status DC Cefazolin Sodium 50 ml @ 100 mls/hr 1X ONCE IV Last administered on 09/14/19at 14:15; Start 09/14/19 at 14:15; Stop 09/14/19 at 14:44; Status DC Cefazolin Sodium 50 ml @ 100 mls/hr 1X ONCE IV Last administered on 09/14/19at 14:15; Start 09/14/19 at 14:15; Stop 09/14/19 at 14:44; Status DC Morphine Sulfate 5 mg/Ketorolac Tromethamine 30 mg/Ropivacaine 60 ml/Epinephrine HCl 0.5 mg/Sodium Chloride 100 ml @ 100 mls/hr 1X ONCE INT ART Last administered on 09/15/19at 14:36; Start 09/15/19 at 06:00; Stop 09/15/19 at 06:59; Status DC Ondansetron HCl (Zofran) 4 mg PRN Q6HRS PRN IV NAUSEA/VOMITING; Start 09/15/19 at 06:30; Stop 09/16/19 at 06:29; Status DC Fentanyl Citrate (Fentanyl 2ml Vial) 25 mcg PRN Q5MIN PRN IV MILD PAIN 1-3; Start 09/15/19 at 06:30; Stop 09/16/19 at 06:29; Status DC Fentanyl Citrate (Fentanyl 2ml Vial) 50 mcg PRN Q5MIN PRN IV MODERATE TO SEVERE PAIN; Start 09/15/19 at 06:30; Stop 09/16/19 at 06:29; Status DC Morphine Sulfate (Morphine Sulfate) 1 mg PRN Q10MIN PRN IV SEVERE PAIN 7-10; Start 09/15/19 at 06:30; Stop 09/16/19 at 06:29; Status DC Ringer's Solution 1,000 ml @ 30 mls/hr Q24H IV Last administered on 09/15/19at 10:39; Start 09/15/19 at 06:30; Stop 09/15/19 at 06:49; Status DC Lidocaine HCl (Xylocaine-Mpf 1% 2ml Vial) 2 ml 1X PRN PRN ID IV START; Start 09/15/19 at 06:30; Stop 09/16/19 at 06:29; Status DC Hydromorphone HCl (Dilaudid) 0.5 mg PRN Q10MIN PRN IV SEV PAIN, Second choice; Start 09/15/19 at 06:30; Stop 09/16/19 at 06:29; Status DC Prochlorperazine Edisylate (Compazine) 5 mg PACU PRN PRN IV NAUSEA, MRX1; Start 09/15/19 at 06:30; Stop 09/16/19 at 06:29; Status DC Propofol 20 ml @ As Directed STK-MED ONCE IV ; Start 09/15/19 at 09:30; Stop 09/15/19 at 09:31; Status DC Lidocaine HCl (Lidocaine Pf 2% Vial) 5 ml STK-MED ONCE .ROUTE ; Start 09/15/19 at 09:30; Stop 09/15/19 at 09:31; Status DC Dexamethasone Sodium Phosphate (Decadron) 20 mg STK-MED ONCE .ROUTE ; Start 09/15/19 at 09:30; Stop 09/15/19 at 09:31; Status DC Ondansetron HCl (Zofran) 4 mg STK-MED ONCE .ROUTE ; Start 09/15/19 at 09:30; Stop 09/15/19 at 09:31; Status DC Phenylephrine HCl (PHENYLEPHRINE in 0.9% NACL PF) 1 mg STK-MED ONCE IV ; Start 09/15/19 at 09:31; Stop 09/15/19 at 09:31; Status DC Fentanyl Citrate (Fentanyl 2ml Vial) 100 mcg STK-MED ONCE .ROUTE ; Start 09/15/19 at 09:31; Stop 09/15/19 at 09:32; Status DC Rocuronium Drew (Zemuron) 50 mg STK-MED ONCE .ROUTE ; Start 09/15/19 at 09:32; Stop 09/15/19 at 09:32; Status DC Succinylcholine Chloride (Anectine) 200 mg STK-MED ONCE .ROUTE ; Start 09/15/19 at 09:46; Stop 09/15/19 at 09:46; Status DC Nicardipine HCl (Cardene) 25 mg STK-MED ONCE IV ; Start 09/15/19 at 11:34; Stop 09/15/19 at 11:35; Status DC Sevoflurane (Ultane) 90 ml STK-MED ONCE IH ; Start 09/15/19 at 11:44; Stop 09/15/19 at 11:45; Status DC Fentanyl Citrate (Fentanyl 2ml Vial) 100 mcg STK-MED ONCE .ROUTE ; Start 09/15/19 at 11:50; Stop 09/15/19 at 11:50; Status DC Neostigmine Methylsulfate (Neostigmine Methylsulfate) 5 mg STK-MED ONCE .ROUTE ; Start 09/15/19 at 13:34; Stop 09/15/19 at 13:34; Status DC Glycopyrrolate (Robinul) 1 mg STK-MED ONCE .ROUTE ; Start 09/15/19 at 13:34; Stop 09/15/19 at 13:34; Status DC Fentanyl Citrate (Fentanyl 2ml Vial) 50 mcg PRN Q5MIN PRN IV MODERATE TO SEVERE PAIN; Start 09/15/19 at 14:45; Stop 09/16/19 at 08:59; Status DC Morphine Sulfate (Morphine Sulfate) 2 mg PRN Q10MIN PRN IV MILD PAIN 1-3; Start 09/15/19 at 14:45; Stop 09/16/19 at 08:59; Status DC Hydromorphone HCl (Dilaudid) 0.4 mg PRN Q10MIN PRN IV Moderate to severe pain; Start 09/15/19 at 14:45; Stop 09/16/19 at 08:59; Status DC Ondansetron HCl (Zofran) 4 mg PRN Q6HRS PRN IVP Nausea, 2nd Choice; Start 09/15/19 at 14:45; Stop 09/16/19 at 08:59; Status DC Insulin Human Lispro (HumaLOG VIAL for OP,RR ONLY) 0-10 units PRN Q1HR PRN SQ P ER PROTOCOL Last administered on 09/15/19at 14:51; Start 09/15/19 at 14:45; Stop 09/16/19 at 14:44; Status DC Insulin Human Lispro (HumaLOG) 0-9 UNITS TIDWMEALS SQ ; Start 09/16/19 at 08:00; Stop 09/16/19 at 03:37; Status DC Dextrose (Dextrose 50%-Water Syringe) 12.5 gm PRN Q15MIN PRN IV SEE COMMENTS; Start 09/15/19 at 21:45 Insulin Human Lispro (HumaLOG) 12 units 1X SQ ; Start 09/15/19 at 22:00; Stop 09/15/19 at 23:07; Status DC Insulin Human Lispro (HumaLOG) 12 units 1X ONCE SQ Last administered on 11/16/18at 23:15; Start 09/15/19 at 23:15; Stop 09/15/19 at 23:16; Status DC Insulin Human Lispro (HumaLOG) 0-9 UNITS TIDWMEALHC SQ Last administered on 09/17/19at 08:16; Start 09/16/19 at 08:00 Oxycodone/ Acetaminophen (Percocet 10/325) 1 tab PRN Q6HRS PRN PO MODERATE TO SEVERE PAIN Last administered on 09/17/19at 08:09; Start 09/16/19 at 09:15 Hydromorphone HCl (Dilaudid) 1 mg 1X ONCE IV ; Start 09/16/19 at 14:00; Stop 09/16/19 at 14:01; Status Cancel Hydromorphone HCl (Dilaudid) 1 mg PRN Q4HRS PRN IV SEVERE PAIN 7-10 Last administered on 09/17/19at 10:48; Start 09/16/19 at 13:30 Active Scripts Active Oxycodone Hcl Immed.release (Oxycodone Hcl) 10 Mg Tablet 10 Mg PO PRN Q4HRS PRN Reported Lidocaine PATCH (Lidocaine) 1 Each Adh..patch 1 Each TP DAILY REMOVE AFTER 12 HOURS Doxepin Hcl 150 Mg Capsule 1 Cap PO QHS 30 Days Lisinopril 5 Mg Tablet 1 Tab PO DAILY Percocet 7.5-325 Mg Tablet (Oxycodone/Acetaminophen) 1 Each Tablet 1 Tab PO PRN Q6HRS PRN Janumet 50-1,000 Mg Tablet (Sitagliptin Phos/Metformin Hcl) 1 Each Tablet 1 Tab PO BID [place] Carbonate 300 Mg Capsule 2 Cap PO HS Clonazepam 1 Mg Tablet 1 Mg PO BID Tizanidine Hcl 4 Mg Tablet 4 Mg PO TID PRN Levothyroxine Sodium 100 Mcg Tablet 1 Tab PO DAILY [place] Carbonate 300 Mg Tablet 1 Tab PO BID Lisinopril 2.5 Mg Tablet 5 Mg PO DAILY Zanaflex (Tizanidine Hcl) 4 Mg Capsule 1 Cap PO TID PRN Janumet 50-1,000 Mg Tablet (Sitagliptin Phos/Metformin Hcl) 1 Each Tablet 1 Tab PO BID Synthroid (Levothyroxine Sodium) 100 Mcg Tablet 100 Mcg PO DAILYAC Doxepin Hcl 50 Mg Capsule 300 Mg PO HS Klonopin (Clonazepam) 0.5 Mg Tablet 1 Mg PO PRN DAILY PRN Vitals/I & O Vital Sign - Last 24 Hours 09/16/19 09/16/19 09/16/19 09/16/19 11:00 11:03 13:43 15:00 Temp 97.7 97.8 97.7 97.8 Pulse 92 99 Resp 20 20 B/P (MAP) 147/91 (109) 137/95 (109) Pulse Ox 99 100 100 99 O2 Delivery Room Air Room Air Room Air Room Air 09/16/19 09/16/19 09/16/19 09/16/19 15:12 16:20 17:05 17:45 Pulse Ox 100 100 100 100 O2 Delivery Room Air Room Air Room Air Room Air 09/16/19 09/16/19 09/16/19 09/16/19 18:04 19:44 19:45 21:47 Temp 97.9 97.9 Pulse 96 Resp 20 B/P (MAP) 129/83 (98) Pulse Ox 100 96 O2 Delivery Room Air Room Air Room Air Room Air 09/16/19 09/16/19 09/17/19 09/17/19 22:17 22:48 02:36 05:57 Temp 98.2 98.0 98.2 98.0 Pulse 106 87 Resp 16 16 B/P (MAP) 148/98 (115) 148/96 (113) Pulse Ox 98 99 O2 Delivery Room Air Room Air Room Air Room Air 09/17/19 09/17/19 09/17/19 09/17/19 07:00 07:28 07:30 08:09 Temp 97.7 97.7 Pulse 90 90 Resp 16 B/P (MAP) 152/92 (112) 152/92 Pulse Ox 100 99 O2 Delivery Room Air Room Air Room Air 09/17/19 09/17/19 09/17/19 08:09 09:00 10:48 Pulse Ox 99 99 99 O2 Delivery Room Air Room Air Room Air Intake and Output 09/16/19 09/16/19 09/17/19 15:00 23:00 07:00 Intake Total 600 ml Output Total 600 ml 400 ml 500 ml Balance -600 ml 200 ml -500 ml DL CHEN MD Sep 17, 2019 10:53
[2019-09-17 11:00] VITALS: BP 157/96
[2019-09-17] MEDS: DAPTOmycin (GENERIC) IVPB 400 MG in IV NORMAL SALINE 50ML 50 ML IV SCH (12:47)
--- NOTE | 2019-09-17 13:26 | NUR ---
SS following up with discharge planning. PT/OT recommending [facility]p unit at discharge. Pt currently on IV Dapto and Chioma. SS will continue to follow for discharge planning.
[2019-09-17 15:00] VITALS: BP 143/89
[2019-09-17] MEDS ORDERED: POTASSIUM CHLORIDE 20 MEQ TABLET.ER. PO ONE (15:45)
[2019-09-17 19:15] VITALS: BP 134/79
[2019-09-17] MEDS: LITHIUM CARBONATE ER 300 MG TABLET.ER PO SCH (20:20)
[2019-09-17] MEDS: DOXEPIN HCL 25 MG CAPSULE. PO SCH (20:20)
[2019-09-17] MEDS: DOXEPIN 150 MG PO SCH (21:37)
[2019-09-17] MEDS: tiZANidine 4 MG TABLET. PO PRN (21:38)
[2019-09-17 23:16] VITALS: BP 132/74
[2019-09-18] MEDS: MEROPENEM 500 MG in IV NORMAL SALINE 50ML 50 ML IV SCH ×4 (00:06→17:33)
[2019-09-18 03:04] VITALS: BP 122/76
[2019-09-18 04:55] LABS: BASO # 0.1 x10^3/uL (0.0-0.2); BASO % 1 % (0-3); EOS # 0.4 x10^3/uL (0.0-0.7); EOS % 7 % (0-3); HEMATOCRIT 25.9 % (39.0-53.0); HEMOGLOBIN 8.1 g/dL (13.0-17.5); LYMPH # 1.5 x10^3/uL (1.0-4.8); LYMPH % 29 % (24-48); MEAN CORPUSCULAR HEMOGLOBIN 23 pg (25-35); MEAN CORPUSCULAR HGB CONC 31 g/dL (31-37); MEAN CORPUSCULAR VOLUME 74 fL (79-100); MONO # 0.5 x10^3/uL (0.0-1.1); MONO % 9 % (0-9); NEUT # 2.7 x10^3/uL (1.8-7.7); NEUT % 53 % (31-73); PLATELET COUNT 360 x10^3/uL (140-400); RED BLOOD COUNT 3.52 x10^6/uL (4.30-5.70); RED CELL DISTRIBUTION WIDTH 16.8 % (11.5-14.5); WHITE BLOOD COUNT 5.1 x10^3/uL (4.0-11.0)
[2019-09-18 05:07] LABS: CALCIUM 9.2 mg/dL (8.5-10.1); CREATININE 0.9 mg/dL (0.7-1.3); GFR 89.7; POTASSIUM 4.1 mmol/L (3.5-5.1)
[2019-09-18] MEDS: LEVOTHYROXINE 100 MCG TABLET PO SCH (05:41)
[2019-09-18] MEDS: tiZANidine 4 MG TABLET. PO PRN (05:41)
[2019-09-18] MEDS: HYDROmorphone 2 MG/ML VIAL IV PRN ×5 (05:41→22:21)
[2019-09-18 07:00] VITALS: BP 94/56
[2019-09-18] MEDS: oxyCODONE/APAP 10/325 1 TAB TABLET PO PRN ×2 (07:31→17:38)
[2019-09-18] MEDS: LISINOPRIL 5 MG TABLET. PO SCH (09:00)
--- NOTE | 2019-09-18 09:32 | PDOC ---
Infectious Disease Note Subjective: Subjective Pt feels better today has some postop site pain but under control no f/c/n/v/d/abdo pain Vital Signs: Vital Signs Vital Signs Date Time Temp Pulse Resp B/P (MAP) Pulse Ox O2 Delivery O2 Flow Rate FiO2 09/18/19 08:00 Room Air 09/18/19 07:31 99 10.0 09/18/19 07:00 98.2 77 16 94/56 (69) 98.2 Physical Exam: PHYSICAL EXAM GENERAL: Alert, awake male lying in bed comfortably, in mild acute distress. Mother at bedside. HEENT: Normocephalic, atraumatic, anicteric. No thrush. NECK: Supple, no JVD. LUNGS: Clear bilaterally. HEART: S1, S2 regular. ABDOMEN: Soft, bowel sounds present, nontender, nondistended. EXTREMITIES: LLE Trace edema. Left lower extremity with some redness more localized around the knee. Anteriorly just around the patella, there is an area of blister with drainage on the gauze piece, redness, warmth, which is extending below the knee up to the superior aspect of the knee. Decrease in range of motion with Tenderness present on flexion and extension. No calf tenderness, no cyanosis. CENTRAL NERVOUS SYSTEM: Alert and oriented x 3, grossly nonfocal. PSYCHIATRIC: Cooperative. Medications: Inpatient Meds: Current Medications Medications (Trade) Dose Ordered Sig/Jermaine Start Time Stop Time Status Last Admin Dose Admin Cefazolin Sodium 50 ml @ 100 mls/hr 1X ONCE 09/14/19 14:15 09/14/19 14:44 DC 09/14/19 14:15 100 MLS/HR Clonazepam (KlonoPIN) 1 mg BID 09/14/19 09:00 09/17/19 20:21 1 MG Daptomycin 400 mg/ Sodium Chloride 50 ml @ 100 mls/hr Q24H 09/14/19 14:00 09/17/19 12:47 100 MLS/HR Dexamethasone Sodium Phosphate (Decadron) 20 mg STK-MED ONCE 09/15/19 09:30 09/15/19 09:31 DC Dextrose (Dextrose 50%-Water Syringe) 12.5 gm PRN Q15MIN PRN 09/15/19 21:45 Doxepin HCl (SINEquan) 150 mg QHS 09/14/19 21:00 Fentanyl Citrate (Fentanyl 2ml Vial) 50 mcg PRN Q5MIN PRN 09/15/19 14:45 09/16/19 08:59 DC Glycopyrrolate (Robinul) 1 mg STK-MED ONCE 09/15/19 13:34 09/15/19 13:34 DC Hydromorphone HCl (Dilaudid) 1 mg PRN Q4HRS PRN 09/16/19 13:30 09/18/19 05:41 1 MG Info (CONTRAST GIVEN -- Rx MONITORING) 1 each PRN DAILY PRN 09/13/19 21:45 09/15/19 21:44 DC Insulin Human Lispro (HumaLOG VIAL for OP,RR ONLY) 0-10 units PRN Q1HR PRN 09/15/19 14:45 09/16/19 14:44 DC 09/15/19 14:51 4 UNIT Insulin Human Lispro (HumaLOG) 0-9 UNITS TIDWMEALHC 09/16/19 08:00 09/17/19 08:16 4 UNITS Iohexol (Omnipaque 300 Mg/ml) 75 ml 1X ONCE 09/13/19 21:45 09/13/19 21:46 DC 09/13/19 21:42 75 ML Lactobacillus Rhamnosus (Culturelle) 1 cap BID 09/14/19 21:00 09/17/19 20:21 1 CAP Levothyroxine Sodium (Synthroid) 100 mcg DAILY06 09/14/19 09:00 09/18/19 05:41 100 MCG Lidocaine (Lidoderm) 1 patch DAILY 09/14/19 09:00 09/17/19 08:09 1 PATCH Lidocaine HCl (Buffered Lidocaine 1%) 3 ml 1X ONCE 09/14/19 13:45 09/14/19 13:46 DC Lidocaine HCl (Lidocaine Pf 2% Vial) 5 ml STK-MED ONCE 09/15/19 09:30 09/15/19 09:31 DC Lidocaine HCl (Xylocaine-Mpf 1% 2ml Vial) 2 ml 1X PRN PRN 09/15/19 06:30 09/16/19 06:29 DC Lidocaine/ Epinephrine (LIDOCAINE 1%-EPI 1:100,000 Multi-Dose) 20 ml 1X ONCE 09/14/19 14:15 09/14/19 14:16 DC 09/14/19 14:15 7 ML Linagliptin (Tradjenta) 5 mg DAILY 09/14/19 09:00 09/17/19 08:09 5 MG Lisinopril (Prinivil) 5 mg DAILY 09/14/19 09:00 09/17/19 08:09 5 MG [place] Carbonate (Lithobid) 600 mg QHS 09/14/19 21:00 09/17/19 20:20 600 MG Meropenem 500 mg/ Sodium Chloride 50 ml @ 100 mls/hr Q6HRS 09/14/19 13:30 09/18/19 05:41 100 MLS/HR Metformin HCl (Glucophage) 1,000 mg BIDWMEALS 09/16/19 08:00 09/17/19 17:04 1,000 MG Morphine Sulfate (Morphine Sulfate) 2 mg PRN Q10MIN PRN 09/15/19 14:45 09/16/19 08:59 DC Morphine Sulfate 5 mg/Ketorolac Tromethamine 30 mg/Ropivacaine 60 ml/Epinephrine HCl 0.5 mg/Sodium Chloride 100 ml @ 100 mls/hr 1X ONCE 09/15/19 06:00 09/15/19 06:59 DC 09/15/19 14:36 Neostigmine Methylsulfate (Neostigmine Methylsulfate) 5 mg STK-MED ONCE 09/15/19 13:34 09/15/19 13:34 DC Nicardipine HCl (Cardene) 25 mg STK-MED ONCE 09/15/19 11:34 09/15/19 11:35 DC Non-Formulary Medication 2 ea 1X ONCE 09/14/19 01:45 09/14/19 01:46 DC 09/14/19 02:05 2 EA Ondansetron HCl (Zofran) 4 mg PRN Q6HRS PRN 09/15/19 14:45 09/16/19 08:59 DC Oxycodone/ Acetaminophen (Percocet 10/325) 1 tab PRN Q6HRS PRN 09/16/19 09:15 09/18/19 07:31 1 TAB Oxycodone/ Acetaminophen (Percocet 7.5/ 325) 1 tab PRN Q6HRS PRN 09/14/19 08:45 09/16/19 09:10 DC 09/16/19 04:50 1 TAB Phenylephrine HCl (PHENYLEPHRINE in 0.9% NACL PF) 1 mg STK-MED ONCE 09/15/19 09:31 09/15/19 09:31 DC Potassium Chloride (Klor-Con) 40 meq 1X ONCE 09/17/19 15:45 09/17/19 15:46 DC 09/17/19 17:04 40 MEQ Prochlorperazine Edisylate (Compazine) 5 mg PACU PRN PRN 09/15/19 06:30 09/16/19 06:29 DC Propofol 20 ml @ As Directed STK-MED ONCE 09/15/19 09:30 09/15/19 09:31 DC Ringer's Solution 1,000 ml @ 30 mls/hr Q24H 09/15/19 06:30 09/15/19 06:49 DC 09/15/19 10:39 30 MLS/HR Rocuronium [place] (Zemuron) 50 mg STK-MED ONCE 09/15/19 09:32 09/15/19 09:32 DC Sevoflurane (Ultane) 90 ml STK-MED ONCE 09/15/19 11:44 09/15/19 11:45 DC Sodium Chloride 1,000 ml @ 1,000 mls/hr 1X ONCE 09/13/19 20:45 09/13/19 21:44 DC 09/13/19 21:00 1,000 MLS/HR Succinylcholine Chloride (Anectine) 200 mg STK-MED ONCE 09/15/19 09:46 09/15/19 09:46 DC Tizanidine HCl (Zanaflex) 4 mg TID PRN 09/14/19 08:45 09/18/19 05:41 4 MG Vancomycin HCl (Vanco Per Pharmacy) 1 each PRN DAILY PRN 09/13/19 22:30 09/14/19 12:47 DC 09/13/19 23:45 1 EACH Vancomycin HCl (Vancomycin Trough Level) 1 each 1X ONCE 09/15/19 10:30 09/14/19 12:47 DC Vancomycin HCl 1.75 gm/Sodium Chloride 500 ml @ 250 mls/hr Q12H 09/14/19 11:00 09/14/19 12:45 DC 09/14/19 10:40 250 MLS/HR Vancomycin HCl 2 gm/Sodium Chloride 500 ml @ 250 mls/hr 1X ONCE 09/13/19 23:00 09/14/19 00:59 DC 09/13/19 22:55 250 MLS/HR Labs: Lab Laboratory Tests Test 09/17/19 10:51 09/17/19 17:04 09/17/19 20:52 09/18/19 04:20 Glucose (Fingerstick) 143 mg/dL (70-99) 137 mg/dL (70-99) 165 mg/dL (70-99) White Blood Count 5.1 x10^3/uL (4.0-11.0) Red Blood Count 3.52 x10^6/uL (4.30-5.70) Hemoglobin 8.1 g/dL (13.0-17.5) Hematocrit 25.9 % (39.0-53.0) Mean Corpuscular Volume 74 fL (79-100) Mean Corpuscular Hemoglobin 23 pg (25-35) Mean Corpuscular Hemoglobin Concent 31 g/dL (31-37) Red Cell Distribution Width 16.8 % (11.5-14.5) Platelet Count 360 x10^3/uL (140-400) Neutrophils (%) (Auto) 53 % (31-73) Lymphocytes (%) (Auto) 29 % (24-48) Monocytes (%) (Auto) 9 % (0-9) Eosinophils (%) (Auto) 7 % (0-3) Basophils (%) (Auto) 1 % (0-3) Neutrophils # (Auto) 2.7 x10^3/uL (1.8-7.7) Lymphocytes # (Auto) 1.5 x10^3/uL (1.0-4.8) Monocytes # (Auto) 0.5 x10^3/uL (0.0-1.1) Eosinophils # (Auto) 0.4 x10^3/uL (0.0-0.7) Basophils # (Auto) 0.1 x10^3/uL (0.0-0.2) Sodium Level 138 mmol/L (136-145) Potassium Level 4.1 mmol/L (3.5-5.1) Chloride Level 103 mmol/L (98-107) Carbon Dioxide Level 29 mmol/L (21-32) Anion Gap 6 (6-14) Blood Urea Nitrogen 7 mg/dL (8-26) Creatinine 0.9 mg/dL (0.7-1.3) Estimated GFR (Cockcroft-Gault) 89.7 Glucose Level 145 mg/dL (70-99) Calcium Level 9.2 mg/dL (8.5-10.1) Test 09/18/19 07:54 Glucose (Fingerstick) 239 mg/dL (70-99) Micro RUN DATE: 09/17/19 [facility] *LIVE* PAGE 1 RUN TIME: 1111 Specimen Inquiry PATIENT: VIRY FRY ACCT: [id number] LOC: [address] [place] [address] U: [id number] AGE/SX: 48/M ROOM: 426 RE09/13/[address]: DL CHEN MD : 1970 BED: 1 DIS: STATUS: ADM IN TLOC: SPEC #: [id number] FRIDA: 09/14/19-1799 STATUS: RES REQ #: [id number] RECD: 09/14/[address]: CHRIS LIAO MD SOURCE: KNEE ENTR: 09/14/[address]: GARRET GILLESPIE MD [facility]: BENITA CHEN,DL SORIA,ELISHA PITTSUMANCHAU Alysha SONI ORDERED: ANAER/AEROB/TAMMY COMMENTS: LEFT KNEE ABSCESS Procedure Result ANAEROBIC-AEROBIC CULTURE PENDING ANAEROBIC RES 1 PENDING AEROBIC CULT Preliminary Preliminary report AEROBIC RES 1 Preliminary Comment No growth in 36 - 48 hours. GRAM STAIN Final Final report GRAM STAIN RES 1 Final Comment Rare white blood cells. GRAM STAIN RES 2 Final No organisms seen Performed at: - [address], [place], [place] [id number] [place]: MARIAA Kapadia MD, Phone: [phone] END OF REPORT RUN DATE: 09/17/19 [facility] *LIVE* PAGE 1 RUN TIME: 1210 Specimen Inquiry PATIENT: VIRY FRY ACCT: [id number] LOC: [address] [place] [address] U: [id number] AGE/SX: 48/M ROOM: [facility] RE09/13/[address]: DL CHEN MD : 1970 BED: 1 DIS: STATUS: ADM IN TLOC: SPEC #: [id number] FRIDA: 09/13/19 STATUS: RES REQ #: [id number] RECD: 09/13/[address]: BRIT LIU APRN SOURCE: KNEE ENTR: 09/13/[address]: ANETA,STAFF [facility]: CHAU POPE APRN ORDERED: ANDRES/MAXINE/TAMMY COMMENTS: LEFT KNEE --------- --- Procedure Result ANAEROBIC-AEROBIC CULTURE PENDING ANAEROBIC RES 1 PENDING AEROBIC CULT Final Preliminary report Final report AEROBIC RES 1 Final Streptococcus species Enterococcus faecalis 1+ AEROBIC RES 2 Final Mixed skin any 1+ ANTIMICROBIAL SUSCEPTIBILITY Final Comment S = Susceptible; I = Intermediate; R = Resistant P = Positive; N = Negative MICS are expressed in micrograms per mL Antibiotic RSLT#1 RSLT#2 RSLT#3 RSLT#4 Penicillin S =4 Vancomycin S =2 GRAM STAIN Final Final report GRAM STAIN RES 1 Final No organisms seen GRAM STAIN RES 2 Final Comment CONTINUED ON NEXT PAGE RUN DATE: 09/17/19 [facility] *LIVE* PAGE 2 RUN TIME: 1210 Specimen Inquiry SPEC: [id number] PATIENT: VIRY FRY Alejandro [id number] (Continued) Procedure Result GRAM STAIN RES 2 Final (continued) No white blood cells seen. Performed at: - [facility] [address] [facility] [address], [place], [place] [id number] [place]: MARIAA Kapadia MD, Phone: [phone] - Objective: Assessment: 1. Left knee prosthetic joint infection 09/15 S/P Removal of total knee arthroplasty components with insertion antibiotic spacer and extensive debridement Intraop Vanc and Tobra ESR 64 swab cultures 09/13 E fecalis amp sensitive swab c/s 09/14 neg Intraoperative neg 09/15 so far BC neg 2. History of fall with x-ray done on 08/16/2019 with dissociation of the patellar component of the left knee arthroplasty from the posterior aspect of the patella with surrounding soft tissue swelling and large suprapatellar effusion. 3. Left total knee arthroplasty done in 07/2018, status post revision on 02/24/2019, status post incision and drainage on 03/24/2019 with poly exchange. Cultures from July and 03/2019 negative including AFB and fungal. 4. Diabetes. 5. Anemia 6. Hypertension. 7. Hypothyroidism. 8. Osteoarthritis. 9. Bipolar disorder. Plan: Plan of Care cont daptomycin and Merrem f/u labs and cults wound care Continue supportive care. D/W RN D/W Mother at bedside BRIAN GILLESPIE MD Sep 18, 2019 09:32
[2019-09-18] MEDS: LINAGLIPTIN 5 MG TABLET PO SCH (09:42)
[2019-09-18] MEDS: clonazePAM 0.5 MG TABLET PO SCH ×2 (09:42→21:52)
[2019-09-18] MEDS: LACTOBACILLUS RHAMNOSUS GG 1 CAPSULE. PO SCH ×2 (09:42→21:52)
[2019-09-18] MEDS: metFORMIN 500 MG TABLET PO SCH ×2 (09:43→17:33)
[2019-09-18] MEDS: INSULIN LISPRO 300 UNITS/3 ML VIAL. SQ SCH ×4 (09:51→21:00)
[2019-09-18] MEDS: LIDOCAINE (700MG/PATCH) PATCH. TP SCH (09:51)
--- NOTE | 2019-09-18 10:04 | PDOC ---
PROGRESS NOTES History of Present Illness History of Present Illness VTE Prophylaxis Ordered VTE Prophylaxis Devices: No VTE Pharmacological Prophylaxi: Yes Assessment/Plan Assessment/Plan septic joint w. drainage obesity, BMI 37 bipolar disorder insomnia weakness hypokalemia microcytic anemia Left knee pain with abscess, possible prosthetic joint infection and probable osteomyelitis per CT.Awaiting surgery History of fall with x-ray done on 08/16/2019 with dissociation of the patellar component of the left knee arthroplasty from the posterior aspect of the patella with surrounding soft tissue swelling and large suprapatellar effusion. 9 x 7 x 4 cm fluid collection at the anterior upper calf and infrapatellar knee suspicious for abscess with extensive surrounding soft tissue edema. The posterior margin of the abscess extends to a defect of the anterior tibial plateau cortex likely a cloaca associated with loosening of the tibial hardware with bone lysis from osteomyelitis poor pain control addressed 09/16 ADMIT ortho and ID consults, broad abx cont iv daptomycin and Merrem home meds reviewed and restated, K+ given right internal jugular tunneled central venous catheter fe panel 37 MIN PT EXAM, CHART REVIEW, > 50% OF TIME SPENT WITH EXAM, CHART REVIEW, PT CARE COORDINATION Operative Note Operative Note Operative Note Date of surgery: 09/15/2019 Preoperative diagnosis: Infected total knee arthroplasty Postoperative diagnosis: Same Operative procedure: Removal of total knee arthroplasty components with insertion antibiotic spacer and extensive debridement Surgeon: Dennise Assist: Nate Greene nurse practitioner Anesthesia: Gen. Estimated blood loss: 200 mL Complications: None Intraoperative cultures: Multiple intraoperative cultures were taken from the bone implant interface after removal of the components including at the distal femur and multiple areas of the proximal tibia Vitals Vitals Vital Signs Date Time Temp Pulse Resp B/P (MAP) Pulse Ox O2 Delivery O2 Flow Rate FiO2 09/18/19 09:46 99 Room Air 10.0 09/18/19 07:00 98.2 77 16 94/56 (69) 98.2 Physical Exam Physical Exam GENERAL: Alert, awake male lying in bed comfortably, in mild acute distress. Mother at bedside. HEENT: Normocephalic, atraumatic, anicteric. No thrush. NECK: Supple, no JVD. LUNGS: Clear bilaterally. HEART: S1, S2 regular. ABDOMEN: Soft, bowel sounds present, nontender, nondistended. EXTREMITIES: LLE Trace edema. Left lower extremity with some redness more localized around the knee. Anteriorly just around the patella, there is an area of blister with drainage on the gauze piece, redness, warmth, which is extending below the knee up to the superior aspect of the knee. Decrease in range of motion with Tenderness pres ent on flexion and extension. No calf tenderness, no cyanosis. CENTRAL NERVOUS SYSTEM: Alert and oriented x 3, grossly nonfocal. PSYCHIATRIC: Cooperative. General: Alert, Oriented X3, Cooperative, No acute distress, mild distress Heart: Regular rate Lungs: Clear Abdomen: Soft, No tenderness Extremities: No cyanosis, Normal pulses Skin: No rashes, No breakdown Labs LABS Laboratory Tests Test 09/17/19 10:51 09/17/19 17:04 09/17/19 20:52 09/18/19 04:20 Glucose (Fingerstick) 143 mg/dL (70-99) 137 mg/dL (70-99) 165 mg/dL (70-99) White Blood Count 5.1 x10^3/uL (4.0-11.0) Red Blood Count 3.52 x10^6/uL (4.30-5.70) Hemoglobin 8.1 g/dL (13.0-17.5) Hematocrit 25.9 % (39.0-53.0) Mean Corpuscular Volume 74 fL (79-100) Mean Corpuscular Hemoglobin 23 pg (25-35) Mean Corpuscular Hemoglobin Concent 31 g/dL (31-37) Red Cell Distribution Width 16.8 % (11.5-14.5) Platelet Count 360 x10^3/uL (140-400) Neutrophils (%) (Auto) 53 % (31-73) Lymphocytes (%) (Auto) 29 % (24-48) Monocytes (%) (Auto) 9 % (0-9) Eosinophils (%) (Auto) 7 % (0-3) Basophils (%) (Auto) 1 % (0-3) Neutrophils # (Auto) 2.7 x10^3/uL (1.8-7.7) Lymphocytes # (Auto) 1.5 x10^3/uL (1.0-4.8) Monocytes # (Auto) 0.5 x10^3/uL (0.0-1.1) Eosinophils # (Auto) 0.4 x10^3/uL (0.0-0.7) Basophils # (Auto) 0.1 x10^3/uL (0.0-0.2) Sodium Level 138 mmol/L (136-145) Potassium Level 4.1 mmol/L (3.5-5.1) Chloride Level 103 mmol/L (98-107) Carbon Dioxide Level 29 mmol/L (21-32) Anion Gap 6 (6-14) Blood Urea Nitrogen 7 mg/dL (8-26) Creatinine 0.9 mg/dL (0.7-1.3) Estimated GFR (Cockcroft-Gault) 89.7 Glucose Level 145 mg/dL (70-99) Calcium Level 9.2 mg/dL (8.5-10.1) Test 09/18/19 07:54 Glucose (Fingerstick) 239 mg/dL (70-99) Comment Review of Relevant I have reviewed the following items satya (where applicable) has been applied. Labs Laboratory Tests Test 09/16/19 11:44 09/16/19 16:32 09/16/19 16:44 09/16/19 20:36 Glucose (Fingerstick) 142 mg/dL (70-99) 171 mg/dL (70-99) 140 mg/dL (70-99) White Blood Count 6.8 x10^3/uL (4.0-11.0) Red Blood Count 3.81 x10^6/uL (4.30-5.70) Hemoglobin 8.9 g/dL (13.0-17.5) Hematocrit 28.0 % (39.0-53.0) Mean Corpuscular Volume 73 fL (79-100) Mean Corpuscular Hemoglobin 23 pg (25-35) Mean Corpuscular Hemoglobin Concent 32 g/dL (31-37) Red Cell Distribution Width 16.6 % (11.5-14.5) Platelet Count 424 x10^3/uL (140-400) Neutrophils (%) (Auto) 70 % (31-73) Lymphocytes (%) (Auto) 21 % (24-48) Monocytes (%) (Auto) 7 % (0-9) Eosinophils (%) (Auto) 2 % (0-3) Basophils (%) (Auto) 1 % (0-3) Neutrophils # (Auto) 4.7 x10^3/uL (1.8-7.7) Lymphocytes # (Auto) 1.4 x10^3/uL (1.0-4.8) Monocytes # (Auto) 0.4 x10^3/uL (0.0-1.1) Eosinophils # (Auto) 0.2 x10^3/uL (0.0-0.7) Basophils # (Auto) 0.0 x10^3/uL (0.0-0.2) Sodium Level 140 mmol/L (136-145) Potassium Level 3.5 mmol/L (3.5-5.1) Chloride Level 103 mmol/L (98-107) Carbon Dioxide Level 26 mmol/L (21-32) Anion Gap 11 (6-14) Blood Urea Nitrogen 6 mg/dL (8-26) Creatinine 0.9 mg/dL (0.7-1.3) Estimated GFR (Cockcroft-Gault) 89.7 BUN/Creatinine Ratio 7 (6-20) Glucose Level 194 mg/dL (70-99) Calcium Level 8.9 mg/dL (8.5-10.1) Total Bilirubin 0.3 mg/dL (0.2-1.0) Aspartate Amino Transf (AST/SGOT) 10 U/L (15-37) Alanine Aminotransferase (ALT/SGPT) 7 U/L (16-63) Alkaline Phosphatase 112 U/L (46-116) Total Protein 7.7 g/dL (6.4-8.2) Albumin 2.8 g/dL (3.4-5.0) Albumin/Globulin Ratio 0.6 (1.0-1.7) Test 09/17/19 04:00 09/17/19 07:13 09/17/19 10:51 09/17/19 17:04 White Blood Count 5.4 x10^3/uL (4.0-11.0) Red Blood Count 3.85 x10^6/uL (4.30-5.70) Hemoglobin 9.0 g/dL (13.0-17.5) Hematocrit 28.1 % (39.0-53.0) Mean Corpuscular Volume 73 fL (79-100) Mean Corpuscular Hemoglobin 23 pg (25-35) Mean Corpuscular Hemoglobin Concent 32 g/dL (31-37) Red Cell Distribution Width 16.6 % (11.5-14.5) Platelet Count 386 x10^3/uL (140-400) Neutrophils (%) (Auto) 60 % (31-73) Lymphocytes (%) (Auto) 26 % (24-48) Monocytes (%) (Auto) 7 % (0-9) Eosinophils (%) (Auto) 6 % (0-3) Basophils (%) (Auto) 1 % (0-3) Neutrophils # (Auto) 3.3 x10^3/uL (1.8-7.7) Lymphocytes # (Auto) 1.4 x10^3/uL (1.0-4.8) Monocytes # (Auto) 0.4 x10^3/uL (0.0-1.1) Eosinophils # (Auto) 0.3 x10^3/uL (0.0-0.7) Basophils # (Auto) 0.0 x10^3/uL (0.0-0.2) Sodium Level 138 mmol/L (136-145) Potassium Level 3.4 mmol/L (3.5-5.1) Chloride Level 103 mmol/L (98-107) Carbon Dioxide Level 24 mmol/L (21-32) Anion Gap 11 (6-14) Blood Urea Nitrogen 6 mg/dL (8-26) Creatinine 0.9 mg/dL (0.7-1.3) Estimated GFR (Cockcroft-Gault) 89.7 BUN/Creatinine Ratio 7 (6-20) Glucose Level 145 mg/dL (70-99) Calcium Level 9.0 mg/dL (8.5-10.1) Total Bilirubin 0.3 mg/dL (0.2-1.0) Aspartate Amino Transf (AST/SGOT) 10 U/L (15-37) Alanine Aminotransferase (ALT/SGPT) 6 U/L (16-63) Alkaline Phosphatase 114 U/L (46-116) Total Protein 7.4 g/dL (6.4-8.2) Albumin 2.7 g/dL (3.4-5.0) Albumin/Globulin Ratio 0.6 (1.0-1.7) Glucose (Fingerstick) 171 mg/dL (70-99) 143 mg/dL (70-99) 137 mg/dL (70-99) Test 12/5/19 20:52 09/18/19 04:20 09/18/19 07:54 Glucose (Fingerstick) 165 mg/dL (70-99) 239 mg/dL (70-99) White Blood Count 5.1 x10^3/uL (4.0-11.0) Red Blood Count 3.52 x10^6/uL (4.30-5.70) Hemoglobin 8.1 g/dL (13.0-17.5) Hematocrit 25.9 % (39.0-53.0) Mean Corpuscular Volume 74 fL (79-100) Mean Corpuscular Hemoglobin 23 pg (25-35) Mean Corpuscular Hemoglobin Concent 31 g/dL (31-37) Red Cell Distribution Width 16.8 % (11.5-14.5) Platelet Count 360 x10^3/uL (140-400) Neutrophils (%) (Auto) 53 % (31-73) Lymphocytes (%) (Auto) 29 % (24-48) Monocytes (%) (Auto) 9 % (0-9) Eosinophils (%) (Auto) 7 % (0-3) Basophils (%) (Auto) 1 % (0-3) Neutrophils # (Auto) 2.7 x10^3/uL (1.8-7.7) Lymphocytes # (Auto) 1.5 x10^3/uL (1.0-4.8) Monocytes # (Auto) 0.5 x10^3/uL (0.0-1.1) Eosinophils # (Auto) 0.4 x10^3/uL (0.0-0.7) Basophils # (Auto) 0.1 x10^3/uL (0.0-0.2) Sodium Level 138 mmol/L (136-145) Potassium Level 4.1 mmol/L (3.5-5.1) Chloride Level 103 mmol/L (98-107) Carbon Dioxide Level 29 mmol/L (21-32) Anion Gap 6 (6-14) Blood Urea Nitrogen 7 mg/dL (8-26) Creatinine 0.9 mg/dL (0.7-1.3) Estimated GFR (Cockcroft-Gault) 89.7 Glucose Level 145 mg/dL (70-99) Calcium Level 9.2 mg/dL (8.5-10.1) Laboratory Tests Test 09/17/19 10:51 09/17/19 17:04 09/17/19 20:52 09/18/19 04:20 Glucose (Fingerstick) 143 mg/dL (70-99) 137 mg/dL (70-99) 165 mg/dL (70-99) White Blood Count 5.1 x10^3/uL (4.0-11.0) Red Blood Count 3.52 x10^6/uL (4.30-5.70) Hemoglobin 8.1 g/dL (13.0-17.5) Hematocrit 25.9 % (39.0-53.0) Mean Corpuscular Volume 74 fL (79-100) Mean Corpuscular Hemoglobin 23 pg (25-35) Mean Corpuscular Hemoglobin Concent 31 g/dL (31-37) Red Cell Distribution Width 16.8 % (11.5-14.5) Platelet Count 360 x10^3/uL (140-400) Neutrophils (%) (Auto) 53 % (31-73) Lymphocytes (%) (Auto) 29 % (24-48) Monocytes (%) (Auto) 9 % (0-9) Eosinophils (%) (Auto) 7 % (0-3) Basophils (%) (Auto) 1 % (0-3) Neutrophils # (Auto) 2.7 x10^3/uL (1.8-7.7) Lymphocytes # (Auto) 1.5 x10^3/uL (1.0-4.8) Monocytes # (Auto) 0.5 x10^3/uL (0.0-1.1) Eosinophils # (Auto) 0.4 x10^3/uL (0.0-0.7) Basophils # (Auto) 0.1 x10^3/uL (0.0-0.2) Sodium Level 138 mmol/L (136-145) Potassium Level 4.1 mmol/L (3.5-5.1) Chloride Level 103 mmol/L (98-107) Carbon Dioxide Level 29 mmol/L (21-32) Anion Gap 6 (6-14) Blood Urea Nitrogen 7 mg/dL (8-26) Creatinine 0.9 mg/dL (0.7-1.3) Estimated GFR (Cockcroft-Gault) 89.7 Glucose Level 145 mg/dL (70-99) Calcium Level 9.2 mg/dL (8.5-10.1) Test 09/18/19 07:54 Glucose (Fingerstick) 239 mg/dL (70-99) Microbiology 09/15/19 Anaerobic/Aerobic Culture, Resulted Pending 09/15/19 Anaerobic Culture Result 1 (ANNIE), Resulted Pending 09/15/19 Aerobic Culture, Resulted Pending 09/15/19 Aerobic Culture Result 1 (ANNIE), Resulted Pending 09/15/19 Gram Stain - Final, Resulted 09/15/19 Gram Stain Result 1 (ANNIE) - Final, Resulted 09/15/19 Gram Stain Result 2 (ANNIE) - Final, Resulted 09/14/19 Blood Culture - Preliminary, Resulted NO GROWTH AFTER 3 DAYS Medications Current Medications Sodium Chloride 1,000 ml @ 1,000 mls/hr 1X ONCE IV Last administered on 09/13/19at 21:00; Start 09/13/19 at 20:45; Stop 09/13/19 at 21:44; Status DC Ondansetron HCl (Zofran) 4 mg 1X ONCE IV Last administered on 09/13/19at 21:00; Start 09/13/19 at 20:45; Stop 09/13/19 at 20:46; Status DC Morphine Sulfate (Morphine Sulfate) 4 mg 1X ONCE IV Last administered on 09/13/19at 21:00; Start 09/13/19 at 20:45; Stop 09/13/19 at 20:46; Status DC Iohexol (Omnipaque 300 Mg/ml) 75 ml 1X ONCE IV Last administered on 09/13/19at 21:42; Start 09/13/19 at 21:45; Stop 09/13/19 at 21:46; Status DC Info (CONTRAST GIVEN -- Rx MONITORING) 1 each PRN DAILY PRN MC SEE COMMENTS; Start 09/13/19 at 21:45; Stop 09/15/19 at 21:44; Status DC Vancomycin HCl (Vanco Per Pharmacy) 1 each PRN DAILY PRN MC SEE COMMENTS Last administered on 09/13/19at 23:45; Start 09/13/19 at 22:30; Stop 09/14/19 at 12:47; Status DC Ondansetron HCl (Zofran) 4 mg PRN Q8HRS PRN IV NAUSEA/VOMITING Last adminis tered on 09/14/19at 17:08; Start 09/13/19 at 22:30; Stop 09/14/19 at 22:29; Status DC Morphine Sulfate (Morphine Sulfate) 4 mg PRN Q2HR PRN IV PAIN Last administered on 09/14/19at 15:43; Start 09/13/19 at 22:30; Stop 09/14/19 at 22:29; Status DC Vancomycin HCl 2 gm/Sodium Chloride 500 ml @ 250 mls/hr 1X ONCE IV Last administered on 09/13/19at 22:55; Start 09/13/19 at 23:00; Stop 09/14/19 at 00:59; Status DC Potassium Chloride (Klor-Con) 40 meq 1X ONCE PO Last administered on 09/13/19at 23:30; Start 09/13/19 at 23:30; Stop 09/13/19 at 23:31; Status DC Vancomycin HCl 1.75 gm/Sodium Chloride 500 ml @ 250 mls/hr Q12H IV Last adm inistered on 09/14/19at 10:40; Start 09/14/19 at 11:00; Stop 09/14/19 at 12:45; Status DC Vancomycin HCl (Vancomycin Trough Level) 1 each 1X ONCE MC ; Start 09/15/19 at 10:30; Stop 09/14/19 at 12:47; Status DC Non-Formulary Medication 2 ea HS PO Last administered on 09/17/19at 21:37; Start 09/14/19 at 21:00 Non-Formulary Medication 2 ea 1X ONCE PO Last administered on 09/14/19at 02:05; Start 09/14/19 at 01:45; Stop 09/14/19 at 01:46; Status DC Levothyroxine Sodium (Synthroid) 100 mcg DAILY06 PO Last administered on 09/18/19 05:41; Start 09/14/19 at 09:00 Lidocaine (Lidoderm) 1 patch DAILY TP Last administered on 09/18/19 09:51; Start 09/14/19 at 09:00 Lisinopril (Prinivil) 5 mg DAILY PO Last administered on 09/17/19at 08:09; Start 09/14/19 at 09:00 Oxycodone/ Acetaminophen (Percocet 7.5/ 325) 1 tab PRN Q6HRS PRN PO PAIN Last administered on 09/16/19 04:50; Start 09/14/19 at 08:45; Stop 09/16/19 at 09:10; Status DC Tizanidine HCl (Zanaflex) 4 mg TID PRN PO MUSCLE SPASMS Last administered on 09/18/19 05:41; Start 09/14/19 at 08:45 Clonazepam (KlonoPIN) 1 mg BID PO Last administered on 09/18/19 09:42; Start 09/14/19 at 09:00 Doxepin HCl (SINEquan) 150 mg QHS PO ; Start 09/14/19 at 21:00 [place] Carbonate (Lithobid) 600 mg QHS PO Last administered on 09/17/19 20:20; Start 09/14/19 at 21:00 Linagliptin (Tradjenta) 5 mg DAILY PO Last administered on 09/18/19 09:42; Start 09/14/19 at 09:00 Potassium Chloride (Klor-Con) 40 meq 1X ONCE PO Last administered on 09/14/19 09:03; Start 09/14/19 at 09:00; Stop 09/14/19 at 09:01; Status DC Metformin HCl (Glucophage) 1,000 mg BIDWMEALS PO Last administered on 09/18/19 09:43; Start 09/16/19 at 08:00 Lactobacillus Rhamnosus (Culturelle) 1 cap BID PO Last administered on 09/18/19 09:42; Start 09/14/19 at 21:00 Meropenem 500 mg/ Sodium Chloride 50 ml @ 100 mls/hr Q6HRS IV Last administered on 09/18/19 05:41; Start 09/14/19 at 13:30 Daptomycin 400 mg/ Sodium Chloride 50 ml @ 100 mls/hr Q24H IV Last administered on 09/17/19at 12:47; Start 09/14/19 at 14:00 Lidocaine HCl (Buffered Lidocaine 1%) 3 ml STK-MED ONCE .ROUTE ; Start 09/14/19 at 13:24; Stop 09/14/19 at 13:24; Status DC Lidocaine HCl (Buffered Lidocaine 1%) 3 ml 1X ONCE INJ ; Start 09/14/19 at 13:45; Stop 09/14/19 at 13:46; Status DC Cefazolin Sodium 100 ml @ As Directed STK-MED ONCE IV ; Start 09/14/19 at 13:51; Stop 09/14/19 at 13:51; Status DC Lidocaine/ Epinephrine (LIDOCAINE 1%-EPI 1:100,000 Multi-Dose) 20 ml STK-MED ONCE .ROUTE ; Start 09/14/19 at 14:01; Stop 09/14/19 at 14:01; Status DC Lidocaine/ Epinephrine (LIDOCAINE 1%-EPI 1:100,000 Multi-Dose) 20 ml 1X ONCE SQ Last administered on 09/14/19at 14:15; Start 09/14/19 at 14:15; Stop 09/14/19 at 14:16; Status DC Cefazolin Sodium 50 ml @ 100 mls/hr 1X ONCE IV Last administered on 09/14/19at 14:15; Start 09/14/19 at 14:15; Stop 09/14/19 at 14:44; Status DC Cefazolin Sodium 50 ml @ 100 mls/hr 1X ONCE IV Last administered on 09/14/19at 14:15; Start 09/14/19 at 14:15; Stop 09/14/19 at 14:44; Status DC Morphine Sulfate 5 mg/Ketorolac Tromethamine 30 mg/Ropivacaine 60 ml/Epinephrine HCl 0.5 mg/Sodium Chloride 100 ml @ 100 mls/hr 1X ONCE INT ART Last administered on 09/15/19at 14:36; Start 09/15/19 at 06:00; Stop 09/15/19 at 06:59; Status DC Ondansetron HCl (Zofran) 4 mg PRN Q6HRS PRN IV NAUSEA/VOMITING; Start 09/15/19 at 06:30; Stop 09/16/19 at 06:29; Status DC Fentanyl Citrate (Fentanyl 2ml Vial) 25 mcg PRN Q5MIN PRN IV MILD PAIN 1-3; Start 09/15/19 at 06:30; Stop 09/16/19 at 06:29; Status DC Fentanyl Citrate (Fentanyl 2ml Vial) 50 mcg PRN Q5MIN PRN IV MODERATE TO SEVERE PAIN; Start 09/15/19 at 06:30; Stop 09/16/19 at 06:29; Status DC Morphine Sulfate (Morphine Sulfate) 1 mg PRN Q10MIN PRN IV SEVERE PAIN 7-10; Start 09/15/19 at 06:30; Stop 09/16/19 at 06:29; Status DC Ringer's Solution 1,000 ml @ 30 mls/hr Q24H IV Last administered on 09/15/19at 10:39; Start 09/15/19 at 06:30; Stop 09/15/19 at 06:49; Status DC Lidocaine HCl (Xylocaine-Mpf 1% 2ml Vial) 2 ml 1X PRN PRN ID IV START; Start 09/15/19 at 06:30; Stop 09/16/19 at 06:29; Status DC Hydromorphone HCl (Dilaudid) 0.5 mg PRN Q10MIN PRN IV SEV PAIN, Second choice; Start 09/15/19 at 06:30; Stop 09/16/19 at 06:29; Status DC Prochlorperazine Edisylate (Compazine) 5 mg PACU PRN PRN IV NAUSEA, MRX1; Start 09/15/19 at 06:30; Stop 09/16/19 at 06:29; Status DC Propofol 20 ml @ As Directed STK-MED ONCE IV ; Start 09/15/19 at 09:30; Stop 09/15/19 at 09:31; Status DC Lidocaine HCl (Lidocaine Pf 2% Vial) 5 ml STK-MED ONCE .ROUTE ; Start 09/15/19 at 09:30; Stop 09/15/19 at 09:31; Status DC Dexamethasone Sodium Phosphate (Decadron) 20 mg STK-MED ONCE .ROUTE ; Start 09/15/19 at 09:30; Stop 09/15/19 at 09:31; Status DC Ondansetron HCl (Zofran) 4 mg STK-MED ONCE .ROUTE ; Start 09/15/19 at 09:30; Stop 09/15/19 at 09:31; Status DC Phenylephrine HCl (PHENYLEPHRINE in 0.9% NACL PF) 1 mg STK-MED ONCE IV ; Start 09/15/19 at 09:31; Stop 09/15/19 at 09:31; Status DC Fentanyl Citrate (Fentanyl 2ml Vial) 100 mcg STK-MED ONCE .ROUTE ; Start 09/15/19 at 09:31; Stop 09/15/19 at 09:32; Status DC Rocuronium [place] (Zemuron) 50 mg STK-MED ONCE .ROUTE ; Start 09/15/19 at 09:32; Stop 09/15/19 at 09:32; Status DC Succinylcholine Chloride (Anectine) 200 mg STK-MED ONCE .ROUTE ; Start 09/15/19 at 09:46; Stop 09/15/19 at 09:46; Status DC Nicardipine HCl (Cardene) 25 mg STK-MED ONCE IV ; Start 09/15/19 at 11:34; Stop 09/15/19 at 11:35; Status DC Sevoflurane (Ultane) 90 ml STK-MED ONCE IH ; Start 09/15/19 at 11:44; Stop 09/15/19 at 11:45; Status DC Fentanyl Citrate (Fentanyl 2ml Vial) 100 mcg STK-MED ONCE .ROUTE ; Start 09/15/19 at 11:50; Stop 09/15/19 at 11:50; Status DC Neostigmine Methylsulfate (Neostigmine Methylsulfate) 5 mg STK-MED ONCE .ROUTE ; Start 09/15/19 at 13:34; Stop 09/15/19 at 13:34; Status DC Glycopyrrolate (Robinul) 1 mg STK-MED ONCE .ROUTE ; Start 09/15/19 at 13:34; Stop 09/15/19 at 13:34; Status DC Fentanyl Citrate (Fentanyl 2ml Vial) 50 mcg PRN Q5MIN PRN IV MODERATE TO SEVERE PAIN; Start 09/15/19 at 14:45; Stop 09/16/19 at 08:59; Status DC Morphine Sulfate (Morphine Sulfate) 2 mg PRN Q10MIN PRN IV MILD PAIN 1-3; Start 09/15/19 at 14:45; Stop 09/16/19 at 08:59; Status DC Hydromorphone HCl (Dilaudid) 0.4 mg PRN Q10MIN PRN IV Moderate to severe pain; Start 09/15/19 at 14:45; Stop 09/16/19 at 08:59; Status DC Ondansetron HCl (Zofran) 4 mg PRN Q6HRS PRN IVP Nausea, 2nd Choice; Start 09/15/19 at 14:45; Stop 09/16/19 at 08:59; Status DC Insulin Human Lispro (HumaLOG VIAL for OP,RR ONLY) 0-10 units PRN Q1HR PRN SQ PER PROTOCOL Last administered on 09/15/19at 14:51; Start 09/15/19 at 14:45; Stop 09/16/19 at 14:44; Status DC Insulin Human Lispro (HumaLOG) 0-9 UNITS TIDWMEALS SQ ; Start 09/16/19 at 08:00; Stop 09/16/19 at 03:37; Status DC Dextrose (Dextrose 50%-Water Syringe) 12.5 gm PRN Q15MIN PRN IV SEE COMMENTS; Start 09/15/19 at 21:45 Insulin Human Lispro (HumaLOG) 12 units 1X SQ ; Start 09/15/19 at 22:00; Stop 09/15/19 at 23:07; Status DC Insulin Human Lispro (HumaLOG) 12 units 1X ONCE SQ Last administered on 09/15/19at 23:15; Start 09/15/19 at 23:15; Stop 09/15/19 at 23:16; Status DC Insulin Human Lispro (HumaLOG) 0-9 UNITS TIDWMEALHC SQ Last administered on 09/18/19at 09:51; Start 09/16/19 at 08:00 Oxycodone/ Acetaminophen (Percocet 10/325) 1 tab PRN Q6HRS PRN PO MODERATE TO SEVERE PAIN Last administered on 09/18/19at 07:31; Start 09/16/19 at 09:15 Hydromorphone HCl (Dilaudid) 1 mg 1X ONCE IV ; Start 09/16/19 at 14:00; Stop 09/16/19 at 14:01; Status Cancel Hydromorphone HCl (Dilaudid) 1 mg PRN Q4HRS PRN IV SEVERE PAIN 7-10 Last administered on 09/18/19at 09:46; Start 09/16/19 at 13:30 Potassium Chloride (Klor-Con) 40 meq 1X ONCE PO Last administered on 09/17/19at 17:04; Start 09/17/19 at 15:45; Stop 09/17/19 at 15:46; Status DC Active Scripts Active Oxycodone Hcl Immed.release (Oxycodone Hcl) 10 Mg Tablet 10 Mg PO PRN Q4HRS PRN Reported Lidocaine PATCH (Lidocaine) 1 Each Adh..patch 1 Each TP DAILY REMOVE AFTER 12 HOURS Doxepin Hcl 150 Mg Capsule 1 Cap PO QHS 30 Days Lisinopril 5 Mg Tablet 1 Tab PO DAILY Percocet 7.5-325 Mg Tablet (Oxycodone/Acetaminophen) 1 Each Tablet 1 Tab PO PRN Q6HRS PRN Janumet 50-1,000 Mg Tablet (Sitagliptin Phos/Metformin Hcl) 1 Each Tablet 1 Tab PO BID [place] Carbonate 300 Mg Capsule 2 Cap PO HS Clonazepam 1 Mg Tablet 1 Mg PO BID Tizanidine Hcl 4 Mg Tablet 4 Mg PO TID PRN Levothyroxine Sodium 100 Mcg Tablet 1 Tab PO DAILY [place] Carbonate 300 Mg Tablet 1 Tab PO BID Lisinopril 2.5 Mg Tablet 5 Mg PO DAILY Zanaflex (Tizanidine Hcl) 4 Mg Capsule 1 Cap PO TID PRN Janumet 50-1,000 Mg Tablet (Sitagliptin Phos/Metformin Hcl) 1 Each Tablet 1 Tab PO BID Synthroid (Levothyroxine Sodium) 100 Mcg Tablet 100 Mcg PO DAILYAC Doxepin Hcl 50 Mg Capsule 300 Mg PO HS Klonopin (Clonazepam) 0.5 Mg Tablet 1 Mg PO PRN DAILY PRN Vitals/I & O Vital Sign - Last 24 Hours 09/17/19 09/17/19 09/17/19 09/17/19 10:48 11:00 11:07 15:00 Temp 97.4 98.0 97.4 98.0 Pulse 105 97 Resp 16 16 B/P (MAP) 157/96 (116) 143/89 (107) Pulse Ox 99 98 99 100 O2 Delivery Room Air Room Air Room Air Room Air 09/17/19 09/17/19 09/17/19 09/17/19 17:07 17:33 18:09 19:09 Pulse Ox 100 100 100 O2 Delivery Room Air Room Air Room Air Room Air 09/17/19 09/17/19 09/17/19 09/17/19 19:15 20:00 21:37 22:30 Temp 98.2 98.2 Pulse 99 Resp 18 B/P (MAP) 134/79 (97) Pulse Ox 100 O2 Delivery Room Air Room Air Room Air Room Air 09/17/19 09/18/19 09/18/19 09/18/19 23:16 03:04 05:41 07:00 Temp 98.3 98.3 98.2 98.3 98.3 98.2 Pulse 95 92 77 Resp 18 18 16 B/P (MAP) 132/74 (93) 122/76 (91) 94/56 (69) Pulse Ox 100 99 98 O2 Delivery Room Air Room Air Room Air 09/18/19 09/18/19 09/18/19 09/18/19 07:31 07:31 08:00 09:46 Pulse Ox 99 99 99 O2 Delivery Room Air Room Air Room Air Room Air O2 Flow Rate 10.0 10.0 10.0 Intake and Output 09/17/19 09/17/19 09/18/19 15:00 23:00 07:00 Intake Total 440 ml 200 ml 480 ml Output Total 1300 ml Balance 440 ml 200 ml -820 ml DL CHEN MD Sep 18, 2019 10:04
[2019-09-18 11:00] VITALS: BP 101/64
--- NOTE | 2019-09-18 11:18 | NUR ---
SSW following up with discharge planning. sr. merchandise planner, Chen Lopez, met with pt to discuss halfway unit vs home healthcare. Pt previously was on services with [facility], ; fax [phone], and has walker through [email or web address]. Pt discussing with his spouse at this time. SS will continue to follow for discharge planning.
[2019-09-18] MEDS: DAPTOmycin (GENERIC) IVPB 400 MG in IV NORMAL SALINE 50ML 50 ML IV SCH (14:16)
[2019-09-18 15:00] VITALS: BP 127/85
--- NOTE | 2019-09-18 15:11 | PDOC ---
PROGRESS NOTES Subjective Subjective Problems overnight: Knee has continued drainage is sore and difficult to bear weight on he would like to discuss whether he can get a brace for support and perhaps a motorized scooter for home use Objective Vital Signs Vital Signs Date Time Temp Pulse Resp B/P (MAP) Pulse Ox O2 Delivery O2 Flow Rate FiO2 09/18/19 14:48 92 Room Air 10.0 09/18/19 11:00 98.1 80 16 101/64 (76) 98.1 Physical Exam Wound remains well opposed but he has drainage distally where the skin defect had occurred no surrounding redness or erythema distal neurovascular status intact range of motion limited as expected but good stability Labs Laboratory Tests Test 09/16/19 16:32 09/16/19 16:44 09/16/19 20:36 09/17/19 04:00 Glucose (Fingerstick) 171 mg/dL (70-99) 140 mg/dL (70-99) White Blood Count 6.8 x10^3/uL (4.0-11.0) 5.4 x10^3/uL (4.0-11.0) Red Blood Count 3.81 x10^6/uL (4.30-5.70) 3.85 x10^6/uL (4.30-5.70) Hemoglobin 8.9 g/dL (13.0-17.5) 9.0 g/dL (13.0-17.5) Hematocrit 28.0 % (39.0-53.0) 28.1 % (39.0-53.0) Mean Corpuscular Volume 73 fL (79-100) 73 fL (79-100) Mean Corpuscular Hemoglobin 23 pg (25-35) 23 pg (25-35) Mean Corpuscular Hemoglobin Concent 32 g/dL (31-37) 32 g/dL (31-37) Red Cell Distribution Width 16.6 % (11.5-14.5) 16.6 % (11.5-14.5) Platelet Count 424 x10^3/uL (140-400) 386 x10^3/uL (140-400) Neutrophils (%) (Auto) 70 % (31-73) 60 % (31-73) Lymphocytes (%) (Auto) 21 % (24-48) 26 % (24-48) Monocytes (%) (Auto) 7 % (0-9) 7 % (0-9) Eosinophils (%) (Auto) 2 % (0-3) 6 % (0-3) Basophils (%) (Auto) 1 % (0-3) 1 % (0-3) Neutrophils # (Auto) 4.7 x10^3/uL (1.8-7.7) 3.3 x10^3/uL (1.8-7.7) Lymphocytes # (Auto) 1.4 x10^3/uL (1.0-4.8) 1.4 x10^3/uL (1.0-4.8) Monocytes # (Auto) 0.4 x10^3/uL (0.0-1.1) 0.4 x10^3/uL (0.0-1.1) Eosinophils # (Auto) 0.2 x10^3/uL (0.0-0.7) 0.3 x10^3/uL (0.0-0.7) Basophils # (Auto) 0.0 x10^3/uL (0.0-0.2) 0.0 x10^3/uL (0.0-0.2) Sodium Level 140 mmol/L (136-145) 138 mmol/L (136-145) Potassium Level 3.5 mmol/L (3.5-5.1) 3.4 mmol/L (3.5-5.1) Chloride Level 103 mmol/L (98-107) 103 mmol/L (98-107) Carbon Dioxide Level 26 mmol/L (21-32) 24 mmol/L (21-32) Anion Gap 11 (6-14) 11 (6-14) Blood Urea Nitrogen 6 mg/dL (8-26) 6 mg/dL (8-26) Creatinine 0.9 mg/dL (0.7-1.3) 0.9 mg/dL (0.7-1.3) Estimated GFR (Cockcroft-Gault) 89.7 89.7 BUN/Creatinine Ratio 7 (6-20) 7 (6-20) Glucose Level 194 mg/dL (70-99) 145 mg/dL (70-99) Calcium Level 8.9 mg/dL (8.5-10.1) 9.0 mg/dL (8.5-10.1) Total Bilirubin 0.3 mg/dL (0.2-1.0) 0.3 mg/dL (0.2-1.0) Aspartate Amino Transf (AST/SGOT) 10 U/L (15-37) 10 U/L (15-37) Alanine Aminotransferase (ALT/SGPT) 7 U/L (16-63) 6 U/L (16-63) Alkaline Phosphatase 112 U/L (46-116) 114 U/L (46-116) Total Protein 7.7 g/dL (6.4-8.2) 7.4 g/dL (6.4-8.2) Albumin 2.8 g/dL (3.4-5.0) 2.7 g/dL (3.4-5.0) Albumin/Globulin Ratio 0.6 (1.0-1.7) 0.6 (1.0-1.7) Test 09/17/19 07:13 09/17/19 10:51 09/17/19 17:04 09/17/19 20:52 Glucose (Fingerstick) 171 mg/dL (70-99) 143 mg/dL (70-99) 137 mg/dL (70-99) 165 mg/dL (70-99) Test 09/18/19 04:20 09/18/19 07:54 White Blood Count 5.1 x10^3/uL (4.0-11.0) Red Blood Count 3.52 x10^6/uL (4.30-5.70) Hemoglobin 8.1 g/dL (13.0-17.5) Hematocrit 25.9 % (39.0-53.0) Mean Corpuscular Volume 74 fL (79-100) Mean Corpuscular Hemoglobin 23 pg (25-35) Mean Corpuscular Hemoglobin Concent 31 g/dL (31-37) Red Cell Distribution Width 16.8 % (11.5-14.5) Platelet Count 360 x10^3/uL (140-400) Neutrophils (%) (Auto) 53 % (31-73) Lymphocytes (%) (Auto) 29 % (24-48) Monocytes (%) (Auto) 9 % (0-9) Eosinophils (%) (Auto) 7 % (0-3) Basophils (%) (Auto) 1 % (0-3) Neutrophils # (Auto) 2.7 x10^3/uL (1.8-7.7) Lymphocytes # (Auto) 1.5 x10^3/uL (1.0-4.8) Monocytes # (Auto) 0.5 x10^3/uL (0.0-1.1) Eosinophils # (Auto) 0.4 x10^3/uL (0.0-0.7) Basophils # (Auto) 0.1 x10^3/uL (0.0-0.2) Sodium Level 138 mmol/L (136-145) Potassium Level 4.1 mmol/L (3.5-5.1) Chloride Level 103 mmol/L (98-107) Carbon Dioxide Level 29 mmol/L (21-32) Anion Gap 6 (6-14) Blood Urea Nitrogen 7 mg/dL (8-26) Creatinine 0.9 mg/dL (0.7-1.3) Estimated GFR (Cockcroft-Gault) 89.7 Glucose Level 145 mg/dL (70-99) Calcium Level 9.2 mg/dL (8.5-10.1) Iron Level 22 ug/dL (65-175) Total Iron Binding Capacity 149 ug/dL (250-450) Iron Saturation 15 % (15-34) Glucose (Fingerstick) 239 mg/dL (70-99) Laboratory Tests Test 09/17/19 17:04 09/17/19 20:52 09/18/19 04:20 09/18/19 07:54 Glucose (Fingerstick) 137 mg/dL (70-99) 165 mg/dL (70-99) 239 mg/dL (70-99) White Blood Count 5.1 x10^3/uL (4.0-11.0) Red Blood Count 3.52 x10^6/uL (4.30-5.70) Hemoglobin 8.1 g/dL (13.0-17.5) Hematocrit 25.9 % (39.0-53.0) Mean Corpuscular Volume 74 fL (79-100) Mean Corpuscular Hemoglobin 23 pg (25-35) Mean Corpuscular Hemoglobin Concent 31 g/dL (31-37) Red Cell Distribution Width 16.8 % (11.5-14.5) Platelet Count 360 x10^3/uL (140-400) Neutrophils (%) (Auto) 53 % (31-73) Lymphocytes (%) (Auto) 29 % (24-48) Monocytes (%) (Auto) 9 % (0-9) Eosinophils (%) (Auto) 7 % (0-3) Basophils (%) (Auto) 1 % (0-3) Neutrophils # (Auto) 2.7 x10^3/uL (1.8-7.7) Lymphocytes # (Auto) 1.5 x10^3/uL (1.0-4.8) Monocytes # (Auto) 0.5 x10^3/uL (0.0-1.1) Eosinophils # (Auto) 0.4 x10^3/uL (0.0-0.7) Basophils # (Auto) 0.1 x10^3/uL (0.0-0.2) Sodium Level 138 mmol/L (136-145) Potassium Level 4.1 mmol/L (3.5-5.1) Chloride Level 103 mmol/L (98-107) Carbon Dioxide Level 29 mmol/L (21-32) Anion Gap 6 (6-14) Blood Urea Nitrogen 7 mg/dL (8-26) Creatinine 0.9 mg/dL (0.7-1.3) Estimated GFR (Cockcroft-Gault) 89.7 Glucose Level 145 mg/dL (70-99) Calcium Level 9.2 mg/dL (8.5-10.1) Iron Level 22 ug/dL (65-175) Total Iron Binding Capacity 149 ug/dL (250-450) Iron Saturation 15 % (15-34) Assessment Assessment POD# removal infected total knee arthroplasty with insertion antibiotic spacer Plan Plan of Care Discussed with Dr. Collado and faxed over outside laboratory results with culture and sensitivity Continue antibiotics per infectious disease Continue daily dressing changes Ordered a postoperative hinged knee brace set at 0-60 with [employer] [facility] Recommend starting process for approval of a motorized scooter due to his mobility concerns and limitations which was discussed with case management Likely home health on discharge where he would probably stay at his mom's house All patient questions were answered and concerns addressed ELISHA SORIA MD Sep 18, 2019 15:11
[2019-09-18 19:00] VITALS: BP 116/76
[2019-09-18] MEDS: LITHIUM CARBONATE ER 300 MG TABLET.ER PO SCH (21:52)
[2019-09-18] MEDS: DOXEPIN HCL 25 MG CAPSULE. PO SCH (21:53)
[2019-09-18] MEDS: DOXEPIN 150 MG PO SCH (21:58)
[2019-09-18 23:00] VITALS: BP 128/85
[2019-09-19] VITALS (7 sets, daily range): BP systolic 97–183; BP diastolic 61–108
[2019-09-19] MEDS: MEROPENEM 500 MG in IV NORMAL SALINE 50ML 50 ML IV SCH ×4 (00:04→17:28)
[2019-09-19] MEDS: LEVOTHYROXINE 100 MCG TABLET PO SCH (06:06)
[2019-09-19] MEDS: HYDROmorphone 2 MG/ML VIAL IV PRN ×3 (07:38→17:26)
[2019-09-19] MEDS: INSULIN LISPRO 300 UNITS/3 ML VIAL. SQ SCH ×4 (08:00→21:00)
[2019-09-19] MEDS: LISINOPRIL 5 MG TABLET. PO SCH (08:30)
[2019-09-19] MEDS: LINAGLIPTIN 5 MG TABLET PO SCH (08:30)
[2019-09-19] MEDS: LACTOBACILLUS RHAMNOSUS GG 1 CAPSULE. PO SCH ×2 (08:30→20:29)
[2019-09-19] MEDS: metFORMIN 500 MG TABLET PO SCH ×2 (08:32→17:27)
[2019-09-19] MEDS: clonazePAM 0.5 MG TABLET PO SCH ×2 (08:33→20:28)
[2019-09-19] MEDS: oxyCODONE/APAP 10/325 1 TAB TABLET PO PRN ×2 (08:38→15:48)
[2019-09-19] MEDS: tiZANidine 4 MG TABLET. PO PRN ×2 (08:38→20:33)
[2019-09-19] MEDS: LIDOCAINE (700MG/PATCH) PATCH. TP SCH (09:11)
--- NOTE | 2019-09-19 10:13 | PDOC ---
PROGRESS NOTES Chief Complaint Chief Complaint left leg abscess with surrounding cellulitis 1. 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 History of fall with x-ray done on 08/16/2019 with dissociation of the patellar component of the left knee arthroplasty from the posterior aspect of the patella with surrounding soft tissue swelling and large suprapatellar effusion. 3. Left total knee arthroplasty done in 07/2018, status post revision on 02/24/2019, status post incision and drainage on 03/24/2019 with poly exchange. Cultures from July and 03/2019 negative including AFB and fungal. 4. Diabetes. 5. Anemia 6. Hypertension. 7. Hypothyroidism. 8. Osteoarthritis. 9. Bipolar disorder. History of Present Illness History of Present Illness no complaints On IV merrem and dapto per iD Ortho dr urena also on board BS ok BP high side on prns ESR also 100s PLAN: CPM LAbs, follow cx Keep current insulin regimen - working well prn BP meds, mightneed to adjust if hTN persists Will be here over weekend Vitals Vitals Vital Signs Date Time Temp Pulse Resp B/P (MAP) Pulse Ox O2 Delivery O2 Flow Rate FiO2 09/19/19 08:38 Room Air 09/19/19 08:30 91 163/104 09/19/19 07:00 97.9 16 97 97.9 09/18/19 18:40 10.0 Physical Exam Physical Exam GENERAL: Alert, awake male lying in bed comfortably, in mild acute distress. Mother at bedside. HEENT: Normocephalic, atraumatic, anicteric. No thrush. NECK: Supple, no JVD. LUNGS: Clear bilaterally. HEART: S1, S2 regular. ABDOMEN: Soft, bowel sounds present, nontender, nondistended. EXTREMITIES: LLE Trace edema. Left lower extremity with some redness more localized around the knee. Anteriorly just around the patella, there is an area of blister with drainage on the gauze piece, redness, warmth, which is extending below the knee up to the superior aspect of the knee. Decrease in range of motion with Tenderness present on flexion and extension. No calf tenderness, no cyanosis. CENTRAL NERVOUS SYSTEM: Alert and oriented x 3, grossly nonfocal. PSYCHIATRIC: Cooperative. General: Alert, Oriented X3, Cooperative, No acute distress, mild distress Heart: Regular rate, Normal S1, Normal S2 Lungs: Clear Abdomen: Normal bowel sounds, Soft, No tenderness Extremities: No cyanosis, Normal pulses Skin: No rashes, No breakdown Labs LABS Laboratory Tests Test 09/18/19 11:31 09/18/19 16:59 09/18/19 20:38 09/19/19 07:13 Glucose (Fingerstick) 131 mg/dL (70-99) 152 mg/dL (70-99) 169 mg/dL (70-99) 132 mg/dL (70-99) Review of Systems Review of Systems neg 14 pt reviewed with him Comment Review of Relevant I have reviewed the following items satya (where applicable) has been applied. Labs Laboratory Tests Test 09/17/19 10:51 09/17/19 17:04 09/17/19 20:52 09/18/19 04:20 Glucose (Fingerstick) 143 mg/dL (70-99) 137 mg/dL (70-99) 165 mg/dL (70-99) White Blood Count 5.1 x10^3/uL (4.0-11.0) Red Blood Count 3.52 x10^6/uL (4.30-5.70) Hemoglobin 8.1 g/dL (13.0-17.5) Hematocrit 25.9 % (39.0-53.0) Mean Corpuscular Volume 74 fL (79-100) Mean Corpuscular Hemoglobin 23 pg (25-35) Mean Corpuscular Hemoglobin Concent 31 g/dL (31-37) Red Cell Distribution Width 16.8 % (11.5-14.5) Platelet Count 360 x10^3/uL (140-400) Neutrophils (%) (Auto) 53 % (31-73) Lymphocytes (%) (Auto) 29 % (24-48) Monocytes (%) (Auto) 9 % (0-9) Eosinophils (%) (Auto) 7 % (0-3) Basophils (%) (Auto) 1 % (0-3) Neutrophils # (Auto) 2.7 x10^3/uL (1.8-7.7) Lymphocytes # (Auto) 1.5 x10^3/uL (1.0-4.8) Monocytes # (Auto) 0.5 x10^3/uL (0.0-1.1) Eosinophils # (Auto) 0.4 x10^3/uL (0.0-0.7) Basophils # (Auto) 0.1 x10^3/uL (0.0-0.2) Sodium Level 138 mmol/L (136-145) Potassium Level 4.1 mmol/L (3.5-5.1) Chloride Level 103 mmol/L (98-107) Carbon Dioxide Level 29 mmol/L (21-32) Anion Gap 6 (6-14) Blood Urea Nitrogen 7 mg/dL (8-26) Creatinine 0.9 mg/dL (0.7-1.3) Estimated GFR (Cockcroft-Gault) 89.7 Glucose Level 145 mg/dL (70-99) Calcium Level 9.2 mg/dL (8.5-10.1) Iron Level 22 ug/dL (65-175) Total Iron Binding Capacity 149 ug/dL (250-450) Iron Saturation 15 % (15-34) Test 09/18/19 07:54 09/18/19 11:31 09/18/19 16:59 09/18/19 20:38 Glucose (Fingerstick) 239 mg/dL (70-99) 131 mg/dL (70-99) 152 mg/dL (70-99) 169 mg/dL (70-99) Test 09/19/19 07:13 Glucose (Fingerstick) 132 mg/dL (70-99) Laboratory Tests Test 09/18/19 11:31 09/18/19 16:59 09/18/19 20:38 09/19/19 07:13 Glucose (Fingerstick) 131 mg/dL (70-99) 152 mg/dL (70-99) 169 mg/dL (70-99) 132 mg/dL (70-99) Microbiology 09/15/19 AFB Specimen Processing Tissue - Final, Resulted 09/15/19 Acid Fast Bacilli Culture, Resulted Pending 09/15/19 Gram Stain - Final, Resulted 09/15/19 Fungal Culture, Resulted Pending 09/15/19 Fungal Culture Result 1, Resulted Pending 09/14/19 Blood Culture - Preliminary, Resulted NO GROWTH AFTER 4 DAYS Medications Current Medications Sodium Chloride 1,000 ml @ 1,000 mls/hr 1X ONCE IV Last administered on 09/13/19at 21:00; Start 09/13/19 at 20:45; Stop 09/13/19 at 21:44; Status DC Ondansetron HCl (Zofran) 4 mg 1X ONCE IV Last administered on 09/13/19at 21:00; Start 09/13/19 at 20:45; Stop 09/13/19 at 20:46; Status DC Morphine Sulfate (Morphine Sulfate) 4 mg 1X ONCE IV Last administered on 09/13/19at 21:00; Start 09/13/19 at 20:45; Stop 09/13/19 at 20:46; Status DC Iohexol (Omnipaque 300 Mg/ml) 75 ml 1X ONCE IV Last administered on 09/13/19at 21:42; Start 09/13/19 at 21:45; Stop 09/13/19 at 21:46; Status DC Info (CONTRAST GIVEN -- Rx MONITORING) 1 each PRN DAILY PRN MC SEE COMMENTS; Start 09/13/19 at 21:45; Stop 09/15/19 at 21:44; Status DC Vancomycin HCl (Vanco Per Pharmacy) 1 each PRN DAILY PRN MC SEE COMMENTS Last administered on 09/13/19at 23:45; Start 09/13/19 at 22:30; Stop 09/14/19 at 12:47; Status DC Ondansetron HCl (Zofran) 4 mg PRN Q8HRS PRN IV NAUSEA/VOMITING Last administered on 09/14/19at 17:08; Start 09/13/19 at 22:30; Stop 09/14/19 at 22:29; Status DC Morphine Sulfate (Morphine Sulfate) 4 mg PRN Q2HR PRN IV PAIN Last administered on 09/14/19at 15:43; Start 09/13/19 at 22:30; Stop 09/14/19 at 22:29; Status DC Vancomycin HCl 2 gm/Sodium Chloride 500 ml @ 250 mls/hr 1X ONCE IV Last administered on 09/13/19at 22:55; Start 09/13/19 at 23:00; Stop 09/14/19 at 00:59; Status DC Potassium Chloride (Klor-Con) 40 meq 1X ONCE PO Last administered on 09/13/19at 23:30; Start 09/13/19 at 23:30; Stop 09/13/19 at 23:31; Status DC Vancomycin HCl 1.75 gm/Sodium Chloride 500 ml @ 250 mls/hr Q12H IV Last administered on 09/14/19 10:40; Start 09/14/19 at 11:00; Stop 09/14/19 at 12:45; Status DC Vancomycin HCl (Vancomycin Trough Level) 1 each 1X ONCE MC ; Start 09/15/19 at 10:30; Stop 09/14/19 at 12:47; Status DC Non-Formulary Medication 2 ea HS PO Last administered on 09/18/19 21:58; Start 09/14/19 at 21:00 Non-Formulary Medication 2 ea 1X ONCE PO Last administered on 09/14/19 02:05; Start 09/14/19 at 01:45; Stop 09/14/19 at 01:46; Status DC Levothyroxine Sodium (Synthroid) 100 mcg DAILY06 PO Last administered on 09/19/19 06:06; Start 09/14/19 at 09:00 Lidocaine (Lidoderm) 1 patch DAILY TP Last administered on 09/19/19 09:11; Start 09/14/19 at 09:00 Lisinopril (Prinivil) 5 mg DAILY PO Last administered on 09/19/19 08:30; Start 09/14/19 at 09:00 Oxycodone/ Acetaminophen (Percocet 7.5/ 325) 1 tab PRN Q6HRS PRN PO PAIN Last administered on 09/16/19 04:50; Start 09/14/19 at 08:45; Stop 09/16/19 at 09:10; Status DC Tizanidine HCl (Zanaflex) 4 mg TID PRN PO MUSCLE SPASMS Last administered on 09/19/19 08:38; Start 09/14/19 at 08:45 Clonazepam (KlonoPIN) 1 mg BID PO Last administered on 09/19/19 08:33; Start 09/14/19 at 09:00 Doxepin HCl (SINEquan) 150 mg QHS PO Last administered on 09/18/19 21:53; Start 09/14/19 at 21:00; Stop 09/19/19 at 01:13; Status DC [place] Carbonate (Lithobid) 600 mg QHS PO Last administered on 09/18/19 21:52; Start 09/14/19 at 21:00 Linagliptin (Tradjenta) 5 mg DAILY PO Last administered on 09/19/19at 08:30; Start 09/14/19 at 09:00 Potassium Chloride (Klor-Con) 40 meq 1X ONCE PO Last administered on 09/14/19at 09:03; Start 09/14/19 at 09:00; Stop 09/14/19 at 09:01; Status DC Metformin HCl (Glucophage) 1,000 mg BIDWMEALS PO Last administered on 09/19/19at 08:32; Start 09/16/19 at 08:00 Lactobacillus Rhamnosus (Culturelle) 1 cap BID PO Last administered on 09/19/19 08:30; Start 09/14/19 at 21:00 Meropenem 500 mg/ Sodium Chloride 50 ml @ 100 mls/hr Q6HRS IV Last administered on 09/19/19 06:06; Start 09/14/19 at 13:30 Daptomycin 400 mg/ Sodium Chloride 50 ml @ 100 mls/hr Q24H IV Last administered on 09/18/19at 14:16; Start 09/14/19 at 14:00 Lidocaine HCl (Buffered Lidocaine 1%) 3 ml STK-MED ONCE .ROUTE ; Start 09/14/19 at 13:24; Stop 09/14/19 at 13:24; Status DC Lidocaine HCl (Buffered Lidocaine 1%) 3 ml 1X ONCE INJ ; Start 09/14/19 at 13:45; Stop 09/14/19 at 13:46; Status DC Cefazolin Sodium 100 ml @ As Directed STK-MED ONCE IV ; Start 09/14/19 at 13:51; Stop 09/14/19 at 13:51; Status DC Lidocaine/ Epinephrine (LIDOCAINE 1%-EPI 1:100,000 Multi-Dose) 20 ml STK-MED ONCE .ROUTE ; Start 09/14/19 at 14:01; Stop 09/14/19 at 14:01; Status DC Lidocaine/ Epinephrine (LIDOCAINE 1%-EPI 1:100,000 Multi-Dose) 20 ml 1X ONCE SQ Last administered on 09/14/19at 14:15; Start 09/14/19 at 14:15; Stop 09/14/19 at 14:16; Status DC Cefazolin Sodium 50 ml @ 100 mls/hr 1X ONCE IV Last administered on 09/14/19at 14:15; Start 09/14/19 at 14:15; Stop 09/14/19 at 14:44; Status DC Cefazolin Sodium 50 ml @ 100 mls/hr 1X ONCE IV Last administered on 09/14/19at 14:15; Start 09/14/19 at 14:15; Stop 09/14/19 at 14:44; Status DC Morphine Sulfate 5 mg/Ketorolac Tromethamine 30 mg/Ropivacaine 60 ml/Epinephrine HCl 0.5 mg/Sodium Chloride 100 ml @ 100 mls/hr 1X ONCE INT ART Last administered on 09/15/19at 14:36; Start 09/15/19 at 06:00; Stop 09/15/19 at 06:59; Status DC Ondansetron HCl (Zofran) 4 mg PRN Q6HRS PRN IV NAUSEA/VOMITING; Start 09/15/19 at 06:30; Stop 09/16/19 at 06:29; Status DC Fentanyl Citrate (Fentanyl 2ml Vial) 25 mcg PRN Q5MIN PRN IV MILD PAIN 1-3; Start 09/15/19 at 06:30; Stop 09/16/19 at 06:29; Status DC Fentanyl Citrate (Fentanyl 2ml Vial) 50 mcg PRN Q5MIN PRN IV MODERATE TO SEVERE PAIN; Start 09/15/19 at 06:30; Stop 09/16/19 at 06:29; Status DC Morphine Sulfate (Morphine Sulfate) 1 mg PRN Q10MIN PRN IV SEVERE PAIN 7-10; Start 09/15/19 at 06:30; Stop 09/16/19 at 06:29; Status DC Ringer's Solution 1,000 ml @ 30 mls/hr Q24H IV Last administered on 09/15/19at 10:39; Start 09/15/19 at 06:30; Stop 09/15/19 at 06:49; Status DC Lidocaine HCl (Xylocaine-Mpf 1% 2ml Vial) 2 ml 1X PRN PRN ID IV START; Start 09/15/19 at 06:30; Stop 09/16/19 at 06:29; Status DC Hydromorphone HCl (Dilaudid) 0.5 mg PRN Q10MIN PRN IV SEV PAIN, Second choice; Start 09/15/19 at 06:30; Stop 09/16/19 at 06:29; Status DC Prochlorperazine Edisylate (Compazine) 5 mg PACU PRN PRN IV NAUSEA, MRX1; Start 09/15/19 at 06:30; Stop 09/16/19 at 06:29; Status DC Propofol 20 ml @ As Directed STK-MED ONCE IV ; Start 09/15/19 at 09:30; Stop 09/15/19 at 09:31; Status DC Lidocaine HCl (Lidocaine Pf 2% Vial) 5 ml STK-MED ONCE .ROUTE ; Start 09/15/19 at 09:30; Stop 09/15/19 at 09:31; Status DC Dexamethasone Sodium Phosphate (Decadron) 20 mg STK-MED ONCE .ROUTE ; Start 09/15/19 at 09:30; Stop 09/15/19 at 09:31; Status DC Ondansetron HCl (Zofran) 4 mg STK-MED ONCE .ROUTE ; Start 09/15/19 at 09:30; Stop 09/15/19 at 09:31; Status DC Phenylephrine HCl (PHENYLEPHRINE in 0.9% NACL PF) 1 mg STK-MED ONCE IV ; Start 09/15/19 at 09:31; Stop 09/15/19 at 09:31; Status DC Fentanyl Citrate (Fentanyl 2ml Vial) 100 mcg STK-MED ONCE .ROUTE ; Start 09/15/19 at 09:31; Stop 09/15/19 at 09:32; Status DC Rocuronium [place] (Zemuron) 50 mg STK-MED ONCE .ROUTE ; Start 09/15/19 at 09:32; Stop 09/15/19 at 09:32; Status DC Succinylcholine Chloride (Anectine) 200 mg STK-MED ONCE .ROUTE ; Start 09/15/19 at 09:46; Stop 09/15/19 at 09:46; Status DC Nicardipine HCl (Cardene) 25 mg STK-MED ONCE IV ; Start 09/15/19 at 11:34; Stop 09/15/19 at 11:35; Status DC Sevoflurane (Ultane) 90 ml STK-MED ONCE IH ; Start 09/15/19 at 11:44; Stop 09/15/19 at 11:45; Status DC Fentanyl Citrate (Fentanyl 2ml Vial) 100 mcg STK-MED ONCE .ROUTE ; Start 09/15/19 at 11:50; Stop 09/15/19 at 11:50; Status DC Neostigmine Methylsulfate (Neostigmine Methylsulfate) 5 mg STK-MED ONCE .ROUTE ; Start 09/15/19 at 13:34; Stop 09/15/19 at 13:34; Status DC Glycopyrrolate (Robinul) 1 mg STK-MED ONCE .ROUTE ; Start 09/15/19 at 13:34; Stop 09/15/19 at 13:34; Status DC Fentanyl Citrate (Fentanyl 2ml Vial) 50 mcg PRN Q5MIN PRN IV MODERATE TO SEVERE PAIN; Start 09/15/19 at 14:45; Stop 09/16/19 at 08:59; Status DC Morphine Sulfate (Morphine Sulfate) 2 mg PRN Q10MIN PRN IV MILD PAIN 1-3; Start 09/15/19 at 14:45; Stop 09/16/19 at 08:59; Status DC Hydromorphone HCl (Dilaudid) 0.4 mg PRN Q10MIN PRN IV Moderate to severe pain; Start 09/15/19 at 14:45; Stop 09/16/19 at 08:59; Status DC Ondansetron HCl (Zofran) 4 mg PRN Q6HRS PRN IVP Nausea, 2nd Choice; Start 09/15/19 at 14:45; Stop 09/16/19 at 08:59; Status DC Insulin Human Lispro (HumaLOG VIAL for OP,RR ONLY) 0-10 units PRN Q1HR PRN SQ PER PROTOCOL Last administered on 09/15/19at 14:51; Start 09/15/19 at 14:45; Stop 09/16/19 at 14:44; Status DC Insulin Human Lispro (HumaLOG) 0-9 UNITS TIDWMEALS SQ ; Start 09/16/19 at 08:00; Stop 09/16/19 at 03:37; Status DC Dextrose (Dextrose 50%-Water Syringe) 12.5 gm PRN Q15MIN PRN IV SEE COMMENTS; Start 09/15/19 at 21:45 Insulin Human Lispro (HumaLOG) 12 units 1X SQ ; Start 09/15/19 at 22:00; Stop 09/15/19 at 23:07; Status DC Insulin Human Lispro (HumaLOG) 12 units 1X ONCE SQ Last administered on 09/15/19at 23:15; Start 09/15/19 at 23:15; Stop 09/15/19 at 23:16; Status DC Insulin Human Lispro (HumaLOG) 0-9 UNITS TIDWMEALHC SQ Last administered on 09/18/19at 09:51; Start 09/16/19 at 08:00 Oxycodone/ Acetaminophen (Percocet 10/325) 1 tab PRN Q6HRS PRN PO MODERATE TO SEVERE PAIN Last administered on 09/19/19at 08:38; Start 09/16/19 at 09:15 Hydromorphone HCl (Dilaudid) 1 mg 1X ONCE IV ; Start 09/16/19 at 14:00; Stop 09/16/19 at 14:01; Status Cancel Hydromorphone HCl (Dilaudid) 1 mg PRN Q4HRS PRN IV SEVERE PAIN 7-10 Last administered on 09/19/19at 07:38; Start 09/16/19 at 13:30 Potassium Chloride (Klor-Con) 40 meq 1X ONCE PO Last administered on 09/17/19at 17:04; Start 09/17/19 at 15:45; Stop 09/17/19 at 15:46; Status DC Active Scripts Active Oxycodone Hcl Immed.release (Oxycodone Hcl) 10 Mg Tablet 10 Mg PO PRN Q4HRS PRN Reported Lidocaine PATCH (Lidocaine) 1 Each Adh..patch 1 Each TP DAILY REMOVE AFTER 12 HOURS Doxepin Hcl 150 Mg Capsule 1 Cap PO QHS 30 Days Lisinopril 5 Mg Tablet 1 Tab PO DAILY Percocet 7.5-325 Mg Tablet (Oxycodone/Acetaminophen) 1 Each Tablet 1 Tab PO PRN Q6HRS PRN Janumet 50-1,000 Mg Tablet (Sitagliptin Phos/Metformin Hcl) 1 Each Tablet 1 Tab PO BID [place] Carbonate 300 Mg Capsule 2 Cap PO HS Clonazepam 1 Mg Tablet 1 Mg PO BID Tizanidine Hcl 4 Mg Tablet 4 Mg PO TID PRN Levothyroxine Sodium 100 Mcg Tablet 1 Tab PO DAILY [place] Carbonate 300 Mg Tablet 1 Tab PO BID Lisinopril 2.5 Mg Tablet 5 Mg PO DAILY Zanaflex (Tizanidine Hcl) 4 Mg Capsule 1 Cap PO TID PRN Janumet 50-1,000 Mg Tablet (Sitagliptin Phos/Metformin Hcl) 1 Each Tablet 1 Tab PO BID Synthroid (Levothyroxine Sodium) 100 Mcg Tablet 100 Mcg PO DAILYAC Doxepin Hcl 50 Mg Capsule 300 Mg PO HS Klonopin (Clonazepam) 0.5 Mg Tablet 1 Mg PO PRN DAILY PRN Vitals/I & O Vital Sign - Last 24 Hours 09/18/19 09/18/19 09/18/19 09/18/19 11:00 12:10 12:10 14:17 Temp 98.1 98.1 Pulse 80 Resp 16 B/P (MAP) 101/64 (76) Pulse Ox 92 92 92 92 O2 Delivery Room Air Room Air Room Air Room Air O2 Flow Rate 10.0 10.0 10.0 09/18/19 09/18/19 09/18/19 09/18/19 14:48 15:00 17:38 18:20 Temp 98.1 98.1 Pulse 85 Resp 16 B/P (MAP) 127/85 (99) Pulse Ox 92 94 94 94 O2 Delivery Room Air Room Air Room Air Room Air O2 Flow Rate 10.0 10.0 10.0 09/18/19 09/18/19 09/18/19 09/18/19 18:40 18:40 19:00 19:50 Temp 98.6 98.6 Pulse 97 Resp 16 B/P (MAP) 116/76 (89) Pulse Ox 94 94 98 O2 Delivery Room Air Room Air Room Air Room Air O2 Flow Rate 10.0 10.0 09/18/19 09/18/19 09/18/19 09/19/19 22:21 22:51 23:00 03:00 Temp 98.3 98.3 98.3 98.3 Pulse 90 90 Resp 20 20 16 16 B/P (MAP) 128/85 (99) 122/78 (93) Pulse Ox 97 96 O2 Delivery Room Air Room Air Room Air Room Air 09/19/19 09/19/19 09/19/19 09/19/19 07:00 07:10 07:38 08:30 Temp 97.9 97.9 Pulse 91 91 Resp 16 B/P (MAP) 183/108 (133) 163/104 (123) 163/104 Pulse Ox 97 O2 Delivery Room Air Room Air 09/19/19 09/19/19 08:33 08:38 O2 Delivery Room Air Room Air Intake and Output 09/18/19 09/18/19 09/19/19 15:00 23:00 07:00 Output Total 700 ml Balance -700 ml ISAI YI MD Sep 19, 2019 10:13
--- NOTE | 2019-09-19 12:33 | PDOC ---
Infectious Disease Note Subjective Subjective Comfortable, pain controlled No F/C/N/V/D ROS ROS per HPI Vital Sign Vital Signs Vital Signs Date Time Temp Pulse Resp B/P (MAP) Pulse Ox O2 Delivery O2 Flow Rate FiO2 09/19/19 11:00 97.8 84 16 97/61 (73) 96 Room Air 97.8 09/18/19 18:40 10.0 Physical Exam PHYSICAL EXAM GENERAL: Sitting on the side of the bed, alert, NAD HEENT: Oral cavity clear NECK: Supple LUNGS: Clear bilaterally. HEART: S1, S2 regular. ABDOMEN: Soft and nontender EXTREMITIES: LLE Trace edema. 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 Right-sided tunneled CVC (09/14) clean Labs Lab Laboratory Tests Test 09/18/19 16:59 09/18/19 20:38 09/19/19 07:13 09/19/19 11:41 Glucose (Fingerstick) 152 mg/dL (70-99) 169 mg/dL (70-99) 132 mg/dL (70-99) 156 mg/dL (70-99) Micro Microbiology 09/15/19 AFB Specimen Processing Tissue - Final, Resulted 09/15/19 Acid Fast Bacilli Culture, Resulted Pending 09/15/19 Gram Stain - Final, Resulted 09/15/19 Fungal Culture, Resulted Pending 09/15/19 Fungal Culture Result 1, Resulted Pending 09/14/19 Blood Culture - Preliminary, Resulted NO GROWTH AFTER 4 DAYS Objective Assessment Left knee prosthetic joint infection. swab cultures 09/13 E fecalis amp sensitive -09/15 s/p removal of total knee arthroplasty components with insertion antibiotic spacer and extensive debridement Intraop Vanc and Tobra. Intra-op cultures neg so far - ESR 64 History of fall with x-ray done on 08/16/2019 with dissociation of the patellar component of the left knee arthroplasty from the posterior aspect of the patella with surrounding soft tissue swelling and large suprapatellar effusion. Left total knee arthroplasty done in 07/2018, status post revision on 02/24/2019, status post incision and drainage on 03/24/2019 with poly exchange. Cultures from July and 03/2019 negative including AFB and fungal. Diabetes. Bipolar disorder. Plan Plan of Care cont daptomycin and Merrem f/u labs and cults wound care Continue supportive care. Cults 09/[address] Bowden's office show HECTOR sen to Gent and Vanc ANNIE of 1. No sens for Daptomycin. Antigen panel neg for Enterococcus but Swab cult +. Intraop cults neg still Has spacer with Vanc and Gent impregnated Change to Vanc and Ampicillin Labs in the am Attending Co-Sign Attending Co-Sign The patient was seen and interviewed as well as examined at the bedside. The chart was reviewed. The case was discussed. Agree with the plan of care. ANALI LOFTON APRN Sep 19, 2019 12:33 ALIN ALDANA MD Sep 19, 2019 18:31
[2019-09-19] MEDS: DAPTOmycin (GENERIC) IVPB 400 MG in IV NORMAL SALINE 50ML 50 ML IV SCH (15:50)
[2019-09-19] MEDS: ONDANSETRON PF 4 MG/2 ML VIAL. IVP PRN (17:27)
[2019-09-19] MEDS: diphenhydrAMINE HCL 25 MG CAPSULE PO PRN (17:27)
[2019-09-19] MEDS: AMPICILLIN SODIUM 1 GM in IV NORMAL SALINE 50ML 50 ML IV SCH (19:14)
[2019-09-19] MEDS: LITHIUM CARBONATE ER 300 MG TABLET.ER PO SCH (20:28)
[2019-09-19] MEDS: VANCOMYCIN PER PHARMACY MC PRN (20:32)
[2019-09-19] MEDS: DOXEPIN 150 MG PO SCH (20:33)
--- NOTE | 2019-09-19 20:35 | NUR ---
Pharmacy Vancomycin Dosing Note S:Consulted to monitor and dose vancomycin started 09/19/19. O:PATCASTROBROJayshreeVIRY is a 48 year old M with Abscess INFECTED TKA . Height: 5 feet, 7 inches Weight: 107.676008 kg [place] Body Weight: 66.10 Adjusted Body Weight: 83.18 Dosing Weight: Other Antibiotics: LABS: Last BUN: 7 Last Creatinine: 0.9 Creatinine Clearance: 116.8 mL/min Last WBC: 5.1 Last Procalcitonin: Tmax (past 24 hours): Microbiology: I/O: Drug Levels: Last level: on at Last dose given at Vancomycin Dosing: Loading Dose: 2000 mg x1 Dosing Weight: Target Trough: 15-20 A: Based on: HT, WT AND RENAL FUNCTION P: 1. Vancomycin 2000 mg IV q12h 2. Follow up Trough level on 09/21/19 at 0830 3. Pharmacy will continue to monitor, follow and adjust therapy as needed. RONNELL FALL, [facility], 09/19/19 [id number]
[2019-09-19] MEDS ORDERED: VANCOMYCIN 2 GM in IV NORMAL SALINE 500ML BAG 500 ML IV ONE (21:00)
[2019-09-20 03:00] VITALS: BP 131/88
[2019-09-20] MEDS: AMPICILLIN SODIUM 1 GM in IV NORMAL SALINE 50ML 50 ML IV SCH ×5 (03:48→13:27)
[2019-09-20] MEDS: HYDROmorphone 2 MG/ML VIAL IV PRN ×5 (04:15→23:03)
[2019-09-20] MEDS: LEVOTHYROXINE 100 MCG TABLET PO SCH (05:01)
[2019-09-20 06:05] LABS: CREATININE 0.8 mg/dL (0.7-1.3); GFR 102.7; POTASSIUM 4.1 mmol/L (3.5-5.1)
[2019-09-20] MEDS: tiZANidine 4 MG TABLET. PO PRN ×2 (06:41→20:27)
[2019-09-20] MEDS: oxyCODONE/APAP 10/325 1 TAB TABLET PO PRN (06:42)
[2019-09-20 07:00] VITALS: BP 108/72
[2019-09-20] MEDS: metFORMIN 500 MG TABLET PO SCH ×2 (08:06→17:20)
[2019-09-20] MEDS: INSULIN LISPRO 300 UNITS/3 ML VIAL. SQ SCH ×4 (08:17→21:00)
[2019-09-20] MEDS: LINAGLIPTIN 5 MG TABLET PO SCH (09:45)
[2019-09-20] MEDS: LISINOPRIL 5 MG TABLET. PO SCH (09:45)
[2019-09-20] MEDS: clonazePAM 0.5 MG TABLET PO SCH ×2 (09:45→20:27)
[2019-09-20] MEDS: LACTOBACILLUS RHAMNOSUS GG 1 CAPSULE. PO SCH ×2 (09:45→20:28)
[2019-09-20] MEDS: VANCOMYCIN 2 GM in IV NORMAL SALINE 500ML BAG 500 ML IV SCH ×2 (09:46→20:33)
--- NOTE | 2019-09-20 11:14 | PDOC ---
Infectious Disease Note Subjective Subjective Pain level ranging between 6-9 at times Some nausea off and on, no vomiting Appetite diminished No fever, chills ROS ROS per HPI Vital Sign Vital Signs Vital Signs Date Time Temp Pulse Resp B/P (MAP) Pulse Ox O2 Delivery O2 Flow Rate FiO2 09/20/19 09:52 16 Room Air 09/20/19 09:45 72 108/72 09/20/19 07:00 98.1 96 98.1 Physical Exam PHYSICAL EXAM GENERAL: Lying down, alert, in NAD HEENT: Oral cavity clear, dry NECK: Supple LUNGS: Clear bilaterally. HEART: S1, S2 regular. ABDOMEN: Soft and nontender EXTREMITIES: LLE Trace edema. 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 Right-sided tunneled CVC (09/14) clean Labs Lab Laboratory Tests Test 09/19/19 11:41 09/19/19 16:55 09/19/19 20:16 09/20/19 05:00 Glucose (Fingerstick) 156 mg/dL (70-99) 83 mg/dL (70-99) 160 mg/dL (70-99) Erythrocyte Sedimentation Rate 75 (0-15) Sodium Level 135 mmol/L (136-145) Potassium Level 4.1 mmol/L (3.5-5.1) Chloride Level 101 mmol/L (98-107) Carbon Dioxide Level 26 mmol/L (21-32) Anion Gap 8 (6-14) Blood Urea Nitrogen 6 mg/dL (8-26) Creatinine 0.8 mg/dL (0.7-1.3) Estimated GFR (Cockcroft-Gault) 102.7 Glucose Level 170 mg/dL (70-99) Calcium Level 9.0 mg/dL (8.5-10.1) Test 09/20/19 07:51 Glucose (Fingerstick) 185 mg/dL (70-99) Micro 09/15. Knee ANAEROBIC RES 1 PENDING AEROBIC RES 1 Final Comment No growth in 36 - 48 hours. No growth in 56 - 72 hours. AFB CULTURE FINAL PENDING AFB CULTURE GRAM STAIN Final Negative FUNGAL CULTURE,OTHER PENDING 09/14/19 Blood Culture - Preliminary, Resulted NO GROWTH AFTER 5 DAYS 09/13. Knee left, swab AEROBIC RES 1 Final Streptococcus species Enterococcus faecalis AEROBIC RES 2 Final Mixed skin any MICS are expressed in micrograms per mL Antibiotic RSLT#1 Penicillin S =4 Vancomycin S =2 Objective Assessment Left knee prosthetic joint infection. Synovial fluid cx positive for MRSE 09/09; swab culture here grew E fecalis amp sensitive 09/13. -09/15 s/p removal of total knee arthroplasty components with insertion antibiotic spacer and extensive debridement Intraop Vanc and Tobra. Intra-op cultures neg so far; AF stain neg - ESR 75 12/8 (from 64) H/o fall with x-ray done on 08/16/2019 with dissociation of the patellar component of the left knee arthroplasty from the posterior aspect of the patella with surrounding soft tissue swelling and large suprapatellar effusion. Left total knee arthroplasty done in 07/2018, status post revision on 02/24/2019, status post incision and drainage on 03/24/2019 with poly exchange. -Cultures from July and 03/2019 negative including AFB and fungal. Diabetes. Bipolar disorder. Plan Plan of Care Cults 09/[address] Bowden's office show MRSE No sens for Daptomycin. Antigen panel neg for Enterococcus but Swab cult +. Intraop cults neg still Has spacer with Vanc and Gent impregnated Continue to Vanc and Ampicillin (started on 09/19) Monitor renal function closely Pain management per primary D/w at bedside D/w Dr. Bowden D/w re Rationale for abx selections. Attending Co-Sign Attending Co-Sign The patient was seen and interviewed as well as examined at the bedside. The chart was reviewed. The case was discussed. Agree with the plan of care. ANALI LOFTON APRN Sep 20, 2019 11:14 ALIN ALDANA MD Sep 20, 2019 16:22
--- NOTE | 2019-09-20 11:27 | PDOC ---
PROGRESS NOTES Chief Complaint Chief Complaint left leg abscess with surrounding cellulitis 1. 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 History of fall with x-ray done on 08/16/2019 with dissociation of the patellar component of the left knee arthroplasty from the posterior aspect of the patella with surrounding soft tissue swelling and large suprapatellar effusion. 3. Left total knee arthroplasty done in 07/2018, status post revision on 02/24/2019, status post incision and drainage on 03/24/2019 with poly exchange. Cultures from July and 03/2019 negative including AFB and fungal. 4. Diabetes. 5. Anemia 6. Hypertension. 7. Hypothyroidism. 8. Osteoarthritis. 9. Bipolar disorder. History of Present Illness History of Present Illness no complaints On IV merrem and dapto per iD Ortho dr urena also on board BS ok BP high side on prns ESR also 100s PLAN: CPM LAbs, follow cx Keep current insulin regimen - working well prn BP meds, might need to adjust if hTN persists Will be here over weekend Vitals Vitals Vital Signs Date Time Temp Pulse Resp B/P (MAP) Pulse Ox O2 Delivery O2 Flow Rate FiO2 09/20/19 10:22 16 Room Air 09/20/19 09:45 72 108/72 09/20/19 07:00 98.1 96 98.1 Physical Exam Physical Exam GENERAL: Lying down, alert, in NAD HEENT: Oral cavity clear, dry NECK: Supple LUNGS: Clear bilaterally. HEART: S1, S2 regular. ABDOMEN: Soft and nontender EXTREMITIES: LLE Trace edema. 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 Right-sided tunneled CVC (09/14) clean General: Alert, Oriented X3, Cooperative, No acute distress, mild distress Heart: Regular rate, Normal S1, Normal S2 Lungs: Clear Abdomen: Normal bowel sounds, Soft, No tenderness Extremities: No cyanosis, Normal pulses Skin: No rashes, No breakdown Labs LABS Laboratory Tests Test 09/19/19 11:41 09/19/19 16:55 09/19/19 20:16 09/20/19 05:00 Glucose (Fingerstick) 156 mg/dL (70-99) 83 mg/dL (70-99) 160 mg/dL (70-99) Erythrocyte Sedimentation Rate 75 (0-15) Sodium Level 135 mmol/L (136-145) Potassium Level 4.1 mmol/L (3.5-5.1) Chloride Level 101 mmol/L (98-107) Carbon Dioxide Level 26 mmol/L (21-32) Anion Gap 8 (6-14) Blood Urea Nitrogen 6 mg/dL (8-26) Creatinine 0.8 mg/dL (0.7-1.3) Estimated GFR (Cockcroft-Gault) 102.7 Glucose Level 170 mg/dL (70-99) Calcium Level 9.0 mg/dL (8.5-10.1) Test 09/20/19 07:51 09/20/19 11:02 Glucose (Fingerstick) 185 mg/dL (70-99) 121 mg/dL (70-99) Review of Systems Review of Systems no complaints, neg 14 pt Comment Review of Relevant I have reviewed the following items satya (where applicable) has been applied. Labs Laboratory Tests Test 09/18/19 11:31 09/18/19 16:59 09/18/19 20:38 09/19/19 07:13 Glucose (Fingerstick) 131 mg/dL (70-99) 152 mg/dL (70-99) 169 mg/dL (70-99) 132 mg/dL (70-99) Test 09/19/19 11:41 09/19/19 16:55 09/19/19 20:16 09/20/19 05:00 Glucose (Fingerstick) 156 mg/dL (70-99) 83 mg/dL (70-99) 160 mg/dL (70-99) Erythrocyte Sedimentation Rate 75 (0-15) Sodium Level 135 mmol/L (136-145) Potassium Level 4.1 mmol/L (3.5-5.1) Chloride Level 101 mmol/L (98-107) Carbon Dioxide Level 26 mmol/L (21-32) Anion Gap 8 (6-14) Blood Urea Nitrogen 6 mg/dL (8-26) Creatinine 0.8 mg/dL (0.7-1.3) Estimated GFR (Cockcroft-Gault) 102.7 Glucose Level 170 mg/dL (70-99) Calcium Level 9.0 mg/dL (8.5-10.1) Test 09/20/19 07:51 09/20/19 11:02 Glucose (Fingerstick) 185 mg/dL (70-99) 121 mg/dL (70-99) Laboratory Tests Test 09/19/19 11:41 09/19/19 16:55 09/19/19 20:16 09/20/19 05:00 Glucose (Fingerstick) 156 mg/dL (70-99) 83 mg/dL (70-99) 160 mg/dL (70-99) Erythrocyte Sedimentation Rate 75 (0-15) Sodium Level 135 mmol/L (136-145) Potassium Level 4.1 mmol/L (3.5-5.1) Chloride Level 101 mmol/L (98-107) Carbon Dioxide Level 26 mmol/L (21-32) Anion Gap 8 (6-14) Blood Urea Nitrogen 6 mg/dL (8-26) Creatinine 0.8 mg/dL (0.7-1.3) Estimated GFR (Cockcroft-Gault) 102.7 Glucose Level 170 mg/dL (70-99) Calcium Level 9.0 mg/dL (8.5-10.1) Test 09/20/19 07:51 09/20/19 11:02 Glucose (Fingerstick) 185 mg/dL (70-99) 121 mg/dL (70-99) Microbiology 09/15/19 AFB Specimen Processing Tissue - Final, Resulted 09/15/19 Acid Fast Bacilli Culture, Resulted Pending 09/15/19 Gram Stain - Final, Resulted 09/15/19 Fungal Culture, Resulted Pending 09/15/19 Fungal Culture Result 1, Resulted Pending 09/14/19 Blood Culture - Final, Complete NO GROWTH AFTER 5 DAYS Medications Current Medications Sodium Chloride 1,000 ml @ 1,000 mls/hr 1X ONCE IV Last administered on 09/13/19at 21:00; Start 09/13/19 at 20:45; Stop 09/13/19 at 21:44; Status DC Ondansetron HCl (Zofran) 4 mg 1X ONCE IV Last administered on 09/13/19at 21:00; Start 09/13/19 at 20:45; Stop 09/13/19 at 20:46; Status DC Morphine Sulfate (Morphine Sulfate) 4 mg 1X ONCE IV Last administered on 09/13/19at 21:00; Start 09/13/19 at 20:45; Stop 09/13/19 at 20:46; Status DC Iohexol (Omnipaque 300 Mg/ml) 75 ml 1X ONCE IV Last administered on 09/13/19at 21:42; Start 09/13/19 at 21:45; Stop 09/13/19 at 21:46; Status DC Info (CONTRAST GIVEN -- Rx MONITORING) 1 each PRN DAILY PRN MC SEE COMMENTS; Start 09/13/19 at 21:45; Stop 09/15/19 at 21:44; Status DC Vancomycin HCl (Vanco Per Pharmacy) 1 each PRN DAILY PRN MC SEE COMMENTS Last administered on 09/13/19at 23:45; Start 09/13/19 at 22:30; Stop 09/14/19 at 12:47; Status DC Ondansetron HCl (Zofran) 4 mg PRN Q8HRS PRN IV NAUSEA/VOMITING Last administered on 09/14/19at 17:08; Start 09/13/19 at 22:30; Stop 09/14/19 at 22:29; Status DC Morphine Sulfate (Morphine Sulfate) 4 mg PRN Q2HR PRN IV PAIN Last administered on 09/14/19at 15:43; Start 09/13/19 at 22:30; Stop 09/14/19 at 22:29; Status DC Vancomycin HCl 2 gm/Sodium Chloride 500 ml @ 250 mls/hr 1X ONCE IV Last administered on 09/13/19at 22:55; Start 09/13/19 at 23:00; Stop 09/14/19 at 00:59; Status DC Potassium Chloride (Klor-Con) 40 meq 1X ONCE PO Last administered on 09/13/19at 23:30; Start 09/13/19 at 23:30; Stop 09/13/19 at 23:31; Status DC Vancomycin HCl 1.75 gm/Sodium Chloride 500 ml @ 250 mls/hr Q12H IV Last administered on 09/14/19at 10:40; Start 09/14/19 at 11:00; Stop 09/14/19 at 12:45 ; Status DC Vancomycin HCl (Vancomycin Trough Level) 1 each 1X ONCE MC ; Start 09/15/19 at 10:30; Stop 09/14/19 at 12:47; Status DC Non-Formulary Medication 2 ea HS PO Last administered on 09/19/19 20:33; Start 09/14/19 at 21:00 Non-Formulary Medication 2 ea 1X ONCE PO Last administered on 09/14/19 02:05; Start 09/14/19 at 01:45; Stop 09/14/19 at 01:46; Status DC Levothyroxine Sodium (Synthroid) 100 mcg DAILY06 PO Last administered on 09/20/19 05:01; Start 09/14/19 at 09:00 Lidocaine (Lidoderm) 1 patch DAILY TP Last administered on 09/19/19 09:11; Start 09/14/19 at 09:00 Lisinopril (Prinivil) 5 mg DAILY PO Last administered on 09/20/19 09:45; Start 09/14/19 at 09:00 Oxycodone/ Acetaminophen (Percocet 7.5/ 325) 1 tab PRN Q6HRS PRN PO PAIN Last administered on 09/16/19 04:50; Start 09/14/19 at 08:45; Stop 09/16/19 at 09:10; Status DC Tizanidine HCl (Zanaflex) 4 mg TID PRN PO MUSCLE SPASMS Last administered on 09/20/19 06:41; Start 09/14/19 at 08:45 Clonazepam (KlonoPIN) 1 mg BID PO Last administered on 09/20/19 09:45; Start 09/14/19 at 09:00 Doxepin HCl (SINEquan) 150 mg QHS PO Last administered on 09/18/19 21:53; Start 09/14/19 at 21:00; Stop 09/19/19 at 01:13; Status DC Bonduel Carbonate (Lithobid) 600 mg QHS PO Last administered on 09/19/19 20:28; Start 09/14/19 at 21:00 Linagliptin (Tradjenta) 5 mg DAILY PO Last administered on 09/20/19 09:45; Start 09/14/19 at 09:00 Potassium Chloride (Klor-Con) 40 meq 1X ONCE PO Last administered on 09/14/19 09:03; Start 09/14/19 at 09:00; Stop 09/14/19 at 09:01; Status DC Metformin HCl (Glucophage) 1,000 mg BIDWMEALS PO Last administered on 09/20/19at 08:06; Start 09/16/19 at 08:00 Lactobacillus Rhamnosus (Culturelle) 1 cap BID PO Last administered on 09/20/19at 09:45; Start 09/14/19 at 21:00 Meropenem 500 mg/ Sodium Chloride 50 ml @ 100 mls/hr Q6HRS IV Last administered on 09/19/19at 17:28; Start 09/14/19 at 13:30; Stop 09/19/19 at 18:26; Status DC Daptomycin 400 mg/ Sodium Chloride 50 ml @ 100 mls/hr Q24H IV Last administered on 09/19/19at 15:50; Start 09/14/19 at 14:00; Stop 09/19/19 at 18:26; Status DC Lidocaine HCl (Buffered Lidocaine 1%) 3 ml STK-MED ONCE .ROUTE ; Start 09/14/19 at 13:24; Stop 09/14/19 at 13:24; Status DC Lidocaine HCl (Buffered Lidocaine 1%) 3 ml 1X ONCE INJ ; Start 09/14/19 at 13:45; Stop 09/14/19 at 13:46; Status DC Cefazolin Sodium 100 ml @ As Directed STK-MED ONCE IV ; Start 09/14/19 at 13:51; Stop 09/14/19 at 13:51; Status DC Lidocaine/ Epinephrine (LIDOCAINE 1%-EPI 1:100,000 Multi-Dose) 20 ml STK-MED ONCE .ROUTE ; Start 09/14/19 at 14:01; Stop 09/14/19 at 14:01; Status DC Lidocaine/ Epinephrine (LIDOCAINE 1%-EPI 1:100,000 Multi-Dose) 20 ml 1X ONCE SQ Last administered on 09/14/19at 14:15; Start 09/14/19 at 14:15; Stop 09/14/19 at 14:16; Status DC Cefazolin Sodium 50 ml @ 100 mls/hr 1X ONCE IV Last administered on 09/14/19at 14:15; Start 09/14/19 at 14:15; Stop 09/14/19 at 14:44; Status DC Cefazolin Sodium 50 ml @ 100 mls/hr 1X ONCE IV Last administered on 09/14/19at 14:15; Start 09/14/19 at 14:15; Stop 09/14/19 at 14:44; Status DC Morphine Sulfate 5 mg/Ketorolac Tromethamine 30 mg/Ropivacaine 60 ml/Epinephrine HCl 0.5 mg/Sodium Chloride 100 ml @ 100 mls/hr 1X ONCE INT ART Last administered on 09/15/19at 14:36; Start 09/15/19 at 06:00; Stop 09/15/19 at 06:59; Status DC Ondansetron HCl (Zofran) 4 mg PRN Q6HRS PRN IV NAUSEA/VOMITING; Start 09/15/19 at 06:30; Stop 09/16/19 at 06:29; Status DC Fentanyl Citrate (Fentanyl 2ml Vial) 25 mcg PRN Q5MIN PRN IV MILD PAIN 1-3; Start 09/15/19 at 06:30; Stop 09/16/19 at 06:29; Status DC Fentanyl Citrate (Fentanyl 2ml Vial) 50 mcg PRN Q5MIN PRN IV MODERATE TO SEVERE PAIN; Start 09/15/19 at 06:30; Stop 09/16/19 at 06:29; Status DC Morphine Sulfate (Morphine Sulfate) 1 mg PRN Q10MIN PRN IV SEVERE PAIN 7-10; Start 09/15/19 at 06:30; Stop 09/16/19 at 06:29; Status DC Ringer's Solution 1,000 ml @ 30 mls/hr Q24H IV Last administered on 09/15/19at 10:39; Start 09/15/19 at 06:30; Stop 09/15/19 at 06:49; Status DC Lidocaine HCl (Xylocaine-Mpf 1% 2ml Vial) 2 ml 1X PRN PRN ID IV START; Start 09/15/19 at 06:30; Stop 09/16/19 at 06:29; Status DC Hydromorphone HCl (Dilaudid) 0.5 mg PRN Q10MIN PRN IV SEV PAIN, Second choice; Start 09/15/19 at 06:30; Stop 09/16/19 at 06:29; Status DC Prochlorperazine Edisylate (Compazine) 5 mg PACU PRN PRN IV NAUSEA, MRX1; Start 09/15/19 at 06:30; Stop 09/16/19 at 06:29; Status DC Propofol 20 ml @ As Directed STK-MED ONCE IV ; Start 09/15/19 at 09:30; Stop 09/15/19 at 09:31; Status DC Lidocaine HCl (Lidocaine Pf 2% Vial) 5 ml STK-MED ONCE .ROUTE ; Start 09/15/19 at 09:30; Stop 09/15/19 at 09:31; Status DC Dexamethasone Sodium Phosphate (Decadron) 20 mg STK-MED ONCE .ROUTE ; Start 09/15/19 at 09:30; Stop 09/15/19 at 09:31; Status DC Ondansetron HCl (Zofran) 4 mg STK-MED ONCE .ROUTE ; Start 09/15/19 at 09:30; Stop 09/15/19 at 09:31; Status DC Phenylephrine HCl (PHENYLEPHRINE in 0.9% NACL PF) 1 mg STK-MED ONCE IV ; Start 09/15/19 at 09:31; Stop 09/15/19 at 09:31; Status DC Fentanyl Citrate (Fentanyl 2ml Vial) 100 mcg STK-MED ONCE .ROUTE ; Start 09/15/19 at 09:31; Stop 09/15/19 at 09:32; Status DC Rocuronium Crum (Zemuron) 50 mg STK-MED ONCE .ROUTE ; Start 09/15/19 at 09:32; Stop 09/15/19 at 09:32; Status DC Succinylcholine Chloride (Anectine) 200 mg STK-MED ONCE .ROUTE ; Start 09/15/19 at 09:46; Stop 09/15/19 at 09:46; Status DC Nicardipine HCl (Cardene) 25 mg STK-MED ONCE IV ; Start 09/15/19 at 11:34; Stop 09/15/19 at 11:35; Status DC Sevoflurane (Ultane) 90 ml STK-MED ONCE IH ; Start 09/15/19 at 11:44; Stop 09/15/19 at 11:45; Status DC Fentanyl Citrate (Fentanyl 2ml Vial) 100 mcg STK-MED ONCE .ROUTE ; Start 09/15/19 at 11:50; Stop 09/15/19 at 11:50; Status DC Neostigmine Methylsulfate (Neostigmine Methylsulfate) 5 mg STK-MED ONCE .ROUTE ; Start 09/15/19 at 13:34; Stop 09/15/19 at 13:34; Status DC Glycopyrrolate (Robinul) 1 mg STK-MED ONCE .ROUTE ; Start 09/15/19 at 13:34; Stop 09/15/19 at 13:34; Status DC Fentanyl Citrate (Fentanyl 2ml Vial) 50 mcg PRN Q5MIN PRN IV MODERATE TO SEVERE PAIN; Start 09/15/19 at 14:45; Stop 09/16/19 at 08:59; Status DC Morphine Sulfate (Morphine Sulfate) 2 mg PRN Q10MIN PRN IV MILD PAIN 1-3; Start 09/15/19 at 14:45; Stop 09/16/19 at 08:59; Status DC Hydromorphone HCl (Dilaudid) 0.4 mg PRN Q10MIN PRN IV Moderate to severe pain; Start 09/15/19 at 14:45; Stop 09/16/19 at 08:59; Status DC Ondansetron HCl (Zofran) 4 mg PRN Q6HRS PRN IVP Nausea, 2nd Choice; Start 09/15/19 at 14:45; Stop 09/16/19 at 08:59; Status DC Insulin Human Lispro (HumaLOG VIAL for OP,RR ONLY) 0-10 units PRN Q1HR PRN SQ PER PROTOCOL Last administered on 09/15/19at 14:51; Start 09/15/19 at 14:45; Stop 09/16/19 at 14:44; Status DC Insulin Human Lispro (HumaLOG) 0-9 UNITS TIDWMEALS SQ ; Start 09/16/19 at 08:00; Stop 09/16/19 at 03:37; Status DC Dextrose (Dextrose 50%-Water Syringe) 12.5 gm PRN Q15MIN PRN IV SEE COMMENTS; Start 09/15/19 at 21:45 Insulin Human Lispro (HumaLOG) 12 units 1X SQ ; Start 09/15/19 at 22:00; Stop 09/15/19 at 23:07; Status DC Insulin Human Lispro (HumaLOG) 12 units 1X ONCE SQ Last administered on at 23:15; Start 09/15/19 at 23:15; Stop 09/15/19 at 23:16; Status DC Insulin Human Lispro (HumaLOG) 0-9 UNITS TIDWMEALHC SQ Last administered on 09/20/19at 08:17; Start 09/16/19 at 08:00 Oxycodone/ Acetaminophen (Percocet 10/325) 1 tab PRN Q6HRS PRN PO MODERATE TO SEVERE PAIN Last administered on 09/20/19 06:42; Start 09/16/19 at 09:15 Hydromorphone HCl (Dilaudid) 1 mg 1X ONCE IV ; Start 09/16/19 at 14:00; Stop 09/16/19 at 14:01; Status Cancel Hydromorphone HCl (Dilaudid) 1 mg PRN Q4HRS PRN IV SEVERE PAIN 7-10 Last administered on 09/20/19 09:52; Start 09/16/19 at 13:30 Potassium Chloride (Klor-Con) 40 meq 1X ONCE PO Last administered on 09/17/19 17:04; Start 09/17/19 at 15:45; Stop 09/17/19 at 15:46; Status DC Diphenhydramine HCl (Benadryl) 25 mg PRN Q6HRS PRN PO ITCHING Last administered on 09/19/19 17:27; Start 09/19/19 at 17:00 Ondansetron HCl (Zofran) 4 mg PRN Q6HRS PRN IVP NAUSEA/VOMITING Last administered on 09/19/19 17:27; Start 09/19/19 at 17:15 Ampicillin Sodium 1 gm/Sodium Chloride 50 ml @ 100 mls/hr Q4HRS IV Last administered on 09/20/19 08:06; Start 09/19/19 at 20:00 Vancomycin HCl (Vanco Per Pharmacy) 1 each PRN DAILY PRN MC SEE COMMENTS Last administered on 09/19/19 20:32; Start 09/19/19 at 18:30 Vancomycin HCl 2 gm/Sodium Chloride 500 ml @ 250 mls/hr 1X ONCE IV Last administered on 09/19/19 20:28; Start 09/19/19 at 21:00; Stop 09/19/19 at 22:59 ; Status DC Vancomycin HCl (Vancomycin Trough Level) 1 each 1X ONCE MC ; Start 09/21/19 at 08:30; Stop 09/21/19 at 08:31 Vancomycin HCl 2 gm/Sodium Chloride 500 ml @ 250 mls/hr Q12H IV Last administered on 09/20/19at 09:46; Start 09/20/19 at 09:00 Active Scripts Active Oxycodone Hcl Immed.release (Oxycodone Hcl) 10 Mg Tablet 10 Mg PO PRN Q4HRS PRN Reported Lidocaine PATCH (Lidocaine) 1 Each Adh..patch 1 Each TP DAILY REMOVE AFTER 12 HOURS Doxepin Hcl 150 Mg Capsule 1 Cap PO QHS 30 Days Lisinopril 5 Mg Tablet 1 Tab PO DAILY Percocet 7.5-325 Mg Tablet (Oxycodone/Acetaminophen) 1 Each Tablet 1 Tab PO PRN Q6HRS PRN Janumet 50-1,000 Mg Tablet (Sitagliptin Phos/Metformin Hcl) 1 Each Tablet 1 Tab PO BID Bonduel Carbonate 300 Mg Capsule 2 Cap PO HS Clonazepam 1 Mg Tablet 1 Mg PO BID Tizanidine Hcl 4 Mg Tablet 4 Mg PO TID PRN Levothyroxine Sodium 100 Mcg Tablet 1 Tab PO DAILY Bonduel Carbonate 300 Mg Tablet 1 Tab PO BID Lisinopril 2.5 Mg Tablet 5 Mg PO DAILY Zanaflex (Tizanidine Hcl) 4 Mg Capsule 1 Cap PO TID PRN Janumet 50-1,000 Mg Tablet (Sitagliptin Phos/Metformin Hcl) 1 Each Tablet 1 Tab PO BID Synthroid (Levothyroxine Sodium) 100 Mcg Tablet 100 Mcg PO DAILYAC Doxepin Hcl 50 Mg Capsule 300 Mg PO HS Klonopin (Clonazepam) 0.5 Mg Tablet 1 Mg PO PRN DAILY PRN Vitals/I & O Vital Sign - Last 24 Hours 09/19/19 09/19/19 09/19/19 09/19/19 12:44 12:59 15:00 15:31 Temp 98.4 98.4 Pulse 82 Resp 16 B/P (MAP) 120/74 (89) Pulse Ox 96 O2 Delivery Room Air Room Air Room Air Room Air 09/19/19 09/19/19 09/19/19 09/19/19 15:48 16:58 17:26 19:00 Temp 98.3 98.3 Pulse 100 Resp 18 B/P (MAP) 126/86 (99) Pulse Ox 94 O2 Delivery Room Air Room Air Room Air Room Air 09/19/19 09/19/19 09/20/19 09/20/19 20:00 23:00 03:00 04:15 Temp 98.9 97.8 98.9 97.8 Pulse 82 75 Resp 18 18 20 B/P (MAP) 131/87 (102) 131/88 (102) Pulse Ox 96 95 96 O2 Delivery Room Air Room Air Room Air Room Air 09/20/19 09/20/19 09/20/19 09/20/19 04:45 06:42 07:00 07:42 Temp 98.1 98.1 Pulse 72 Resp 20 20 18 18 B/P (MAP) 108/72 (84) Pulse Ox 96 96 96 O2 Delivery Room Air Room Air Room Air Room Air 09/20/19 09/20/19 09/20/19 09/20/19 08:00 09:45 09:52 10:22 Pulse 72 Resp 16 16 B/P (MAP) 108/72 O2 Delivery Room Air Room Air Room Air Intake and Output 09/19/19 09/19/19 09/20/19 15:00 23:00 07:00 Output Total 900 ml Balance -900 ml ISAI YI MD Sep 20, 2019 11:27
[2019-09-20 11:44] VITALS: BP 108/67
--- NOTE | 2019-09-20 11:47 | PDOC ---
PROGRESS NOTES Subjective Subjective Problems overnight: Geovany continues to have expected pain he said stability is better after the brace was placed. He does indicate a significant amount of drainage yesterday that actually soaked some onto his sheets Objective Vital Signs Vital Signs Date Time Temp Pulse Resp B/P (MAP) Pulse Ox O2 Delivery O2 Flow Rate FiO2 09/20/19 10:22 16 Room Air 09/20/19 09:45 72 108/72 09/20/19 07:00 98.1 96 98.1 09/18/19 18:40 10.0 Physical Exam His dressing today after getting changed yesterday is clean dry intact no surrounding redness he has good stability and distal neurovascular status intact Labs Laboratory Tests Test 09/18/19 16:59 09/18/19 20:38 09/19/19 07:13 09/19/19 11:41 Glucose (Fingerstick) 152 mg/dL (70-99) 169 mg/dL (70-99) 132 mg/dL (70-99) 156 mg/dL (70-99) Test 09/19/19 16:55 09/19/19 20:16 09/20/19 05:00 09/20/19 07:51 Glucose (Fingerstick) 83 mg/dL (70-99) 160 mg/dL (70-99) 185 mg/dL (70-99) Erythrocyte Sedimentation Rate 75 (0-15) Sodium Level 135 mmol/L (136-145) Potassium Level 4.1 mmol/L (3.5-5.1) Chloride Level 101 mmol/L (98-107) Carbon Dioxide Level 26 mmol/L (21-32) Anion Gap 8 (6-14) Blood Urea Nitrogen 6 mg/dL (8-26) Creatinine 0.8 mg/dL (0.7-1.3) Estimated GFR (Cockcroft-Gault) 102.7 Glucose Level 170 mg/dL (70-99) Calcium Level 9.0 mg/dL (8.5-10.1) Test 09/20/19 11:02 Glucose (Fingerstick) 121 mg/dL (70-99) Laboratory Tests Test 09/19/19 16:55 09/19/19 20:16 09/20/19 05:00 09/20/19 07:51 Glucose (Fingerstick) 83 mg/dL (70-99) 160 mg/dL (70-99) 185 mg/dL (70-99) Erythrocyte Sedimentation Rate 75 (0-15) Sodium Level 135 mmol/L (136-145) Potassium Level 4.1 mmol/L (3.5-5.1) Chloride Level 101 mmol/L (98-107) Carbon Dioxide Level 26 mmol/L (21-32) Anion Gap 8 (6-14) Blood Urea Nitrogen 6 mg/dL (8-26) Creatinine 0.8 mg/dL (0.7-1.3) Estimated GFR (Cockcroft-Gault) 102.7 Glucose Level 170 mg/dL (70-99) Calcium Level 9.0 mg/dL (8.5-10.1) Test 09/20/19 11:02 Glucose (Fingerstick) 121 mg/dL (70-99) Assessment Assessment POD# removal total knee hardware for infection with placement antibiotic spacer Plan Plan of Care Appreciate infectious disease follow and note that his antibiotics were changed based on the aspiration cultures done in clinic, other cultures so far at the bone interface seem negative Changed to a bit longer acting pain medicine based on his issues with some constant pain and then breakthrough pain with activity Consider a wound VAC due to his distal defect at the incision and large amount of drainage ELISHA SORIA MD Sep 20, 2019 11:47
[2019-09-20] MEDS: oxyCODONE ER 15 MG TAB.ER.12H PO SCH ×2 (13:27→20:27)
[2019-09-20] MEDS: LIDOCAINE (700MG/PATCH) PATCH. TP SCH (13:58)
[2019-09-20] MEDS: diphenhydrAMINE HCL 25 MG CAPSULE PO PRN ×2 (13:58→20:27)
[2019-09-20] MEDS: VANCOMYCIN PER PHARMACY MC PRN (15:08)
[2019-09-20 15:30] VITALS: BP 144/86
[2019-09-20] MEDS ORDERED: AMPICILLIN SODIUM IV SCH (17:00)
[2019-09-20] MEDS ORDERED: NORMAL SALINE IV SCH (17:00)
[2019-09-20] MEDS: AMPICILLIN SODIUM 2 GM in IV NORMAL SALINE 100ML 100 ML IV SCH ×3 (17:21→23:46)
[2019-09-20 19:00] VITALS: BP 137/82
[2019-09-20] MEDS: DOXEPIN 150 MG PO SCH (20:28)
[2019-09-20] MEDS: LITHIUM CARBONATE ER 300 MG TABLET.ER PO SCH (20:28)
[2019-09-20 23:00] VITALS: BP 112/65
[2019-09-20] MEDS: guaiFENesin DM 200MG/20MG 10 ML SYRUP PO PRN (23:46)
[2019-09-21 03:00] VITALS: BP 125/74
[2019-09-21] MEDS: oxyCODONE/APAP 5/325 1 TAB TABLET PO PRN ×2 (03:05→15:16)
[2019-09-21] MEDS: HYDROmorphone 2 MG/ML VIAL IV PRN ×4 (04:30→17:16)
[2019-09-21] MEDS: LEVOTHYROXINE 100 MCG TABLET PO SCH (04:30)
[2019-09-21] MEDS: AMPICILLIN SODIUM 2 GM in IV NORMAL SALINE 100ML 100 ML IV SCH ×6 (04:30→23:50)
[2019-09-21 07:00] VITALS: BP 124/81
[2019-09-21] MEDS: INSULIN LISPRO 300 UNITS/3 ML VIAL. SQ SCH ×4 (07:56→21:00)
[2019-09-21] MEDS: LACTOBACILLUS RHAMNOSUS GG 1 CAPSULE. PO SCH ×2 (08:31→21:00)
[2019-09-21] MEDS: clonazePAM 0.5 MG TABLET PO SCH ×2 (08:31→19:49)
[2019-09-21] MEDS: metFORMIN 500 MG TABLET PO SCH ×2 (08:32→17:18)
[2019-09-21] MEDS: LINAGLIPTIN 5 MG TABLET PO SCH (08:32)
[2019-09-21] MEDS: LIDOCAINE (700MG/PATCH) PATCH. TP SCH (08:32)
[2019-09-21] MEDS: LISINOPRIL 5 MG TABLET. PO SCH (08:32)
[2019-09-21] MEDS: oxyCODONE ER 15 MG TAB.ER.12H PO SCH ×2 (08:32→19:51)
[2019-09-21] MEDS: tiZANidine 4 MG TABLET. PO PRN (08:34)
[2019-09-21] MEDS: VANCOMYCIN 2 GM in IV NORMAL SALINE 500ML BAG 500 ML IV SCH (09:00)
[2019-09-21 09:08] LABS: CALCIUM 8.8 mg/dL (8.5-10.1); CREATININE 0.8 mg/dL (0.7-1.3); GFR 102.7
--- NOTE | 2019-09-21 09:23 | PDOC ---
Infectious Disease Note Subjective Subjective Pain improving Nausea - better. Appetite diminished No fever, chills/loose stool Min drainage from wound now ROS ROS o/w neg Vital Sign Vital Signs Vital Signs Date Time Temp Pulse Resp B/P (MAP) Pulse Ox O2 Delivery O2 Flow Rate FiO2 09/21/19 08:32 95 Room Air 10.0 09/21/19 08:32 80 124/81 09/21/19 07:00 98.1 18 98.1 Physical Exam PHYSICAL EXAM GENERAL: Sitting up in bed. alert, in NAD - looks well HEENT: Oral cavity clear, dry - poor dentition and nml conj NECK: Supple LUNGS: Clear bilaterally. HEART: S1, S2 regular. ABDOMEN: Soft and nontender EXTREMITIES: LLE Trace edema. 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 Right-sided tunneled CVC (09/14) clean Labs Lab Laboratory Tests Test 09/20/19 11:02 09/20/19 17:19 09/20/19 19:21 09/21/19 07:45 Glucose (Fingerstick) 121 mg/dL (70-99) 147 mg/dL (70-99) 145 mg/dL (70-99) 125 mg/dL (70-99) Test 09/21/19 08:40 Sodium Level 138 mmol/L (136-145) Potassium Level 4.0 mmol/L (3.5-5.1) Chloride Level 100 mmol/L (98-107) Carbon Dioxide Level 30 mmol/L (21-32) Anion Gap 8 (6-14) Blood Urea Nitrogen 5 mg/dL (8-26) Creatinine 0.8 mg/dL (0.7-1.3) Estimated GFR (Cockcroft-Gault) 102.7 Glucose Level 186 mg/dL (70-99) Calcium Level 8.8 mg/dL (8.5-10.1) Micro Microbiology 09/15/19 AFB Specimen Processing Tissue - Final, Resulted 09/15/19 Acid Fast Bacilli Culture, Resulted Pending 09/15/19 Gram Stain - Final, Resulted 09/15/19 Fungal Culture, Resulted Pending 09/15/19 Fungal Culture Result 1, Resulted Pending 09/14/19 Blood Culture - Final, Complete NO GROWTH AFTER 5 DAYS Objective Assessment Left knee prosthetic joint infection. Synovial fluid cx positive for MRSE 09/09 Tetra resistant; swab culture here grew E fecalis amp sensitive 09/13. -09/15 s/p removal of total knee arthroplasty components with insertion antibiotic spacer and extensive debridement Intraop Vanc and Tobra. Intra-op cultures neg so far; AF stain neg - ESR 75 12/8 (from 64) H/o fall with x-ray done on 08/16/2019 with dissociation of the patellar component of the left knee arthroplasty from the posterior aspect of the patella with surrounding soft tissue swelling and large suprapatellar effusion. Left total knee arthroplasty done in 07/2018, status post revision on 02/24/2019, status post incision and drainage on 03/24/2019 with poly exchange. -Cultures from July and 03/2019 negative including AFB and fungal. Diabetes. Bipolar disorder. Plan Plan of Care Cults 09/[address] Bowden's office show MRSE No sens for Daptomycin. Antigen panel neg for Enterococcus 09/09 but Swab cult + 09/13. Intraop cults neg still Has spacer with Vanc and Gent impregnated Continue to Vanc and Ampicillin (started on 09/19) Monitor renal function closely Pain management per primary Will need outpat IV abx - Ampicillin 12 gm IV continuous infusion and Vancomycin D/w Dr. Bowden D/w re Rationale for abx selections. ALIN ALADNA MD Sep 21, 2019 09:23
[2019-09-21] MEDS: VANCOMYCIN PER PHARMACY MC PRN (10:55)
[2019-09-21 11:00] VITALS: BP 107/64
--- NOTE | 2019-09-21 11:02 | NUR ---
Pharmacy Vancomycin Dosing Note S:Consulted to monitor and dose vancomycin started 09/19/19. O:PATCASTROPATVIRY is a 48 year old M with Abscess INFECTED TKA . Height: 5 feet, 7 inches Weight: 107.227489 kg [place] Body Weight: 66.10 Adjusted Body Weight: 83.18 Dosing Weight: Other Antibiotics: AMPICILLIN 1G IV Q4HRS LABS: Last BUN: 5 Last Creatinine: 0.8 Creatinine Clearance: > 120 mL/min Last WBC: 5.1 Last Procalcitonin: - Tmax (past 24 hours): 98.3 Microbiology: I/O: 3450/2350 Drug Levels: Last Trough level: 22 on 09/21/19 at 0840 Last dose given 09/20/19 at 0946 Vancomycin Dosing: Loading Dose: 2000 mg x1 Dosing Weight: Target Trough: 15-20 A: Based on: ELEVATED TROUGH P: 1. Change Vancomycin 1500 mg IV q12h 2. Follow up Trough level on 09/23/19 at 0230 3. Pharmacy will continue to monitor, follow and adjust therapy as needed. RONNELL FALL, [facility], 09/21/19 [id number]
--- NOTE | 2019-09-21 11:49 | PDOC ---
[employer] PROGRESS NOTE Chief Complaint Chief Complaint left leg abscess with surrounding cellulitis 1. 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 History of fall with x-ray done on 08/16/2019 with dissociation of the patellar component of the left knee arthroplasty from the posterior aspect of the patella with surrounding soft tissue swelling and large suprapatellar effusion. 3. Left total knee arthroplasty done in 07/2018, status post revision on 02/24/2019, status post incision and drainage on 03/24/2019 with poly exchange. Cultures from July and 03/2019 negative including AFB and fungal. 4. Diabetes. 5. Anemia 6. Hypertension. 7. Hypothyroidism. 8. Osteoarthritis. 9. Bipolar disorder. History of Present Illness History of Present Illness Patient seen and examined Discussed with RN He is going for wound VAC placement today Vitals/I&O Vitals/I&O: Vital Signs Date Time Temp Pulse Resp B/P (MAP) Pulse Ox O2 Delivery O2 Flow Rate FiO2 09/21/19 11:00 98.3 67 16 107/64 (78) 95 Room Air 98.3 09/21/19 10:42 10.0 I & O 09/20/19 09/20/19 09/21/19 14:59 22:59 06:59 Intake Total 500 ml 1000 ml 1950 ml Output Total 900 ml 1450 ml Balance 500 ml 100 ml 500 ml Physical Exam Physical Exam: GENERAL: Sitting up in bed. alert, in NAD - looks well HEENT: Oral cavity clear, dry - poor dentition and nml conj NECK: Supple LUNGS: Clear bilaterally. HEART: S1, S2 regular. ABDOMEN: Soft and nontender EXTREMITIES: LLE Trace edema. 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 Right-sided tunneled CVC (09/14) clean General: Alert, Oriented X3, Cooperative, No acute distress, mild distress Heart: Regular rate, Normal S1, Normal S2 Lungs: Clear Abdomen: Normal bowel sounds, Soft, No tenderness Extremities: No cyanosis, Normal pulses Skin: No rashes, No breakdown Labs Labs: Laboratory Tests Test 09/20/19 17:19 09/20/19 19:21 09/21/19 07:45 09/21/19 08:40 Glucose (Fingerstick) 147 mg/dL (70-99) 145 mg/dL (70-99) 125 mg/dL (70-99) Sodium Level 138 mmol/L (136-145) Potassium Level 4.0 mmol/L (3.5-5.1) Chloride Level 100 mmol/L (98-107) Carbon Dioxide Level 30 mmol/L (21-32) Anion Gap 8 (6-14) Blood Urea Nitrogen 5 mg/dL (8-26) Creatinine 0.8 mg/dL (0.7-1.3) Estimated GFR (Cockcroft-Gault) 102.7 Glucose Level 186 mg/dL (70-99) Calcium Level 8.8 mg/dL (8.5-10.1) Vancomycin Level Trough 22.0 mcg/mL (10.0-20.0) Vancomycin Last Dose Date 09/20/19 Vancomycin Last Dose Time 2100 Test 09/21/19 10:40 Glucose (Fingerstick) 166 mg/dL (70-99) Review of Systems Review of Systems: Complains of pain Complains of hunger Assessment and Plan Assessmemt and Plan left leg abscess with surrounding cellulitis 1. 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 History of fall with x-ray done on 08/16/2019 with dissociation of the patellar component of the left knee arthroplasty from the posterior aspect of the patella with surrounding soft tissue swelling and large suprapatellar effusion. 3. Left total knee arthroplasty done in 07/2018, status post revision on 02/24/2019, status post incision and drainage on 03/24/2019 with poly exchange. Cultures from July and 03/2019 negative including AFB and fungal. 4. Diabetes. 5. Anemia 6. Hypertension. 7. Hypothyroidism. 8. Osteoarthritis. 9. Bipolar disorder. Plan: Patient going for wound VAC today IV antibiotics Josesito 8 subspecialist input CPM LAbs, follow cx Keep current insulin regimen - working well prn BP meds, might need to adjust if hTN persists Will be here over weekend Comment Review of Relevant I have reviewed the following items satya (where applicable) has been applied. Medications: Current Medications Medications (Trade) Dose Ordered Sig/Jermaine Route PRN Reason Start Time Stop Time Status Last Admin Dose Admin Vancomycin HCl (Vancomycin Trough Level) 1 each 1X ONCE MC 09/21/19 08:30 12/9/19 08:31 DC 09/21/19 08:30 Oxycodone HCl (OxyCONTIN) 15 mg Q12HR PO 09/20/19 12:00 09/21/19 08:32 Oxycodone/ Acetaminophen (Percocet 5/325) 1 tab PRN Q4HRS PRN PO PAIN 09/20/19 12:00 09/21/19 03:05 Ampicillin Sodium 2 gm/Sodium Chloride 100 ml @ 200 mls/hr Q4HRS IV 09/20/19 17:00 09/21/19 08:03 Guaifenesin (Robitussin Dm) 10 ml PRN Q6HRS PRN PO COUGH 1ST CHOICE 09/20/19 23:15 09/20/19 23:46 RUSTAM CARR III DO Sep 21, 2019 11:49
[2019-09-21] MEDS: ONDANSETRON PF 4 MG/2 ML VIAL. IVP PRN ×2 (12:31→18:19)
[2019-09-21 15:00] VITALS: BP 100/66
[2019-09-21] MEDS: VANCOMYCIN 1.5 GM in IV NORMAL SALINE 500ML BAG 500 ML IV SCH (15:16)
--- NOTE | 2019-09-21 15:50 | NUR ---
Wound Care Wound care consult for left knee incision with excessive drainage. Vac ordered by Dr Bowden to manage drainage and assist with incisional closure. Contact layer placed over sutures, silver foam laid over top with small insertion of foam to distal incision site to pull off drainage as this is where it has copious drainage. Good seal obtained. WC will follow up on for vac dressing change.
[2019-09-21] MEDS: guaiFENesin DM 200MG/20MG 10 ML SYRUP PO PRN (18:21)
[2019-09-21 19:00] VITALS: BP 142/86
[2019-09-21] MEDS: DOXEPIN 150 MG PO SCH (19:50)
[2019-09-21] MEDS: LITHIUM CARBONATE ER 300 MG TABLET.ER PO SCH (19:50)
--- NOTE | 2019-09-21 19:57 | PDOC ---
PROGRESS NOTES Subjective Subjective Problems overnight: Still has some pain control issues and says Dilaudid works best. I told him that we need to really get him on a more manageable oral pain medication regimen in preparation for going home. Brace working well Objective Vital Signs Vital Signs Date Time Temp Pulse Resp B/P (MAP) Pulse Ox O2 Delivery O2 Flow Rate FiO2 09/21/19 19:51 20 Room Air 09/21/19 19:13 95 10.0 09/21/19 19:00 97.4 73 142/86 (104) 97.4 Physical Exam Drainage still at the inferior portion of his incision has slowed down somewhat. Good stability with brace distal neurovascular status intact Labs Laboratory Tests Test 09/19/19 20:16 09/20/19 05:00 09/20/19 07:51 09/20/19 11:02 Glucose (Fingerstick) 160 mg/dL (70-99) 185 mg/dL (70-99) 121 mg/dL (70-99) Erythrocyte Sedimentation Rate 75 (0-15) Sodium Level 135 mmol/L (136-145) Potassium Level 4.1 mmol/L (3.5-5.1) Chloride Level 101 mmol/L (98-107) Carbon Dioxide Level 26 mmol/L (21-32) Anion Gap 8 (6-14) Blood Urea Nitrogen 6 mg/dL (8-26) Creatinine 0.8 mg/dL (0.7-1.3) Estimated GFR (Cockcroft-Gault) 102.7 Glucose Level 170 mg/dL (70-99) Calcium Level 9.0 mg/dL (8.5-10.1) Test 09/20/19 17:19 09/20/19 19:21 09/21/19 07:45 09/21/19 08:40 Glucose (Fingerstick) 147 mg/dL (70-99) 145 mg/dL (70-99) 125 mg/dL (70-99) Sodium Level 138 mmol/L (136-145) Potassium Level 4.0 mmol/L (3.5-5.1) Chloride Level 100 mmol/L (98-107) Carbon Dioxide Level 30 mmol/L (21-32) Anion Gap 8 (6-14) Blood Urea Nitrogen 5 mg/dL (8-26) Creatinine 0.8 mg/dL (0.7-1.3) Estimated GFR (Cockcroft-Gault) 102.7 Glucose Level 186 mg/dL (70-99) Calcium Level 8.8 mg/dL (8.5-10.1) Vancomycin Level Trough 22.0 mcg/mL (10.0-20.0) Vancomycin Last Dose Date 09/20/19 Vancomycin Last Dose Time 2100 Test 09/21/19 10:40 09/21/19 16:57 Glucose (Fingerstick) 166 mg/dL (70-99) 107 mg/dL (70-99) Laboratory Tests Test 09/21/19 07:45 09/21/19 08:40 09/21/19 10:40 09/21/19 16:57 Glucose (Fingerstick) 125 mg/dL (70-99) 166 mg/dL (70-99) 107 mg/dL (70-99) Sodium Level 138 mmol/L (136-145) Potassium Level 4.0 mmol/L (3.5-5.1) Chloride Level 100 mmol/L (98-107) Carbon Dioxide Level 30 mmol/L (21-32) Anion Gap 8 (6-14) Blood Urea Nitrogen 5 mg/dL (8-26) Creatinine 0.8 mg/dL (0.7-1.3) Estimated GFR (Cockcroft-Gault) 102.7 Glucose Level 186 mg/dL (70-99) Calcium Level 8.8 mg/dL (8.5-10.1) Vancomycin Level Trough 22.0 mcg/mL (10.0-20.0) Vancomycin Last Dose Date 09/20/19 Vancomycin Last Dose Time 2100 Assessment Assessment POD# removal total knee components from infected arthroplasty with insertion antibiotic spacer Plan Plan of Care Continue to manage oral pain regimen Wound care consult submitted for wound VAC due to his opening and significant drainage at the distal knee wound Continue IV antibiotics per ongoing and pending cultures ELISHA SORIA MD Sep 21, 2019 19:57
[2019-09-21 23:00] VITALS: BP_SYST 140; BP_SYST 142; BP_DIAS 83; BP_DIAS 86
[2019-09-22] MEDS: VANCOMYCIN 1.5 GM in IV NORMAL SALINE 500ML BAG 500 ML IV SCH ×2 (02:33→16:03)
[2019-09-22 03:00] VITALS: BP 122/68
[2019-09-22] MEDS: AMPICILLIN SODIUM 2 GM in IV NORMAL SALINE 100ML 100 ML IV SCH ×5 (04:29→20:12)
[2019-09-22 04:53] LABS: CALCIUM 8.8 mg/dL (8.5-10.1); CREATININE 0.8 mg/dL (0.7-1.3); GFR 102.7; POTASSIUM 3.8 mmol/L (3.5-5.1)
[2019-09-22] MEDS: oxyCODONE/APAP 5/325 1 TAB TABLET PO PRN ×3 (05:15→16:09)
[2019-09-22] MEDS: LEVOTHYROXINE 100 MCG TABLET PO SCH (06:02)
[2019-09-22] MEDS: HYDROmorphone 2 MG/ML VIAL IV PRN ×3 (06:07→17:47)
[2019-09-22 07:00] VITALS: BP 135/88
[2019-09-22] MEDS: INSULIN LISPRO 300 UNITS/3 ML VIAL. SQ SCH ×4 (07:56→21:00)
[2019-09-22] MEDS: LACTOBACILLUS RHAMNOSUS GG 1 CAPSULE. PO SCH ×2 (08:11→20:19)
[2019-09-22] MEDS: metFORMIN 500 MG TABLET PO SCH ×2 (08:12→17:48)
[2019-09-22] MEDS: LISINOPRIL 5 MG TABLET. PO SCH (08:12)
[2019-09-22] MEDS: oxyCODONE ER 15 MG TAB.ER.12H PO SCH ×2 (08:12→20:21)
[2019-09-22] MEDS: LINAGLIPTIN 5 MG TABLET PO SCH (08:12)
[2019-09-22] MEDS: clonazePAM 0.5 MG TABLET PO SCH ×2 (08:12→20:19)
[2019-09-22] MEDS: LIDOCAINE (700MG/PATCH) PATCH. TP SCH (08:13)
[2019-09-22] MEDS: guaiFENesin DM 200MG/20MG 10 ML SYRUP PO PRN (09:17)
--- NOTE | 2019-09-22 10:22 | PDOC ---
Infectious Disease Note Subjective Subjective Pain improving Nausea - better. Appetite better No fever, chills/loose stool/Tinnitus/Vertigo Min drainage from wound now with wound vac ROS ROS o/w neg Vital Sign Vital Signs Vital Signs Date Time Temp Pulse Resp B/P (MAP) Pulse Ox O2 Delivery O2 Flow Rate FiO2 09/22/19 09:17 96 Room Air 10.0 09/22/19 08:12 85 135/88 09/22/19 07:00 98.2 18 98.2 Physical Exam PHYSICAL EXAM GENERAL: Sitting up in bed. alert, in NAD - looks well HEENT: Oral cavity clear, dry - poor dentition and nml conj NECK: Supple LUNGS: Clear bilaterally. HEART: S1, S2 regular. ABDOMEN: Soft and nontender EXTREMITIES: LLE Trace edema. Left knee bandaged w/ hinge knee brace in place RN TELEHEALTH: Alert and oriented x 3, grossly nonfocal. Right-sided tunneled CVC (09/14) clean Labs Lab Laboratory Tests Test 09/21/19 10:40 09/21/19 16:57 09/21/19 20:21 09/22/19 03:30 Glucose (Fingerstick) 166 mg/dL (70-99) 107 mg/dL (70-99) 120 mg/dL (70-99) Sodium Level 137 mmol/L (136-145) Potassium Level 3.8 mmol/L (3.5-5.1) Chloride Level 102 mmol/L (98-107) Carbon Dioxide Level 28 mmol/L (21-32) Anion Gap 7 (6-14) Blood Urea Nitrogen 5 mg/dL (8-26) Creatinine 0.8 mg/dL (0.7-1.3) Estimated GFR (Cockcroft-Gault) 102.7 Glucose Level 146 mg/dL (70-99) Calcium Level 8.8 mg/dL (8.5-10.1) Test 09/22/19 07:45 Glucose (Fingerstick) 120 mg/dL (70-99) Micro Microbiology 09/15/19 AFB Specimen Processing Tissue - Final, Resulted 09/15/19 Acid Fast Bacilli Culture, Resulted Pending 09/15/19 Gram Stain - Final, Resulted 09/15/19 Fungal Culture, Resulted Pending 09/15/19 Fungal Culture Result 1, Resulted Pending 09/14/19 Blood Culture - Final, Complete NO GROWTH AFTER 5 DAYS Objective Assessment Left knee prosthetic joint infection. Synovial fluid cx positive for MRSE 09/09 Tetra resistant; swab culture here grew E fecalis amp sensitive 09/13. -09/15 s/p removal of total knee arthroplasty components with insertion antibiotic spacer and extensive debridement Intraop Vanc and Tobra. Intra-op cultures neg so far; AF stain neg - ESR 75 12/8 (from 64) H/o fall with x-ray done on 08/16/2019 with dissociation of the patellar component of the left knee arthroplasty from the posterior aspect of the patella with surrounding soft tissue swelling and large suprapatellar effusion. Left total knee arthroplasty done in 07/2018, status post revision on 02/24/2019, status post incision and drainage on 03/24/2019 with poly exchange. -Cultures from July and 03/2019 negative including AFB and fungal. Diabetes. Bipolar disorder. Plan Plan of Care Cults 09/[address] Bowden's office show MRSE No sens for Daptomycin. Antigen panel neg for Enterococcus 09/09 but Swab cult + 09/13. Intraop cults neg still Has spacer with Vanc and Gent impregnated Continue to Vanc and Ampicillin (started on 09/19) Monitor renal function closely Pain management per primary Will need outpat IV abx - Ampicillin 12 gm IV continuous infusion and Vancomycin D/w Dr. Bowden D/w previously re Rationale for abx selections. ALIN ALDANA MD Sep 22, 2019 10:22
[2019-09-22 11:00] VITALS: BP 131/80
[2019-09-22] MEDS: VANCOMYCIN PER PHARMACY MC PRN (12:02)
--- NOTE | 2019-09-22 12:39 | PDOC ---
PROGRESS NOTES Chief Complaint Chief Complaint left leg abscess with surrounding cellulitis 1. Left knee prosthetic joint infection 09/15 S/P Removal of total knee arthroplasty components with insertion antib iotic spacer and extensive debridement 2. History of fall with x-ray done on 08/16/2019 with dissociation of the patellar component of the left knee arthroplasty from the posterior aspect of the patella with surrounding soft tissue swelling and large suprapatellar effusion. 3. Left total knee arthroplasty done in 07/2018, status post revision on 02/24/2019, status post incision and drainage on 03/24/2019 with poly exchange. Cultures from July and 03/2019 negative including AFB and fungal. 4. Diabetes. 5. Anemia 6. Hypertension. 7. Hypothyroidism. 8. Osteoarthritis. 9. Bipolar disorder. History of Present Illness History of Present Illness Patient seen and examined Discussed with RN s/p wound VAC placement cont need for IV abx Vitals Vitals Vital Signs Date Time Temp Pulse Resp B/P (MAP) Pulse Ox O2 Delivery O2 Flow Rate FiO2 09/22/19 11:00 98.0 83 18 131/80 (97) 98 Room Air 98.0 09/22/19 09:17 10.0 Physical Exam Physical Exam GENERAL: Sitting up in bed. alert, in NAD - looks well HEENT: Oral cavity clear, dry - poor dentition and nml conj NECK: Supple LUNGS: Clear bilaterally. HEART: S1, S2 regular. ABDOMEN: Soft and nontender EXTREMITIES: LLE Trace edema. 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 Right-sided tunneled CVC (09/14) clean General: Alert, Oriented X3, Cooperative, No acute distress, mild distress Heart: Regular rate, Normal S1, Normal S2 Lungs: Clear Abdomen: Normal bowel sounds, Soft, No tenderness Extremities: No cyanosis, Normal pulses Skin: No rashes, No breakdown Labs LABS Laboratory Tests Test 09/21/19 16:57 09/21/19 20:21 09/22/19 03:30 09/22/19 07:45 Glucose (Fingerstick) 107 mg/dL (70-99) 120 mg/dL (70-99) 120 mg/dL (70-99) Sodium Level 137 mmol/L (136-145) Potassium Level 3.8 mmol/L (3.5-5.1) Chloride Level 102 mmol/L (98-107) Carbon Dioxide Level 28 mmol/L (21-32) Anion Gap 7 (6-14) Blood Urea Nitrogen 5 mg/dL (8-26) Creatinine 0.8 mg/dL (0.7-1.3) Estimated GFR (Cockcroft-Gault) 102.7 Glucose Level 146 mg/dL (70-99) Calcium Level 8.8 mg/dL (8.5-10.1) Test 09/22/19 11:04 Glucose (Fingerstick) 121 mg/dL (70-99) Comment Review of Relevant I have reviewed the following items satya (where applicable) has been applied. Labs Laboratory Tests Test 09/20/19 17:19 09/20/19 19:21 09/21/19 07:45 09/21/19 08:40 Glucose (Fingerstick) 147 mg/dL (70-99) 145 mg/dL (70-99) 125 mg/dL (70-99) Sodium Level 138 mmol/L (136-145) Potassium Level 4.0 mmol/L (3.5-5.1) Chloride Level 100 mmol/L (98-107) Carbon Dioxide Level 30 mmol/L (21-32) Anion Gap 8 (6-14) Blood Urea Nitrogen 5 mg/dL (8-26) Creatinine 0.8 mg/dL (0.7-1.3) Estimated GFR (Cockcroft-Gault) 102.7 Glucose Level 186 mg/dL (70-99) Calcium Level 8.8 mg/dL (8.5-10.1) Vancomycin Level Trough 22.0 mcg/mL (10.0-20.0) Vancomycin Last Dose Date 09/20/19 Vancomycin Last Dose Time 2100 Test 09/21/19 10:40 09/21/19 16:57 09/21/19 20:21 09/22/19 03:30 Glucose (Fingerstick) 166 mg/dL (70-99) 107 mg/dL (70-99) 120 mg/dL (70-99) Sodium Level 137 mmol/L (136-145) Potassium Level 3.8 mmol/L (3.5-5.1) Chloride Level 102 mmol/L (98-107) Carbon Dioxide Level 28 mmol/L (21-32) Anion Gap 7 (6-14) Blood Urea Nitrogen 5 mg/dL (8-26) Creatinine 0.8 mg/dL (0.7-1.3) Estimated GFR (Cockcroft-Gault) 102.7 Glucose Level 146 mg/dL (70-99) Calcium Level 8.8 mg/dL (8.5-10.1) Test 09/22/19 07:45 09/22/19 11:04 Glucose (Fingerstick) 120 mg/dL (70-99) 121 mg/dL (70-99) Laboratory Tests Test 09/21/19 16:57 09/21/19 20:21 09/22/19 03:30 09/22/19 07:45 Glucose (Fingerstick) 107 mg/dL (70-99) 120 mg/dL (70-99) 120 mg/dL (70-99) Sodium Level 137 mmol/L (136-145) Potassium Level 3.8 mmol/L (3.5-5.1) Chloride Level 102 mmol/L (98-107) Carbon Dioxide Level 28 mmol/L (21-32) Anion Gap 7 (6-14) Blood Urea Nitrogen 5 mg/dL (8-26) Creatinine 0.8 mg/dL (0.7-1.3) Estimated GFR (Cockcroft-Gault) 102.7 Glucose Level 146 mg/dL (70-99) Calcium Level 8.8 mg/dL (8.5-10.1) Test 09/22/19 11:04 Glucose (Fingerstick) 121 mg/dL (70-99) Microbiology 09/15/19 AFB Specimen Processing Tissue - Final, Resulted 09/15/19 Acid Fast Bacilli Culture, Resulted Pending 09/15/19 Gram Stain - Final, Resulted 09/15/19 Fungal Culture, Resulted Pending 09/15/19 Fungal Culture Result 1, Resulted Pending 09/14/19 Blood Culture - Final, Complete NO GROWTH AFTER 5 DAYS Medications Current Medications Sodium Chloride 1,000 ml @ 1,000 mls/hr 1X ONCE IV Last administered on 09/13/19at 21:00; Start 09/13/19 at 20:45; Stop 09/13/19 at 21:44; Status DC Ondansetron HCl (Zofran) 4 mg 1X ONCE IV Last administered on 09/13/19at 21:00; Start 09/13/19 at 20:45; Stop 09/13/19 at 20:46; Status DC Morphine Sulfate (Morphine Sulfate) 4 mg 1X ONCE IV Last administered on 09/13/19at 21:00; Start 09/13/19 at 20:45; Stop 09/13/19 at 20:46; Status DC Iohexol (Omnipaque 300 Mg/ml) 75 ml 1X ONCE IV Last administered on 09/13/19at 21:42; Start 09/13/19 at 21:45; Stop 09/13/19 at 21:46; Status DC Info (CONTRAST GIVEN -- Rx MONITORING) 1 each PRN DAILY PRN MC SEE COMMENTS; Start 09/13/19 at 21:45; Stop 09/15/19 at 21:44; Status DC Vancomycin HCl (Vanco Per Pharmacy) 1 each PRN DAILY PRN MC SEE COMMENTS Last administered on 09/13/19at 23:45; Start 09/13/19 at 22:30; Stop 09/14/19 at 12:47; Status DC Ondansetron HCl (Zofran) 4 mg PRN Q8HRS PRN IV NAUSEA/VOMITING Last administered on 09/14/19at 17:08; Start 09/13/19 at 22:30; Stop 09/14/19 at 22:29; Status DC Morphine Sulfate (Morphine Sulfate) 4 mg PRN Q2HR PRN IV PAIN Last administered on 09/14/19at 15:43; Start 09/13/19 at 22:30; Stop 09/14/19 at 22:29; Status DC Vancomycin HCl 2 gm/Sodium Chloride 500 ml @ 250 mls/hr 1X ONCE IV Last administered on 09/13/19at 22:55; Start 09/13/19 at 23:00; Stop 09/14/19 at 00:59; Status DC Potassium Chloride (Klor-Con) 40 meq 1X ONCE PO Last administered on 09/13/19at 23:30; Start 09/13/19 at 23:30; Stop 09/13/19 at 23:31; Status DC Vancomycin HCl 1.75 gm/Sodium Chloride 500 ml @ 250 mls/hr Q12H IV Last administered on 09/14/19at 10:40; Start 09/14/19 at 11:00; Stop 09/14/19 at 12:45; Status DC Vancomycin HCl (Vancomycin Trough Level) 1 each 1X ONCE MC ; Start 09/15/19 at 10:30; Stop 09/14/19 at 12:47; Status DC Non-Formulary Medication 2 ea HS PO Last administered on 09/21/19 19:50; Start 09/14/19 at 21:00 Non-Formulary Medication 2 ea 1X ONCE PO Last administered on 09/14/19 02:05; Start 09/14/19 at 01:45; Stop 09/14/19 at 01:46; Status DC Levothyroxine Sodium (Synthroid) 100 mcg DAILY06 PO Last administered on 09/22/19 06:02; Start 09/14/19 at 09:00 Lidocaine (Lidoderm) 1 patch DAILY TP Last administered on 09/22/19 08:13; Start 09/14/19 at 09:00 Lisinopril (Prinivil) 5 mg DAILY PO Last administered on 09/22/19 08:12; Start 09/14/19 at 09:00 Oxycodone/ Acetaminophen (Percocet 7.5/ 325) 1 tab PRN Q6HRS PRN PO PAIN Last administered on 09/16/19 04:50; Start 09/14/19 at 08:45; Stop 09/16/19 at 09:10; Status DC Tizanidine HCl (Zanaflex) 4 mg TID PRN PO MUSCLE SPASMS Last administered on 09/21/19 08:34; Start 09/14/19 at 08:45 Clonazepam (KlonoPIN) 1 mg BID PO Last administered on 09/22/19 08:12; Start 09/14/19 at 09:00 Doxepin HCl (SINEquan) 150 mg QHS PO Last administered on 09/18/19 21:53; Start 09/14/19 at 21:00; Stop 09/19/19 at 01:13; Status DC [place] Carbonate (Lithobid) 600 mg QHS PO Last administered on 09/21/19 19:50; Start 09/14/19 at 21:00 Linagliptin (Tradjenta) 5 mg DAILY PO Last administered on 09/22/19 08:12; Start 09/14/19 at 09:00 Potassium Chloride (Klor-Con) 40 meq 1X ONCE PO Last administered on 12/2/19at 09:03; Start 09/14/19 at 09:00; Stop 09/14/19 at 09:01; Status DC Metformin HCl (Glucophage) 1,000 mg BIDWMEALS PO Last administered on 09/22/19at 08:12; Start 09/16/19 at 08:00 Lactobacillus Rhamnosus (Culturelle) 1 cap BID PO Last administered on 09/22/19 at 08:11; Start 09/14/19 at 21:00 Meropenem 500 mg/ Sodium Chloride 50 ml @ 100 mls/hr Q6HRS IV Last administered on 09/19/19at 17:28; Start 09/14/19 at 13:30; Stop 09/19/19 at 18:26; Status DC Daptomycin 400 mg/ Sodium Chloride 50 ml @ 100 mls/hr Q24H IV Last administered on 09/19/19at 15:50; Start 09/14/19 at 14:00; Stop 09/19/19 at 18:26; Status DC Lidocaine HCl (Buffered Lidocaine 1%) 3 ml STK-MED ONCE .ROUTE ; Start 09/14/19 at 13:24; Stop 09/14/19 at 13:24; Status DC Lidocaine HCl (Buffered Lidocaine 1%) 3 ml 1X ONCE INJ ; Start 09/14/19 at 13:45; Stop 09/14/19 at 13:46; Status DC Cefazolin Sodium 100 ml @ As Directed STK-MED ONCE IV ; Start 09/14/19 at 13:51; Stop 09/14/19 at 13:51; Status DC Lidocaine/ Epinephrine (LIDOCAINE 1%-EPI 1:100,000 Multi-Dose) 20 ml STK-MED ONCE .ROUTE ; Start 09/14/19 at 14:01; Stop 09/14/19 at 14:01; Status DC Lidocaine/ Epinephrine (LIDOCAINE 1%-EPI 1:100,000 Multi-Dose) 20 ml 1X ONCE SQ Last administered on 09/14/19at 14:15; Start 09/14/19 at 14:15; Stop 09/14/19 at 14:16; Status DC Cefazolin Sodium 50 ml @ 100 mls/hr 1X ONCE IV Last administered on 09/14/19at 14:15; Start 09/14/19 at 14:15; Stop 09/14/19 at 14:44; Status DC Cefazolin Sodium 50 ml @ 100 mls/hr 1X ONCE IV Last administered on 09/14/19at 14:15; Start 09/14/19 at 14:15; Stop 09/14/19 at 14:44; Status DC Morphine Sulfate 5 mg/Ketorolac Tromethamine 30 mg/Ropivacaine 60 ml/Epinephrine HCl 0.5 mg/Sodium Chloride 100 ml @ 100 mls/hr 1X ONCE INT ART Last administered on 09/15/19at 14:36; Start 09/15/19 at 06:00; Stop 09/15/19 at 06:59; Status DC Ondansetron HCl (Zofran) 4 mg PRN Q6HRS PRN IV NAUSEA/VOMITING; Start 09/15/19 at 06:30; Stop 09/16/19 at 06:29; Status DC Fentanyl Citrate (Fentanyl 2ml Vial) 25 mcg PRN Q5MIN PRN IV MILD PAIN 1-3; Start 09/15/19 at 06:30; Stop 09/16/19 at 06:29; Status DC Fentanyl Citrate (Fentanyl 2ml Vial) 50 mcg PRN Q5MIN PRN IV MODERATE TO SEVERE PAIN; Start 09/15/19 at 06:30; Stop 09/16/19 at 06:29; Status DC Morphine Sulfate (Morphine Sulfate) 1 mg PRN Q10MIN PRN IV SEVERE PAIN 7-10; Start 09/15/19 at 06:30; Stop 09/16/19 at 06:29; Status DC Ringer's Solution 1,000 ml @ 30 mls/hr Q24H IV Last administered on 09/15/19at 10:39; Start 09/15/19 at 06:30; Stop 09/15/19 at 06:49; Status DC Lidocaine HCl (Xylocaine-Mpf 1% 2ml Vial) 2 ml 1X PRN PRN ID IV START; Start 09/15/19 at 06:30; Stop 09/16/19 at 06:29; Status DC Hydromorphone HCl (Dilaudid) 0.5 mg PRN Q10MIN PRN IV SEV PAIN, Second choice; Start 09/15/19 at 06:30; Stop 09/16/19 at 06:29; Status DC Prochlorperazine Edisylate (Compazine) 5 mg PACU PRN PRN IV NAUSEA, MRX1; Start 09/15/19 at 06:30; Stop 09/16/19 at 06:29; Status DC Propofol 20 ml @ As Directed STK-MED ONCE IV ; Start 09/15/19 at 09:30; Stop 09/15/19 at 09:31; Status DC Lidocaine HCl (Lidocaine Pf 2% Vial) 5 ml STK-MED ONCE .ROUTE ; Start 09/15/19 at 09:30; Stop 09/15/19 at 09:31; Status DC Dexamethasone Sodium Phosphate (Decadron) 20 mg STK-MED ONCE .ROUTE ; Start 09/15/19 at 09:30; Stop 09/15/19 at 09:31; Status DC Ondansetron HCl (Zofran) 4 mg STK-MED ONCE .ROUTE ; Start 09/15/19 at 09:30; Stop 09/15/19 at 09:31; Status DC Phenylephrine HCl (PHENYLEPHRINE in 0.9% NACL PF) 1 mg STK-MED ONCE IV ; Start 09/15/19 at 09:31; Stop 09/15/19 at 09:31; Status DC Fentanyl Citrate (Fentanyl 2ml Vial) 100 mcg STK-MED ONCE .ROUTE ; Start 09/15/19 at 09:31; Stop 09/15/19 at 09:32; Status DC Rocuronium [place] (Zemuron) 50 mg STK-MED ONCE .ROUTE ; Start 09/15/19 at 09:32; Stop 09/15/19 at 09:32; Status DC Succinylcholine Chloride (Anectine) 200 mg STK-MED ONCE .ROUTE ; Start 09/15/19 at 09:46; Stop 09/15/19 at 09:46; Status DC Nicardipine HCl (Cardene) 25 mg STK-MED ONCE IV ; Start 09/15/19 at 11:34; Stop 09/15/19 at 11:35; Status DC Sevoflurane (Ultane) 90 ml STK-MED ONCE IH ; Start 09/15/19 at 11:44; Stop 09/15/19 at 11:45; Status DC Fentanyl Citrate (Fentanyl 2ml Vial) 100 mcg STK-MED ONCE .ROUTE ; Start 09/15/19 at 11:50; Stop 09/15/19 at 11:50; Status DC Neostigmine Methylsulfate (Neostigmine Methylsulfate) 5 mg STK-MED ONCE .ROUTE ; Start 09/15/19 at 13:34; Stop 09/15/19 at 13:34; Status DC Glycopyrrolate (Robinul) 1 mg STK-MED ONCE .ROUTE ; Start 09/15/19 at 13:34; Stop 09/15/19 at 13:34; Status DC Fentanyl Citrate (Fentanyl 2ml Vial) 50 mcg PRN Q5MIN PRN IV MODERATE TO SEVERE PAIN; Start 09/15/19 at 14:45; Stop 09/16/19 at 08:59; Status DC Morphine Sulfate (Morphine Sulfate) 2 mg PRN Q10MIN PRN IV MILD PAIN 1-3; Start 09/15/19 at 14:45; Stop 09/16/19 at 08:59; Status DC Hydromorphone HCl (Dilaudid) 0.4 mg PRN Q10MIN PRN IV Moderate to severe pain; Start 09/15/19 at 14:45; Stop 09/16/19 at 08:59; Status DC Ondansetron HCl (Zofran) 4 mg PRN Q6HRS PRN IVP Nausea, 2nd Choice; Start 09/15/19 at 14:45; Stop 09/16/19 at 08:59; Status DC Insulin Human Lispro (HumaLOG VIAL for OP,RR ONLY) 0-10 units PRN Q1HR PRN SQ PER PROTOCOL Last administered on 09/15/19at 14:51; Start 09/15/19 at 14:45; Stop 09/16/19 at 14:44; Status DC Insulin Human Lispro (HumaLOG) 0-9 UNITS TIDWMEALS SQ ; Start 09/16/19 at 08:00; Stop 09/16/19 at 03:37; Status DC Dextrose (Dextrose 50%-Water Syringe) 12.5 gm PRN Q15MIN PRN IV SEE COMMENTS; Start 09/15/19 at 21:45 Insulin Human Lispro (HumaLOG) 12 units 1X SQ ; Start 09/15/19 at 22:00; Stop 09/15/19 at 23:07; Status DC Insulin Human Lispro (HumaLOG) 12 units 1X ONCE SQ Last administered on 09/15/19at 23:15; Start 09/15/19 at 23:15; Stop 09/15/19 at 23:16; Status DC Insulin Human Lispro (HumaLOG) 0-9 UNITS TIDWMEALHC SQ Last administered on 09/20/19 08:17; Start 09/16/19 at 08:00 Oxycodone/ Acetaminophen (Percocet 10/325) 1 tab PRN Q6HRS PRN PO MODERATE TO SEVERE PAIN Last administered on 09/20/19 06:42; Start 09/16/19 at 09:15; Stop 09/20/19 at 11:51; Status DC Hydromorphone HCl (Dilaudid) 1 mg 1X ONCE IV ; Start 09/16/19 at 14:00; Stop 09/16/19 at 14:01; Status Cancel Hydromorphone HCl (Dilaudid) 1 mg PRN Q4HRS PRN IV SEVERE PAIN 7-10 Last administered on 09/22/19 06:07; Start 09/16/19 at 13:30 Potassium Chloride (Klor-Con) 40 meq 1X ONCE PO Last administered on 09/17/19 17:04; Start 09/17/19 at 15:45; Stop 09/17/19 at 15:46; Status DC Diphenhydramine HCl (Benadryl) 25 mg PRN Q6HRS PRN PO ITCHING Last administered on 09/20/19 20:27; Start 09/19/19 at 17:00 Ondansetron HCl (Zofran) 4 mg PRN Q6HRS PRN IVP NAUSEA/VOMITING Last administered on 09/21/19 18:19; Start 09/19/19 at 17:15 Ampicillin Sodium 1 gm/Sodium Chloride 50 ml @ 100 mls/hr Q4HRS IV Last administered on 09/20/19 13:27; Start 09/19/19 at 20:00; Stop 09/20/19 at 16:24; Status DC Vancomycin HCl (Vanco Per Pharmacy) 1 each PRN DAILY PRN MC SEE COMMENTS Last administered on 09/22/19at 12:02; Start 09/19/19 at 18:30 Vancomycin HCl 2 gm/Sodium Chloride 500 ml @ 250 mls/hr 1X ONCE IV Last administered on 09/19/19 20:28; Start 09/19/19 at 21:00; Stop 09/19/19 at 22:59; Status DC Vancomycin HCl (Vancomycin Trough Level) 1 each 1X ONCE MC Last administered on 09/21/19at 08:30; Start 09/21/19 at 08:30; Stop 09/21/19 at 08:31; Status DC Vancomycin HCl 2 gm/Sodium Chloride 500 ml @ 250 mls/hr Q12H IV Last administered on 09/20/19at 20:33; Start 09/20/19 at 09:00; Stop 09/21/19 at 10:49; Status DC Oxycodone HCl (OxyCONTIN) 15 mg Q12HR PO Last administered on 09/22/19at 08:12; Start 09/20/19 at 12:00 Oxycodone/ Acetaminophen (Percocet 5/325) 1 tab PRN Q4HRS PRN PO PAIN Last administered on 09/22/19at 09:17; Start 09/20/19 at 12:00 Ampicillin Sodium 2 gm/Sodium Chloride 50 ml @ 100 mls/hr Q4HRS IV ; Start 09/20/19 at 17:00; Stop 09/20/19 at 16:31; Status DC Ampicillin Sodium 2 gm/Sodium Chloride 100 ml @ 200 mls/hr Q4HRS IV Last administered on 09/22/19at 08:12; Start 09/20/19 at 17:00 Guaifenesin (Robitussin Dm) 10 ml PRN Q6HRS PRN PO COUGH 1ST CHOICE Last admini stered on 09/22/19at 09:17; Start 09/20/19 at 23:15 Vancomycin HCl 1.5 gm/Sodium Chloride 500 ml @ 250 mls/hr Q12H IV Last adm inistered on 09/22/19at 02:33; Start 09/21/19 at 15:00 Vancomycin HCl (Vancomycin Trough Level) 1 each 1X ONCE MC ; Start 09/23/19 at 02:30; Stop 09/23/19 at 02:31 Active Scripts Active Oxycodone Hcl Immed.release (Oxycodone Hcl) 10 Mg Tablet 10 Mg PO PRN Q4HRS PRN Reported Lidocaine PATCH (Lidocaine) 1 Each Adh..patch 1 Each TP DAILY REMOVE AFTER 12 HOURS Doxepin Hcl 150 Mg Capsule 1 Cap PO QHS 30 Days Lisinopril 5 Mg Tablet 1 Tab PO DAILY Percocet 7.5-325 Mg Tablet (Oxycodone/Acetaminophen) 1 Each Tablet 1 Tab PO PRN Q6HRS PRN Janumet 50-1,000 Mg Tablet (Sitagliptin Phos/Metformin Hcl) 1 Each Tablet 1 Tab PO BID [place] Carbonate 300 Mg Capsule 2 Cap PO HS Clonazepam 1 Mg Tablet 1 Mg PO BID Tizanidine Hcl 4 Mg Tablet 4 Mg PO TID PRN Levothyroxine Sodium 100 Mcg Tablet 1 Tab PO DAILY [place] Carbonate 300 Mg Tablet 1 Tab PO BID Lisinopril 2.5 Mg Tablet 5 Mg PO DAILY Zanaflex (Tizanidine Hcl) 4 Mg Capsule 1 Cap PO TID PRN Janumet 50-1,000 Mg Tablet (Sitagliptin Phos/Metformin Hcl) 1 Each Tablet 1 Tab PO BID Synthroid (Levothyroxine Sodium) 100 Mcg Tablet 100 Mcg PO DAILYAC Doxepin Hcl 50 Mg Capsule 300 Mg PO HS Klonopin (Clonazepam) 0.5 Mg Tablet 1 Mg PO PRN DAILY PRN Vitals/I & O Vital Sign - Last 24 Hours 09/21/19 09/21/19 09/21/19 09/21/19 13:29 15:00 15:16 17:16 Temp 97.9 97.9 Pulse 81 Resp 16 B/P (MAP) 100/66 (77) Pulse Ox 95 96 95 95 O2 Delivery Room Air Room Air Room Air Room Air O2 Flow Rate 10.0 10.0 10.0 09/21/19 09/21/19 09/21/19 09/21/19 19:00 19:13 19:40 19:51 Temp 97.4 97.4 Pulse 73 Resp 18 20 B/P (MAP) 142/86 (104) Pulse Ox 96 95 O2 Delivery Room Air Room Air Room Air Room Air O2 Flow Rate 10.0 09/21/19 09/21/19 09/22/19 09/22/19 23:00 23:51 03:00 05:15 Temp 97.4 97.6 97.4 97.6 Pulse 73 81 Resp 18 20 18 20 B/P (MAP) 140/83 (102) 122/68 (86) Pulse Ox 96 96 O2 Delivery Room Air Room Air Room Air Room Air 09/22/19 09/22/19 09/22/19 09/22/19 06:07 06:15 07:00 07:29 Temp 98.2 98.2 Pulse 85 Resp 20 20 18 B/P (MAP) 135/88 (104) Pulse Ox 98 96 O2 Delivery Room Air Room Air Room Air Room Air O2 Flow Rate 10.0 09/22/19 09/22/19 09/22/19 09/22/19 08:00 08:12 08:12 09:17 Pulse 85 B/P (MAP) 135/88 Pulse Ox 96 96 O2 Delivery Room Air Room Air Room Air O2 Flow Rate 10.0 10.0 09/22/19 11:00 Temp 98.0 98.0 Pulse 83 Resp 18 B/P (MAP) 131/80 (97) Pulse Ox 98 O2 Delivery Room Air l Intake and Output 09/21/19 09/21/19 09/22/19 15:00 23:00 07:00 Intake Total 550 ml 320 ml Output Total 800 ml 800 ml Balance 550 ml -480 ml -800 ml CHRIS LIAO MD Sep 22, 2019 12:39
[2019-09-22 15:00] VITALS: BP 126/71
[2019-09-22 19:00] VITALS: BP 143/83
[2019-09-22] MEDS: DOXEPIN 150 MG PO SCH (20:19)
[2019-09-22] MEDS: LITHIUM CARBONATE ER 300 MG TABLET.ER PO SCH (20:19)
[2019-09-22 23:00] VITALS: BP 150/97
[2019-09-23] MEDS: AMPICILLIN SODIUM 2 GM in IV NORMAL SALINE 100ML 100 ML IV SCH ×6 (00:02→20:52)
[2019-09-23 03:00] VITALS: BP 146/91
[2019-09-23 03:24] LABS: CREATININE 0.9 mg/dL (0.7-1.3); GFR 89.7; VANC TR 24.3 mcg/mL (10.0-20.0)
[2019-09-23] MEDS: oxyCODONE/APAP 5/325 1 TAB TABLET PO PRN ×3 (03:35→16:58)
[2019-09-23] MEDS: guaiFENesin DM 200MG/20MG 10 ML SYRUP PO PRN ×2 (03:44→12:56)
[2019-09-23] MEDS: VANCOMYCIN PER PHARMACY MC PRN ×3 (05:14→17:53)
--- NOTE | 2019-09-23 05:14 | NUR ---
Pharmacy Vancomycin Dosing Note S:Consulted to monitor and dose vancomycin started 09/19/19. O:LISANDRAVIRY Allen is a 48 year old M with Abscess INFECTED TKA . Height: 5 feet, 7 inches Weight: 107.523509 kg [place] Body Weight: 204.10 Adjusted Body Weight: 165.98 Dosing Weight: Other Antibiotics: AMPICILLIN 2G IV Q4HRS LABS: Last BUN: 5 Last Creatinine: 0.8 Creatinine Clearance: > 120 mL/min Last WBC: 5.1 Last Procalcitonin: - Tmax (past 24 hours): 98.2 Microbiology: 09/09 SYNOVIAL FLUID: MRSE (TETRACYCLINE RESIS) 09/13 E. FECALIS (AMP SENS) I/O: 0379/8872 Drug Levels: Last Trough level: 24.3 on 09/23/19 at 0230 Last dose given 09/22/19 at 0233 Vancomycin Dosing: Loading Dose: 2000 mg x1 Dosing Weight: Target Trough: 15-20 A: Based on: TROUGH P: 1. Hold Vancomycin 1500 mg IV HOLD 2. Follow up Random level on 09/23/19 at 1600 3. Pharmacy will continue to monitor, follow and adjust therapy as needed. WILLOW SWANSON RPH, 09/23/19 0514 Signed: 09/23/19 at 0515 by WILLOW SWANSON RPH PHA
[2019-09-23] MEDS: LEVOTHYROXINE 100 MCG TABLET PO SCH (05:50)
[2019-09-23] MEDS: HYDROmorphone 2 MG/ML VIAL IV PRN ×5 (05:51→21:12)
[2019-09-23 07:00] VITALS: BP 130/83
[2019-09-23] MEDS: INSULIN LISPRO 300 UNITS/3 ML VIAL. SQ SCH ×4 (08:00→21:00)
[2019-09-23] MEDS: metFORMIN 500 MG TABLET PO SCH ×2 (08:26→16:58)
[2019-09-23] MEDS: oxyCODONE ER 15 MG TAB.ER.12H PO SCH ×2 (08:26→21:13)
[2019-09-23] MEDS: LIDOCAINE (700MG/PATCH) PATCH. TP SCH (08:27)
[2019-09-23] MEDS: LACTOBACILLUS RHAMNOSUS GG 1 CAPSULE. PO SCH ×2 (08:27→21:12)
[2019-09-23] MEDS: LISINOPRIL 5 MG TABLET. PO SCH (08:27)
[2019-09-23] MEDS: clonazePAM 0.5 MG TABLET PO SCH ×2 (08:27→21:13)
[2019-09-23] MEDS: LINAGLIPTIN 5 MG TABLET PO SCH (08:27)
--- NOTE | 2019-09-23 08:27 | PDOC ---
ORTHO PROGRESS NOTES Subjective patient awake and alert with minimal complaint of pain. Procedure Removal of TKA components with antibiotic spacer placement Vitals Vital Signs Date Time Temp Pulse Resp B/P (MAP) Pulse Ox O2 Delivery O2 Flow Rate FiO2 09/23/19 07:45 95 Room Air 10.0 09/23/19 05:51 20 09/23/19 03:00 97.6 83 146/91 (109) 97.6 Labs Laboratory Tests Test 09/21/19 08:40 09/21/19 10:40 09/21/19 16:57 09/21/19 20:21 Sodium Level 138 mmol/L (136-145) Potassium Level 4.0 mmol/L (3.5-5.1) Chloride Level 100 mmol/L (98-107) Carbon Dioxide Level 30 mmol/L (21-32) Anion Gap 8 (6-14) Blood Urea Nitrogen 5 mg/dL (8-26) Creatinine 0.8 mg/dL (0.7-1.3) Estimated GFR (Cockcroft-Gault) 102.7 Glucose Level 186 mg/dL (70-99) Calcium Level 8.8 mg/dL (8.5-10.1) Vancomycin Level Trough 22.0 mcg/mL (10.0-20.0) Vancomycin Last Dose Date 09/20/19 Vancomycin Last Dose Time 2100 Glucose (Fingerstick) 166 mg/dL (70-99) 107 mg/dL (70-99) 120 mg/dL (70-99) Test 09/22/19 03:30 09/22/19 07:45 09/22/19 11:04 09/22/19 16:49 Sodium Level 137 mmol/L (136-145) Potassium Level 3.8 mmol/L (3.5-5.1) Chloride Level 102 mmol/L (98-107) Carbon Dioxide Level 28 mmol/L (21-32) Anion Gap 7 (6-14) Blood Urea Nitrogen 5 mg/dL (8-26) Creatinine 0.8 mg/dL (0.7-1.3) Estimated GFR (Cockcroft-Gault) 102.7 Glucose Level 146 mg/dL (70-99) Calcium Level 8.8 mg/dL (8.5-10.1) Glucose (Fingerstick) 120 mg/dL (70-99) 121 mg/dL (70-99) 110 mg/dL (70-99) Test 09/22/19 20:40 09/23/19 02:35 09/23/19 07:50 Glucose (Fingerstick) 101 mg/dL (70-99) 127 mg/dL (70-99) Creatinine 0.9 mg/dL (0.7-1.3) Estimated GFR (Cockcroft-Gault) 89.7 Vancomycin Level Trough 24.3 mcg/mL (10.0-20.0) Vancomycin Last Dose Date 09/22/19 Vancomycin Last Dose Time 1500 Laboratory Tests Test 09/22/19 11:04 09/22/19 16:49 09/22/19 20:40 09/23/19 02:35 Glucose (Fingerstick) 121 mg/dL (70-99) 110 mg/dL (70-99) 101 mg/dL (70-99) Creatinine 0.9 mg/dL (0.7-1.3) Estimated GFR (Cockcroft-Gault) 89.7 Vancomycin Level Trough 24.3 mcg/mL (10.0-20.0) Vancomycin Last Dose Date 09/22/19 Vancomycin Last Dose Time 1500 Test 09/23/19 07:50 Glucose (Fingerstick) 127 mg/dL (70-99) Notes Patient sitting up in bed watching computer. Assessment and Plan Patient S/P Removal of TKA and antibiotic spacer placement. motor and sensation intact distally wound vac in place continue PT as tolerated Antibiotics per ID Discharge planning when medically stable. MADYSON MEJIA APRN Sep 23, 2019 08:27
--- NOTE | 2019-09-23 10:54 | PDOC ---
Infectious Disease Note Subjective Subjective Pain improving Occ cough Nausea - better. Appetite better No fever, chills/loose stool/Tinnitus/Vertigo Min drainage from wound now with wound vac Vital Sign Vital Signs Vital Signs Date Time Temp Pulse Resp B/P (MAP) Pulse Ox O2 Delivery O2 Flow Rate FiO2 09/23/19 08:27 80 130/83 09/23/19 08:26 95 Room Air 10.0 09/23/19 07:00 97.8 16 97.8 Physical Exam PHYSICAL EXAM GENERAL: Sitting up in bed. alert, in NAD - looks well HEENT: Oral cavity clear, dry - poor dentition and nml conj NECK: Supple LUNGS: Clear bilaterally. HEART: S1, S2 regular. ABDOMEN: Soft and nontender EXTREMITIES: LLE Trace edema. Left knee bandaged w/ hinge knee brace in place - Vac FOURCHETTE SEWER: Alert and oriented x 3, grossly nonfocal. Right-sided tunneled CVC (09/14) clean Labs Lab Laboratory Tests Test 09/22/19 11:04 09/22/19 16:49 09/22/19 20:40 09/23/19 02:35 Glucose (Fingerstick) 121 mg/dL (70-99) 110 mg/dL (70-99) 101 mg/dL (70-99) Creatinine 0.9 mg/dL (0.7-1.3) Estimated GFR (Cockcroft-Gault) 89.7 Vancomycin Level Trough 24.3 mcg/mL (10.0-20.0) Vancomycin Last Dose Date 09/22/19 Vancomycin Last Dose Time 1500 Test 09/23/19 07:50 Glucose (Fingerstick) 127 mg/dL (70-99) Micro Microbiology 09/15/19 AFB Specimen Processing Tissue - Final, Resulted 09/15/19 Acid Fast Bacilli Culture, Resulted Pending 09/15/19 Gram Stain - Final, Resulted 09/15/19 Fungal Culture, Resulted Pending 09/15/19 Fungal Culture Result 1, Resulted Pending 09/14/19 Blood Culture - Final, Complete NO GROWTH AFTER 5 DAYS Objective Assessment Left knee prosthetic joint infection. Synovial fluid cx positive for MRSE 09/09 Tetra resistant; swab culture here grew E fecalis amp sensitive 09/13. -09/15 s/p removal of total knee arthroplasty components with insertion antibiotic spacer and extensive debridement Intraop Vanc and Tobra. Intra-op cultures neg so far; AF stain neg - ESR 75 12/8 (from 64) H/o fall with x-ray done on 08/16/2019 with dissociation of the patellar component of the left knee arthroplasty from the posterior aspect of the patella with surrounding soft tissue swelling and large suprapatellar effusion. Left total knee arthroplasty done in 07/2018, status post revision on 02/24/2019, status post incision and drainage on 03/24/2019 with poly exchange. -Cultures from July and 03/2019 negative including AFB and fungal. Diabetes. Bipolar disorder. Plan Plan of Care Need to solidify Vanc dose prior to discharge - Phamacy managing Cults 09/[address] Bowden's office show MRSE No sens for Daptomycin. Antigen panel neg for Enterococcus 09/09 but Swab cult + 09/13. Intraop cults neg still Has spacer with Vanc and Gent impregnated Continue to Vanc and Ampicillin (started on 09/19) Monitor renal function closely Pain management per primary Will need outpat IV abx - Ampicillin 12 gm IV continuous infusion and Vancomycin D/w Dr. Bowden D/w previously re Rationale for abx selections. ALIN ALDANA MD Sep 23, 2019 10:54
[2019-09-23 11:00] VITALS: BP 148/86
--- NOTE | 2019-09-23 12:05 | PDOC ---
PROGRESS NOTES Chief Complaint Chief Complaint left leg abscess with surrounding cellulitis 1. Left knee prosthetic joint infection 09/15 S/P Removal of total knee arthroplasty components with insertion antib iotic spacer and extensive debridement 2. History of fall with x-ray done on 08/16/2019 with dissociation of the patellar component of the left knee arthroplasty from the posterior aspect of the patella with surrounding soft tissue swelling and large suprapatellar effusion. 3. Left total knee arthroplasty done in 07/2018, status post revision on 02/24/2019, status post incision and drainage on 03/24/2019 with poly exchange. Cultures from July and 03/2019 negative including AFB and fungal. 4. Diabetes. 5. Anemia 6. Hypertension. 7. Hypothyroidism. 8. Osteoarthritis. 9. Bipolar disorder. History of Present Illness History of Present Illness Patient seen and examined Discussed with RN s/p wound VAC placement cont need for IV abx Vitals Vitals Vital Signs Date Time Temp Pulse Resp B/P (MAP) Pulse Ox O2 Delivery O2 Flow Rate FiO2 09/23/19 11:14 95 Room Air 10.0 09/23/19 11:00 97.5 72 18 148/86 (106) 97.5 Physical Exam Physical Exam GENERAL: Sitting up in bed. alert, in NAD - looks well HEENT: Oral cavity clear, dry - poor dentition and nml conj NECK: Supple LUNGS: Clear bilaterally. HEART: S1, S2 regular. ABDOMEN: Soft and nontender EXTREMITIES: LLE Trace edema. Left knee bandaged w/ hinge knee brace in place - Vac CREELER: Alert and oriented x 3, grossly nonfocal. Right-sided tunneled CVC (09/14) clean General: Alert, Oriented X3, Cooperative, No acute distress, mild distress Heart: Regular rate, Normal S1, Normal S2 Lungs: Clear Abdomen: Normal bowel sounds, Soft, No tenderness Extremities: No cyanosis, Normal pulses Skin: No rashes, No breakdown Labs LABS Laboratory Tests Test 09/22/19 16:49 09/22/19 20:40 09/23/19 02:35 09/23/19 07:50 Glucose (Fingerstick) 110 mg/dL (70-99) 101 mg/dL (70-99) 127 mg/dL (70-99) Creatinine 0.9 mg/dL (0.7-1.3) Estimated GFR (Cockcroft-Gault) 89.7 Vancomycin Level Trough 24.3 mcg/mL (10.0-20.0) Vancomycin Last Dose Date 09/22/19 Vancomycin Last Dose Time 1500 Test 09/23/19 11:44 Glucose (Fingerstick) 104 mg/dL (70-99) Comment Review of Relevant I have reviewed the following items satya (where applicable) has been applied. Labs Laboratory Tests Test 09/21/19 16:57 09/21/19 20:21 09/22/19 03:30 09/22/19 07:45 Glucose (Fingerstick) 107 mg/dL (70-99) 120 mg/dL (70-99) 120 mg/dL (70-99) Sodium Level 137 mmol/L (136-145) Potassium Level 3.8 mmol/L (3.5-5.1) Chloride Level 102 mmol/L (98-107) Carbon Dioxide Level 28 mmol/L (21-32) Anion Gap 7 (6-14) Blood Urea Nitrogen 5 mg/dL (8-26) Creatinine 0.8 mg/dL (0.7-1.3) Estimated GFR (Cockcroft-Gault) 102.7 Glucose Level 146 mg/dL (70-99) Calcium Level 8.8 mg/dL (8.5-10.1) Test 09/22/19 11:04 09/22/19 16:49 09/22/19 20:40 09/23/19 02:35 Glucose (Fingerstick) 121 mg/dL (70-99) 110 mg/dL (70-99) 101 mg/dL (70-99) Creatinine 0.9 mg/dL (0.7-1.3) Estimated GFR (Cockcroft-Gault) 89.7 Vancomycin Level Trough 24.3 mcg/mL (10.0-20.0) Vancomycin Last Dose Date 09/22/19 Vancomycin Last Dose Time 1500 Test 09/23/19 07:50 09/23/19 11:44 Glucose (Fingerstick) 127 mg/dL (70-99) 104 mg/dL (70-99) Laboratory Tests Test 09/22/19 16:49 09/22/19 20:40 09/23/19 02:35 09/23/19 07:50 Glucose (Fingerstick) 110 mg/dL (70-99) 101 mg/dL (70-99) 127 mg/dL (70-99) Creatinine 0.9 mg/dL (0.7-1.3) Estimated GFR (Cockcroft-Gault) 89.7 Vancomycin Level Trough 24.3 mcg/mL (10.0-20.0) Vancomycin Last Dose Date 09/22/19 Vancomycin Last Dose Time 1500 Test 09/23/19 11:44 Glucose (Fingerstick) 104 mg/dL (70-99) Microbiology 09/15/19 AFB Specimen Processing Tissue - Final, Resulted 09/15/19 Acid Fast Bacilli Culture, Resulted Pending 09/15/19 Gram Stain - Final, Resulted 09/15/19 Fungal Culture - Preliminary, Resulted 09/15/19 Fungal Culture Result 1 - Preliminary, Resulted 09/14/19 Blood Culture - Final, Complete NO GROWTH AFTER 5 DAYS Medications Current Medications Sodium Chloride 1,000 ml @ 1,000 mls/hr 1X ONCE IV Last administered on 09/13/19at 21:00; Start 09/13/19 at 20:45; Stop 09/13/19 at 21:44; Status DC Ondansetron HCl (Zofran) 4 mg 1X ONCE IV Last administered on 09/13/19at 21:00; Start 09/13/19 at 20:45; Stop 09/13/19 at 20:46; Status DC Morphine Sulfate (Morphine Sulfate) 4 mg 1X ONCE IV Last administered on 09/13/19at 21:00; Start 09/13/19 at 20:45; Stop 09/13/19 at 20:46; Status DC Iohexol (Omnipaque 300 Mg/ml) 75 ml 1X ONCE IV Last administered on 09/13/19at 21:42; Start 09/13/19 at 21:45; Stop 09/13/19 at 21:46; Status DC Info (CONTRAST GIVEN -- Rx MONITORING) 1 each PRN DAILY PRN MC SEE COMMENTS; Start 09/13/19 at 21:45; Stop 09/15/19 at 21:44; Status DC Vancomycin HCl (Vanco Per Pharmacy) 1 each PRN DAILY PRN MC SEE COMMENTS Last administered on 09/13/19at 23:45; Start 09/13/19 at 22:30; Stop 09/14/19 at 12:47; Status DC Ondansetron HCl (Zofran) 4 mg PRN Q8HRS PRN IV NAUSEA/VOMITING Last administered on 09/14/19 17:08; Start 09/13/19 at 22:30; Stop 09/14/19 at 22:29; Status DC Morphine Sulfate (Morphine Sulfate) 4 mg PRN Q2HR PRN IV PAIN Last administered on 09/14/19 15:43; Start 09/13/19 at 22:30; Stop 09/14/19 at 22:29; Status DC Vancomycin HCl 2 gm/Sodium Chloride 500 ml @ 250 mls/hr 1X ONCE IV Last administered on 09/13/19at 22:55; Start 09/13/19 at 23:00; Stop 09/14/19 at 00:59; Status DC Potassium Chloride (Klor-Con) 40 meq 1X ONCE PO Last administered on 09/13/19at 23:30; Start 09/13/19 at 23:30; Stop 09/13/19 at 23:31; Status DC Vancomycin HCl 1.75 gm/Sodium Chloride 500 ml @ 250 mls/hr Q12H IV Last administered on 09/14/19at 10:40; Start 09/14/19 at 11:00; Stop 09/14/19 at 12:45; Status DC Vancomycin HCl (Vancomycin Trough Level) 1 each 1X ONCE MC ; Start 09/15/19 at 10:30; Stop 09/14/19 at 12:47; Status DC Non-Formulary Medication 2 ea HS PO Last administered on 09/22/19at 20:19; Start 09/14/19 at 21:00 Non-Formulary Medication 2 ea 1X ONCE PO Last administered on 09/14/19 02:05; Start 09/14/19 at 01:45; Stop 09/14/19 at 01:46; Status DC Levothyroxine Sodium (Synthroid) 100 mcg DAILY06 PO Last administered on 09/23/19 05:50; Start 09/14/19 at 09:00 Lidocaine (Lidoderm) 1 patch DAILY TP Last administered on 09/23/19 08:27; Start 09/14/19 at 09:00 Lisinopril (Prinivil) 5 mg DAILY PO Last administered on 09/23/19at 08:27; Start 09/14/19 at 09:00 Oxycodone/ Acetaminophen (Percocet 7.5/ 325) 1 tab PRN Q6HRS PRN PO PAIN Last administered on 09/16/19 04:50; Start 09/14/19 at 08:45; Stop 09/16/19 at 09:10; Status DC Tizanidine HCl (Zanaflex) 4 mg TID PRN PO MUSCLE SPASMS Last administered on 09/21/19 08:34; Start 09/14/19 at 08:45 Clonazepam (KlonoPIN) 1 mg BID PO Last administered on 09/23/19 08:27; Start 09/14/19 at 09:00 Doxepin HCl (SINEquan) 150 mg QHS PO Last administered on 09/18/19 21:53; Start 09/14/19 at 21:00; Stop 09/19/19 at 01:13; Status DC [place] Carbonate (Lithobid) 600 mg QHS PO Last administered on 09/22/19 20:19; Start 09/14/19 at 21:00 Linagliptin (Tradjenta) 5 mg DAILY PO Last administered on 09/23/19 08:27; Start 09/14/19 at 09:00 Potassium Chloride (Klor-Con) 40 meq 1X ONCE PO Last administered on 09/14/19 09:03; Start 09/14/19 at 09:00; Stop 09/14/19 at 09:01; Status DC Metformin HCl (Glucophage) 1,000 mg BIDWMEALS PO Last administered on 09/23/19 08:26; Start 09/16/19 at 08:00 Lactobacillus Rhamnosus (Culturelle) 1 cap BID PO Last administered on 09/23/19 08:27; Start 09/14/19 at 21:00 Meropenem 500 mg/ Sodium Chloride 50 ml @ 100 mls/hr Q6HRS IV Last administered on 09/19/19 17:28; Start 09/14/19 at 13:30; Stop 09/19/19 at 18:26; Status DC Daptomycin 400 mg/ Sodium Chloride 50 ml @ 100 mls/hr Q24H IV Last administered on 09/19/19 15:50; Start 09/14/19 at 14:00; Stop 09/19/19 at 18:26; Status DC Lidocaine HCl (Buffered Lidocaine 1%) 3 ml STK-MED ONCE .ROUTE ; Start 09/14/19 at 13:24; Stop 09/14/19 at 13:24; Status DC Lidocaine HCl (Buffered Lidocaine 1%) 3 ml 1X ONCE INJ ; Start 09/14/19 at 13:45; Stop 09/14/19 at 13:46; Status DC Cefazolin Sodium 100 ml @ As Directed STK-MED ONCE IV ; Start 09/14/19 at 13:51; Stop 09/14/19 at 13:51; Status DC Lidocaine/ Epinephrine (LIDOCAINE 1%-EPI 1:100,000 Multi-Dose) 20 ml STK-MED ONCE .ROUTE ; Start 09/14/19 at 14:01; Stop 09/14/19 at 14:01; Status DC Lidocaine/ Epinephrine (LIDOCAINE 1%-EPI 1:100,000 Multi-Dose) 20 ml 1X ONCE SQ Last administered on 09/14/19at 14:15; Start 09/14/19 at 14:15; Stop 09/14/19 at 14:16; Status DC Cefazolin Sodium 50 ml @ 100 mls/hr 1X ONCE IV Last administered on 09/14/19at 14:15; Start 09/14/19 at 14:15; Stop 09/14/19 at 14:44; Status DC Cefazolin Sodium 50 ml @ 100 mls/hr 1X ONCE IV Last administered on 09/14/19at 14:15; Start 09/14/19 at 14:15; Stop 09/14/19 at 14:44; Status DC Morphine Sulfate 5 mg/Ketorolac Tromethamine 30 mg/Ropivacaine 60 ml/Epinephrine HCl 0.5 mg/Sodium Chloride 100 ml @ 100 mls/hr 1X ONCE INT ART Last administered on 09/15/19at 14:36; Start 09/15/19 at 06:00; Stop 09/15/19 at 06:59; Status DC Ondansetron HCl (Zofran) 4 mg PRN Q6HRS PRN IV NAUSEA/VOMITING; Start 09/15/19 at 06:30; Stop 09/16/19 at 06:29; Status DC Fentanyl Citrate (Fentanyl 2ml Vial) 25 mcg PRN Q5MIN PRN IV MILD PAIN 1-3; Start 09/15/19 at 06:30; Stop 09/16/19 at 06:29; Status DC Fentanyl Citrate (Fentanyl 2ml Vial) 50 mcg PRN Q5MIN PRN IV MODERATE TO SEVERE PAIN; Start 09/15/19 at 06:30; Stop 09/16/19 at 06:29; Status DC Morphine Sulfate (Morphine Sulfate) 1 mg PRN Q10MIN PRN IV SEVERE PAIN 7-10; Start 09/15/19 at 06:30; Stop 09/16/19 at 06:29; Status DC Ringer's Solution 1,000 ml @ 30 mls/hr Q24H IV Last administered on 09/15/19at 10:39; Start 09/15/19 at 06:30; Stop 09/15/19 at 06:49; Status DC Lidocaine HCl (Xylocaine-Mpf 1% 2ml Vial) 2 ml 1X PRN PRN ID IV START; Start 09/15/19 at 06:30; Stop 09/16/19 at 06:29; Status DC Hydromorphone HCl (Dilaudid) 0.5 mg PRN Q10MIN PRN IV SEV PAIN, Second choice; Start 09/15/19 at 06:30; Stop 09/16/19 at 06:29; Status DC Prochlorperazine Edisylate (Compazine) 5 mg PACU PRN PRN IV NAUSEA, MRX1; Start 09/15/19 at 06:30; Stop 09/16/19 at 06:29; Status DC Propofol 20 ml @ As Directed STK-MED ONCE IV ; Start 09/15/19 at 09:30; Stop 09/15/19 at 09:31; Status DC Lidocaine HCl (Lidocaine Pf 2% Vial) 5 ml STK-MED ONCE .ROUTE ; Start 09/15/19 at 09:30; Stop 09/15/19 at 09:31; Status DC Dexamethasone Sodium Phosphate (Decadron) 20 mg STK-MED ONCE .ROUTE ; Start 09/15/19 at 09:30; Stop 09/15/19 at 09:31; Status DC Ondansetron HCl (Zofran) 4 mg STK-MED ONCE .ROUTE ; Start 09/15/19 at 09:30; Stop 09/15/19 at 09:31; Status DC Phenylephrine HCl (PHENYLEPHRINE in 0.9% NACL PF) 1 mg STK-MED ONCE IV ; Start 09/15/19 at 09:31; Stop 09/15/19 at 09:31; Status DC Fentanyl Citrate (Fentanyl 2ml Vial) 100 mcg STK-MED ONCE .ROUTE ; Start 09/15/19 at 09:31; Stop 09/15/19 at 09:32; Status DC Rocuronium [place] (Zemuron) 50 mg STK-MED ONCE .ROUTE ; Start 09/15/19 at 09:32; Stop 09/15/19 at 09:32; Status DC Succinylcholine Chloride (Anectine) 200 mg STK-MED ONCE .ROUTE ; Start 09/15/19 at 09:46; Stop 09/15/19 at 09:46; Status DC Nicardipine HCl (Cardene) 25 mg STK-MED ONCE IV ; Start 09/15/19 at 11:34; Stop 09/15/19 at 11:35; Status DC Sevoflurane (Ultane) 90 ml STK-MED ONCE IH ; Start 09/15/19 at 11:44; Stop 09/15/19 at 11:45; Status DC Fentanyl Citrate (Fentanyl 2ml Vial) 100 mcg STK-MED ONCE .ROUTE ; Start 09/15/19 at 11:50; Stop 09/15/19 at 11:50; Status DC Neostigmine Methylsulfate (Neostigmine Methylsulfate) 5 mg STK-MED ONCE .ROUTE ; Start 09/15/19 at 13:34; Stop 09/15/19 at 13:34; Status DC Glycopyrrolate (Robinul) 1 mg STK-MED ONCE .ROUTE ; Start 09/15/19 at 13:34; Stop 09/15/19 at 13:34; Status DC Fentanyl Citrate (Fentanyl 2ml Vial) 50 mcg PRN Q5MIN PRN IV MODERATE TO SEVERE PAIN; Start 09/15/19 at 14:45; Stop 09/16/19 at 08:59; Status DC Morphine Sulfate (Morphine Sulfate) 2 mg PRN Q10MIN PRN IV MILD PAIN 1-3; Start 09/15/19 at 14:45; Stop 09/16/19 at 08:59; Status DC Hydromorphone HCl (Dilaudid) 0.4 mg PRN Q10MIN PRN IV Moderate to severe pain; Start 09/15/19 at 14:45; Stop 09/16/19 at 08:59; Status DC Ondansetron HCl (Zofran) 4 mg PRN Q6HRS PRN IVP Nausea, 2nd Choice; Start 09/15/19 at 14:45; Stop 09/16/19 at 08:59; Status DC Insulin Human Lispro (HumaLOG VIAL for OP,RR ONLY) 0-10 units PRN Q1HR PRN SQ PER PROTOCOL Last administered on 09/15/19at 14:51; Start 09/15/19 at 14:45; Stop 09/16/19 at 14:44; Status DC Insulin Human Lispro (HumaLOG) 0-9 UNITS TIDWMEALS SQ ; Start 09/16/19 at 08:00; Stop 09/16/19 at 03:37; Status DC Dextrose (Dextrose 50%-Water Syringe) 12.5 gm PRN Q15MIN PRN IV SEE COMMENTS; Start 09/15/19 at 21:45 Insulin Human Lispro (HumaLOG) 12 units 1X SQ ; Start 09/15/19 at 22:00; Stop 09/15/19 at 23:07; Status DC Insulin Human Lispro (HumaLOG) 12 units 1X ONCE SQ Last administered on 09/15/19at 23:15; Start 09/15/19 at 23:15; Stop 09/15/19 at 23:16; Status DC Insulin Human Lispro (HumaLOG) 0-9 UNITS TIDWMEALHC SQ Last administered on 09/20/19at 08:17; Start 09/16/19 at 08:00 Oxycodone/ Acetaminophen (Percocet 10/325) 1 tab PRN Q6HRS PRN PO MODERATE TO SEVERE PAIN Last administered on 09/20/19at 06:42; Start 09/16/19 at 09:15; Stop 09/20/19 at 11:51; Status DC Hydromorphone HCl (Dilaudid) 1 mg 1X ONCE IV ; Start 09/16/19 at 14:00; Stop 09/16/19 at 14:01; Status Cancel Hydromorphone HCl (Dilaudid) 1 mg PRN Q4HRS PRN IV SEVERE PAIN 7-10 Last administered on 09/23/19at 08:26; Start 09/16/19 at 13:30 Potassium Chloride (Klor-Con) 40 meq 1X ONCE PO Last administered on 09/17/19at 17:04; Start 09/17/19 at 15:45; Stop 09/17/19 at 15:46; Status DC Diphenhydramine HCl (Benadryl) 25 mg PRN Q6HRS PRN PO ITCHING Last administered on 09/20/19 20:27; Start 09/19/19 at 17:00 Ondansetron HCl (Zofran) 4 mg PRN Q6HRS PRN IVP NAUSEA/VOMITING Last administered on 09/21/19 18:19; Start 09/19/19 at 17:15 Ampicillin Sodium 1 gm/Sodium Chloride 50 ml @ 100 mls/hr Q4HRS IV Last administered on 09/20/19 13:27; Start 09/19/19 at 20:00; Stop 09/20/19 at 16:24; Status DC Vancomycin HCl (Vanco Per Pharmacy) 1 each PRN DAILY PRN MC SEE COMMENTS Last administered on 09/23/19 05:14; Start 09/19/19 at 18:30 Vancomycin HCl 2 gm/Sodium Chloride 500 ml @ 250 mls/hr 1X ONCE IV Last administered on 09/19/19 20:28; Start 09/19/19 at 21:00; Stop 09/19/19 at 22:59; Status DC Vancomycin HCl (Vancomycin Trough Level) 1 each 1X ONCE MC Last administered on 09/21/19 08:30; Start 09/21/19 at 08:30; Stop 09/21/19 at 08:31; Status DC Vancomycin HCl 2 gm/Sodium Chloride 500 ml @ 250 mls/hr Q12H IV Last administered on 09/20/19 20:33; Start 09/20/19 at 09:00; Stop 09/21/19 at 10:49; Status DC Oxycodone HCl (OxyCONTIN) 15 mg Q12HR PO Last administered on 09/23/19 08:26; Start 09/20/19 at 12:00 Oxycodone/ Acetaminophen (Percocet 5/325) 1 tab PRN Q4HRS PRN PO PAIN Last administered on 09/23/19 03:35; Start 09/20/19 at 12:00 Ampicillin Sodium 2 gm/Sodium Chloride 50 ml @ 100 mls/hr Q4HRS IV ; Start 09/20/19 at 17:00; Stop 09/20/19 at 16:31; Status DC Ampicillin Sodium 2 gm/Sodium Chloride 100 ml @ 200 mls/hr Q4HRS IV Last administered on 09/23/19at 08:30; Start 09/20/19 at 17:00 Guaifenesin (Robitussin Dm) 10 ml PRN Q6HRS PRN PO COUGH 1ST CHOICE Last administered on 09/23/19at 03:44; Start 09/20/19 at 23:15 Vancomycin HCl 1.5 gm/Sodium Chloride 500 ml @ 250 mls/hr Q12H IV Last administered on 09/22/19at 16:03; Start 09/21/19 at 15:00; Stop 09/23/19 at 04:04; Status DC Vancomycin HCl (Vancomycin Trough Level) 1 each 1X ONCE MC Last administered on 09/23/19at 02:30; Start 09/23/19 at 02:30; Stop 09/23/19 at 02:31; Status DC Vancomycin HCl (Vancomycin Random Level) 1 each 1X ONCE MC ; Start 09/23/19 at 16:00; Stop 09/23/19 at 16:01 Active Scripts Active Oxycodone Hcl Immed.release (Oxycodone Hcl) 10 Mg Tablet 10 Mg PO PRN Q4HRS PRN Reported Lidocaine PATCH (Lidocaine) 1 Each Adh..patch 1 Each TP DAILY REMOVE AFTER 12 HOURS Doxepin Hcl 150 Mg Capsule 1 Cap PO QHS 30 Days Lisinopril 5 Mg Tablet 1 Tab PO DAILY Percocet 7.5-325 Mg Tablet (Oxycodone/Acetaminophen) 1 Each Tablet 1 Tab PO PRN Q6HRS PRN Janumet 50-1,000 Mg Tablet (Sitagliptin Phos/Metformin Hcl) 1 Each Tablet 1 Tab PO BID [place] Carbonate 300 Mg Capsule 2 Cap PO HS Clonazepam 1 Mg Tablet 1 Mg PO BID Tizanidine Hcl 4 Mg Tablet 4 Mg PO TID PRN Levothyroxine Sodium 100 Mcg Tablet 1 Tab PO DAILY [place] Carbonate 300 Mg Tablet 1 Tab PO BID Lisinopril 2.5 Mg Tablet 5 Mg PO DAILY Zanaflex (Tizanidine Hcl) 4 Mg Capsule 1 Cap PO TID PRN Janumet 50-1,000 Mg Tablet (Sitagliptin Phos/Metformin Hcl) 1 Each Tablet 1 Tab PO BID Synthroid (Levothyroxine Sodium) 100 Mcg Tablet 100 Mcg PO DAILYAC Doxepin Hcl 50 Mg Capsule 300 Mg PO HS Klonopin (Clonazepam) 0.5 Mg Tablet 1 Mg PO PRN DAILY PRN Vitals/I & O Vital Sign - Last 24 Hours 09/22/19 09/22/19 09/22/19 09/22/19 13:20 14:20 14:25 14:25 Pulse Ox 98 98 98 98 O2 Delivery Room Air Room Air Room Air Room Air O2 Flow Rate 10.0 10.0 10.0 10.0 09/22/19 09/22/19 09/22/19 09/22/19 15:00 16:09 17:47 18:23 Temp 98.0 98.0 Pulse 77 Resp 18 B/P (MAP) 126/71 (89) Pulse Ox 96 96 96 96 O2 Delivery Room Air Room Air Room Air Room Air O2 Flow Rate 10.0 10.0 10.0 09/22/19 09/22/19 09/22/19 09/22/19 18:23 19:00 20:20 20:21 Temp 97.8 97.8 Pulse 82 Resp 18 20 B/P (MAP) 143/83 (103) Pulse Ox 96 100 O2 Delivery Room Air Room Air Room Air Room Air O2 Flow Rate 10.0 09/22/19 09/23/19 09/23/19 09/23/19 23:00 00:21 03:00 03:35 Temp 97.3 97.6 97.3 97.6 Pulse 72 83 Resp 18 20 18 20 B/P (MAP) 150/97 (114) 146/91 (109) Pulse Ox 94 95 O2 Delivery Room Air Room Air Room Air Room Air 09/23/19 09/23/19 09/23/19 09/23/19 04:35 05:51 07:00 07:45 Temp 97.8 97.8 Pulse 80 Resp 20 20 16 B/P (MAP) 130/83 (99) Pulse Ox 98 95 O2 Delivery Room Air Room Air Room Air Room Air O2 Flow Rate 10.0 09/23/19 09/23/19 09/23/19 09/23/19 08:00 08:26 08:26 08:27 Pulse 80 B/P (MAP) 130/83 Pulse Ox 95 95 O2 Delivery Room Air Room Air Room Air O2 Flow Rate 10.0 10.0 09/23/19 09/23/19 11:00 11:14 Temp 97.5 97.5 Pulse 72 Resp 18 B/P (MAP) 148/86 (106) Pulse Ox 98 95 O2 Delivery Room Air Room Air O2 Flow Rate 10.0 Intake and Output 09/22/19 09/22/19 09/23/19 15:00 23:00 07:00 Intake Total 120 ml Output Total 950 ml 500 ml 300 ml Balance -950 ml -380 ml -300 ml CHRIS LIAO MD Sep 23, 2019 12:05
[2019-09-23 15:00] VITALS: BP 135/94
--- NOTE | 2019-09-23 15:19 | NUR ---
SW following for discharge planning. Chart reviewed, discussed with RN. Pt is not ready to dc yet, still waiting on IV abx determination. SW met with pt to discuss options, pt had home infusion about 7 months ago and would like to do his IV abx at home again if possible, and is also in agreement to have [facility] again. SW notified Evette Ortiz RN, awaiting further notification of when pt will be ready to discharge and which IV abx will be needed. ALEX will continue to follow.
--- NOTE | 2019-09-23 15:55 | NUR ---
Wound Care: Patient seen per wound care follow up for left knee incision with excessive drainage. Continue with wound vac ordered by Dr Bowden to manage drainage and assist with incisional closure. Skin prepped for vac placement and a contact layer placed over sutures, silver foam laid over top with small insertion of foam to distal incision site to pull off drainage as this is where it has large amount of the drainage. Good seal obtained at 125mmHg continuous. Will apply for home vac and will follow up for vac dressing change on Saturday. Bed lowered and call light in reach. Family at bedside.
[2019-09-23] MEDS ORDERED: VANCOMYCIN RANDOM LEVEL. MC ONE (16:00)
--- NOTE | 2019-09-23 17:54 | NUR ---
Pharmacy Vancomycin Dosing Note S:Consulted to monitor and dose vancomycin started 09/19/19. O:PATCASTROVIRY ZAVALA is a 48 year old M with abscess/ infected TKA. Height: 5 feet, 7 inches Weight: 107.128458 kg [place] Body Weight: 66.10 Adjusted Body Weight: 82.46 Dosing Weight: Actual Other Antibiotics: AMPICILLIN 2G IV Q4HRS LABS: Last BUN: 5 Last Creatinine: 0.9 Creatinine Clearance: > 120 mL/min Last WBC: 5.1 Last Procalcitonin: - Tmax (past 24 hours): 98.2 Microbiology: 09/09 SYNOVIAL FLUID: MRSE (TETRACYCLINE RESIS) 09/13 E. FECALIS (AMP SENS) I/O: 120/1750 Drug Levels: Last Random level: 14.4 on 09/23/19 at 1605 Last dose given 09/22/19 at 1603 Vancomycin Dosing: Loading Dose: 2000 mg x1 Dosing Weight: Actual Target Trough: 15-20 A: Based on: Patient's vancomycin level drawn about 24 hours after the previous dose, patient's renal function, PMH and severity of suspected infection P: 1. Vancomycin 1500 mg IV q 24 hours 2. Follow up Trough level on 09/25/19 at 1730 3. Pharmacy will continue to monitor, follow and adjust therapy as needed. WYATT LAROSE, [facility], 09/23/19 [id number]
[2019-09-23] MEDS: VANCOMYCIN 1.5 GM in IV NORMAL SALINE 500ML BAG 500 ML IV SCH (18:11)
[2019-09-23 19:00] VITALS: BP 160/101
[2019-09-23] MEDS: DOXEPIN 150 MG PO SCH (21:11)
[2019-09-23] MEDS: LITHIUM CARBONATE ER 300 MG TABLET.ER PO SCH (21:13)
[2019-09-23 23:00] VITALS: BP 169/102
[2019-09-24] MEDS: AMPICILLIN SODIUM 2 GM in IV NORMAL SALINE 100ML 100 ML IV SCH ×6 (00:23→20:46)
[2019-09-24] MEDS: HYDROmorphone 2 MG/ML VIAL IV PRN ×5 (01:18→23:25)
[2019-09-24] MEDS: guaiFENesin DM 200MG/20MG 10 ML SYRUP PO PRN (01:23)
[2019-09-24] MEDS: diphenhydrAMINE HCL 25 MG CAPSULE PO PRN (01:23)
[2019-09-24 03:00] VITALS: BP 152/92
[2019-09-24] MEDS: tiZANidine 4 MG TABLET. PO PRN ×2 (03:23→20:47)
[2019-09-24] MEDS: oxyCODONE/APAP 5/325 1 TAB TABLET PO PRN (03:23)
[2019-09-24 05:57] LABS: CREATININE 0.9 mg/dL (0.7-1.3); GFR 89.7
[2019-09-24] MEDS: LEVOTHYROXINE 100 MCG TABLET PO SCH (06:00)
[2019-09-24 07:00] VITALS: BP 115/68
[2019-09-24] MEDS: INSULIN LISPRO 300 UNITS/3 ML VIAL. SQ SCH ×4 (07:38→21:00)
[2019-09-24] MEDS: LIDOCAINE (700MG/PATCH) PATCH. TP SCH (08:14)
[2019-09-24] MEDS: clonazePAM 0.5 MG TABLET PO SCH ×2 (08:14→20:46)
[2019-09-24] MEDS: metFORMIN 500 MG TABLET PO SCH ×2 (08:14→16:34)
[2019-09-24] MEDS: LACTOBACILLUS RHAMNOSUS GG 1 CAPSULE. PO SCH ×2 (08:14→20:47)
[2019-09-24] MEDS: LINAGLIPTIN 5 MG TABLET PO SCH (08:14)
[2019-09-24] MEDS: LISINOPRIL 5 MG TABLET. PO SCH (08:14)
[2019-09-24] MEDS: oxyCODONE ER 15 MG TAB.ER.12H PO SCH ×2 (08:15→20:47)
[2019-09-24 11:00] VITALS: BP 174/102
--- NOTE | 2019-09-24 12:11 | PDOC ---
Infectious Disease Note Subjective Subjective Pain improving Appetite better No fever, chills/loose stool/Tinnitus/Vertigo Min drainage from wound now with wound vac ROS ROS o/w neg Vital Sign Vital Signs Vital Signs Date Time Temp Pulse Resp B/P (MAP) Pulse Ox O2 Delivery O2 Flow Rate FiO2 09/24/19 11:53 Room Air 09/24/19 11:00 97.7 63 18 174/102 (126) 100 97.7 09/24/19 01:13 10.0 Physical Exam PHYSICAL EXAM GENERAL: Sitting up in bed. alert, in NAD - looks well HEENT: Oral cavity clear, dry - poor dentition and nml conj NECK: Supple LUNGS: Clear bilaterally. HEART: S1, S2 regular. ABDOMEN: Soft and nontender EXTREMITIES: LLE Trace edema. 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 Right-sided tunneled CVC (09/14) clean Labs Lab Laboratory Tests Test 09/23/19 16:05 09/23/19 17:07 09/23/19 20:52 09/24/19 03:53 Random Vancomycin Level 14.4 mcg/mL Glucose (Fingerstick) 165 mg/dL (70-99) 108 mg/dL (70-99) Creatinine 0.9 mg/dL (0.7-1.3) Estimated GFR (Cockcroft-Gault) 89.7 Test 09/24/19 07:33 09/24/19 11:43 Glucose (Fingerstick) 115 mg/dL (70-99) 111 mg/dL (70-99) Micro Microbiology 09/15/19 AFB Specimen Processing Tissue - Final, Resulted 09/15/19 Acid Fast Bacilli Culture, Resulted Pending 09/15/19 Gram Stain - Final, Resulted 09/15/19 Fungal Culture, Resulted Pending 09/15/19 Fungal Culture Result 1, Resulted Pending 09/14/19 Blood Culture - Final, Complete NO GROWTH AFTER 5 DAYS Objective Assessment Left knee prosthetic joint infection. Synovial fluid cx positive for MRSE 09/09 Tetra resistant; swab culture here grew E fecalis amp sensitive 09/13. -09/15 s/p removal of total knee arthroplasty components with insertion antibiotic spacer and extensive debridement Intraop Vanc and Tobra. Intra-op cultures neg so far; AF stain neg - ESR 75 12/8 (from 64) H/o fall with x-ray done on 08/16/2019 with dissociation of the patellar component of the left knee arthroplasty from the posterior aspect of the patella with surrounding soft tissue swelling and large suprapatellar effusion. Left total knee arthroplasty done in 07/2018, status post revision on 02/24/2019, status post incision and drainage on 03/24/2019 with poly exchange. -Cultures from July and 03/2019 negative including AFB and fungal. Diabetes. Bipolar disorder. Plan Plan of Care Need to solidify Vanc dose prior to discharge - Phamacy managing likely home 09/25 Cults 09/[address] Bowden's office show MRSE No sens for Daptomycin. Antigen panel neg for Enterococcus 09/09 but Swab cult + 09/13. Intraop cults neg still Has spacer with Vanc and Gent impregnated Continue to Vanc and Ampicillin (started on 09/19) Monitor renal function closely Pain management per primary Labs in am Will need outpat IV abx - Ampicillin 12 gm IV continuous infusion and Vancomycin D/w Dr. Bowden D/w mother today D/w previously re Rationale for abx selections. ALIN ALDANA MD Sep 24, 2019 12:11
[2019-09-24] MEDS ORDERED: KETOROLAC 30 MG/ML VIAL. IVP ONE (12:15)
--- NOTE | 2019-09-24 13:24 | PDOC ---
PROGRESS NOTES Chief Complaint Chief Complaint left leg abscess with surrounding cellulitis 1. Left knee prosthetic joint infection 09/15 S/P Removal of total knee arthroplasty components with insertion antib iotic spacer and extensive debridement 2. History of fall with x-ray done on 08/16/2019 with dissociation of the patellar component of the left knee arthroplasty from the posterior aspect of the patella with surrounding soft tissue swelling and large suprapatellar effusion. 3. Left total knee arthroplasty done in 07/2018, status post revision on 02/24/2019, status post incision and drainage on 03/24/2019 with poly exchange. Cultures from July and 03/2019 negative including AFB and fungal. 4. Diabetes. 5. Anemia 6. Hypertension. 7. Hypothyroidism. 8. Osteoarthritis. 9. Bipolar disorder. History of Present Illness History of Present Illness Patient seen and examined Discussed with RN s/p wound VAC placement cont need for IV abx Vitals Vitals Vital Signs Date Time Temp Pulse Resp B/P (MAP) Pulse Ox O2 Delivery O2 Flow Rate FiO2 09/24/19 12:15 Room Air 09/24/19 11:00 97.7 63 18 174/102 (126) 100 97.7 09/24/19 01:13 10.0 Physical Exam Physical Exam GENERAL: Sitting up in bed. alert, in NAD - looks well HEENT: Oral cavity clear, dry - poor dentition and nml conj NECK: Supple LUNGS: Clear bilaterally. HEART: S1, S2 regular. ABDOMEN: Soft and nontender EXTREMITIES: LLE Trace edema. Left knee bandaged w/ hinge knee brace in place - Vac TYPIST: Alert and oriented x 3, grossly nonfocal. Right-sided tunneled CVC (09/14) clean General: Alert, Oriented X3, Cooperative, No acute distress, mild distress Heart: Regular rate, Normal S1, Normal S2 Lungs: Clear Abdomen: Normal bowel sounds, Soft, No tenderness Extremities: No cyanosis, Normal pulses Skin: No rashes, No breakdown Labs LABS Laboratory Tests Test 09/23/19 16:05 09/23/19 17:07 09/23/19 20:52 09/24/19 03:53 Random Vancomycin Level 14.4 mcg/mL Glucose (Fingerstick) 165 mg/dL (70-99) 108 mg/dL (70-99) Creatinine 0.9 mg/dL (0.7-1.3) Estimated GFR (Cockcroft-Gault) 89.7 Test 09/24/19 07:33 09/24/19 11:43 Glucose (Fingerstick) 115 mg/dL (70-99) 111 mg/dL (70-99) Comment Review of Relevant I have reviewed the following items satya (where applicable) has been applied. Labs Laboratory Tests Test 09/22/19 16:49 09/22/19 20:40 09/23/19 02:35 09/23/19 07:50 Glucose (Fingerstick) 110 mg/dL (70-99) 101 mg/dL (70-99) 127 mg/dL (70-99) Creatinine 0.9 mg/dL (0.7-1.3) Estimated GFR (Cockcroft-Gault) 89.7 Vancomycin Level Trough 24.3 mcg/mL (10.0-20.0) Vancomycin Last Dose Date 09/22/19 Vancomycin Last Dose Time 1500 Test 09/23/19 11:44 09/23/19 16:05 09/23/19 17:07 09/23/19 20:52 Glucose (Fingerstick) 104 mg/dL (70-99) 165 mg/dL (70-99) 108 mg/dL (70-99) Random Vancomycin Level 14.4 mcg/mL Test 09/24/19 03:53 09/24/19 07:33 09/24/19 11:43 Creatinine 0.9 mg/dL (0.7-1.3) Estimated GFR (Cockcroft-Gault) 89.7 Glucose (Fingerstick) 115 mg/dL (70-99) 111 mg/dL (70-99) Laboratory Tests Test 09/23/19 16:05 09/23/19 17:07 09/23/19 20:52 09/24/19 03:53 Random Vancomycin Level 14.4 mcg/mL Glucose (Fingerstick) 165 mg/dL (70-99) 108 mg/dL (70-99) Creatinine 0.9 mg/dL (0.7-1.3) Estimated GFR (Cockcroft-Gault) 89.7 Test 09/24/19 07:33 09/24/19 11:43 Glucose (Fingerstick) 115 mg/dL (70-99) 111 mg/dL (70-99) Microbiology 09/15/19 AFB Specimen Processing Tissue - Final, Resulted 09/15/19 Acid Fast Bacilli Culture, Resulted Pending 09/15/19 Gram Stain - Final, Resulted 09/15/19 Fungal Culture - Preliminary, Resulted 09/15/19 Fungal Culture Result 1 - Preliminary, Resulted 09/14/19 Blood Culture - Final, Complete NO GROWTH AFTER 5 DAYS Medications Current Medications Sodium Chloride 1,000 ml @ 1,000 mls/hr 1X ONCE IV Last administered on 09/13/19at 21:00; Start 09/13/19 at 20:45; Stop 09/13/19 at 21:44; Status DC Ondansetron HCl (Zofran) 4 mg 1X ONCE IV Last administered on 09/13/19at 21:00; Start 09/13/19 at 20:45; Stop 09/13/19 at 20:46; Status DC Morphine Sulfate (Morphine Sulfate) 4 mg 1X ONCE IV Last administered on 09/13/19at 21:00; Start 09/13/19 at 20:45; Stop 09/13/19 at 20:46; Status DC Iohexol (Omnipaque 300 Mg/ml) 75 ml 1X ONCE IV Last administered on 09/13/19at 21:42; Start 09/13/19 at 21:45; Stop 09/13/19 at 21:46; Status DC Info (CONTRAST GIVEN -- Rx MONITORING) 1 each PRN DAILY PRN MC SEE COMMENTS; Start 09/13/19 at 21:45; Stop 09/15/19 at 21:44; Status DC Vancomycin HCl (Vanco Per Pharmacy) 1 each PRN DAILY PRN MC SEE COMMENTS Last administered on 09/13/19at 23:45; Start 09/13/19 at 22:30; Stop 09/14/19 at 12:47; Status DC Ondansetron HCl (Zofran) 4 mg PRN Q8HRS PRN IV NAUSEA/VOMITING Last administered on 09/14/19at 17:08; Start 09/13/19 at 22:30; Stop 09/14/19 at 22:29; Status DC Morphine Sulfate (Morphine Sulfate) 4 mg PRN Q2HR PRN IV PAIN Last administered on 09/14/19at 15:43; Start 09/13/19 at 22:30; Stop 09/14/19 at 22:29; Status DC Vancomycin HCl 2 gm/Sodium Chloride 500 ml @ 250 mls/hr 1X ONCE IV Last administered on 09/13/19at 22:55; Start 09/13/19 at 23:00; Stop 09/14/19 at 00:59; Status DC Potassium Chloride (Klor-Con) 40 meq 1X ONCE PO Last administered on 09/13/19at 23:30; Start 09/13/19 at 23:30; Stop 09/13/19 at 23:31; Status DC Vancomycin HCl 1.75 gm/Sodium Chloride 500 ml @ 250 mls/hr Q12H IV Last administered on 09/14/19at 10:40; Start 09/14/19 at 11:00; Stop 09/14/19 at 12:45; Status DC Vancomycin HCl (Vancomycin Trough Level) 1 each 1X ONCE MC ; Start 09/15/19 at 10:30; Stop 09/14/19 at 12:47; Status DC Non-Formulary Medication 2 ea HS PO Last administered on 09/23/19at 21:11; Start 09/14/19 at 21:00 Non-Formulary Medication 2 ea 1X ONCE PO Last administered on 09/14/19at 02:05; Start 09/14/19 at 01:45; Stop 09/14/19 at 01:46; Status DC Levothyroxine Sodium (Synthroid) 100 mcg DAILY06 PO Last administered on 09/24/19at 06:00; Start 09/14/19 at 09:00 Lidocaine (Lidoderm) 1 patch DAILY TP Last administered on 09/24/19at 08:14; S tart 09/14/19 at 09:00 Lisinopril (Prinivil) 5 mg DAILY PO Last administered on 09/24/19 08:14; Start 09/14/19 at 09:00 Oxycodone/ Acetaminophen (Percocet 7.5/ 325) 1 tab PRN Q6HRS PRN PO PAIN Last administered on 09/16/19at 04:50; Start 09/14/19 at 08:45; Stop 09/16/19 at 09:10; Status DC Tizanidine HCl (Zanaflex) 4 mg TID PRN PO MUSCLE SPASMS Last administered on 09/24/19at 03:23; Start 09/14/19 at 08:45 Clonazepam (KlonoPIN) 1 mg BID PO Last administered on 09/24/19 08:14; Start 09/14/19 at 09:00 Doxepin HCl (SINEquan) 150 mg QHS PO Last administered on 09/18/19at 21:53; Start 09/14/19 at 21:00; Stop 09/19/19 at 01:13; Status DC [place] Carbonate (Lithobid) 600 mg QHS PO Last administered on 09/23/19 21:13; Start 09/14/19 at 21:00 Linagliptin (Tradjenta) 5 mg DAILY PO Last administered on 09/24/19 08:14; Start 09/14/19 at 09:00 Potassium Chloride (Klor-Con) 40 meq 1X ONCE PO Last administered on 09/14/19 09:03; Start 09/14/19 at 09:00; Stop 09/14/19 at 09:01; Status DC Metformin HCl (Glucophage) 1,000 mg BIDWMEALS PO Last administered on 09/24/19 08:14; Start 09/16/19 at 08:00 Lactobacillus Rhamnosus (Culturelle) 1 cap BID PO Last administered on 09/24/19 08:14; Start 09/14/19 at 21:00 Meropenem 500 mg/ Sodium Chloride 50 ml @ 100 mls/hr Q6HRS IV Last administered on 09/19/19 17:28; Start 09/14/19 at 13:30; Stop 09/19/19 at 18:26; Status DC Daptomycin 400 mg/ Sodium Chloride 50 ml @ 100 mls/hr Q24H IV Last administered on 09/19/19at 15:50; Start 09/14/19 at 14:00; Stop 09/19/19 at 18:26; Status DC Lidocaine HCl (Buffered Lidocaine 1%) 3 ml STK-MED ONCE .ROUTE ; Start 09/14/19 at 13:24; Stop 09/14/19 at 13:24; Status DC Lidocaine HCl (Buffered Lidocaine 1%) 3 ml 1X ONCE INJ ; Start 09/14/19 at 13:45; Stop 09/14/19 at 13:46; Status DC Cefazolin Sodium 100 ml @ As Directed STK-MED ONCE IV ; Start 09/14/19 at 13:51; Stop 09/14/19 at 13:51; Status DC Lidocaine/ Epinephrine (LIDOCAINE 1%-EPI 1:100,000 Multi-Dose) 20 ml STK-MED ONCE .ROUTE ; Start 09/14/19 at 14:01; Stop 09/14/19 at 14:01; Status DC Lidocaine/ Epinephrine (LIDOCAINE 1%-EPI 1:100,000 Multi-Dose) 20 ml 1X ONCE SQ Last administered on 09/14/19at 14:15; Start 09/14/19 at 14:15; Stop 09/14/19 at 14:16; Status DC Cefazolin Sodium 50 ml @ 100 mls/hr 1X ONCE IV Last administered on 09/14/19at 14:15; Start 09/14/19 at 14:15; Stop 09/14/19 at 14:44; Status DC Cefazolin Sodium 50 ml @ 100 mls/hr 1X ONCE IV Last administered on 09/14/19at 14:15; Start 09/14/19 at 14:15; Stop 09/14/19 at 14:44; Status DC Morphine Sulfate 5 mg/Ketorolac Tromethamine 30 mg/Ropivacaine 60 ml/Epinephrine HCl 0.5 mg/Sodium Chloride 100 ml @ 100 mls/hr 1X ONCE INT ART Last administered on 09/15/19at 14:36; Start 09/15/19 at 06:00; Stop 09/15/19 at 06:59; Status DC Ondansetron HCl (Zofran) 4 mg PRN Q6HRS PRN IV NAUSEA/VOMITING; Start 09/15/19 at 06:30; Stop 09/16/19 at 06:29; Status DC Fentanyl Citrate (Fentanyl 2ml Vial) 25 mcg PRN Q5MIN PRN IV MILD PAIN 1-3; Start 09/15/19 at 06:30; Stop 09/16/19 at 06:29; Status DC Fentanyl Citrate (Fentanyl 2ml Vial) 50 mcg PRN Q5MIN PRN IV MODERATE TO SEVERE PAIN; Start 09/15/19 at 06:30; Stop 09/16/19 at 06:29; Status DC Morphine Sulfate (Morphine Sulfate) 1 mg PRN Q10MIN PRN IV SEVERE PAIN 7-10; Start 09/15/19 at 06:30; Stop 09/16/19 at 06:29; Status DC Ringer's Solution 1,000 ml @ 30 mls/hr Q24H IV Last administered on 09/15/19at 10:39; Start 09/15/19 at 06:30; Stop 09/15/19 at 06:49; Status DC Lidocaine HCl (Xylocaine-Mpf 1% 2ml Vial) 2 ml 1X PRN PRN ID IV START; Start 09/15/19 at 06:30; Stop 09/16/19 at 06:29; Status DC Hydromorphone HCl (Dilaudid) 0.5 mg PRN Q10MIN PRN IV SEV PAIN, Second choice; Start 09/15/19 at 06:30; Stop 09/16/19 at 06:29; Status DC Prochlorperazine Edisylate (Compazine) 5 mg PACU PRN PRN IV NAUSEA, MRX1; Start 09/15/19 at 06:30; Stop 09/16/19 at 06:29; Status DC Propofol 20 ml @ As Directed STK-MED ONCE IV ; Start 09/15/19 at 09:30; Stop 1 11/16/18 at 09:31; Status DC Lidocaine HCl (Lidocaine Pf 2% Vial) 5 ml STK-MED ONCE .ROUTE ; Start 09/15/19 at 09:30; Stop 09/15/19 at 09:31; Status DC Dexamethasone Sodium Phosphate (Decadron) 20 mg STK-MED ONCE .ROUTE ; Start 09/15/19 at 09:30; Stop 09/15/19 at 09:31; Status DC Ondansetron HCl (Zofran) 4 mg STK-MED ONCE .ROUTE ; Start 09/15/19 at 09:30; Stop 09/15/19 at 09:31; Status DC Phenylephrine HCl (PHENYLEPHRINE in 0.9% NACL PF) 1 mg STK-MED ONCE IV ; Start 09/15/19 at 09:31; Stop 09/15/19 at 09:31; Status DC Fentanyl Citrate (Fentanyl 2ml Vial) 100 mcg STK-MED ONCE .ROUTE ; Start 09/15/19 at 09:31; Stop 09/15/19 at 09:32; Status DC Rocuronium [place] (Zemuron) 50 mg STK-MED ONCE .ROUTE ; Start 09/15/19 at 09:32; Stop 09/15/19 at 09:32; Status DC Succinylcholine Chloride (Anectine) 200 mg STK-MED ONCE .ROUTE ; Start 09/15/19 at 09:46; Stop 09/15/19 at 09:46; Status DC Nicardipine HCl (Cardene) 25 mg STK-MED ONCE IV ; Start 09/15/19 at 11:34; Stop 09/15/19 at 11:35; Status DC Sevoflurane (Ultane) 90 ml STK-MED ONCE IH ; Start 09/15/19 at 11:44; Stop 09/15/19 at 11:45; Status DC Fentanyl Citrate (Fentanyl 2ml Vial) 100 mcg STK-MED ONCE .ROUTE ; Start 09/15/19 at 11:50; Stop 09/15/19 at 11:50; Status DC Neostigmine Methylsulfate (Neostigmine Methylsulfate) 5 mg STK-MED ONCE .ROUTE ; Start 09/15/19 at 13:34; Stop 09/15/19 at 13:34; Status DC Glycopyrrolate (Robinul) 1 mg STK-MED ONCE .ROUTE ; Start 09/15/19 at 13:34; Stop 09/15/19 at 13:34; Status DC Fentanyl Citrate (Fentanyl 2ml Vial) 50 mcg PRN Q5MIN PRN IV MODERATE TO SEVERE PAIN; Start 09/15/19 at 14:45; Stop 09/16/19 at 08:59; Status DC Morphine Sulfate (Morphine Sulfate) 2 mg PRN Q10MIN PRN IV MILD PAIN 1-3; Start 09/15/19 at 14:45; Stop 09/16/19 at 08:59; Status DC Hydromorphone HCl (Dilaudid) 0.4 mg PRN Q10MIN PRN IV Moderate to severe pain; Start 09/15/19 at 14:45; Stop 09/16/19 at 08:59; Status DC Ondansetron HCl (Zofran) 4 mg PRN Q6HRS PRN IVP Nausea, 2nd Choice; Start 09/15/19 at 14:45; Stop 09/16/19 at 08:59; Status DC Insulin Human Lispro (HumaLOG VIAL for OP,RR ONLY) 0-10 units PRN Q1HR PRN SQ PER PROTOCOL Last administered on 09/15/19at 14:51; Start 09/15/19 at 14:45; Stop 09/16/19 at 14:44; Status DC Insulin Human Lispro (HumaLOG) 0-9 UNITS TIDWMEALS SQ ; Start 09/16/19 at 08:00; Stop 09/16/19 at 03:37; Status DC Dextrose (Dextrose 50%-Water Syringe) 12.5 gm PRN Q15MIN PRN IV SEE COMMENTS; Start 09/15/19 at 21:45 Insulin Human Lispro (HumaLOG) 12 units 1X SQ ; Start 09/15/19 at 22:00; Stop 09/15/19 at 23:07; Status DC Insulin Human Lispro (HumaLOG) 12 units 1X ONCE SQ Last administered on 09/15/19at 23:15; Start 09/15/19 at 23:15; Stop 09/15/19 at 23:16; Status DC Insulin Human Lispro (HumaLOG) 0-9 UNITS TIDWMEALHC SQ Last administered on 09/20/19at 08:17; Start 09/16/19 at 08:00 Oxycodone/ Acetaminophen (Percocet 10/325) 1 tab PRN Q6HRS PRN PO MODERATE TO SEVERE PAIN Last administered on 09/20/19at 06:42; Start 09/16/19 at 09:15; Stop 09/20/19 at 11:51; Status DC Hydromorphone HCl (Dilaudid) 1 mg 1X ONCE IV ; Start 09/16/19 at 14:00; Stop 09/16/19 at 14:01; Status Cancel Hydromorphone HCl (Dilaudid) 1 mg PRN Q4HRS PRN IV SEVERE PAIN 7-10 Last administered on 09/24/19at 11:53; Start 09/16/19 at 13:30 Potassium Chloride (Klor-Con) 40 meq 1X ONCE PO Last administered on 09/17/19at 17:04; Start 09/17/19 at 15:45; Stop 09/17/19 at 15:46; Status DC Diphenhydramine HCl (Benadryl) 25 mg PRN Q6HRS PRN PO ITCHING Last administered on 09/24/19at 01:23; Start 09/19/19 at 17:00 Ondansetron HCl (Zofran) 4 mg PRN Q6HRS PRN IVP NAUSEA/VOMITING Last administered on 09/21/19 18:19; Start 09/19/19 at 17:15 Ampicillin Sodium 1 gm/Sodium Chloride 50 ml @ 100 mls/hr Q4HRS IV Last administered on 09/20/19 13:27; Start 09/19/19 at 20:00; Stop 09/20/19 at 16:24; Status DC Vancomycin HCl (Vanco Per Pharmacy) 1 each PRN DAILY PRN MC SEE COMMENTS Last administered on 09/23/19 17:53; Start 09/19/19 at 18:30 Vancomycin HCl 2 gm/Sodium Chloride 500 ml @ 250 mls/hr 1X ONCE IV Last administered on 09/19/19 20:28; Start 09/19/19 at 21:00; Stop 09/19/19 at 22:59; Status DC Vancomycin HCl (Vancomycin Trough Level) 1 each 1X ONCE MC Last administered on 09/21/19 08:30; Start 09/21/19 at 08:30; Stop 09/21/19 at 08:31; Status DC Vancomycin HCl 2 gm/Sodium Chloride 500 ml @ 250 mls/hr Q12H IV Last administered on 09/20/19 20:33; Start 09/20/19 at 09:00; Stop 09/21/19 at 10:49; Status DC Oxycodone HCl (OxyCONTIN) 15 mg Q12HR PO Last administered on 09/24/19 08:15; Start 09/20/19 at 12:00 Oxycodone/ Acetaminophen (Percocet 5/325) 1 tab PRN Q4HRS PRN PO PAIN Last administered on 09/24/19 03:23; Start 09/20/19 at 12:00; Stop 09/24/19 at 12:03; Status DC Ampicillin Sodium 2 gm/Sodium Chloride 50 ml @ 100 mls/hr Q4HRS IV ; Start 09/20/19 at 17:00; Stop 09/20/19 at 16:31; Status DC Ampicillin Sodium 2 gm/Sodium Chloride 100 ml @ 200 mls/hr Q4HRS IV Last administered on 09/24/19 11:52; Start 09/20/19 at 17:00 Guaifenesin (Robitussin Dm) 10 ml PRN Q6HRS PRN PO COUGH 1ST CHOICE Last administered on 12/12/19at 01:23; Start 09/20/19 at 23:15 Vancomycin HCl 1.5 gm/Sodium Chloride 500 ml @ 250 mls/hr Q12H IV Last administered on 09/22/19at 16:03; Start 09/21/19 at 15:00; Stop 09/23/19 at 04:04; Status DC Vancomycin HCl (Vancomycin Trough Level) 1 each 1X ONCE MC Last administered o n 09/23/19at 02:30; Start 09/23/19 at 02:30; Stop 09/23/19 at 02:31; Status DC Vancomycin HCl (Vancomycin Random Level) 1 each 1X ONCE MC Last administered on 09/23/19at 16:00; Start 09/23/19 at 16:00; Stop 09/23/19 at 16:01; Status DC Vancomycin HCl 1.5 gm/Sodium Chloride 500 ml @ 250 mls/hr Q24H IV Last administered on 09/23/19at 18:11; Start 09/23/19 at 18:00 Vancomycin HCl (Vancomycin Trough Level) 1 each 1X ONCE MC ; Start 09/25/19 at 17:30; Stop 09/25/19 at 17:31 Oxycodone/ Acetaminophen (Percocet 10/325) 1 tab PRN Q4HRS PRN PO pain; Start 09/24/19 at 12:15 Ketorolac Tromethamine (Toradol 30mg Vial) 30 mg 1X ONCE IVP ; Start 09/24/19 at 12:15; Stop 09/24/19 at 12:16; Status DC Active Scripts Active Oxycodone Hcl Immed.release (Oxycodone Hcl) 10 Mg Tablet 10 Mg PO PRN Q4HRS PRN Reported Lidocaine PATCH (Lidocaine) 1 Each Adh..patch 1 Each TP DAILY REMOVE AFTER 12 HOURS Doxepin Hcl 150 Mg Capsule 1 Cap PO QHS 30 Days Lisinopril 5 Mg Tablet 1 Tab PO DAILY Percocet 7.5-325 Mg Tablet (Oxycodone/Acetaminophen) 1 Each Tablet 1 Tab PO PRN Q6HRS PRN Janumet 50-1,000 Mg Tablet (Sitagliptin Phos/Metformin Hcl) 1 Each Tablet 1 Tab PO BID [place] Carbonate 300 Mg Capsule 2 Cap PO HS Clonazepam 1 Mg Tablet 1 Mg PO BID Tizanidine Hcl 4 Mg Tablet 4 Mg PO TID PRN Levothyroxine Sodium 100 Mcg Tablet 1 Tab PO DAILY [place] Carbonate 300 Mg Tablet 1 Tab PO BID Lisinopril 2.5 Mg Tablet 5 Mg PO DAILY Zanaflex (Tizanidine Hcl) 4 Mg Capsule 1 Cap PO TID PRN Janumet 50-1,000 Mg Tablet (Sitagliptin Phos/Metformin Hcl) 1 Each Tablet 1 Tab PO BID Synthroid (Levothyroxine Sodium) 100 Mcg Tablet 100 Mcg PO DAILYAC Doxepin Hcl 50 Mg Capsule 300 Mg PO HS Klonopin (Clonazepam) 0.5 Mg Tablet 1 Mg PO PRN DAILY PRN Vitals/I & O Vital Sign - Last 24 Hours 09/23/19 09/23/19 09/23/19 09/23/19 13:30 15:00 16:56 16:58 Temp 98.1 98.1 Pulse 77 Resp 16 B/P (MAP) 135/94 (108) Pulse Ox 95 100 100 100 O2 Delivery Room Air Room Air Room Air Room Air O2 Flow Rate 10.0 10.0 10.0 09/23/19 09/23/19 09/23/19 09/23/19 19:00 20:00 21:12 21:13 Temp 97.6 97.6 Pulse 73 Resp 18 20 20 B/P (MAP) 160/101 (120) Pulse Ox 98 98 98 O2 Delivery Room Air Room Air Room Air Room Air 09/23/19 09/23/19 09/24/19 09/24/19 21:42 23:00 01:13 01:18 Temp 97.9 97.9 Pulse 75 Resp 20 18 20 20 B/P (MAP) 169/102 (124) Pulse Ox 95 95 95 95 O2 Delivery Room Air Room Air Room Air Room Air O2 Flow Rate 10.0 09/24/19 09/24/19 09/24/19 09/24/19 01:48 03:00 03:23 04:23 Temp 97.8 97.8 Pulse 80 Resp 20 18 20 20 B/P (MAP) 152/92 (112) Pulse Ox 98 97 95 98 O2 Delivery Room Air Room Air Room Air Room Air 09/24/19 09/24/19 09/24/19 09/24/19 06:17 06:47 07:00 08:00 Temp 97.3 97.3 Pulse 77 Resp 20 20 18 B/P (MAP) 115/68 (84) Pulse Ox 98 98 100 O2 Delivery Room Air Room Air Room Air Room Air 09/24/19 09/24/19 09/24/19 09/24/19 08:14 08:15 11:00 11:53 Temp 97.7 97.7 Pulse 77 63 Resp 18 B/P (MAP) 115/68 174/102 (126) Pulse Ox 100 O2 Delivery Room Air Room Air Room Air 09/24/19 09/24/19 12:15 12:15 O2 Delivery Room Air Room Air Intake and Output 09/23/19 09/23/19 09/24/19 15:00 23:00 07:00 Intake Total 600 ml 300 ml Output Total 1450 ml 1350 ml 500 ml Balance -1450 ml -750 ml -200 ml CHRIS LIAO MD Sep 24, 2019 13:24
[2019-09-24] MEDS: oxyCODONE/APAP 10/325 1 TAB TABLET PO PRN (14:16)
[2019-09-24 15:00] VITALS: BP 139/82
--- NOTE | 2019-09-24 16:08 | NUR ---
SW following. Discussed with RN, and Dr. Dixon. Pt definitely will need Ampicillin 12gm IV continuous infusion upon discharge and very likely vancomycin 1.[address] Dixon wanting to confirm vanco tomorrow (09/25/19). SW to determine home infusion agency tomorrow morning with pt, and have benefits run. SW will continue to follow. RN notified.
[2019-09-24] MEDS: VANCOMYCIN 1.5 GM in IV NORMAL SALINE 500ML BAG 500 ML IV SCH (18:15)
[2019-09-24 19:00] VITALS: BP 143/78
[2019-09-24] MEDS: DOXEPIN 150 MG PO SCH (20:46)
[2019-09-24] MEDS: LITHIUM CARBONATE ER 300 MG TABLET.ER PO SCH (20:47)
[2019-09-24 23:00] VITALS: BP 137/86
[2019-09-25] MEDS: AMPICILLIN SODIUM 2 GM in IV NORMAL SALINE 100ML 100 ML IV SCH ×4 (00:59→12:54)
[2019-09-25] MEDS: oxyCODONE/APAP 10/325 1 TAB TABLET PO PRN ×2 (01:35→12:54)
[2019-09-25] MEDS: diphenhydrAMINE HCL 25 MG CAPSULE PO PRN (02:12)
[2019-09-25] MEDS: guaiFENesin DM 200MG/20MG 10 ML SYRUP PO PRN (02:12)
[2019-09-25 03:00] VITALS: BP 129/79
[2019-09-25] MEDS: HYDROmorphone 2 MG/ML VIAL IV PRN ×2 (04:17→10:21)
[2019-09-25 06:28] LABS: BASO # 0.1 x10^3/uL (0.0-0.2); BASO % 1 % (0-3); EOS # 0.4 x10^3/uL (0.0-0.7); EOS % 7 % (0-3); HEMATOCRIT 28.5 % (39.0-53.0); HEMOGLOBIN 8.8 g/dL (13.0-17.5); LYMPH # 2.1 x10^3/uL (1.0-4.8); LYMPH % 36 % (24-48); MEAN CORPUSCULAR HEMOGLOBIN 23 pg (25-35); MEAN CORPUSCULAR HGB CONC 31 g/dL (31-37); MEAN CORPUSCULAR VOLUME 74 fL (79-100); MONO # 0.4 x10^3/uL (0.0-1.1); MONO % 7 % (0-9); NEUT # 2.8 x10^3/uL (1.8-7.7); NEUT % 49 % (31-73); PLATELET COUNT 384 x10^3/uL (140-400); RED BLOOD COUNT 3.83 x10^6/uL (4.30-5.70); RED CELL DISTRIBUTION WIDTH 17.4 % (11.5-14.5); WHITE BLOOD COUNT 5.8 x10^3/uL (4.0-11.0)
[2019-09-25] MEDS: LEVOTHYROXINE 100 MCG TABLET PO SCH (06:31)
[2019-09-25 06:43] LABS: ALBUMIN 2.8 g/dL (3.4-5.0); ALBUMIN/GLOBULIN RATIO 0.7 (1.0-1.7); CALCIUM 9.2 mg/dL (8.5-10.1); GFR 79.4; POTASSIUM 4.1 mmol/L (3.5-5.1); TOTAL BILIRUBIN 0.3 mg/dL (0.2-1.0)
[2019-09-25 07:00] VITALS: BP 113/72
[2019-09-25] MEDS: INSULIN LISPRO 300 UNITS/3 ML VIAL. SQ SCH ×2 (08:00→12:00)
[2019-09-25] MEDS: metFORMIN 500 MG TABLET PO SCH (08:48)
[2019-09-25] MEDS: clonazePAM 0.5 MG TABLET PO SCH (08:48)
[2019-09-25] MEDS: LINAGLIPTIN 5 MG TABLET PO SCH (08:48)
[2019-09-25] MEDS: LISINOPRIL 5 MG TABLET. PO SCH (08:48)
[2019-09-25] MEDS: LACTOBACILLUS RHAMNOSUS GG 1 CAPSULE. PO SCH (08:48)
[2019-09-25] MEDS: oxyCODONE ER 15 MG TAB.ER.12H PO SCH (08:48)
[2019-09-25] MEDS: LIDOCAINE (700MG/PATCH) PATCH. TP SCH (09:00)
--- NOTE | 2019-09-25 09:39 | NUR ---
ALEX following. Discussed with RN, pt had [facility] in the past and would like to use them again. ALEX contacted [facility] to notify of pt abx. [facility] will notify ALEX of benefits. ALEX will continue to follow. Addendum: 09/25/19 at 1111 by CATE JOHNSON Pt is covered at 100% for home infusion. ALEX faxed H&P and script to [facility], awaiting confirmation of teach time, and discharge paperwork to fax to [facility]. Evette YUSUF, Diana notified, will see pt prior to discharge. RN notified. ALEX will continue to follow. Addendum: 09/25/19 at 1434 by CATE JOHNSON Pt [facility] [place] [facility]. Emely dropping pt IV meds to [facility] prior to discharge. Pt should be home by 6pm abx scheduled time. RN notified. No further SW needs.
[2019-09-25 11:00] VITALS: BP 121/76
--- NOTE | 2019-09-25 11:01 | PDOC ---
Infectious Disease Note Subjective Subjective Pain improving Appetite better No fever, chills/loose stool/Tinnitus/Vertigo Min drainage from wound now with wound vac Ambulating Vital Sign Vital Signs Vital Signs Date Time Temp Pulse Resp B/P (MAP) Pulse Ox O2 Delivery O2 Flow Rate FiO2 09/25/19 10:21 16 Room Air 09/25/19 08:48 71 113/72 09/25/19 07:00 98.1 98 98.1 09/25/19 01:35 10.0 Physical Exam PHYSICAL EXAM GENERAL: Ambulating alert, in NAD - looks well HEENT: Oral cavity clear, dry - poor dentition and nml conj NECK: Supple LUNGS: Clear bilaterally. HEART: S1, S2 regular. ABDOMEN: Soft and nontender EXTREMITIES: LLE Trace edema. Left knee bandaged w/ hinge knee brace in place - Vac PROTOHISTORIAN: Alert and oriented x 3, grossly nonfocal. Right-sided tunneled CVC (09/14) clean Labs Lab Laboratory Tests Test 09/24/19 11:43 09/24/19 16:22 09/24/19 20:50 09/25/19 05:28 Glucose (Fingerstick) 111 mg/dL (70-99) 110 mg/dL (70-99) 116 mg/dL (70-99) White Blood Count 5.8 x10^3/uL (4.0-11.0) Red Blood Count 3.83 x10^6/uL (4.30-5.70) Hemoglobin 8.8 g/dL (13.0-17.5) Hematocrit 28.5 % (39.0-53.0) Mean Corpuscular Volume 74 fL (79-100) Mean Corpuscular Hemoglobin 23 pg (25-35) Mean Corpuscular Hemoglobin Concent 31 g/dL (31-37) Red Cell Distribution Width 17.4 % (11.5-14.5) Platelet Count 384 x10^3/uL (140-400) Neutrophils (%) (Auto) 49 % (31-73) Lymphocytes (%) (Auto) 36 % (24-48) Monocytes (%) (Auto) 7 % (0-9) Eosinophils (%) (Auto) 7 % (0-3) Basophils (%) (Auto) 1 % (0-3) Neutrophils # (Auto) 2.8 x10^3/uL (1.8-7.7) Lymphocytes # (Auto) 2.1 x10^3/uL (1.0-4.8) Monocytes # (Auto) 0.4 x10^3/uL (0.0-1.1) Eosinophils # (Auto) 0.4 x10^3/uL (0.0-0.7) Basophils # (Auto) 0.1 x10^3/uL (0.0-0.2) Erythrocyte Sedimentation Rate 58 (0-15) Sodium Level 139 mmol/L (136-145) Potassium Level 4.1 mmol/L (3.5-5.1) Chloride Level 100 mmol/L (98-107) Carbon Dioxide Level 29 mmol/L (21-32) Anion Gap 10 (6-14) Blood Urea Nitrogen 5 mg/dL (8-26) Creatinine 1.0 mg/dL (0.7-1.3) Estimated GFR (Cockcroft-Gault) 79.4 BUN/Creatinine Ratio 5 (6-20) Glucose Level 107 mg/dL (70-99) Calcium Level 9.2 mg/dL (8.5-10.1) Total Bilirubin 0.3 mg/dL (0.2-1.0) Aspartate Amino Transf (AST/SGOT) 9 U/L (15-37) Alanine Aminotransferase (ALT/SGPT) 9 U/L (16-63) Alkaline Phosphatase 115 U/L (46-116) Total Protein 7.0 g/dL (6.4-8.2) Albumin 2.8 g/dL (3.4-5.0) Albumin/Globulin Ratio 0.7 (1.0-1.7) Test 09/25/19 07:21 Glucose (Fingerstick) 135 mg/dL (70-99) Micro Microbiology 09/15/19 AFB Specimen Processing Tissue - Final, Resulted 09/15/19 Acid Fast Bacilli Culture, Resulted Pending 09/15/19 Gram Stain - Final, Resulted 09/15/19 Fungal Culture, Resulted Pending 09/15/19 Fungal Culture Result 1, Resulted Pending 09/14/19 Blood Culture - Final, Complete NO GROWTH AFTER 5 DAYS Objective Assessment Left knee prosthetic joint infection. Synovial fluid cx positive for MRSE 09/09 Tetra resistant; swab culture here grew E fecalis amp sensitive 09/13. -09/15 s/p removal of total knee arthroplasty components with insertion antibiotic spacer and extensive debridement Intraop Vanc and Tobra. Intra-op cultures neg so far; AF stain neg - ESR 75 12/8 (from 64) H/o fall with x-ray done on 08/16/2019 with dissociation of the patellar component of the left knee arthroplasty from the posterior aspect of the patella with surrounding soft tissue swelling and large suprapatellar effusion. Left total knee arthroplasty done in 07/2018, status post revision on 02/24/2019, status post incision and drainage on 03/24/2019 with poly exchange. -Cultures from July and 03/2019 negative including AFB and fungal. Diabetes. Bipolar disorder. Plan Plan of Care D/w pharmacy this am and states on correct Vanc dose Cults 09/[address] Bowden's office show MRSE No sens for Daptomycin. Antigen panel neg for Enterococcus 09/09 but Swab cult + 09/13. Intraop cults neg still Has spacer with Vanc and Gent impregnated Continue to Vanc and Ampicillin (started on 09/19) Monitor renal function closely Pain management per primary Labs in am Will need outpat IV abx - Ampicillin 12 gm IV continuous infusion and Vancomycin D/w Dr. Bowden D/w mother today reviewed rationale for abx - reviewed risks of failure and s/s of toxicities of antibiotics and told her he needs to return if worsens home with [facility] health D/w previously re Rationale for abx selections. ALIN ALDANA MD Sep 25, 2019 11:01
--- NOTE | 2019-09-25 12:11 | SNU/HH DC ---
DISCHARGE WITH HOME HEALTH DISCHARGE INFORMATION: Condition on Discharge: Stable CODE STATUS: Code Status: Full HOME HEALTH: Face to Face: I certify this patient is under my care and that I, or a nurse practitioner or physician's dental front office assistant working with me, had a face to face encounter that meets the physician face to face encounter requirements with this patient on []. Medical Complications: Other (leg abscess) Halfway For: Assess & Educate Safety RN For Eval/Treatment: Yes Physical Therapy For: Evalulation/Treatment Occupational Therapy For: Evaluation/Treatment Home Health Aide For: Self-care [employer]IGARET[employer] SE[employer]ER For: Community Resources Pt Meets Homebound Status: Poor coordination w/ amb. CERTIFICATION STATEMENT: Certification Statement: Certification Statement: Based on the above finding, I certify that this patient is confined to the home and needs intermittent alf care, physical therapy and/or speech therapy, or continues to need occupational therapy.~ This patient is under my care, and I have initiated the establishment of the plan of care.~ This patient will be followed by myself or a community physician who will periodically review the plan of care. Home Meds Active Scripts Oxycodone Hcl (OXYCODONE HCL IMMED.RELEASE) 10 Mg Tablet, 10 MG PO PRN Q4HRS PRN for PAIN, #60 TAB 0 Refills Prov:ELISHA SORIA MD 03/27/19 Reported Medications Lidocaine (Lidocaine PATCH ) 1 Each Adh..patch, 1 EACH TP DAILY for FOR LOCAL PAIN, PATCH REMOVE AFTER 12 HOURS 09/14/19 Doxepin Hcl (DOXEPIN HCL) 150 Mg Capsule, 1 CAP PO QHS for sleep for 30 Days, #30 CAP 0 Refills 09/14/19 Lisinopril (LISINOPRIL) 5 Mg Tablet, 1 TAB PO DAILY for HTN, #30 TAB 5 Refills 09/14/19 Oxycodone/Apap 7.5-325 (PERCOCET 7.5-325 MG TABLET ) 1 Each Tablet, 1 TAB PO PRN Q6HRS PRN for PAIN, TAB 0 Refills 09/14/19 Sitagliptin Phos/Metformin Hcl (JANUMET 50-1,000 MG TABLET) 1 Each Tablet, 1 TAB PO BID for dm, #60 TAB 5 Refills 09/14/19 [place] Carbonate (LITHIUM CARBONATE) 300 Mg Capsule, 2 CAP PO HS for bipolar, #60 CAP 2 Refills 12/2/19 Clonazepam (CLONAZEPAM) 1 Mg Tablet, 1 MG PO BID for FOR ANXIETY, TAB 09/14/19 Tizanidine Hcl (TIZANIDINE HCL) 4 Mg Tablet, 4 MG PO TID PRN for MUSCLE SPASMS, TAB 09/14/19 Levothyroxine Sodium (LEVOTHYROXINE SODIUM) 100 Mcg Tablet, 1 TAB PO DAILY for hypothyroid, #30 TAB 5 Refills 09/14/19 [place] Carbonate (LITHIUM CARBONATE) 300 Mg Tablet, 1 TAB PO BID for BIPOLAR, #60 TAB 1 Refill 02/10/19 Lisinopril (LISINOPRIL) 2.5 Mg Tablet, 5 MG PO DAILY for FOR HYPERTENSION, #30 TAB 0 Refills 11/28/17 Tizanidine Hcl (ZANAFLEX) 4 Mg Capsule, 1 CAP PO TID PRN for MUSCLE SPASTICITY, #90 CAP 02/27/16 Sitagliptin Phos/Metformin Hcl (JANUMET 50-1,000 MG TABLET) 1 Each Tablet, 1 TAB PO BID for diabetes 07/22/15 Levothyroxine Sodium (SYNTHROID) 100 Mcg Tablet, 100 MCG PO DAILYAC for THYROID 07/22/15 Doxepin Hcl (DOXEPIN HCL) 50 Mg Capsule, 300 MG PO HS for sleep/anxiety 07/22/15 Clonazepam (KLONOPIN) 0.5 Mg Tablet, 1 MG PO PRN DAILY PRN for ANXIETY / AGITATION 09/17/13 RUSTAM CARR III DO Sep 25, 2019 12:11
--- NOTE | 2019-09-25 14:45 | NUR ---
Wound Care: Patient seen per wound care for wound vac dressing change to left knee incision Continue with wound vac ordered by Dr Bowden to manage drainage and assist with incisional closure. Patient will be discharging with [facility] home vac. Skin prepped for vac placement and a contact layer placed over sutures, black granufoam laid over top with small insertion of foam to distal incision site to pull off drainage as this is where it has largest amount of drainage. Good seal obtained at 125mmHg continuous. Patient educated on wound vac therapy and functions. Patient and family both verbalized understanding. Patient will discharge with HH. Bed lowered and call light in reach. Family at bedside.
--- NOTE | 2019-09-25 14:54 | DS ---
DATE OF DISCHARGE: 09/18/2019 ADMISSION DIAGNOSIS: Infected hardware of left knee with septic joint. DISCHARGE DIAGNOSES: Postop day 10 removal of total knee arthroplasty components with insertion of antibiotic spacer, obesity, bipolar, insomnia, weakness and hypokalemia. CONSULTS: Orthopedics and Infectious Disease. HOSPITAL COURSE: The patient is a pleasant middle-aged male who basically presented with an infected knee with septic joint. He had previous hardware in the knee. We started him on IV antibiotics. We consulted ID and Ortho. He was taken for removal of hardware with spacer. Over the past few days, he has returned to his baseline. He is doing better. He stays up walking, I examined him. Heart tones were normal. Lungs were clear. We plan to discharge and set up Home Health. DISPOSITION: Home with home health. ACTIVITY: As tolerated. DIET: Low sodium. MEDICATIONS: Please see MRAD. TOTAL TIME: 34 minutes. RUSTAM CARR DO DR: KEYONA/jacquelyn JOB#: [id number] / [id number]
[2019-09-25 15:00] VITALS: BP 143/89
--- NOTE | 2019-09-25 16:10 | NUR ---
Discharge instructions and belongings reviewed with patient, verbalized understanding. Patient was escorted out via wheelchair by Oniel CARBAJAL accompanied by his .
== END 2019-09-25 16:45 | disposition home health service (06) | DRG 467 ==
LOC: ER 19:17 → 5 NORTH 22:48 → 4 NORTH 23:32
PROVIDERS: ADMIT Family Medicine; ATTEND Family Medicine
PROC: 0JH63XZ Insertion of Tunneled Vascular Access Device into Chest Subcutaneous Tissue and Fascia, Percutaneous Approach (ICD-10-PCS; 2019-09-14)
PROC: 02HV33Z Insertion of Infusion Device into Superior Vena Cava, Percutaneous Approach (ICD-10-PCS; 2019-09-14)
PROC: B5181ZA Fluoroscopy of Superior Vena Cava using Low Osmolar Contrast, Guidance (ICD-10-PCS; 2019-09-14)
PROC: B548ZZA Ultrasonography of Superior Vena Cava, Guidance (ICD-10-PCS; 2019-09-14)
PROC: 0SRW0JZ Replacement of Left Knee Joint, Tibial Surface with Synthetic Substitute, Open Approach (ICD-10-PCS; 2019-09-15)
PROC: 0SPW0JZ Removal of Synthetic Substitute from Left Knee Joint, Tibial Surface, Open Approach (ICD-10-PCS; principal; 2019-09-15 11:00)
DX: T84.54XA Infection and inflammatory reaction due to internal left knee prosthesis, initial encounter (principal); L02.416 Cutaneous abscess of left lower limb; M86.8X8 Other osteomyelitis, other site; Y83.1 Surgical operation with implant of artificial internal device as the cause of abnormal reaction of the patient, or of later complication, without mention of misadventure at the time of the procedure; D50.9 Iron deficiency anemia, unspecified; E03.9 Hypothyroidism, unspecified; E11.69 Type 2 diabetes mellitus with other specified complication; E66.9 Obesity, unspecified; E87.6 Hypokalemia; F17.290 Nicotine dependence, other tobacco product, uncomplicated; F31.9 Bipolar disorder, unspecified; G47.00 Insomnia, unspecified; I10 Essential (primary) hypertension; M19.90 Unspecified osteoarthritis, unspecified site; Z68.37 Body mass index [BMI] 37.0-37.9, adult; Z96.651 Presence of right artificial knee joint; G47.33 Obstructive sleep apnea (adult) (pediatric); Z79.4 Long term (current) use of insulin
CPT/HCPCS: 36415; 36558; 73701; 76937; 77001; 80048; 80053; 80202; 82550; 82565; 82962; 83540; 83550; 83605; 85025; 85651; 87040; 87071; 87075; 87102; 87116; 87186; 96361; 96365; 96375; A7015; C1713; C1751; C1892; J0290; J0330; J0690; J0878; J1100; J1170; J1815; J1885; J2001; J2185; J2270; J2370; J2405; J2704; J2710; J3010; J3370; J3490; J7030; J7040; J7120; Q0163; Q9967; 97110; 97116; 97530; 97535; 99285-25; C1769; G0378

== ENCOUNTER → 2019-09-28 | Outpatient (CLI) | payer BC, MEDICARE ==
[2019-09-25 15:00] VITALS: BP 143/89
[~2019-09-28] MED LIST changes: +CLONAZEPAM1 MG PO; +DOXE150C2 PO; +LEVO100T5 PO; +LIDO700A21 TP; +LISI-338 PO; +LITH300C PO; +TIZA4TAB2 PO
[2019-09-28 20:16] LABS: RED BLOOD COUNT 3.89 x10^6/uL (4.30-5.70); WHITE BLOOD COUNT 6.6 x10^3/uL (4.0-11.0)
[2019-09-28 20:17] LABS: BASO # 0.1 x10^3/uL (0.0-0.2); BASO % 1 % (0-3); EOS # 0.3 x10^3/uL (0.0-0.7); EOS % 5 % (0-3); HEMATOCRIT 29.5 % (39.0-53.0); HEMOGLOBIN 9.3 g/dL (13.0-17.5); LYMPH # 2.2 x10^3/uL (1.0-4.8); LYMPH % 33 % (24-48); MEAN CORPUSCULAR HEMOGLOBIN 24 pg (25-35); MEAN CORPUSCULAR HGB CONC 31 g/dL (31-37); MEAN CORPUSCULAR VOLUME 76 fL (79-100); MONO # 0.5 x10^3/uL (0.0-1.1); MONO % 7 % (0-9); NEUT # 3.6 x10^3/uL (1.8-7.7); NEUT % 54 % (31-73); PLATELET COUNT 444 x10^3/uL (140-400); RED CELL DISTRIBUTION WIDTH 18.4 % (11.5-14.5)
[2019-09-28 20:28] LABS: ALBUMIN 2.8 g/dL (3.4-5.0); ANION GAP 13 (6-14); BLOOD UREA NITROGEN 7 mg/dL (8-26); CALCIUM 8.8 mg/dL (8.5-10.1); CARBON DIOXIDE 25 mmol/L (21-32); CHLORIDE 100 mmol/L (98-107); CREATININE 1.2 mg/dL (0.7-1.3); GFR 64.4; GLUCOSE 179 mg/dL (70-99); PHOSPHORUS 4.6 mg/dL (2.6-4.7); POTASSIUM 4.1 mmol/L (3.5-5.1); SODIUM 138 mmol/L (136-145); VANC TR 9.6 mcg/mL (10.0-20.0)
== END | disposition home or self-care (01) ==
LOC: SPEC 20:04
PROVIDERS: ATTEND Internal Medicine Infectious Disease
DX: Z51.81 Encounter for therapeutic drug level monitoring (principal); I10 Essential (primary) hypertension; E11.9 Type 2 diabetes mellitus without complications; E03.9 Hypothyroidism, unspecified; F17.200 Nicotine dependence, unspecified, uncomplicated; Z79.2 Long term (current) use of antibiotics; Z79.4 Long term (current) use of insulin
CPT/HCPCS: 36415; 80069; 80202; 85025; 85651

== ENCOUNTER → 2019-10-01 | Outpatient (CLI) | payer BC, MEDICARE ==
[2019-09-25 15:00] VITALS: BP 143/89
[2019-10-01 17:52] LABS: BASO # 0.1 x10^3/uL (0.0-0.2); BASO % 2 % (0-3); EOS # 0.3 x10^3/uL (0.0-0.7); EOS % 5 % (0-3); HEMATOCRIT 29.1 % (39.0-53.0); HEMOGLOBIN 9.1 g/dL (13.0-17.5); LYMPH # 1.8 x10^3/uL (1.0-4.8); LYMPH % 34 % (24-48); MEAN CORPUSCULAR HEMOGLOBIN 24 pg (25-35); MEAN CORPUSCULAR HGB CONC 31 g/dL (31-37); MEAN CORPUSCULAR VOLUME 76 fL (79-100); MONO # 0.4 x10^3/uL (0.0-1.1); MONO % 7 % (0-9); NEUT # 2.7 x10^3/uL (1.8-7.7); NEUT % 52 % (31-73); PLATELET COUNT 406 x10^3/uL (140-400); RED BLOOD COUNT 3.85 x10^6/uL (4.30-5.70); RED CELL DISTRIBUTION WIDTH 19.1 % (11.5-14.5); WHITE BLOOD COUNT 5.2 x10^3/uL (4.0-11.0)
[2019-10-01 17:59] LABS: ALBUMIN 2.4 g/dL (3.4-5.0); ALK PHOS 121 U/L (46-116); ALT (SGPT) 8 U/L (16-63); AST (SGOT) 10 U/L (15-37); BLOOD UREA NITROGEN 10 mg/dL (8-26); CREATININE 1.3 mg/dL (0.7-1.3); DIRECT BILIRUBIN 0.1 mg/dL (0.0-0.2); GFR 58.4; TOTAL BILIRUBIN 0.2 mg/dL (0.2-1.0); VANC TR 16.4 mcg/mL (10.0-20.0)
== END | disposition home or self-care (01) ==
LOC: LAB 17:12
PROVIDERS: ATTEND Internal Medicine Infectious Disease
DX: M17.12 Unilateral primary osteoarthritis, left knee (principal)
CPT/HCPCS: 36415; 80076; 80202; 82565; 84520; 85025; 85651

== ENCOUNTER → 2019-10-06 | Outpatient (CLI) | payer MEDICARE, BC ==
[2019-09-25 15:00] VITALS: BP 143/89
[2019-10-06 13:44] LABS: BASO # 0.1 x10^3/uL (0.0-0.2); BASO % 1 % (0-3); EOS # 0.1 x10^3/uL (0.0-0.7); EOS % 2 % (0-3); HEMATOCRIT 33.2 % (39.0-53.0); HEMOGLOBIN 10.3 g/dL (13.0-17.5); LYMPH # 1.1 x10^3/uL (1.0-4.8); LYMPH % 20 % (24-48); MEAN CORPUSCULAR HEMOGLOBIN 24 pg (25-35); MEAN CORPUSCULAR HGB CONC 31 g/dL (31-37); MEAN CORPUSCULAR VOLUME 76 fL (79-100); MONO # 0.3 x10^3/uL (0.0-1.1); MONO % 6 % (0-9); NEUT # 3.9 x10^3/uL (1.8-7.7); NEUT % 71 % (31-73); PLATELET COUNT 356 x10^3/uL (140-400); RED BLOOD COUNT 4.37 x10^6/uL (4.30-5.70); RED CELL DISTRIBUTION WIDTH 19.8 % (11.5-14.5); WHITE BLOOD COUNT 5.6 x10^3/uL (4.0-11.0)
[2019-10-06 13:52] LABS: ALBUMIN 3.1 g/dL (3.4-5.0); ALBUMIN/GLOBULIN RATIO 0.7 (1.0-1.7); CALCIUM 9.1 mg/dL (8.5-10.1); CREATININE 1.2 mg/dL (0.7-1.3); GFR 64.1; POTASSIUM 3.6 mmol/L (3.5-5.1); TOTAL BILIRUBIN 0.3 mg/dL (0.2-1.0); TOTAL PROTEIN 7.5 g/dL (6.4-8.2)
== END | disposition home or self-care (01) ==
LOC: SPEC 13:23
PROVIDERS: ATTEND Internal Medicine
DX: Z51.81 Encounter for therapeutic drug level monitoring (principal); Z79.2 Long term (current) use of antibiotics
CPT/HCPCS: 36415; 80053; 82550; 85025; 85651

== ENCOUNTER 2019-10-08 21:52 | Emergency (ER) | payer BC, MEDICARE ==
[~2019-10-08] VITALS: Ht 170.2 cm; Wt 108.9 kg
[2019-10-08] MEDS ORDERED: ALTEPLASE 1MG SYRINGE. INT CAT ONE (23:45)
--- NOTE | 2019-10-08 23:45 | PHYS DOC ---
Past Medical History Past Medical History: Bipolar, Diabetes-Type II, Hypertension Past Surgical History: Knee Replacement Additional Past Surgical Histo: SESAR. KNEE REPLACEMENTS; LEFT 05/01 WITH REVISION 06/01; RIGHT 5 YEARS AGO Alcohol Use: None Drug Use: None Adult General Chief Complaint Chief Complaint: HYPERTENSION HPI HPI 49-year-old male presents to the emergency department with complaints of left knee pain, PICC pain, elevated blood pressure, chills, nausea as well as vomiting. Patient was seen at this facility early September subsequently discharged after removal of toenail arthroplasty with antibiotic spacer placed. Patient has a PICC in place and has subsequently been on antibiotic therapy since that time. He states his blood pressure was elevated at home along with nausea and vomiting and therefore presented to the ER for further evaluation. Nothing makes his symptoms worse, nothing makes his symptoms better. Review of Systems Review of Systems Constitutional: chills Respiratory: Denies cough or shortness of breath [] Cardiovascular: No additional information not addressed in HPI [] GI: Denies abdominal pain, + nausea, vomiting, no bloody stools or diarrhea [] : Denies dysuria or hematuria [] Musculoskeletal: left knee pain Integument: Denies rash or skin lesions [] Neurologic: Denies headache, focal weakness or sensory changes [] All other systems were reviewed and found to be within normal limits, except as documented in this note. Current Medications Current Medications Current Medications Medications (Trade) Dose Ordered Sig/Jermaine Start Time Stop Time Status Last Admin Dose Admin Alteplase, Recombinant (Cathflo For Central Catheter Clearance) 1 mg 1X ONCE 10/08/19 23:45 10/08/19 23:46 DC Morphine Sulfate (Morphine Sulfate) 4 mg 1X ONCE 10/09/19 00:00 10/09/19 00:01 DC 10/08/19 23:57 4 MG Ondansetron HCl (Zofran) 4 mg 1X ONCE 10/09/19 00:00 10/09/19 00:01 DC 10/08/19 23:57 4 MG Allergies Allergies Allergies Coded Allergies Type Severity Reaction Last Updated Verified I S O L A T I O N *CONTACT* Allergy Unknown 09/15/19 Yes No Known Medication Allergies Allergy Unknown 09/15/19 Yes Physical Exam Physical Exam Constitutional: Well developed, well nourished, no acute distress, non-toxic appearance. [] HENT: Normocephalic, atraumatic, bilateral external ears normal, oropharynx moist, no oral exudates, nose normal. [] Eyes: PERRLA, EOMI, conjunctiva normal, no discharge. [] Neck: PICC in place, no swelling appreciated Cardiovascular:Heart rate regular rhythm, no murmur [] Lungs & Thorax: Bilateral breath sounds clear to auscultation [] Abdomen: Bowel sounds normal, soft, no tenderness, no masses, no pulsatile masses. [] Skin: Warm, dry, no erythema, no rash. [] Extremities: No tenderness, no edema. [] Neurologic: Alert and oriented X 3, no focal deficits noted. [] Psychologic: Affect normal, judgement normal, mood normal. [] Current Patient Data Vital Signs Vital Signs Date Time Temp Pulse Resp B/P (MAP) Pulse Ox O2 Delivery O2 Flow Rate FiO2 10/08/19 23:57 18 99 Room Air 10/08/19 23:35 88 10/08/19 22:34 97.6 154/93 (113) 97.6 Lab Values Laboratory Tests Test 10/08/19 23:12 White Blood Count 4.8 x10^3/uL (4.0-11.0) Red Blood Count 4.01 x10^6/uL (4.30-5.70) L Hemoglobin 9.7 g/dL (13.0-17.5) L Hematocrit 30.5 % (39.0-53.0) L Mean Corpuscular Volume 76 fL (79-100) L Mean Corpuscular Hemoglobin 24 pg (25-35) L Mean Corpuscular Hemoglobin Concent 32 g/dL (31-37) Red Cell Distribution Width 20.2 % (11.5-14.5) H Platelet Count 297 x10^3/uL (140-400) Neutrophils (%) (Auto) 48 % (31-73) Lymphocytes (%) (Auto) 36 % (24-48) Monocytes (%) (Auto) 9 % (0-9) Eosinophils (%) (Auto) 5 % (0-3) H Basophils (%) (Auto) 2 % (0-3) Neutrophils # (Auto) 2.3 x10^3/uL (1.8-7.7) Lymphocytes # (Auto) 1.7 x10^3/uL (1.0-4.8) Monocytes # (Auto) 0.4 x10^3/uL (0.0-1.1) Eosinophils # (Auto) 0.2 x10^3/uL (0.0-0.7) Basophils # (Auto) 0.1 x10^3/uL (0.0-0.2) Platelet Estimate Adequate (ADEQUATE) Hypochromasia Slight Anisocytosis Mod Sodium Level 142 mmol/L (136-145) Potassium Level 3.6 mmol/L (3.5-5.1) Chloride Level 106 mmol/L (98-107) Carbon Dioxide Level 26 mmol/L (21-32) Anion Gap 10 (6-14) Blood Urea Nitrogen 6 mg/dL (8-26) L Creatinine 1.1 mg/dL (0.7-1.3) Estimated GFR (Cockcroft-Gault) 70.9 BUN/Creatinine Ratio 5 (6-20) L Glucose Level 108 mg/dL (70-99) H Lactic Acid Level 2.5 mmol/L (0.4-2.0) H Calcium Level 8.8 mg/dL (8.5-10.1) Total Bilirubin 0.3 mg/dL (0.2-1.0) Aspartate Amino Transferase (AST) 19 U/L (15-37) Alanine Aminotransferase (ALT) 8 U/L (16-63) L Alkaline Phosphatase 106 U/L (46-116) Total Protein 7.1 g/dL (6.4-8.2) Albumin 2.8 g/dL (3.4-5.0) L Albumin/Globulin Ratio 0.7 (1.0-1.7) L Laboratory Tests 10/08/19 23:12 Laboratory Tests 10/08/19 23:12 EKG EKG [] Radiology/Procedures Radiology/Procedures [] Course & Med Decision Making Course & Med Decision Making Pertinent Labs and Imaging studies reviewed. (See chart for details) [] 49-year-old male presents to the emergency department with complaints of left knee pain, PICC pain, elevated blood pressure, chills, nausea as well as vomiting. Patient was seen at this facility early September subsequently discharged after removal of toenail arthroplasty with antibiotic spacer placed. Patient has a PICC in place and has subsequently been on antibiotic therapy since that time. He states his blood pressure was elevated at home along with nausea and vomiting and therefore presented to the ER for further evaluation. Nothing makes his symptoms worse, nothing makes his symptoms better. Labs reviewed, white count 4.8, potassium 3.6, lactic acid 2.5 Patient has no tachycardia, afebrile, respiratory rate within normal limits, known source of infection however does not meet surge criteria therefore despite lactic acid elevation this is not sepsis. We'll plan for discharge as patient home further follow up as an outpatient with his primary care physician and continue scheduled appointment with Dr. Bowden as scheduled for Saturday. Discussed findings with patient and family at bedside Dragon Disclaimer Dragon Disclaimer This electronic medical record was generated, in whole or in part, using a voice recognition dictation system. Departure Departure Impression: Primary Impression: Hypertension Additional Impression: History of arthroplasty of left knee Disposition: 01 HOME, SELF-CARE Condition: IMPROVED Referrals: CHAU MONTGOMERY APRN (PCP) Patient Instructions: Hypertension Additional Instructions: Recommend follow up with PCP 3 - 5 days Return to the ER with worsening symptoms, intractable pain, fever, altered mental status Tylenol/Motrin as needed for pain Take antibiotics as prescribed per ID Keep follow up appointment as scheduled for Saturday Problem Qualifiers Primary Impression: Hypertension Hypertension type: essential hypertension Qualified Codes: I10 - Essential (primary) hypertension EVELYNE HAYNES MD Oct 08, 2019 23:45
[2019-10-08 23:55] LABS: BASO # 0.1 x10^3/uL (0.0-0.2); BASO % 2 % (0-3); EOS # 0.2 x10^3/uL (0.0-0.7); EOS % 5 % (0-3); HEMATOCRIT 30.5 % (39.0-53.0); HEMOGLOBIN 9.7 g/dL (13.0-17.5); LYMPH # 1.7 x10^3/uL (1.0-4.8); LYMPH % 36 % (24-48); MEAN CORPUSCULAR HEMOGLOBIN 24 pg (25-35); MEAN CORPUSCULAR HGB CONC 32 g/dL (31-37); MEAN CORPUSCULAR VOLUME 76 fL (79-100); MONO # 0.4 x10^3/uL (0.0-1.1); MONO % 9 % (0-9); NEUT # 2.3 x10^3/uL (1.8-7.7); NEUT % 48 % (31-73); PLATELET COUNT 297 x10^3/uL (140-400); RED BLOOD COUNT 4.01 x10^6/uL (4.30-5.70); RED CELL DISTRIBUTION WIDTH 20.2 % (11.5-14.5); WHITE BLOOD COUNT 4.8 x10^3/uL (4.0-11.0)
[2019-10-09] MEDS ORDERED: ONDANSETRON PF 4 MG/2 ML VIAL. IV ONE
[2019-10-09] MEDS ORDERED: MORPHINE SULFATE 4 MG/ML VIAL. IV ONE
[2019-10-09 00:04] LABS: CALCIUM 8.8 mg/dL (8.5-10.1); CREATININE 1.1 mg/dL (0.7-1.3); GFR 70.9; POTASSIUM 3.6 mmol/L (3.5-5.1)
[2019-10-09 00:09] LABS: ALBUMIN 2.8 g/dL (3.4-5.0); ALBUMIN/GLOBULIN RATIO 0.7 (1.0-1.7); TOTAL BILIRUBIN 0.3 mg/dL (0.2-1.0); TOTAL PROTEIN 7.1 g/dL (6.4-8.2)
[2019-10-09 00:28] LABS: ANISOCYTOSIS MOD; HYPOCHROMIA SLIGHT; PLT ESTIMATE ADEQUATE (ADEQUATE)
[2019-10-09 01:25] VITALS: BP 175/92
== END 2019-10-09 01:40 | disposition home or self-care (01) ==
LOC: ER 21:52
DX: I10 Essential (primary) hypertension (principal); M25.562 Pain in left knee; R11.2 Nausea with vomiting, unspecified; Z96.652 Presence of left artificial knee joint; E11.9 Type 2 diabetes mellitus without complications; F31.9 Bipolar disorder, unspecified; Z95.9 Presence of cardiac and vascular implant and graft, unspecified; Z91.041 Radiographic dye allergy status
CPT/HCPCS: 36415; 80053; 83605; 85025; 96374; 96375; 99284; J2270; J2405

== ENCOUNTER → 2019-10-12 | Outpatient (CLI) | payer BC, MEDICARE ==
[2019-10-09 01:25] VITALS: BP 175/92
--- NOTE | 2019-10-12 13:54 | PN ---
DATE: 10/12/2019 PROGRESS NOTE FOR PAIN CLINIC DIAGNOSES: Lumbar degenerative disk disease with lumbar spinal stenosis and lumbar spondylosis. SUBJECTIVE: This is a 49-year-old male who returns for followup status post medication management with hydrocodone 7.5 mg, also Zanaflex and Lidoderm patches. The patient reports he is doing very well with these modalities with no side effects. The patient has had increased pain in his left knee as he had a total knee replacement, which became infected and had the hardware removed. Now has a spacer in its place and is on chronic antibiotics, was in increased pain the patient reports even with this day to day, some days he has very minimal pain and some days it is excruciating. The patient reports it is anywhere from 8 to 10 on most days, worst is at 10, average is at 9 and is at 9 today. The patient reports it is sharp, shooting, burning, constant in the knee, but also in the low back itself from previous low back pain. The patient reports no side effects with medications and reports about a 70% to 75% improvement with the medications and again without specific side effects. The patient reports no new motor or sensory deficits, no new changes. PHYSICAL EXAMINATION: VITAL SIGNS: The patient's blood pressure is 165/110, pulse 101, respirations are 18, temperature 97.9 degrees Fahrenheit, height is 5 feet 7 inches and weight is 250 pounds. GENERAL: The patient is awake, alert, oriented, appropriate, very pleasant demeanor. HEENT: Shows normocephalic, atraumatic. Extraocular movements are intact and symmetrical. Oral cavity: Mucous membranes moist and pink. Dentition is intact. NECK: Shows anterior throat supple without palpable lymphadenopathy noted. Swallow reflex symmetrical. CHEST: Shows normal on inspection. Breath sounds are clear to auscultation bilaterally. HEART: Shows S1, S2 clear. No murmurs auscultated. ABDOMEN: Soft, nontender, nondistended. No palpable organomegaly is noted. No rebound or guarding demonstrated. BACK: Shows spine grossly in midline. Slight exaggeration of thoracic kyphosis and minor flattening of lumbar lordotic curvature. Lumbar paraspinous muscle shows symmetrical on inspection, on palpation shows some moderate tenderness diffusely throughout the upper, middle and lower distribution of paraspinous muscles bilaterally. No radiation. No specific trigger points identified. No tenderness over the spinous processes, sacrum or sacroiliac regions. EXTREMITIES: The patient's lower extremities show deep tendon reflexes on the right at 1+ in the patellar and tendo calcaneus tendons. Left side has significant post-surgical findings, some erythematous changes inferior to the surgical scar on the anterior knee, also has some bandages and areas of skin breakdown from previous vacuum pump and significant knee brace in place as well. Motor exam of the ankle is 4/5 in left as well as right. PLAN: Options were discussed with the patient. The patient's old chart was reviewed as his current medication regimen updated. Current review of systems updated today as well. We will refill the patient's hydrocodone as well as Zanaflex and Lidoderm patches for 2-month period. The patient has appropriate K-TRACS reporting as well as appropriate urinalysis to date. We will have urinalysis done today as well for routine screening. The patient will follow up in approximately 2 months or sooner as necessary, was given instructions as well as side effects to be aware of to each of his medications. RADHA AMIN MD DR: RADHA/jacquelyn JOB#: [id number] / [id number]
== END | disposition home or self-care (01) ==
LOC: PNCL 12:53
PROVIDERS: ATTEND Anesthesiology
DX: M51.36 Other intervertebral disc degeneration, lumbar region (principal); M47.816 Spondylosis without myelopathy or radiculopathy, lumbar region; M48.061 Spinal stenosis, lumbar region without neurogenic claudication
CPT/HCPCS: G0463

== ENCOUNTER → 2019-10-13 | Outpatient (CLI) | payer BC, MEDICARE ==
[2019-10-09 01:25] VITALS: BP 175/92
[2019-10-13 10:09] LABS: BASO % 1 % (0-3); EOS # 0.2 x10^3/uL (0.0-0.7); EOS % 5 % (0-3); HEMATOCRIT 30.2 % (39.0-53.0); HEMOGLOBIN 9.5 g/dL (13.0-17.5); LYMPH # 1.6 x10^3/uL (1.0-4.8); LYMPH % 38 % (24-48); MEAN CORPUSCULAR HEMOGLOBIN 25 pg (25-35); MEAN CORPUSCULAR HGB CONC 32 g/dL (31-37); MEAN CORPUSCULAR VOLUME 78 fL (79-100); MONO # 0.4 x10^3/uL (0.0-1.1); MONO % 10 % (0-9); NEUT % 46 % (31-73); PLATELET COUNT 227 x10^3/uL (140-400); RED BLOOD COUNT 3.88 x10^6/uL (4.30-5.70); RED CELL DISTRIBUTION WIDTH 21.2 % (11.5-14.5); WHITE BLOOD COUNT 4.3 x10^3/uL (4.0-11.0)
[2019-10-13 10:49] LABS: BLOOD UREA NITROGEN 8 mg/dL (8-26); CALCIUM 8.7 mg/dL (8.5-10.1); CREATINE KINASE 29 U/L (39-308); GFR 79.1; POTASSIUM 3.1 mmol/L (3.5-5.1); SODIUM 143 mmol/L (136-145)
[2019-10-13 11:55] LABS: ALBUMIN 2.6 g/dL (3.4-5.0); ANION GAP 11 (6-14); CARBON DIOXIDE 27 mmol/L (21-32); CHLORIDE 105 mmol/L (98-107); GLUCOSE 80 mg/dL (70-99); VANC TR 8.9 mcg/mL (10.0-20.0)
== END | disposition home or self-care (01) ==
LOC: SPEC 09:58
PROVIDERS: ATTEND Internal Medicine Nephrology
DX: Z79.2 Long term (current) use of antibiotics (principal)
CPT/HCPCS: 36415; 80069; 80202; 82550; 85025; 85651

== ENCOUNTER → 2019-10-19 | Outpatient (CLI) | payer MEDICARE, BC ==
[2019-10-09 01:25] VITALS: BP 175/92
[2019-10-19 10:44] LABS: BASO # 0.1 x10^3/uL (0.0-0.2); BASO % 1 % (0-3); EOS # 0.2 x10^3/uL (0.0-0.7); EOS % 3 % (0-3); HEMATOCRIT 30.3 % (39.0-53.0); HEMOGLOBIN 9.7 g/dL (13.0-17.5); LYMPH # 1.1 x10^3/uL (1.0-4.8); LYMPH % 20 % (24-48); MEAN CORPUSCULAR HEMOGLOBIN 25 pg (25-35); MEAN CORPUSCULAR HGB CONC 32 g/dL (31-37); MEAN CORPUSCULAR VOLUME 78 fL (79-100); MONO # 0.5 x10^3/uL (0.0-1.1); MONO % 10 % (0-9); NEUT # 3.5 x10^3/uL (1.8-7.7); NEUT % 65 % (31-73); PLATELET COUNT 227 x10^3/uL (140-400); RED BLOOD COUNT 3.91 x10^6/uL (4.30-5.70); RED CELL DISTRIBUTION WIDTH 20.5 % (11.5-14.5); WHITE BLOOD COUNT 5.3 x10^3/uL (4.0-11.0)
[2019-10-19 11:04] LABS: ALBUMIN 2.9 g/dL (3.4-5.0); ALBUMIN/GLOBULIN RATIO 0.8 (1.0-1.7); ALK PHOS 87 U/L (46-116); ALT (SGPT) 8 U/L (16-63); ANION GAP 12 (6-14); AST (SGOT) 10 U/L (15-37); BLOOD UREA NITROGEN 10 mg/dL (8-26); BUN/CREATININE RATIO 10 (6-20); CALCIUM 8.7 mg/dL (8.5-10.1); CARBON DIOXIDE 27 mmol/L (21-32); CHLORIDE 105 mmol/L (98-107); CREATINE KINASE 31 U/L (39-308); GFR 79.1; GLUCOSE 94 mg/dL (70-99); POTASSIUM 3.7 mmol/L (3.5-5.1); SODIUM 144 mmol/L (136-145); TOTAL BILIRUBIN 0.2 mg/dL (0.2-1.0); TOTAL PROTEIN 6.6 g/dL (6.4-8.2); VANC TR 8.6 mcg/mL (10.0-20.0)
[2019-10-19 11:18] LABS: HYPOCHROMIA PRESENT; MICROCYTOSIS PRESENT; PLT ESTIMATE ADEQUATE (ADEQUATE)
== END | disposition home or self-care (01) ==
LOC: SPEC 10:06
PROVIDERS: ATTEND Internal Medicine Infectious Disease
DX: Z51.81 Encounter for therapeutic drug level monitoring (principal); Z79.2 Long term (current) use of antibiotics
CPT/HCPCS: 36415; 80053; 80202; 82550; 85025; 85651

== ENCOUNTER → 2019-10-22 | Outpatient (CLI) | payer MEDICARE, BC ==
[2019-10-09 01:25] VITALS: BP 175/92
[2019-10-22 10:16] LABS: ALBUMIN 2.8 g/dL (3.4-5.0); ANION GAP 12 (6-14); BLOOD UREA NITROGEN 7 mg/dL (8-26); CALCIUM 8.8 mg/dL (8.5-10.1); CARBON DIOXIDE 26 mmol/L (21-32); CHLORIDE 104 mmol/L (98-107); GFR 79.1; GLUCOSE 113 mg/dL (70-99); PHOSPHORUS 3.2 mg/dL (2.6-4.7); POTASSIUM 3.3 mmol/L (3.5-5.1); SODIUM 142 mmol/L (136-145); VANC TR 12.6 mcg/mL (10.0-20.0)
== END | disposition home or self-care (01) ==
LOC: SPEC 09:36
PROVIDERS: ATTEND Internal Medicine Infectious Disease
DX: T84.54XA Infection and inflammatory reaction due to internal left knee prosthesis, initial encounter (principal); Y82.8 Other medical devices associated with adverse incidents; Y92.89 Other specified places as the place of occurrence of the external cause; Z79.2 Long term (current) use of antibiotics
CPT/HCPCS: 36415; 80069; 80202

== ENCOUNTER → 2019-10-26 | Outpatient (CLI) | payer MEDICARE, BC ==
[2019-10-09 01:25] VITALS: BP 175/92
[2019-10-26 10:16] LABS: ANION GAP 9 (6-14); BLOOD UREA NITROGEN 8 mg/dL (8-26); CALCIUM 9.2 mg/dL (8.5-10.1); CARBON DIOXIDE 29 mmol/L (21-32); CHLORIDE 101 mmol/L (98-107); GFR 79.1; GLUCOSE 96 mg/dL (70-99); POTASSIUM 3.7 mmol/L (3.5-5.1); SODIUM 139 mmol/L (136-145)
[2019-10-26 10:22] LABS: PHOSPHORUS 4.2 mg/dL (2.6-4.7); VANC TR 11.5 mcg/mL (10.0-20.0)
== END | disposition home or self-care (01) ==
LOC: SPEC 09:48
PROVIDERS: ATTEND Internal Medicine Infectious Disease
DX: Z51.81 Encounter for therapeutic drug level monitoring (principal); Z79.2 Long term (current) use of antibiotics
CPT/HCPCS: 36415; 80069; 80202